=== PATIENT | male | born 1940 | race Caucasian/White ===

== ENCOUNTER 2016-10-01 08:44 | Emergency (ER) | payer MEDICARE ==
[2016-10-01] MEDS ORDERED: NS 0.9% 1000 ML* 1,000 ML IV ONE (09:35)
[2016-10-01] MEDS ORDERED: Meclizine TAB* 12.5 MG PO ONE (09:35)
[2016-10-01 09:53] LABS: Comments Flag Yes; Hematocrit 42 % (42-52); Hemoglobin 13.9 g/dl (14.0-18.0); Mean Corpuscular HGB Conc 33 g/dl (31-36); Mean Corpuscular Hemoglobin 30 pg (27-31); Mean Corpuscular Volume 89 fL (80-94); Mean Platelet Volume 11 um3 (7.4-10.4); Red Blood Count 4.69 10^6/ul (4.0-5.4); Red Cell Distribution Width 14 % (10.5-15); White Blood Count 7.2 10^3/ul (3.5-10.8)
[2016-10-01 09:54] LABS: Add Diff/Slide Review? Slide Review Added
--- NOTE | 2016-10-01 10:02 | RAD ---
INDICATION: Dizziness COMPARISON: August 29, 2012 TECHNIQUE: An AP portable view obtained at 0943 hours is submitted. FINDINGS: Bones/Soft Tissues: There are no acute bony findings. There is sternotomy Cardiomediastinal: The cardiomediastinal silhouette is normal. Lungs: There are no infiltrates. Pleura: There are no pleural effusions. Other: None IMPRESSION: NO ACTIVE DISEASE.
[2016-10-01 10:12] LABS: Troponin I 0.01 ng/mL (<0.04)
[2016-10-01 10:13] LABS: Calcium 9.5 mg/dL (8.6-10.3); EGFR African American 130.9 (>60); EGFR Non-African American 101.8 (>60); Globulin 2.9 g/dL (2-4); Magnesium 1.8 mg/dL (1.9-2.7); Potassium 3.8 mmol/L (3.5-5.0); Total Bilirubin 0.5 mg/dL (0.2-1.0); Total Protein 6.9 g/dL (6.4-8.9)
[2016-10-01 10:37] LABS: TSH (Thyroid Stimulating Horm) 3.51 mcIU/mL (0.34-5.60)
[2016-10-01] MEDS ORDERED: Magnesium Oxide TAB* 400 MG PO ONE (11:38)
[2016-10-01 12:20] VITALS: BP 154/93
--- NOTE | 2016-10-01 18:14 | ED ---
Estela Giang Rebecca, scribed for Noah Delarosa MD on 10/01/16 at 1005 . Complex/Multi-Sys Presentation - HPI Summary HPI Summary: Pt is a 75 y/o M BIBA who presents to ED with no present complaints. Reports that he "overdid it walking" this morning and that he presents to ED "because the ambulance took me." Reports that he felt mild chest pressure, fatigue and weakness in the bilateral LEs after walking this morning. Reports that he sat underneath a tree and rested which alleviated sx. Sx aggravated by nothing, alleviated by rest. Denies SOB, dizziness, COLLINS, N/V. Reports that all sx have resolved and that he has no present complaints. - History Of Current Complaint Chief Complaint: EDDizziness Time Seen by Provider: 10/01/16 09:35 Hx Obtained From: Patient Onset/Duration: Resolved Severity Currently: None Severity Initially: Mild Location: Pain At: - Chest Character: Pressure Aggravating Factor(s): Nothing Alleviating Factor(s): Rest Associated Signs And Symptoms: Positive: Weakness - Bilateral LE weakness - resolved, Chest Pain - pressure - resolved. Negative: Dizziness - Allergies/Home Medications Allergies/Adverse Reactions: Allergies Allergy/AdvReac Type Severity Reaction Status Date / Time Cyclobenzaprine Allergy Intermediate Hallucinati Verified 08/29/12 10:41 [From Flexeril] ons Metoprolol Allergy Unknown Unknown Verified 08/29/12 10:44 Reaction Details Ramipril Allergy Unknown Unknown Verified 08/29/12 10:41 Reaction Details PMH/Surg Hx/FS Hx/Imm Hx Cardiovascular History: Reports: Hx Coronary Artery Disease, Hx Hypercholesterolemia, Hx Hypertension Neurological History: Reports: Hx Transient Ischemic Attacks (TIA) - Surgical History Surgery Procedure, Year, and Place: CABG x4 Infectious Disease History: No Infectious Disease History: Denies: Traveled Outside the [place] in Last 30 Days - Family History Known Family History: Positive: Cardiac Disease - with [place] - Social History Alcohol Use: None Substance Use Type: Reports: None Smoking Status (MU): Former Smoker Review of Systems Positive: Fatigue - resolved Positive: Chest Pain - mild pressure - resolved Negative: Shortness Of Breath Negative: Vomiting, Nausea Neurological: Other - Denies dizziness Positive: Weakness - Bilateral LE weakness - resolved. Negative: Headache All Other Systems Reviewed And Are Negative: Yes Physical Exam - Summary Physical Exam Summary: VITAL SIGNS: Reviewed. GENERAL: ~Patient is a well-developed and nourished male who is lying comfortable in the stretcher. ~Patient is not in any acute respiratory distress. HEAD AND FACE: No signs of trauma. ~No ecchymosis, hematomas or skull depressions. No sinus tenderness. EYES: PERRLA, EOMI x 2, No injected conjunctiva, no nystagmus. EARS: Hearing grossly intact. Ear canals and tympanic membranes are within normal limits. MOUTH: Oropharynx within normal limits. NECK: Supple, trachea is midline, no adenopathy, no JVD, no carotid bruit, no c- spine tenderness, neck with full ROM. CHEST: Symmetric, no tenderness at palpation LUNGS: Clear to auscultation bilaterally. No wheezing or crackles. CVS: Regular rate and rhythm, S1 and S2 present, no murmurs or gallops appreciated. ABDOMEN: Soft, non-tender. No signs of distention. No rebound no guarding, and no masses palpated. Bowel sounds are normal. EXTREMITIES: FROM in all major joints, no edema, no cyanosis or clubbing. NEURO: Alert and oriented x 3. No acute neurological deficits. Speech is normal and follows commands. SKIN: Dry and warm Triage Information Reviewed: Yes Vital Signs On Initial Exam: Initial Vitals Temp Pulse Resp BP Pulse Ox 98.5 F 85 14 154/83 94 10/01/16 09:01 10/01/16 09:01 10/01/16 09:01 10/01/16 09:01 10/01/16 09:01 Vital Signs Reviewed: Yes - Renetta Coma Scale Coma Scale Total: 15 Diagnostics - Vital Signs Vital Signs Temp Pulse Resp BP Pulse Ox 10/01/16 09:09 98.5 F 85 14 154/83 94 10/01/16 09:01 98.5 F 85 14 154/83 94 - Laboratory Lab Results: Lab Results 10/01/16 10/01/16 10/01/16 Range/Units 09:40 09:40 09:40 WBC 7.2 (3.5-10.8) 10^3/ul RBC 4.69 (4.0-5.4) 10^6/ul Hgb 13.9 L (14.0-18.0) g/dl Hct 42 (42-52) % MCV 89 (80-94) fL MCH 30 (27-31) pg MCHC 33 (31-36) g/dl RDW 14 (10.5-15) % Plt Count 139 L (150-450) 10^3/ul MPV 11 H (7.4-10.4) um3 Neut % (Auto) 58.4 (38-83) % Lymph % (Auto) 29.4 (25-47) % [place] % (Auto) 8.4 (1-9) % Eos % (Auto) 3.0 (0-6) % Baso % (Auto) 0.8 (0-2) % Absolute Neuts (auto) 4.2 (1.5-7.7) 10^3/ul Absolute Lymphs (auto) 2.1 (1.0-4.8) 10^3/ul Absolute Monos (auto) 0.6 (0-0.8) 10^3/ul Absolute Eos (auto) 0.2 (0-0.6) 10^3/ul Absolute Basos (auto) 0.1 (0-0.2) 10^3/ul Absolute Nucleated RBC 0.01 10^3/ul Nucleated RBC % 0.1 Sodium 140 (133-145) mmol/L Potassium 3.8 (3.5-5.0) mmol/L Chloride 107 (101-111) mmol/L Carbon Dioxide 26 (22-32) mmol/L Anion Gap 7 (2-11) mmol/L BUN 15 (6-24) mg/dL Creatinine 0.75 (0.67-1.17) mg/dL Est GFR ( Amer) 130.9 (>60) Est GFR (Non-Af Amer) 101.8 (>60) BUN/Creatinine Ratio 20.0 (8-20) Glucose 242 H (70-100) mg/dL Lactic Acid 1.4 (0.5-2.0) mmol/L Calcium 9.5 (8.6-10.3) mg/dL Magnesium 1.8 L (1.9-2.7) mg/dL Total Bilirubin 0.50 (0.2-1.0) mg/dL AST 27 (13-39) U/L ALT 32 (7-52) U/L Alkaline Phosphatase 59 (34-104) U/L Troponin I 0.01 (<0.04) ng/mL Total Protein 6.9 (6.4-8.9) g/dL Albumin 4.0 (3.2-5.2) g/dL Globulin 2.9 (2-4) g/dL Albumin/Globulin Ratio 1.4 (1-3) TSH 3.51 (0.34-5.60) mcIU/mL Result Diagrams: 10/01/16 09:40 10/01/16 09:40 Lab Statement: Any lab studies that have been ordered have been reviewed, and results considered in the medical decision making process. - Radiology CXR Xray Interpretation: No Acute Changes - NO ACTIVE DISEASE Radiology Interpretation Completed By: Radiologist - EKG 0910 Cardiac Rate: NL - 86 bpm EKG Rhythm: Sinus Rhythm EKG Interpretation: No ST elevations, Q waves in 2, 3 and aVF Re-Evaluation - Re-Evaluation First Eval Re-Evaluation Time: 11:54 Change: Improved Comment: Discussed CXR, EKG and lab results with the pt. Complex Multi-Symp Course/Dx Assessment/Plan: Pt is a 75 y/o M BIBA who presents to ED with no present complaints. Reports that he "overdid it walking" this morning and that he presents to ED "because the ambulance took me." Reports that he felt mild chest pressure, fatigue and weakness in the bilateral LEs after walking this morning. Reports that he sat underneath a tree and rested which alleviated sx. Sx aggravated by nothing, alleviated by rest. Denies SOB, dizziness, COLLINS, N/V. Reports that all sx have resolved and that he has no present complaints. Blood work without any significant abnormality except glucose of 242 and magnesium of 1.8. He was given Antivert and Magnesium oxide PO and 1L fluids IV. CXR shows no acute pathology. In the ER course, the pt continues to be asymptotic and has no complaints. He reports that he just walked too long of a distance and he became tired. He does not have any COLLINS, any UE or LE weakness, CP, SOB. He has no abd pain or palpitations. Seeing as the pt is feeling much better after hydration he will be D/C to home follow up with PCP. He is A&Ox3 and hemodynamically stable. I discussed all the findings and test results with the patient. Patient was instructed to return to the emergency room immediately if any of the symptoms return or worsens. Patient understands and agrees. Plan of care was discussed with the patient and patient understands and agrees with the plan of care. All questions were answered at patient satisfaction. There were no further complaints or concerns. Patient is alert and oriented x 3. Patient vital signs are stable. Patient is to follow up with primary care physician in the next 2 to 3 days. Patient understands and agrees. - Diagnoses Differential Diagnoses/HQI/PQRI: Cardiac Ischemia, Urinary Tract Infection, Other - Weakness, heat stroke Provider Diagnoses: Weakness Discharge - Discharge Plan Condition: Stable Disposition: HOME Patient Education Materials: Weakness (ED) Referrals: Niall Rangel MD [Primary Care Provider] - 3 Days The documentation as recorded by the Estela carvajal Rebecca accurately reflects the service I personally performed and the decisions made by , Noah Delarosa MD.
== END 2016-10-01 12:20 | disposition home or self-care (01) ==
LOC: ED 08:44
DX: R53.1 Weakness (principal); R53.83 Other fatigue; R07.9 Chest pain, unspecified; Z87.891 Personal history of nicotine dependence
CPT/HCPCS: 36415; 71010; 80053; 83605; 83735; 84443; 84484; 85025; 93005; 99284; A9270-GY

== ENCOUNTER 2017-06-18 00:05 | Emergency (ER) | payer MEDICARE ==
[2017-06-18] MEDS ORDERED: NS 0.9% 1000 ML* 1,000 ML IV ONE (00:21)
[2017-06-18 01:18] LABS: ABS Basophils 0.1 10^3/ul (0-0.2); ABS Eosinophils 0.1 10^3/ul (0-0.6); ABS Lymphocytes 1.2 10^3/ul (1.0-4.8); ABS Monocytes 0.7 10^3/ul (0-0.8); ABS Neutrophils 7.5 10^3/ul (1.5-7.7); ABS Nucleated RBC 0 10^3/ul; Eosinophil % 0.8 % (0-6); Hematocrit 42 % (42-52); Hemoglobin 14.2 g/dl (14.0-18.0); Lymphocyte % 12.8 % (25-47); Mean Corpuscular HGB Conc 34 g/dl (31-36); Mean Corpuscular Hemoglobin 29 pg (27-31); Mean Corpuscular Volume 87 fL (80-94); Mean Platelet Volume 10.9 um3 (7.4-10.4); Nucleated Red Blood Cells % 0.1; Platelet Count 143 10^3/ul (150-450); Red Blood Count 4.84 10^6/ul (4.0-5.4); Red Cell Distribution Width 14 % (10.5-15); White Blood Count 9.6 10^3/ul (3.5-10.8)
[2017-06-18 01:30] LABS: EGFR Non-African American 90.3 (>60)
[2017-06-18 03:42] LABS: Urine Appearance Clear; Urine Blood Negative (Negative); Urine Color Yellow; Urine Ketones 1+ (Negative); Urine Protein Negative (Negative); Urine Specific Gravity 1.031 (1.010-1.030); Urine Urobilinogen Negative (Negative)
--- NOTE | 2017-06-18 04:40 | ED ---
Estela Giang Rebecca, scribed for Don Salgado MD on 06/18/17 at 0038 . Complex/Multi-Sys Presentation - HPI Summary HPI Summary: Pt is a 76 y/o M BIBA who presents to ED s/p fall. Pt reports he fell at home and was unable to get himself up, on the floor for about 4 hours. His was asleep and unable to help him up. Confirms he is not falling often and has not walked since the incident. Denies dizziness, lightheadedness, weakness, CP and knee pain. EMS report he is not compliant with medications and has an elevated BG (379 en route) was unable to stand up. Lives at home with his . - History Of Current Complaint Chief Complaint: EDGeneral Time Seen by Provider: 06/18/17 00:11 Hx Obtained From: Patient Onset/Duration: Resolved - 1 fall [employer]LOOR [employer] Severity Currently: None Location: Negative Aggravating Factor(s): Nothing Alleviating Factor(s): Nothing Associated Signs And Symptoms: Positive: Other - s/p fall. Negative: Dizziness , Weakness - Allergies/Home Medications Allergies/Adverse Reactions: Allergies Allergy/AdvReac Type Severity Reaction Status Date / Time cyclobenzaprine Allergy Hallucinati Verified 06/18/17 01:09 [From Flexeril] ons metoprolol Allergy Unknown Verified 06/18/17 01:09 Reaction Details ramipril Allergy Unknown Verified 06/18/17 01:10 Reaction Details PMH/Surg Hx/FS Hx/Imm Hx Cardiovascular History: Reports: Hx Coronary Artery Disease, Hx Hypercholesterolemia, Hx Hypertension Comment Only: Hx Pacemaker/ICD - IMPLANTED MONITOR Neurological History: Reports: Hx Transient Ischemic Attacks (TIA) - Surgical History Surgery Procedure, Year, and Place: CABG x4 Infectious Disease History: No Infectious Disease History: Denies: Traveled Outside the [place] in Last 30 Days - Family History Known Family History: Positive: Cardiac Disease - with [place] - Social History Alcohol Use: None Substance Use Type: Reports: None Smoking Status (MU): Former Smoker Review of Systems Positive: Other - S/p fall Negative: Chest Pain Positive: Other - NEGATIVE: Knee pain Neurological: Other - NEGATIVE: lightheadedness, dizziness Negative: Weakness All Other Systems Reviewed And Are Negative: Yes Physical Exam - Summary Physical Exam Summary: Appearance: Well appearing, no pain distress Skin: warm, dry, reflects adequate perfusion, sternotomy scar, no abrasions on knees Head/face: linear abrasion on the nose Eyes: EOMI, RUBI ENT: normal Neck: supple, non-tender Respiratory: CTA, breath sounds present Cardiovascular: RRR, pulses symmetrical Abdomen: non-tender, soft Bowel Sounds: present Musculoskeletal: normal, strength/ROM intact Neuro: normal, sensory motor intact, A&Ox3 Triage Information Reviewed: Yes Vital Signs On Initial Exam: Initial Vitals Temp Pulse Resp BP Pulse Ox 99.0 F 88 16 156/80 95 06/18/17 00:20 06/18/17 00:20 06/18/17 00:20 06/18/17 00:20 06/18/17 00:20 Vital Signs Reviewed: Yes Diagnostics - Vital Signs Vital Signs Temp Pulse Resp BP Pulse Ox 06/18/17 00:30 92 94 06/18/17 00:20 99.0 F 88 16 156/80 95 - Laboratory Lab Results: Lab Results 06/18/17 06/18/17 06/18/17 Range/Units 00:50 00:50 00:50 WBC 9.6 (3.5-10.8) 10^3/ul RBC 4.84 (4.0-5.4) 10^6/ul Hgb 14.2 (14.0-18.0) g/dl Hct 42 (42-52) % MCV 87 (80-94) fL MCH 29 (27-31) pg MCHC 34 (31-36) g/dl RDW 14 (10.5-15) % Plt Count 143 L (150-450) 10^3/ul MPV 10.9 H (7.4-10.4) um3 Neut % (Auto) 78.6 (38-83) % Lymph % (Auto) 12.8 L (25-47) % [place] % (Auto) 7.3 H (0-7) % Eos % (Auto) 0.8 (0-6) % Baso % (Auto) 0.5 (0-2) % Absolute Neuts (auto) 7.5 (1.5-7.7) 10^3/ul Absolute Lymphs (auto) 1.2 (1.0-4.8) 10^3/ul Absolute Monos (auto) 0.7 (0-0.8) 10^3/ul Absolute Eos (auto) 0.1 (0-0.6) 10^3/ul Absolute Basos (auto) 0.1 (0-0.2) 10^3/ul Absolute Nucleated RBC 0 10^3/ul Nucleated RBC % 0.1 Sodium 137 L (139-145) mmol/L Potassium 3.7 (3.5-5.0) mmol/L Chloride 103 (101-111) mmol/L Carbon Dioxide 25 (22-32) mmol/L Anion Gap 9 (2-11) mmol/L BUN 11 (6-24) mg/dL Creatinine 0.83 (0.67-1.17) mg/dL Est GFR ( Amer) 116.2 (>60) Est GFR (Non-Af Amer) 90.3 (>60) BUN/Creatinine Ratio 13.3 (8-20) Glucose 313 H (70-100) mg/dL Lactic Acid 1.5 (0.5-2.0) mmol/L Calcium 9.4 (8.6-10.3) mg/dL Total Bilirubin 0.80 (0.2-1.0) mg/dL AST 21 (13-39) U/L ALT 28 (7-52) U/L Alkaline Phosphatase 65 (34-104) U/L Total Creatine Kinase 142 (10-223) U/L Troponin I 0.00 (<0.04) ng/mL Total Protein 7.3 (6.4-8.9) g/dL Albumin 4.3 (3.2-5.2) g/dL Globulin 3.0 (2-4) g/dL Albumin/Globulin Ratio 1.4 (1-3) TSH 2.29 (0.34-5.60) mcIU/mL Urine Color Urine Appearance Urine pH (5-9) Ur Specific [place] (1.010-1.030) Urine Protein (Negative) Urine Ketones (Negative) Urine Blood (Negative) Urine Nitrate (Negative) Urine Bilirubin (Negative) Urine Urobilinogen (Negative) Ur Leukocyte Esterase (Negative) Urine Glucose (Negative) 06/18/17 Range/Units 03:20 WBC (3.5-10.8) 10^3/ul RBC (4.0-5.4) 10^6/ul Hgb (14.0-18.0) g/dl Hct (42-52) % MCV (80-94) fL MCH (27-31) pg MCHC (31-36) g/dl RDW (10.5-15) % Plt Count (150-450) 10^3/ul MPV (7.4-10.4) um3 Neut % (Auto) (38-83) % Lymph % (Auto) (25-47) % [place] % (Auto) (0-7) % Eos % (Auto) (0-6) % Baso % (Auto) (0-2) % Absolute Neuts (auto) (1.5-7.7) 10^3/ul Absolute Lymphs (auto) (1.0-4.8) 10^3/ul Absolute Monos (auto) (0-0.8) 10^3/ul Absolute Eos (auto) (0-0.6) 10^3/ul Absolute Basos (auto) (0-0.2) 10^3/ul Absolute Nucleated RBC 10^3/ul Nucleated RBC % Sodium (139-145) mmol/L Potassium (3.5-5.0) mmol/L Chloride (101-111) mmol/L Carbon Dioxide (22-32) mmol/L Anion Gap (2-11) mmol/L BUN (6-24) mg/dL Creatinine (0.67-1.17) mg/dL Est GFR ( Amer) (>60) Est GFR (Non-Af Amer) (>60) BUN/Creatinine Ratio (8-20) Glucose (70-100) mg/dL Lactic Acid (0.5-2.0) mmol/L Calcium (8.6-10.3) mg/dL Total Bilirubin (0.2-1.0) mg/dL AST (13-39) U/L ALT (7-52) U/L Alkaline Phosphatase (34-104) U/L Total Creatine Kinase (10-223) U/L Troponin I (<0.04) ng/mL Total Protein (6.4-8.9) g/dL Albumin (3.2-5.2) g/dL Globulin (2-4) g/dL Albumin/Globulin Ratio (1-3) TSH (0.34-5.60) mcIU/mL Urine Color Yellow Urine Appearance Clear Urine pH 5.0 (5-9) Ur Specific [place] 1.031 H (1.010-1.030) Urine Protein Negative (Negative) Urine Ketones 1+ A (Negative) Urine Blood Negative (Negative) Urine Nitrate Negative (Negative) Urine Bilirubin Negative (Negative) Urine Urobilinogen Negative (Negative) Ur Leukocyte Esterase Negative (Negative) Urine Glucose 3+(>=500 mg/dl) A (Negative) Result Diagrams: 06/18/17 00:50 06/18/17 00:50 Lab Statement: Any lab studies that have been ordered have been reviewed, and results considered in the medical decision making process. - Radiology CXR Radiology Interpretation Completed By: ED Physician - Prominent vasculature in the right base, more prominent than previous Knee XR Xray Interpretation: No Acute Changes - Mild degenerative change. Radiology Interpretation Completed By: ED Physician - EKG 0044 Cardiac Rate: NL - 86 bpm EKG Rhythm: Sinus Rhythm ST Segment: Normal EKG Interpretation: LAD, Q waves inferior Re-Evaluation - Re-Evaluation First Eval Re-Evaluation Time: 03:27 Change: Improved Complex Multi-Symp Course/Dx Course Of Treatment: pt had fall and was unable to get up. Chronically non- compliant with his diabetic regimen. Glu in urine etc and sugar in 300s. IV fluids here. Knee xray neg. JAMES wrapped. Up and walking. d/c with f/u PMD. - Diagnoses Differential Diagnoses/HQI/PQRI: Metabolic Abnormality, Urinary Tract Infection , Other - DKA/HHS Provider Diagnoses: Noncompliance with medication regimen, Contusion of right knee, Fall, Generalized weakness Discharge - Sign-Out/Discharge Documenting (check all that apply): Discharge/Admit/Transfer - Discharge - Discharge Plan Condition: Stable Disposition: HOME Patient Education Materials: Fall Prevention (ED) Referrals: Niall Rangel MD [Primary Care Provider] - Additional Instructions: Call today to see your doctor. Take all medications as prescribed. If you are not happy with your medications, talk to your doctor about other options. Return if worse, new symptoms or other concerns as discussed. - Billing Disposition and Condition Condition: STABLE Disposition: HOME The documentation as recorded by the Estela carvajal Rebecca accurately reflects the service I personally performed and the decisions made by , Don Salgado MD.
[2017-06-18 04:55] VITALS: BP 150/84
--- NOTE | 2017-06-18 08:05 | RAD ---
Indication: Generalized weakness. Diarrhea for months. Diabetic. Cardiac disease. 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 Negative for cardiomegaly. Unremarkable central pulmonary vasculature. Both diffuse mild prominence of the interstitial markings and patchy rarefaction of the mid to upper lung zone interstitial markings. No focal pulmonary lesion, compelling alveolar consolidation, pleural effusion, pneumothorax. IMPRESSION: 1. Stigmata of probable chronic obstructive pulmonary disease. No acute pulmonary process evident. 2. No compelling evidence for pulmonary edema.
--- NOTE | 2017-06-18 08:09 | RAD ---
HISTORY: Right knee pain COMPARISONS: None VIEWS: 2, Frontal and lateral views of the right knee FINDINGS: BONE DENSITY: Normal. BONES: There is no displaced fracture. JOINTS: There is mild tricompartmental osteoarthritis. There is no suprapatellar joint effusion or lipohemarthrosis. ALIGNMENT: There is no dislocation. SOFT TISSUES: There is peripheral arterial calcification. OTHER FINDINGS: None. IMPRESSION: 1. MILD OSTEOARTHRITIS. 2. PERIPHERAL ARTERIAL DISEASE. 3. NO ACUTE OSSEOUS INJURY. IF SYMPTOMS PERSIST, RECOMMEND REPEAT IMAGING.
== END 2017-06-18 05:20 | disposition home or self-care (01) ==
LOC: ED 00:05
DX: S80.01XA Contusion of right knee, initial encounter (principal); W19.XXXA Unspecified fall, initial encounter; Y92.9 Unspecified place or not applicable; R53.1 Weakness; Z91.81 History of falling; Z91.14 Patient's other noncompliance with medication regimen
CPT/HCPCS: 36415; 71045; 80053; 81003; 82550; 83605; 84443; 84484; 85025; 93005; 99284

== ENCOUNTER 2018-04-15 13:32 | Observation (INO) | payer MEDICARE ==
[2018-04-15] MEDS ORDERED: NS 0.9% 1000 ML** 1,000 ML IV ONE (14:05)
--- NOTE | 2018-04-15 14:09 | ED ---
HPI Diabetic - HPI Summary HPI Summary: Pt is a 77 y/o male who presents to the ED c/o high blood glucose. He was brought to his PCP out of concern from his daughter. Pts BG was around 300 and he has ketones in his urine. As per past medical records pts BG is usually around 300. As per daughter, pt seems dehydrated, confused, and off-balance. Yesterday he fell and was found naked and covered in feces. Daughter also states he is having difficulty walking on his own, and has both urinary and occasional bowel incontinence. Pt normally wears a Depends. He denies any CP or SOB. Pt is prescribed medications for his diagnoses, including Eloquis and Metformin, however he is not compliant. He currently lives alone since his recently and daughter feels he is not fit to live alone due to his poor memory of difficulty walking. PMHx AFib, DM, HLD, HTN, GERD. - History Of Current Complaint Chief Complaint: EDDiabeticProb Time Seen by Provider: 04/15/18 13:51 Hx Obtained From: Patient Onset/Duration: Gradual Onset, Still Present Timing: Constant Character: Confused Aggravating: Non-compliant Alleviating: Nothing Associated Signs & Symptoms: Negative Related History: DM II - Allergies/Home Medications Allergies/Adverse Reactions: Allergies Allergy/AdvReac Type Severity Reaction Status Date / Time cyclobenzaprine Allergy Hallucinati Verified 04/15/18 13:43 [From Flexeril] ons metoprolol Allergy Unknown Verified 04/15/18 13:43 Reaction Details ramipril Allergy Unknown Verified 04/15/18 13:43 Reaction Details Home Medications: Home Medications Apixaban* [Eliquis*] 5 mg PO BID 04/15/18 [History Confirmed 04/15/18] Diltiazem CD CAP* [Cardizem CD CAP*] 120 mg PO DAILY 04/15/18 [History Confirmed 04/15/18] Losartan TAB* [Cozaar TAB*] 50 mg PO DAILY 04/15/18 [History Confirmed 04/15/18] Pantoprazole TAB * [Protonix TAB*] 40 mg PO DAILY 04/15/18 [History Confirmed ] Rosuvastatin (NF) [Crestor] 40 mg PO DAILY 04/15/18 [History Confirmed 04/15/18] glipiZIDE TAB.XL* [Glucotrol XL*] 10 mg PO BID 04/15/18 [History Confirmed 04/15] metFORMIN* [Glucophage 1000 MG TAB *] 1,000 mg PO BID 04/15/18 [History Confirmed 04/15/18] PMH/Surg Hx/FS Hx/Imm Hx Endocrine/Hematology History: Reports: Hx Diabetes Cardiovascular History: Reports: Hx Atrial Fibrillation, Hx Coronary Artery Disease, Hx Hypercholesterolemia, Hx Hypertension Comment Only: Hx Pacemaker/ICD - IMPLANTED MONITOR GI History: Reports: Hx Gastroesophageal Reflux Disease Neurological History: Reports: Hx Transient Ischemic Attacks (TIA) - Surgical History Surgery Procedure, Year, and Place: CABG x4 Infectious Disease History: No Infectious Disease History: Denies: Traveled Outside the [place] in Last 30 Days - Family History Known Family History: Positive: Cardiac Disease - with MT - Social History Alcohol Use: None Hx Substance Use: No Substance Use Type: Reports: None Hx Tobacco Use: Yes Smoking Status (MU): Former Smoker Review of Systems Positive: Other - dehydrated Negative: Chest Pain Negative: Shortness Of Breath Positive: Other - bowel incontinence Positive: incontinence Neurological: Other - confusion, off-balance All Other Systems Reviewed And Are Negative: Yes Physical Exam - Summary Physical Exam Summary: Appearance: Well appearing, no pain distress Skin: warm, dry, reflects adequate perfusion Head/face: normal Eyes: EOMI, RUBI ENT: mucous membranes moist Neck: supple, non-tender Respiratory: CTA, breath sounds present Cardiovascular: RRR, pulses symmetrical Abdomen: non-tender, soft, incontinence of urine Bowel Sounds: present Musculoskeletal: normal, strength/ROM intact Neuro: sensory motor intact, alert and oriented to person and place, mild confusion, shuffling gait GCS: 14 Triage Information Reviewed: Yes Vital Signs On Initial Exam: Initial Vitals Temp Pulse Resp BP Pulse Ox 98.1 F 79 16 134/81 98 04/15/18 13:38 04/15/18 13:38 04/15/18 13:38 04/15/18 13:38 04/15/18 13:38 Vital Signs Reviewed: Yes Diagnostics - Vital Signs Vital Signs Temp Pulse Resp BP Pulse Ox 04/15/18 13:38 98.1 F 79 16 134/81 98 - Laboratory Result Diagrams: 04/15/18 14:12 04/15/18 14:12 Lab Statement: Any lab studies that have been ordered have been reviewed, and results considered in the medical decision making process. - CT Brain CT CT Interpretation Completed By: Radiologist Summary of CT Findings: No CT evidence for presence of an acute abnormality of the brain. 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 Mucosal thickening at the paranasal sinuses and potential fluid levels at the maxillary sinuses with incomplete inclusion of the maxillary sinuses in the [id number] limiting assessment. ED physician reviewed radiology report. - EKG 14:13 Cardiac Rate: NL - 74 bpm EKG Rhythm: Sinus Rhythm ST Segment: Normal Summary of EKG Findings: LAD, inferior Q waves Diabetic Course/Dx - Course Course Of Treatment: Nurse's notes reviewed. Patient with chronically uncontrolled hyperglycemia known to be poorly compliant with his medications due to dementia. Patient has recently lost his who is in charge of these things. Daughter is due to go back to [place] on leaving the patient by himself and unable to fully care from self. He is incontinent, a fall risk and unable to self administer medications. He has Meals on Wheels set up but that is the only social support existing so far. He does have a shuffling gait, mild hyperglycemia and is incontinent in the ER. He shows large ventricles on the CT scan which along with the dementia may be from a normal pressure hydrocephalus. He will be admitted for further evaluation and treatment. Social work has been involved in the case. They're concerned that he may not meet admission criteria however there is no other option for the family who would like him admitted. - Diagnoses Differential Dx: Other - Normal pressure hydrocephalus, UTI, DKA, hyperosmolar state Provider Diagnoses: Hyperglycemia due to type 2 diabetes mellitus, Ataxia, Acute sinusitis - Physician Notifications Discussed Care Of Patient With: Doug Lawson Time Discussed With Above Provider: 14:45 Instructed by Provider To: Admit As Inpatient Discharge - Sign-Out/Discharge Documenting (check all that apply): Patient Departure - Admit Patient Received Moderate/Deep Sedation with Procedure: No - Discharge Plan Condition: Fair Disposition: ADMITTED TO [facility] Referrals: Niall Rangel MD [Medical Doctor] - - Billing Disposition and Condition Condition: FAIR Disposition: Admitted to [facility] - Attestation Statements Document Initiated by Scribe: Yes Documenting Scribe: Emily Plata Provider For Whom Scribe is Documenting (Include Credential): Don Salgado MD Scribe Attestation: IEmily, scribed for Don Salgado MD on 04/15/18 at 1731. Scribe Documentation Reviewed: Yes Provider Attestation: The documentation as recorded by the scribeEmily accurately reflects the service I personally performed and the decisions made by me, Don Salgado MD Status of Scribe Document: Viewed
[2018-04-15 14:19] LABS: Hematocrit 42 % (42-52); Hemoglobin 14.4 g/dl (14.0-18.0); Mean Corpuscular HGB Conc 34 g/dl (31-36); Mean Corpuscular Hemoglobin 30 pg (27-31); Mean Corpuscular Volume 88 fL (80-94); Mean Platelet Volume 10.6 fL (7.4-10.4); Platelet Count 175 10^3/ul (150-450); Red Blood Count 4.79 10^6/ul (4.00-5.40); Red Cell Distribution Width 14 % (10.5-15); White Blood Count 7.1 10^3/ul (3.5-10.8)
[2018-04-15 14:41] LABS: Albumin 4.4 g/dL (3.2-5.2); Albumin/Globulin Ratio 1.4 (1-3); Calcium 9.5 mg/dL (8.6-10.3); EGFR African American 122.5 (>60); EGFR Non-African American 101.3 (>60); Globulin 3.1 g/dL (2-4); Potassium 3.9 mmol/L (3.5-5.0); Total Bilirubin 0.7 mg/dL (0.2-1.0); Total Protein 7.5 g/dL (6.4-8.9)
[2018-04-15 14:48] LABS: ABS Basophils 0.1 10^3/ul (0-0.2); ABS Eosinophils 0.2 10^3/ul (0-0.6); ABS Lymphocytes 2.1 10^3/ul (1.0-4.8); ABS Monocytes 0.7 10^3/ul (0-0.8); ABS Neutrophils 4.1 10^3/ul (1.5-7.7); ABS Nucleated RBC 0 10^3/ul; Eosinophil % 2.6 %; Lymphocyte % 29.7 %; Nucleated Red Blood Cells % 0.1
[2018-04-15] MEDS ORDERED: Amoxicillin/Clavulanate TAB* 875 MG PO ONE (15:12)
[2018-04-15 15:16] LABS: TSH (Thyroid Stimulating Horm) 2.68 mcIU/mL (0.34-5.60)
[2018-04-15] MEDS ORDERED: Acetaminophen TAB* 325 MG PO PRN (17:53)
[2018-04-15] MEDS ORDERED: Dextrose 50% Syringe 50 ML* 25 GM/50 ML SYRINGE IV PUSH PRN (17:53)
[2018-04-15] MEDS ORDERED: NS 0.9% 1000 ML** 1,000 ML IV SCH (18:15)
--- NOTE | 2018-04-15 20:51 | HP ---
ADMISSION HISTORY AND PHYSICAL: DATE OF ADMISSION: 04/15/18 PRIMARY CARE PROVIDER: Taina Hightower MD HEALTHCARE PROXY: Daughter. CODE STATUS: Full. SOURCE OF INFORMATION: History obtained from interview with the patient and his daughter, and review of past medical records. RELIABILITY: [id number]. CHIEF COMPLAINT: Inability to care for herself at home and hyperglycemia. HISTORY OF PRESENT ILLNESS: This is a 77-year-old man with a past medical history of dementia as well as type 2 diabetes, CAD, status post CABG in 2008, atrial fibrillation, whose recently 1 week prior while at [facility] His daughter has been visiting from [place] and been caring for him in the home. Today, they presented to Dr. Hightower's office for routine checkup or as blood sugar was found to be elevated. They were ketones in his urine for which he was directed to [facility] [place] further evaluation. In [facility], his presenting glucose was 275, hemoglobin A1c of 11.5, with normal vitals as described further below. However, as described below, no evidence of DKA or HHS. However, the daughter notes that she has been unable to care for the patient at home. He is frequently rationale, was previously combative with his , has been found outside prior to arrival, falls at home, has had incontinence, and also falls in his feces. He notes cough and denies urinary symptoms including urgency or frequency, although daughter notes that he urinates quite frequently. She notes that he ambulates with a shuffling gait contributing to his disequilibrium and falls. She notes that he forgets his medications frequently and does not take them. The patient's daughter is only here until for 2 more days and she is concerned with returning home with him in this state. She notes that his diagnosis of dementia was approximately 1 year prior and has been progressive since that time. She has not necessarily noticed any acute alteration of mental status today. PAST MEDICAL HISTORY: Type 2 diabetes, CAD, status post CABG in 2008, hyperlipidemia, hypertension, GERD, atrial fibrillation, on Eliquis, dementia, cataract removal bilaterally. MEDICATIONS: Home medications include: 1. Eliquis 5 mg twice daily. 2. Crestor 40 mg daily. 3. Pantoprazole 40 mg daily. 4. Metformin 1000 mg twice daily. 5. Losartan 50 mg daily. 6. Glipizide XL 10 mg twice daily. 7. Diltiazem CD 120 mg daily. ALLERGIES: To CYCLOBENZAPRINE, METOPROLOL, and RAMIPRIL. FAMILY HISTORY: CAD as well as colon and gallbladder cancer in his family. SOCIAL HISTORY: Quit tobacco in 1988. 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 REVIEW OF SYSTEMS: As per HPI, otherwise all other systems are negative. PHYSICAL EXAMINATION GENERAL: A 77-year-old man, sitting up in bed, interactive, jovial, in no apparent distress. VITAL SIGNS: In the emergency room, 136/70, heart rate 82, he is 95% on room air, T-max 98.1. HEENT: Oropharynx is clear. He has dry mucous membranes. Sclerae are anicteric. LUNGS: Clear to auscultation. HEART: He has regular rate and rhythm. ABDOMEN: Soft, nontender, nondistended. EXTREMITIES: Warm and well-perfused. He has trace to 1+ bilateral pitting edema. NEUROLOGIC: He is alert and oriented x2 to self and place, but not year. He is frequently disoriented, cannot forgot who last week. At times, calls his daughter or his sister his . He is combative with his daughter when relaying information about his health history, but not aggressive. 5/5 strength throughout. DIAGNOSTIC STUDIES/LAB DATA: Labs reviewed notable for presenting glucose 275 , hemoglobin A1c of 11.5, troponin I 0.00, TSH 7.6, hemoglobin 14.4, platelets 175. White blood cell count of 7.1. Urinalysis is pending. Data reviewed: Brain CT. No CT evidence for presence of acute abnormality. Old infarct of the left occipital lobe, involutional changes and stigmata of chronic small vessel ischemic changes. Mucosal thickening of the paranasal sinuses and potentially a fluid level at the maxillary sinus with incomplete occlusion of the maxillary sinuses. EKG, impression: Left axis, normal sinus rhythm, normal R wave progression, no ST or T wave changes. Qs and II, aVF, not new since 2007. ASSESSMENT AND PLAN: This is a 77-year-old man, recently lost his 1 week prior, who was his primary rug cleaning supervisor at home, now presenting with hyperglycemia from his primary care provider's office, found with inadequate social support at home upon his daughter's plan to departure on , 2 days from today. Inadequate social support, primary reason for hospitalization. He was seen in conjunction with our care managers and his daughter issued a preadmission denial of coverage. The patient primarily needs detention for long-term care at this period. It sounds that his dementia is worsening, frequently wanders, found outside, unable to toilet himself, inadequate ability to take his own medications hyperglycemia and uncontrolled diabetes. Multiple benefits from skilled long-term care. It is unclear whether he would accept this, his daughter believes he would not. I doubt he would have capacity to refuse placement at this time based on my interview with the patient. Hyperglycemia. No evidence of DKA or hyperosmolar crisis. Restart home glipizide as well as metformin. Holding on insulin sliding scale at this point. Check fingersticks to better titrate medications. Hypertension. Continue diltiazem. Atrial fibrillation. Continue Eliquis as well as diltiazem. If returns home, we would recommend discontinuing Eliquis in the setting of frequent falls. DVT prophylaxis, on Eliquis. [id number]/[facility] #: [id number] CHRISSY
[2018-04-15] MEDS ORDERED: Insulin LISPRO* 1 UNITS UNIT SUBCUT SCH (21:00)
[2018-04-15] MEDS: metFORMIN* 1,000 MG TAB PO SCH (21:10)
[2018-04-15] MEDS: Apixaban* 5 MG TAB PO SCH (21:10)
[2018-04-15] MEDS: glipiZIDE TAB.XL* 5 MG PO SCH (21:10)
[2018-04-15] MEDS: Docusate CAP* 100 MG PO SCH (21:11)
[2018-04-15] MEDS: Senna TAB PO SCH (21:11)
[2018-04-15] MEDS: Insulin LISPRO* 1 UNITS UNIT SUBCUT SCH (22:13)
[2018-04-16] MEDS: Senna TAB PO SCH ×2 (09:34→20:18)
[2018-04-16] MEDS: Losartan TAB* 25 MG PO SCH (09:34)
[2018-04-16] MEDS: Insulin LISPRO* 1 UNITS UNIT SUBCUT SCH ×4 (09:34→20:21)
[2018-04-16] MEDS: Apixaban* 5 MG TAB PO SCH ×2 (09:34→20:18)
[2018-04-16] MEDS: Pantoprazole TAB * 40 MG TAB PO SCH (09:34)
[2018-04-16] MEDS: Atorvastatin* 80 MG TAB PO SCH (09:34)
[2018-04-16] MEDS: Diltiazem CD CAP* 120 MG PO SCH (09:34)
[2018-04-16] MEDS: Docusate CAP* 100 MG PO SCH ×2 (09:34→20:18)
[2018-04-16] MEDS: metFORMIN* 1,000 MG TAB PO SCH ×2 (09:34→20:19)
[2018-04-16] MEDS: glipiZIDE TAB.XL* 5 MG PO SCH ×2 (09:34→20:18)
--- NOTE | 2018-04-16 14:49 | PN ---
Subjective Date of Service: 04/16/18 Interval History: Seen this AM No complaints Waiting for breakfast Objective Active Medications: Acetaminophen (Tylenol Tab*) 650 mg PO Q4H PRN PRN Reason: FEVER/PAIN Apixaban (Eliquis*) 5 mg PO BID [facility] Last Admin: 04/16/18 09:34 Dose: 5 mg Atorvastatin Calcium (Lipitor*) 80 mg PO DAILY [facility] Last Admin: 04/16/18 09:34 Dose: 80 mg Dextrose (D50w Syringe 50 Ml*) 12.5 gm IV PUSH .FOR FS < 60 - SS PRN PRN Reason: FS < 60 Diltiazem HCl (Cardizem Cd Cap*) 120 mg PO DAILY [facility] Last Admin: 04/16/18 09:34 Dose: 120 mg Docusate Sodium (Colace Cap*) 100 mg PO BID [facility] Last Admin: 04/16/18 09:34 Dose: 100 mg Glipizide (Glucotrol Xl*) 10 mg PO BID [facility] Last Admin: 04/16/18 09:34 Dose: 10 mg Insulin Human Lispro (Humalog*) 0 units SUBCUT ACHS [facility]; Protocol Last Admin: 04/16/18 12:31 Dose: 6 unit Losartan Potassium (Cozaar Tab*) 50 mg PO DAILY [facility] Last Admin: 04/16/18 09:34 Dose: 50 mg Metformin HCl (Glucophage*) 1,000 mg PO BID [facility] Last Admin: 04/16/18 09:34 Dose: 1,000 mg Pantoprazole Sodium (Protonix Tab*) 40 mg PO DAILY [facility] Last Admin: 04/16/18 09:34 Dose: 40 mg Senna (Senokot Tab*) 1 tab PO BID [facility] Last Admin: 04/16/18 09:34 Dose: 1 tab Vital Signs - 8 hr 04/16/18 04/16/18 04/16/18 08:00 08:12 14:05 Temperature 97.5 F 97.5 F Pulse Rate 73 85 Respiratory 16 16 20 Rate Blood Pressure 135/55 130/72 (mmHg) O2 Sat by Pulse 97 100 Oximetry Oxygen Devices in Use Now: None Appearance: NAD Eyes: No Scleral Icterus, PERRLA Ears/Nose/Mouth/Throat: NL Teeth, Lips, Gums, Clear Oropharnyx Neck: NL Appearance and Movements; NL JVP, Trachea Midline Respiratory: Symmetrical Chest Expansion and Respiratory Effort, Clear to Auscultation Cardiovascular: RRR, - - early 2/6 ROBSON Abdominal: NL Sounds; No Tenderness; No Distention, No Hepatosplenomegaly Lymphatic: No Cervical Adenopathy Extremities: No Edema Neurological: - - AOx2 but not to year Result Diagrams: 04/15/18 14:12 04/15/18 14:12 Assess/Plan/Problems-Billing Assessment: 77 yo M h/o dementia, DM2, CAD, afib, HTN presented [place] [facility] [place]cemia from PCP office admitted half-way after family felt home was unsafe and could not provide assistance - Patient Problems (1) Impaired home maintenance management Comment: secondary to dementia and recent loss of (last week) daughter reports pt has been found outside, has increasing falls and occasionally soils clothes Pt does not feel he is unsafe at home. He would be amenable to short term placement and/or increased assistance in the home. SW/Case management assisting I do not think pt will lack capacity to participate in placement discussion but a formal evaluation has not been completed (2) Atrial fibrillation Comment: Janak Andrews Can consider dc of celiajaymegiovanny if goes home without assistance (3) Diabetes Comment: Was non adherent to meds at home - he reproted that he stopped taking meds after his 's last week Restarted metformin and glipize ISS in patient. Adjust oral medications for optimal control (4) DVT prophylaxis Comment: janak (5) Dementia Current Visit: Yes Status: Acute Code(s): F03.90 - UNSPECIFIED DEMENTIA WITHOUT BEHAVIORAL DISTURBANCE SNOMED Code(s): 02573744
[2018-04-16 22:25] LABS: Urine Appearance Clear; Urine Bilirubin Negative (Negative); Urine Blood Negative (Negative); Urine Color Yellow; Urine Glucose Negative (Negative); Urine Ketones Negative (Negative); Urine Nitrite Negative (Negative); Urine Protein Negative (Negative); Urine Specific Gravity 1.009 (1.010-1.030); Urine Urobilinogen Negative (Negative)
[2018-04-17] MEDS: Insulin LISPRO* 1 UNITS UNIT SUBCUT SCH ×2 (08:20→12:51)
[2018-04-17] MEDS: Losartan TAB* 25 MG PO SCH (09:59)
[2018-04-17 10:00] VITALS: BP 138/83
[2018-04-17] MEDS: Apixaban* 5 MG TAB PO SCH (10:00)
[2018-04-17] MEDS: Atorvastatin* 80 MG TAB PO SCH (10:00)
[2018-04-17] MEDS: Senna TAB PO SCH (10:00)
[2018-04-17] MEDS: Docusate CAP* 100 MG PO SCH (10:00)
[2018-04-17] MEDS: glipiZIDE TAB.XL* 5 MG PO SCH (10:00)
[2018-04-17] MEDS: Pantoprazole TAB * 40 MG TAB PO SCH (10:00)
[2018-04-17] MEDS: metFORMIN* 1,000 MG TAB PO SCH (10:00)
[2018-04-17] MEDS: Diltiazem CD CAP* 120 MG PO SCH (10:01)
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
== END 2018-04-17 14:10 ==
LOC: ED 13:32 → MED 17:53
PROVIDERS: ADMIT Internal Medicine; ATTEND Internal Medicine
DX: F03.90 Unspecified dementia, unspecified severity, without behavioral disturbance, psychotic disturbance, mood disturbance, and anxiety (principal); E11.9 Type 2 diabetes mellitus without complications; E11.65 Type 2 diabetes mellitus with hyperglycemia; I25.10 Atherosclerotic heart disease of native coronary artery without angina pectoris; E78.5 Hyperlipidemia, unspecified; I10 Essential (primary) hypertension; I48.91 Unspecified atrial fibrillation; Z79.01 Long term (current) use of anticoagulants; Z95.5 Presence of coronary angioplasty implant and graft; Z87.891 Personal history of nicotine dependence
CPT/HCPCS: 36415; 70450; 80053; 81003; 83036; 84443; 84484; 85025; 93005; 96360; 96372; 99284; A9270-GY; G0378; G8978-GP-CJ; G8979-GP-CI; G8987-GO-CI; G8988-GO-CI; G8989-GO-CI; G8990-GO-CJ; G8991-GO-CJ; G8992-GO-CJ

== ENCOUNTER 2018-11-22 12:02 | Emergency (ER) | payer MEDICARE ==
--- OUTSIDE RECORDS SUMMARY | 2018-11-22 12:31 | XMS REPORT | Continuity of Care Document ---
:1940 External Reference #:[id number] Author Name Christiano Knight, OD Address [address] [place] [address] Care Team Providers Name Role Phone Taina Hightower M.D. Care Team Information Network Control Supervisor [phone] Problems Active Problems Provider Date Aortic valve disorder Onset: 07/27/2016 Arteriosclerosis of autologous vein coronary artery bypass Onset: 11/20/2012 graft Atrial fibrillation Onset: 06/01/2013 Atrial flutter Onset: 11/20/2012 Cardiac pacemaker in situ Onset: 11/20/2012 Chest pain Onset: 01/12/2013 Chronic ischemic heart disease Onset: 11/20/2012 Difficulty breathing Onset: 12/25/2013 Disturbance in sleep behavior Onset: 05/28/2014 Essential hypertension Onset: 11/20/2012 Gastroesophageal reflux disease Onset: 12/24/2017 Heart murmur Onset: 12/25/2013 History of closure of atrial septal defect using septal Onset: 05/27/2015 occluder device Mixed hyperlipidemia Onset: 11/20/2012 Morbid obesity Onset: 11/20/2012 Paroxysmal atrial fibrillation Onset: 07/27/2016 Peptic reflux disease Onset: 11/29/2015 Right bundle branch block Onset: 06/06/2018 Sinus node dysfunction Onset: 12/25/2013 Supraventricular premature beats Onset: 01/12/2013 Transient cerebral ischemia Onset: 11/20/2012 Type 2 diabetes mellitus Onset: 11/20/2012 Social History Type Date Description Comments Sex Unknown ETOH Use Never used alcohol Tobacco Use Start: Unknown End: Unknown Patient is a former smoker Smoking Status Reviewed: 10/14/18 Patient is a former smoker Allergies, Adverse Reactions, Alerts Active Allergies Reaction Severity Comments Date Cyclobenzaprine hallucinations 09/18/2018 Metoprolol diarrhea 09/18/2018 Ramipril cough 09/18/2018 Medications Active Medications SIG Qnty Indications Ordering Date Provider Glipizide ER 1 by mouth twice a 60tabs Katja Taina 06/17/2018 10mg day M.D. Tablets ER 24HR Metformin HCL take one tablet by 90tabs Katja 06/17/2018 1000mg mouth daily M.D. Tablets Eliquis 1 by mouth twice a 60tabs Kaitlyn Nance, 12/28/2016 5mg Tablets day (patient MD currently not taking) Crestor 1 by mouth every 90tabs E78.2 Kaitlyn Nance, 05/27/2015 40mg Tablets day in the morning Losartan Potassium 1 by mouth every 90tabs Kaitlyn Nance, 01/08/2014 50mg day MD Tablets Cardizem CD 1 cap by mouth 90caps Kaitlyn Nance, 08/08/2012 120mg Caps every day ER 24HR Pantoprazole Sodium 1 po qd 30tabs Unknown 40mg Tablets DR Young Description No Information Available Vital Signs Date Vital Result Comment 10/14/2018 2:35pm Intraocular Pressure Right Eye 15 mmHg Intraocular Pressure Left Eye 15 mmHg Results Description No Information Available Procedures Date Code Description Status 10/14/2018 57405 Oct Retina Completed 10/14/2018 74616 Eye Exam New Comprehensive Completed Medical Devices Description No Information Available Encounters Description No Information Available Assessments Date Code Description Provider 10/14/2018 Z96.1 Presence of intraocular lens Christiano Knight, OD 10/14/2018 H43.813 Vitreous degeneration, bilateral Christiano Knight, OD 10/14/2018 H35.371 Puckering of macula, right eye Christiano Knight, OD 10/14/2018 E11.9 Type 2 diabetes mellitus without complications Christiano Knight, OD Plan of Treatment No Information Available Functional Status Description No Information Available Mental Status Description No Information Available Referrals Description No Information Available
[2018-11-22 13:39] LABS: Hematocrit 45 % (42-52); Hemoglobin 15.3 g/dL (14.0-18.0); Mean Corpuscular HGB Conc 34 g/dL (31-36); Mean Corpuscular Hemoglobin 30 pg (27-31); Mean Corpuscular Volume 89 fL (80-94); Mean Platelet Volume 10.5 fL (7.4-10.4); Platelet Count 164 10^3/uL (150-450); Red Blood Count 5.04 10^6 /uL (4.18-5.48); Red Cell Distribution Width 14 % (10-15); White Blood Count 7.4 10^3/uL (3.5-10.8)
[2018-11-22 13:40] LABS: Urine Benzodiazepine Screen None Detected (None Detect); Urine Opiates Screen None Detected (None Detect)
[2018-11-22 13:43] LABS: Urine Appearance Clear; Urine Bilirubin Negative (Negative); Urine Blood Negative (Negative); Urine Color Yellow; Urine Glucose 3+(>=500 mg/dL) (Negative); Urine Ketones Negative (Negative); Urine Nitrite Negative (Negative); Urine Protein Negative (Negative); Urine Specific Gravity 1.015 (1.010-1.030); Urine Urobilinogen Negative (Negative)
--- NOTE | 2018-11-22 13:43 | ED ---
Dizziness - HPI Summary HPI Summary: 78 year old male with a history of dementia presents to [facility] with a chief complaint of falling. Per the patient, he was going to tack picker the mail when he felt light headed, dizzy, and fell. He is unsure if he had a syncopal episode. Patient is not able to provide a good history with regards to this episode, he is alert and disoriented, level 5 caveat. He is not in pain. Patient denies chest pain, shortness of breath, palpitations, COLLINS, visual changes, and syncope. He has PMHx of ND, but not of CVA. He has HTN and DM. FHx of cardiac disease. - History Of Current Complaint Chief Complaint: EDWeakness Stated Complaint: AMS/WEAKNESS PER EMS Time Seen by Provider: 11/22/18 12:27 Hx Obtained From: Patient - patient is alert but disoriented, minimal history obtained Hx From Patient Unobtainable Due To: Other - he is alert and disoriented, level 5 caveat Severity Initially: Mild Severity Currently: Mild Character: Lightheaded, Dizzy Associated Signs And Symptoms: Negative: Chest Pain, SOB, Palpitations, Visual Changes, Other: - syncope, COLLINS - Allergies/Home Medications Allergies/Adverse Reactions: Allergies Allergy/AdvReac Type Severity Reaction Status Date / Time cyclobenzaprine Allergy Hallucinati Verified 11/22/18 12:25 [From Flexeril] ons metoprolol Allergy Unknown Verified 11/22/18 12:25 Reaction Details ramipril Allergy Unknown Verified 11/22/18 12:25 Reaction Details PMH/Surg Hx/FS Hx/Imm Hx Endocrine/Hematology History: Reports: Hx Diabetes Cardiovascular History: Reports: Hx Atrial Fibrillation, Hx Coronary Artery Disease, Hx Hypercholesterolemia, Hx Hypertension Comment Only: Hx Pacemaker/ICD - IMPLANTED MONITOR GI History: Reports: Hx Gastroesophageal Reflux Disease Sensory History: Denies: Hx Contacts or Glasses, Hx Hearing Aid Opthamlomology History: Denies: Hx Contacts or Glasses Neurological History: Reports: Hx Dementia, Hx Transient Ischemic Attacks (TIA) - Surgical History Surgery Procedure, Year, and Place: CABG x4 Infectious Disease History: No Infectious Disease History: Denies: Traveled Outside the [place] in Last 30 Days - Family History Known Family History: Positive: Cardiac Disease - with ND - Social History Alcohol Use: None Hx Substance Use: No Substance Use Type: Reports: None Hx Tobacco Use: Yes Smoking Status (MU): Former Smoker Review of Systems - ROS Summary Review of Systems Summary: he is alert and disoriented, level 5 caveat Negative: Other - negative visual changes Negative: Palpitations, Chest Pain Negative: Shortness Of Breath Neurological: Other - dizziness, lightheadedness Negative: Headache, Syncope All Other Systems Reviewed And Are Negative: No - Comments Additional Review of Systems Comments: he is alert and disoriented, level 5 caveat Physical Exam - Summary Physical Exam Summary: VITAL SIGNS: Reviewed. GENERAL: Patient is a well-developed and nourished male who is lying comfortable in the stretcher. Patient is not in any acute respiratory distress. HEAD AND FACE: No signs of trauma. No ecchymosis, hematomas or skull depressions. No sinus tenderness. EYES: PERRLA, EOMI x 2, No injected conjunctiva, no nystagmus. EARS: Hearing grossly intact. Ear canals and tympanic membranes are within normal limits. MOUTH: Oropharynx within normal limits. NECK: Supple, trachea is midline, no adenopathy, no JVD, no carotid bruit, no c- spine tenderness, neck with full ROM. CHEST: Symmetric, no tenderness at palpation. LUNGS: Clear to auscultation bilaterally. No wheezing or crackles. CVS: Regular rate and rhythm, S1 and S2 present. 2/6 systolic ejection murmur. No gallops appreciated. ABDOMEN: Soft, non-tender. No signs of distention. No rebound, no guarding, and no masses palpated. Bowel sounds are normal. EXTREMITIES: FROM in all major joints, no edema, no cyanosis or clubbing. NEURO: Alert. Disoriented. Speech is normal and follows commands. SKIN: Dry and warm. Triage Information Reviewed: Yes Vital Signs On Initial Exam: Initial Vitals Temp Pulse Resp BP Pulse Ox 98.5 F 73 20 170/91 93 11/22/18 12:20 11/22/18 12:20 11/22/18 12:20 11/22/18 12:20 11/22/18 12:20 Vital Signs Reviewed: Yes Completion Of Physical Exam Limited Due To: Level 5 - Renetta Coma Scale Best Eye Response: 4 - Spontaneous Best Motor Response: 6 - Obeys Commands Best Verbal Response: 5 - Oriented Coma Scale Total: 15 Diagnostics - Vital Signs Vital Signs Temp Pulse Resp BP Pulse Ox 11/22/18 13:19 80 171/93 94 11/22/18 13:00 77 97 11/22/18 12:49 73 166/87 95 11/22/18 12:25 78 93 11/22/18 12:20 98.5 F 73 20 170/91 93 - Laboratory Lab Results: Lab Results 11/22/18 11/22/18 Range/Units 13:06 13:14 WBC 7.4 (3.5-10.8) 10^3/uL RBC 5.04 (4.18-5.48) 10^6 /uL Hgb 15.3 (14.0-18.0) g/dL Hct 45 (42-52) % MCV 89 (80-94) fL MCH 30 (27-31) pg MCHC 34 (31-36) g/dL RDW 14 (10-15) % Plt Count 164 (150-450) 10^3/uL MPV 10.5 H (7.4-10.4) fL Neut % (Auto) Pending Lymph % (Auto) Pending Benzie % (Auto) Pending Eos % (Auto) Pending Baso % (Auto) Pending Absolute Neuts (auto) Pending Absolute Lymphs (auto) Pending Absolute Monos (auto) Pending Absolute Eos (auto) Pending Absolute Basos (auto) Pending Absolute Nucleated RBC Pending Nucleated RBC % Pending Urine Opiates Screen None detected (None Detect) Ur Barbiturates Screen None detected (None Detect) Ur Phencyclidine Scrn None detected (None Detect) Ur Amphetamines Screen None detected (None Detect) U Benzodiazepines Scrn None detected (None Detect) Urine Cocaine Screen None detected (None Detect) U Cannabinoids Screen None detected (None Detect) Result Diagrams: 11/22/18 13:14 11/22/18 13:14 Lab Statement: Any lab studies that have been ordered have been reviewed, and results considered in the medical decision making process. - Radiology CXR Radiology Interpretation Completed By: Radiologist - IMPRESSION: CXR shows the following impressions: 1. CARDIOMEGALY. 2. LOW LUNG VOLUMES WITH BIBASILAR ATELECTASIS VERSUS CONSOLIDATION. An ED physician has reviewed this report. Summary of Radiographic Findings: CXR shows the following impressions: 1. CARDIOMEGALY. 2. LOW LUNG VOLUMES WITH BIBASILAR ATELECTASIS VERSUS CONSOLIDATION. An ED physician has reviewed this report. - CT CT Brain CT Interpretation Completed By: Radiologist Summary of CT Findings: CT Brain shows the following impressions: NO ACUTE INTRACRANIAL PATHOLOGY. DIFFUSE INVOLUTIONAL CHANGE WITH CHRONIC SMALL VESSEL ISCHEMIC CHANGES. An ED physician has reviewed this report. - EKG 1339 Cardiac Rate: NL - 79 bpm EKG Rhythm: Sinus Rhythm EKG Comparison: Other - New from 04/15/18 Summary of EKG Findings: EKG at 1339 shows sinus rhythm at 79 bpm. RBBB. New from 04/15/18. Re-Evaluation - Re-Evaluation Re-eval 1 Re-Evaluation Time: 16:02 Change: Improved Comment: Reassessed patient in 18. He was able to contact son and daughter who live in nearby. Per daughter, patient is at baseline, son and daughter will bring him home and take care of him. Dizzy Course/Dx - Course Assessment/Plan: This patient is a 78-year-old male who presents to the emergency room via ambulance after the patient was found on the ground outside his house by a passerby skidder driver. The patient reports that he was getting the mail and he fell. He doesnt know if he passed out or not. The patient lives alone. The patient is alert but not oriented. The patient was unable to give a good history. Blood work without any significant abnormality except for glucose of 238, magnesium 1.8. Urinalysis is negative for UTI, urine toxicology is negative. Head CT impression: No acute interconnected pathology. Diffuse involutional change with chronic small vessel ischemic changes. Chest x-ray impression: Cardiomegaly. Low lung volumes with bibasilar atelectasis versus consolidation. This patient continues to be confused, the patient has not been taking his medications for his chronic medical conditions, probably because he is confused. Since the patient lives alone, the patient is an unsafe discharge. I discussed my physical exam and findings with Dr. Salter from the hospital services course the patient for admission. Before admission: Dr. Salter and I discuss the findings with the patient's daughter and she requests for the patient to be discharged home and she will be taking care of the patient's needs. The patient was daughter will be taking the patient home. Patient continues to be hemodynamically stable. - Diagnoses Provider Diagnoses: Dementia, Fall - Provider Notifications Discussed Care Of Patient With: Jh Salter Time Discussed With Above Provider: 14:59 Instructed by Provider To: Other - Patient's case was discussed with Dr. Salter, Dr. Salter accepts for admission. 1625 -Dr. Salter reports that he contacted the patient's daughter and son, who state that they and the patient would prefer if the patient is discharged to home. Patient is at his baseline per daughter, patient is discharged to home. Discharge ED - Sign-Out/Discharge Documenting (check all that apply): Patient Departure - discharge Patient Received Moderate/Deep Sedation with Procedure: No - Discharge Plan Condition: Stable Disposition: HOME Patient Education Materials: Dementia (ED) Referrals: Taina Hightower MD [Primary Care Provider] - Additional Instructions: Follow up with your primary care provider in 2-3 days. Return to the Emergency Department if new or worsening symptoms present. - Billing Disposition and Condition Condition: STABLE Disposition: Home - Attestation Statements Document Initiated by Krystian: Yes Documenting Scribe: BARRY LOUIS Provider For Whom Krystian is Documenting (Include Credential): ESTELA MENDOZA MD Scribe Attestation: IBARRY, scribed for ESTELA MENDOZA MD on 11/24/18 at 1109. Scribe Documentation Reviewed: Yes Provider Attestation: The documentation as recorded by the BARRY carvajal accurately reflects the service I personally performed and the decisions made by me, ESTELA MENDOZA MD Status of Scribe Document: Viewed
[2018-11-22 13:49] LABS: INR 0.99 (0.82-1.09)
[2018-11-22 13:58] LABS: ALT 32 U/L (7-52); AST 25 U/L (13-39); Albumin 4.3 g/dL (3.2-5.2); Albumin/Globulin Ratio 1.6 (1-3); Alkaline Phosphatase 71 U/L (34-104); Anion Gap 7 mmol/L (2-11); BUN/Creatinine Ratio 18.2 (8-20); Blood Urea Nitrogen 14 mg/dL (6-24); CO2 Carbon Dioxide 25 mmol/L (22-32); Calcium 9.2 mg/dL (8.6-10.3); Chloride 106 mmol/L (101-111); Creatine Kinase 215 U/L (10-223); EGFR African American 118.5 (>60); Globulin 2.7 g/dL (2-4); Glucose 232 mg/dL (70-100); Magnesium 1.8 mg/dL (1.9-2.7); Potassium 3.7 mmol/L (3.5-5.0); Sodium 138 mmol/L (135-145)
[2018-11-22 14:11] LABS: Acetaminophen < 15 mcg/mL; Alcohol < 10 mg/dL (<10); Salicylate < 2.50 mg/dL (<30)
[2018-11-22 14:13] LABS: ABS Basophils 0.1 10^3/ul (0-0.2); ABS Eosinophils 0.2 10^3/ul (0-0.6); ABS Lymphocytes 1.8 10^3/ul (1.0-4.8); ABS Monocytes 0.5 10^3/ul (0-0.8); ABS Neutrophils 4.8 10^3/ul (1.5-7.7); Eosinophil % 2.1 %; Lymphocyte % 24.8 %; Nucleated Red Blood Cells % 0.1
[2018-11-22 14:26] LABS: TSH (Thyroid Stimulating Horm) 2.62 mcIU/mL (0.34-5.60)
[2018-11-22 17:33] LABS: C Reactive Protein 1.49 mg/L (<8.01)
[2018-11-22 17:39] VITALS: BP 147/94
--- NOTE | 2018-11-22 18:13 | CONS ---
CONSULTATION REPORT: DATE OF CONSULT: 11/22/18 CONSULTING PROVIDER: Jh Salter MD REFERRING PHYSICIAN: Noah Delarosa MD, Emergency Room. PRIMARY CARE PROVIDER: Taina Hightower MD CHIEF COMPLAINT: The patient was found down and oriented to only himself at time of ED evaluation REASON FOR CONSULT: There was concern about a safe discharge plan. HISTORY OF PRESENT ILLNESS: Maninder Lechuga is a 78-year-old male with past medical history of dementia; svx-hdxivgr-nlhcqejen diabetes mellitus type 2 ( uncontrolled); CAD, status post CABG in 2008; atrial fibrillation; hypertension ; recent medication noncompliance. He lives alone, but with some close supervision from his older brother, Tonio, who delivers him breakfast and lunch each day. He gets Meals on Wheels. His daughter, Loni, lives in [place], approximately 35-minute [address] from him. He, since the passing of his , Dayana, in March, who used to handle his medications, has been much more noncompliant with them. He sometimes wanders out of the house. Back in March, he was admitted for 2 days and eventually discharged to [facility] where he lasted 2 weeks but he hated it there and went back home. This morning of admission, he was getting his meal when he felt woozy/dizzy, and then says he fell down with no loss of consciousness. Per the EMS report, the patient was found in the street when he lowered himself to the ground. He was taken to [facility] Emergency Room for further evaluation and has had unremarkable workup other than uncontrolled blood sugars. He had a CT head which showed no acute process , but evidence of a chronic left parietooccipital infarction, and chest x-ray which was negative. Troponin was negative. Lab work unremarkable except blood glucose 232, magnesium 1.8. Urinalysis was negative except for 3+ glucose. He was afebrile, hypertensive to 170/93, and is satting well on room air. He was referred to hospitalist service for evaluation(for possibel admission) with the (incorrect) understanding that the only family around lived remotely (Aarti lived in [place]) and therefor there might not be a safe discharge plan from the ED. PAST MEDICAL HISTORY: Hypertension; clv-nettxcj-yknfyvupd diabetes mellitus; CVA; CAD, CABG in 2008; AFib, on Eliquis, although noncompliant; medication noncompliance; falls; he is status post permanent pacemaker. MEDICATIONS: He takes them intermittently and has not filled since May, though apparently attests that he does have them on his kitchen counter and sometimes take them. 1. Metformin 1000 mg p.o. b.i.d. 2. Glipizide 10 mg p.o. b.i.d. 3. Losartan 50 mg p.o. daily. 4. Diltiazem 120 mg p.o. daily. 5. Eliquis 5 mg p.o. b.i.d. ALLERGIES: RAMIPRIL, unknown; METOPROLOL, unknown; FLEXERIL, hallucinations. FAMILY HISTORY: Includes coronary artery disease, colon cancer, gallbladder cancer. SOCIAL HISTORY: The patient is a former smoker, quit in 1988. 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 Lives alone, but with close family support of his older brother who lives approximately one street away (bringing him meals twice a day) and daughter Loni lives 30 minutes away. Other daughter Marie is the healthcare proxy, Marie and is living in [place]. REVIEW OF SYSTEMS: negative except as per HPI. Denies chest pain, SOB, abdominal pain, fevers, chills. He has chronic gait instability. PHYSICAL EXAM: General Appearance: No acute distress, sitting in the hospital bed. Vital Signs: Temperature 98.5; pulse rate 70s to 80s; satting 94% to 97% on room air; blood pressure initially 170/91, currently 156/93. HEENT: Normocephalic, atraumatic. Pupils are equal, round, and reactive to light. Extraocular motions intact. No scleral icterus. Neck: Supple. Lungs: Clear to auscultation bilaterally with no wheezing, rales, or rhonchi. Cardiovascular : Regular rate and rhythm. No murmurs, rubs, or gallops. Abdomen: Soft, nontender, nondistended. No rebound. No guarding. No Ca's sign. Extremities: Warm and well perfused. No peripheral edema. Skin: No lesions. No rashes. Neuro: Cranial nerves II through XII are intact. Smzjfu-xd-mdya intact. Rapid alternating motions intact. Romberg is negative. He has a short unsteady gait that he attests is due to his chronic knee issues. DIAGNOSTIC STUDIES/LAB DATA: White count 7.4, hemoglobin 15.3, hematocrit 45, platelets 164. INR was 0.99. Sodium 139, potassium 3.7, chloride 106, carbon dioxide 25, BUN 14, creatinine 0.77, glucose 232, lactic acid is 1.3, magnesium 1.8. Total bili 1.0, AST 25, ALT 32, alk phos 71. Ammonia 47. CK 215, troponin 0.00. CRP pending. TSH 2.62. Chest x-ray showed cardiomegaly and low lung volumes with bibasilar atelectasis versus consolidation. CT brain showed no acute intracranial pathology. There was diffuse involutional change with chronic small vessel ischemic changes. There was note of a chronic left parietooccipital infarction. ASSESSMENT AND PLAN: Maninder Lechuga is a 78-year-old male with dementia, atrial fibrillation, hypertension, coronary artery disease, coronary artery bypass grafting, who felt dizzy and fell down, but denied loss of consciousness. His imaging has been unremarkable here, and notably, the patient states that he would refuse any rehabilitation stay given his past experience at [facility]. I do believe that he would benefit from physical therapy in the outpatient setting and likely would do much better in assisted living facility or dementia oriented detention facility and would recommend this. The daughter who is at bedside, Loni, says they are attempting to get him in an apartment closer to her and perhaps with a home health aide. The etiology of his fall includes broad differential, but no clear evidence on workup to date: cerebrovascular accident, heart attack, pulmonary embolism, and arrhythmia. He has no focal exam findings neurologically and does have a history of falls. He had remote diarrhea that he was evaluated by GI, Roselia Rashid, on 09/04/18 and that seems to have resolved likely after he has been more medication noncompliant with his metformin. He has a recent stress test on 08/12/18 which was low risk. EF was 60% to 70%. He had an echo on 06/20/18 with EF 55% to 60% and grade 1 diastolic dysfunction. He does have some mild aortic stenosis on that and he currently does deny any shortness of breath, fevers, chills, or other review of systems other than his chronic gait instability due to his knees. I would recommend evaluation with an MRI brain as an outpatient along with another echo. Importantly, though has been noncompliance with his medication noncompliance, he says he has been scared less from this event and ensures us he will be much more compliant going forward. I recommended that his brother and daughter, Loin, help set him up with medication box. I did attempt to call Social Work, although they were not available at this time of day, to see if a walker could be obtained for him. He states that actually he does not like using a walker as he feels more unsteady with it, but is interested in some sort of electronic scooter or other device potentially. Thank you for this interesting consult. Again, I do not think that inpatient admission is warranted at this time, as he has much more family support in the area then was known prior to consult request and would ultimately refuse placement at a detention facility. His family is attempting to get him in a safer living environment (given his dementia) in the coming weeks. [id number]/CPS #: [id number] CHRISSY
== END 2018-11-22 17:38 | disposition home or self-care (01) ==
LOC: ED 12:02
DX: F03.90 Unspecified dementia, unspecified severity, without behavioral disturbance, psychotic disturbance, mood disturbance, and anxiety (principal); Z91.81 History of falling; Z87.891 Personal history of nicotine dependence; E11.9 Type 2 diabetes mellitus without complications; Z79.899 Other long term (current) drug therapy; I25.10 Atherosclerotic heart disease of native coronary artery without angina pectoris; I10 Essential (primary) hypertension; E78.00 Pure hypercholesterolemia, unspecified; K21.9 Gastro-esophageal reflux disease without esophagitis; Z79.01 Long term (current) use of anticoagulants
CPT/HCPCS: 36415; 70450; 71045; 80053; 80307; 80320; 80329; 81003; 82140; 82550; 83036; 83605; 83735; 84443; 84484; 85025; 85610; 86140; 87040; 93005; 99283; G0480

== ENCOUNTER 2018-11-25 14:24 | Emergency (ER) | payer MEDICARE ==
[2018-11-25 14:55] LABS: Hematocrit 43 % (42-52); Hemoglobin 14.6 g/dL (14.0-18.0); Mean Corpuscular HGB Conc 34 g/dL (31-36); Mean Corpuscular Hemoglobin 30 pg (27-31); Mean Corpuscular Volume 89 fL (80-94); Mean Platelet Volume 10.8 fL (7.4-10.4); Platelet Count 167 10^3/uL (150-450); Red Blood Count 4.82 10^6 /uL (4.18-5.48); Red Cell Distribution Width 14 % (10-15); White Blood Count 7.4 10^3/uL (3.5-10.8)
[2018-11-25 15:02] LABS: INR 1.06 (0.82-1.09)
[2018-11-25 15:17] LABS: Troponin I 0.01 ng/mL (<0.04)
[2018-11-25 15:24] LABS: ABS Basophils 0.1 10^3/ul (0-0.2); ABS Eosinophils 0.1 10^3/ul (0-0.6); ABS Lymphocytes 1.3 10^3/ul (1.0-4.8); ABS Monocytes 0.8 10^3/ul (0-0.8); Eosinophil % 1.5 %; Lymphocyte % 18.1 %; Nucleated Red Blood Cells % 0.1
[2018-11-25 15:48] LABS: BUN/Creatinine Ratio 14.6 (8-20); EGFR Non-African American 82.9 (>60); Potassium 3.7 mmol/L (3.5-5.0)
[2018-11-25 15:49] LABS: Albumin 4.1 g/dL (3.2-5.2); Albumin/Globulin Ratio 1.5 (1-3); Calcium 9.3 mg/dL (8.6-10.3); EGFR African American 100.3 (>60); Globulin 2.8 g/dL (2-4); Total Bilirubin 0.7 mg/dL (0.2-1.0); Total Protein 6.9 g/dL (6.4-8.9)
[2018-11-25] MEDS: Iodixanol* (CONTRAST) 320 MG/ML 100 ML SDV IV ONE (19:56)
--- NOTE | 2018-11-25 20:13 | ED ---
HPI Chest Pain - HPI Summary HPI Summary: Patient complains of left rib pain radiating to left arm status post unwitnessed fall yesterday. Patient lives alone. Family states patient has had increased confusion today. Patient is on Eliquis. Patient denies any pain , injury or symptoms at time of history of present illness. Patient has history of dementia, DM, A. fib. - History of Current Complaint Chief Complaint: EDChestPainROMI Time Seen by Provider: 11/25/18 16:43 Hx Obtained From: Patient Onset/Duration: Started Hours Ago Timing: Lasting Hours Initial Severity: Severe Current Severity: None Pain Intensity: 10 Pain Scale Used: 0-10 Numeric Chest Pain Location: Left Anterior Chest Pain Radiates To:: Arm Character: Dull/Aching Aggravating Factor(s): Nothing Alleviating Factor(s): Nothing Associated Signs and Symptoms: Positive: Chest Pain - Additional Pertinent History Primary Care Physician: CISCO - Allergy/Home Medications Allergies/Adverse Reactions: Allergies Allergy/AdvReac Type Severity Reaction Status Date / Time cyclobenzaprine Allergy Hallucinati Verified 11/25/18 15:53 [From Flexeril] ons metoprolol Allergy Unknown Verified 11/25/18 15:53 Reaction Details ramipril Allergy Unknown Verified 11/25/18 15:53 Reaction Details PMH/Surg Hx/FS Hx/Imm Hx Endocrine/Hematology History: Reports: Hx Diabetes Cardiovascular History: Reports: Hx Atrial Fibrillation, Hx Coronary Artery Disease, Hx Hypercholesterolemia, Hx Hypertension Comment Only: Hx Pacemaker/ICD - IMPLANTED MONITOR GI History: Reports: Hx Gastroesophageal Reflux Disease History: Denies: Hx Dialysis Sensory History: Denies: Hx Contacts or Glasses, Hx Hearing Aid Opthamlomology History: Denies: Hx Contacts or Glasses EENT History: Denies: Hx Deafness Neurological History: Reports: Hx Dementia, Hx Transient Ischemic Attacks (TIA) - Surgical History Surgery Procedure, Year, and Place: CABG x4 Infectious Disease History: No Infectious Disease History: Denies: Traveled Outside the [place] in Last 30 Days - Family History Known Family History: Positive: Cardiac Disease - with [place] - Social History Alcohol Use: None Hx Substance Use: No Substance Use Type: Reports: None Hx Tobacco Use: Yes Smoking Status (MU): Former Smoker Review of Systems Constitutional: Negative Eyes: Negative ENT: Negative Positive: Chest Pain Respiratory: Negative Gastrointestinal: Negative Genitourinary: Negative Musculoskeletal: Negative Skin: Negative Neurological: Negative Psychological: Normal All Other Systems Reviewed And Are Negative: Yes Physical Exam - Summary Physical Exam Summary: Neuro exam normal. No evidence of trauma noted to face, mouth, head. Full range of motion of neck and jaw. No pain with palpation of chest, abdomen, neck , back. Patient moving all 4 extremities freely without any indication of pain. Patient asking when he can go home, possibility of masking symptoms. Patient was apparently tender to palpation on left side chest when examined by nurse. No ecchymosis, erythema, deformity, swelling noted to left side chest or abdomen. Triage Information Reviewed: Yes Vital Signs On Initial Exam: Initial Vitals Temp Pulse Resp BP Pulse Ox 97.8 F 95 20 170/83 96 11/25/18 14:35 11/25/18 14:35 11/25/18 14:35 11/25/18 14:35 11/25/18 14:35 Vital Signs Reviewed: Yes Appearance: Positive: Well-Appearing Skin: Positive: Warm Head/Face: Positive: Normal Head/Face Inspection Eyes: Positive: Normal ENT: Positive: Normal ENT inspection Dental: Negative: Dental Fracture @, Bleeding Neck: Positive: Supple Respiratory/Lung Sounds: Positive: Clear to Auscultation Cardiovascular: Positive: Normal Abdomen Description: Positive: Nontender Musculoskeletal: Positive: Normal Neurological: Positive: Normal Psychiatric: Positive: Normal AVPU Assessment: Alert - [place] Coma Scale Best Eye Response: 4 - Spontaneous Best Motor Response: 6 - Obeys Commands Best Verbal Response: 5 - Oriented Coma Scale Total: 15 Procedures - Sedation Patient Received Moderate/Deep Sedation with Procedure: No Diagnostics - Vital Signs Vital Signs Temp Pulse Resp BP Pulse Ox 11/25/18 14:35 97.8 F 95 20 170/83 96 - Laboratory Lab Results: Lab Results 11/25/18 11/25/18 11/25/18 Range/Units 14:46 14:46 14:46 WBC 7.4 (3.5-10.8) 10^3/uL RBC 4.82 (4.18-5.48) 10^6 /uL Hgb 14.6 (14.0-18.0) g/dL Hct 43 (42-52) % MCV 89 (80-94) fL MCH 30 (27-31) pg MCHC 34 (31-36) g/dL RDW 14 (10-15) % Plt Count 167 (150-450) 10^3/uL MPV 10.8 H (7.4-10.4) fL Neut % (Auto) 68.2 % Lymph % (Auto) 18.1 % [place] % (Auto) 11.2 % Eos % (Auto) 1.5 % Baso % (Auto) 1.0 % Absolute Neuts (auto) 5.0 (1.5-7.7) 10^3/ul Absolute Lymphs (auto) 1.3 (1.0-4.8) 10^3/ul Absolute Monos (auto) 0.8 (0-0.8) 10^3/ul Absolute Eos (auto) 0.1 (0-0.6) 10^3/ul Absolute Basos (auto) 0.1 (0-0.2) 10^3/ul Absolute Nucleated RBC 0.0 10^3/ul Nucleated RBC % 0.1 INR (Anticoag Therapy) 1.06 (0.82-1.09) Sodium 137 (135-145) mmol/L Potassium 3.7 (3.5-5.0) mmol/L Chloride 104 (101-111) mmol/L Carbon Dioxide 24 (22-32) mmol/L Anion Gap 9 (2-11) mmol/L BUN 13 (6-24) mg/dL Creatinine 0.89 (0.67-1.17) mg/dL Est GFR ( Amer) 100.3 (>60) Est GFR (Non-Af Amer) 82.9 (>60) BUN/Creatinine Ratio 14.6 (8-20) Glucose 329 H (70-100) mg/dL Calcium 9.3 (8.6-10.3) mg/dL Total Bilirubin 0.70 (0.2-1.0) mg/dL AST 21 (13-39) U/L ALT 26 (7-52) U/L Alkaline Phosphatase 69 (34-104) U/L Total Creatine Kinase (10-223) U/L Troponin I 0.01 (<0.04) ng/mL B-Natriuretic Peptide (<=100) pg/mL Total Protein 6.9 (6.4-8.9) g/dL Albumin 4.1 (3.2-5.2) g/dL Globulin 2.8 (2-4) g/dL Albumin/Globulin Ratio 1.5 (1-3) 11/25/18 11/25/18 Range/Units 14:46 17:48 WBC (3.5-10.8) 10^3/uL RBC (4.18-5.48) 10^6 /uL Hgb (14.0-18.0) g/dL Hct (42-52) % MCV (80-94) fL MCH (27-31) pg MCHC (31-36) g/dL RDW (10-15) % Plt Count (150-450) 10^3/uL MPV (7.4-10.4) fL Neut % (Auto) % Lymph % (Auto) % [place] % (Auto) % Eos % (Auto) % Baso % (Auto) % Absolute Neuts (auto) (1.5-7.7) 10^3/ul Absolute Lymphs (auto) (1.0-4.8) 10^3/ul Absolute Monos (auto) (0-0.8) 10^3/ul Absolute Eos (auto) (0-0.6) 10^3/ul Absolute Basos (auto) (0-0.2) 10^3/ul Absolute Nucleated RBC 10^3/ul Nucleated RBC % INR (Anticoag Therapy) (0.82-1.09) Sodium (135-145) mmol/L Potassium (3.5-5.0) mmol/L Chloride (101-111) mmol/L Carbon Dioxide (22-32) mmol/L Anion Gap (2-11) mmol/L BUN (6-24) mg/dL Creatinine (0.67-1.17) mg/dL Est GFR ( Amer) (>60) Est GFR (Non-Af Amer) (>60) BUN/Creatinine Ratio (8-20) Glucose (70-100) mg/dL Calcium (8.6-10.3) mg/dL Total Bilirubin (0.2-1.0) mg/dL AST (13-39) U/L ALT (7-52) U/L Alkaline Phosphatase (34-104) U/L Total Creatine Kinase 86 (10-223) U/L Troponin I 0.00 (<0.04) ng/mL B-Natriuretic Peptide 52 (<=100) pg/mL Total Protein (6.4-8.9) g/dL Albumin (3.2-5.2) g/dL Globulin (2-4) g/dL Albumin/Globulin Ratio (1-3) Result Diagrams: 11/25/18 14:46 11/25/18 14:46 Lab Statement: Any lab studies that have been ordered have been reviewed, and results considered in the medical decision making process. Chest Pain Course/Dx - Course Course Of Treatment: Patient complains of left rib pain radiating to left arm status post unwitnessed fall yesterday. Patient lives alone. Family states patient has had increased confusion today. Patient is on Eliquis. Patient denies any pain, injury or symptoms at time of history of present illness. Patient has history of dementia, DM, A. fib. Patient has history of dementia and also appears eager to leave the ED. Patient appears to be unreliable historian, as he does not remember details of the fall. Family states patient has had increased confusion today. Family did not speak to patient or see him yesterday, unaware of how he fell, how long he was down. Patient lives alone. Family states they're trying to get home health nurse to help patient manage. Patient has history of falls. Patient is on Eliquis. Vital signs within normal limits. CT brain ordered due to family's observation the patient has increased confusion, patient's lack of details of fall, and anticoagulation status. CT brain negative. X-ray of ribs and chest showed abnormality on left side belongs, concern for pulmonary contusion. CT chest was ordered which was negative. EKG sinus rhythm, RBB, same as prior on 07/22. HCO3 29, O evidence of DKA. Patient has history of noncompliance with medication. Labs otherwise unremarkable. - Diagnoses Provider Diagnoses: Fall, Chest wall pain Discharge ED - Sign-Out/Discharge Documenting (check all that apply): Patient Departure - Discharge Plan Condition: Stable Disposition: HOME Patient Education Materials: Chest Wall Pain (ED) Referrals: Taina Hightower MD [Primary Care Provider] - Additional Instructions: Take Tylenol for chest wall pain. Return to the ED for any new or worsening symptoms. - Billing Disposition and Condition Condition: STABLE Disposition: Home - Attestation Statements Provider Attestation: pt seen by midlevel provider independently, based on their assessment, it was not necessary to present the case to me but I was available for consultation. I did not form a physician-patient relationship with the patient. The chart however, has been reviewed. am signing this note strictly in an administrative capacity.
[2018-11-25 21:24] VITALS: BP 150/78
== END 2018-11-25 21:10 | disposition home or self-care (01) ==
LOC: ED 14:24
DX: R07.89 Other chest pain (principal); W19.XXXA Unspecified fall, initial encounter; Y92.9 Unspecified place or not applicable; Z95.1 Presence of aortocoronary bypass graft; K76.0 Fatty (change of) liver, not elsewhere classified; E11.9 Type 2 diabetes mellitus without complications; I48.91 Unspecified atrial fibrillation; I25.10 Atherosclerotic heart disease of native coronary artery without angina pectoris; E78.00 Pure hypercholesterolemia, unspecified; I10 Essential (primary) hypertension; K21.9 Gastro-esophageal reflux disease without esophagitis; F03.90 Unspecified dementia, unspecified severity, without behavioral disturbance, psychotic disturbance, mood disturbance, and anxiety; Z95.810 Presence of automatic (implantable) cardiac defibrillator; Z86.73 Personal history of transient ischemic attack (TIA), and cerebral infarction without residual deficits; Z87.891 Personal history of nicotine dependence; Z88.8 Allergy status to other drugs, medicaments and biological substances; Z79.01 Long term (current) use of anticoagulants; Z79.84 Long term (current) use of oral hypoglycemic drugs; Z79.899 Other long term (current) drug therapy
CPT/HCPCS: 36415; 70450; 71046; 71260; 80053; 82550; 83880; 84484; 85025; 85610; 93005; 99283; Q9967

== ENCOUNTER 2018-12-16 02:24 | Observation (INO) | payer MEDICARE ==
[2018-12-16] MEDS ORDERED: NS 0.9% 1000 ML** 1,000 ML IV ONE (02:47)
--- OUTSIDE RECORDS SUMMARY | 2018-12-16 02:47 | XMS REPORT | Continuity of Care Document ---
:1940 External Reference #:[id number] Author Name Nurse Visit A (transmitted by agent of provider Beata Milligan) Address 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 Onset: 11/20/2012 Cardiac pacemaker in situ Kaitlyn Nance M.D. Onset: 11/20/2012 Essential hypertension Kaitlyn Nance M.D. Onset: 11/20/2012 Arteriosclerosis of autologous vein coronary Kaitlyn Nance M.D. Onset: 2012 artery bypass graft Type 2 diabetes mellitus Kaitlyn Nance M.D. Onset: 11/20/2012 Chronic ischemic heart disease Kaitlyn Nance M.D. Onset: 11/20/2012 Mixed hyperlipidemia Kaitlyn Nance M.D. Onset: 11/20/2012 Morbid obesity Kaitlyn Nance M.D. Onset: 11/20/2012 Thoracic Aortic Ectasia Kaitlyn Nance M.D. Onset: 11/20/2012 Transient cerebral ischemia Kaitlyn Nance M.D. Onset: 11/20/2012 Chest pain Kaitlyn Nance M.D. Onset: 01/12/2013 Supraventricular premature beats Kaitlyn Nance M.D. Onset: 01/12/2013 Atrial fibrillation Kaitlyn Nance M.D. Onset: 06/01/2013 Sinus node dysfunction Kaitlyn Nance M.D. Onset: 12/25/2013 Difficulty breathing Kaitlyn Nance M.D. Onset: 12/25/2013 Heart murmur Kaitlyn Nance M.D. Onset: 12/25/2013 Disturbance in sleep behavior Kaitlyn Nance M.D. Onset: 05/28/2014 History of closure of atrial septal defect Kaitlyn Nance M.D. Onset: 2015 using septal occluder device Atherosclerotic heart disease of [place] Kaitlyn Nance M.D. Onset: 05/27/2015 coronary artery without angina pectoris Peptic reflux disease Kaitlyn Nance M.D. Onset: 11/29/2015 Atherosclerotic heart disease of [place] Kaitlyn Nance M.D. Onset: 11/29/2015 coronary artery with unspecified angina pectoris Aortic valve disorder Kaitlyn Nance M.D. Onset: 07/27/2016 Paroxysmal atrial fibrillation Kaitlyn Nance M.D. Onset: 07/27/2016 Type 2 diabetes mellitus with diabetic Bryn Rodriguez M.D. Onset: 2017 neuropathy, unspecified Gastroesophageal reflux disease Bryn Rodriguez M.D. Onset: 12/24/2017 Right bundle branch block Kaitlyn Nance M.D. Onset: 06/06/2018 Social History Type Date Description Comments Sex Unknown ETOH Use Denies alcohol use Tobacco Use Start: Unknown End: Patient is a former Quit in late Unknown smoker Recreational Drug Use Denies Drug Use Smoking Status Reviewed: 12/02/18 Patient is a former Quit in late smoker Exercise Type/Frequency Exercises sporadically walking Allergies, Adverse Reactions, Alerts Active Allergies Reaction Severity Comments Date Muscle Relaxers hallucinations 12/25/2011 Flexeril hallucinations 01/08/2013 Ramipril cough 01/08/2013 Lopressor diarrhea 01/08/2013 Medications Active Medications SIG Qnty Indications Ordering Date Provider Glipizide ER 1 by mouth twice 60tabs Taina Hightower MD 06/17/2018 10mg a day Tablets ER 24HR Metformin HCL take one tablet 90tabs Taina Hightower MD 06/17/2018 1000mg by mouth daily Tablets Onetouch Verio use as directed 1units E11.40 Byrn 12/24/2017 Marcela Rodriguez w/Device Kit Onetouch Verio test twice daily 100units E11.40 [place] 12/24/2017 and as needed Marcela Rodriguez Strips Onetouch Ultrasoft test blood 2 100units E11.40 [place] 12/24/2017 Lancets times a day or as Marcela Rodriguez [facility] needed Eliquis 1 by mouth twice 60tabs Kaitlyn Nance, 12/28/2016 5mg Tablets a day (patient M.D. currently not taking) Crestor 1 by mouth every 90tabs E78.2 Kaitlyn Nance, 05/27/2015 40mg Tablets day in the M.D. morning Losartan Potassium 1 by mouth every 90tabs Kaitlyn Nance, 01/08/2014 day M.D. 50mg Tablets Cardizem CD 1 cap by mouth 90caps Kaitlyn Nance, 08/08/2012 120mg every day M.D. Caps ER 24HR Pantoprazole Sodium 1 po qd 30tabs Unknown 40mg Tablets DR Medications Administered in Office Medication SIG Qnty Indications Ordering Provider Date PPD Nurse Visit A 12/15/2018 Injection Inj, Regadenoson, 0.1 MG Hunter Shin, DO [facility] 08/12/2018 Injection Technetium TC 99M Hunter Shin, DO [facility] 08/12/2018 Tetrofosmin, Per Unit Dose Up To 40 Millicuries Injection Technetium TC 99M Hunter Shin, DO [facility] 08/12/2018 Tetrofosmin, Per Unit Dose Up To 40 Millicuries Injection Inj, Regadenoson, 0.1 MG Hunter Shin, DO [facility] 12/07/2015 Injection Technetium TC 99M Hunter Shin, DO [facility] 12/07/2015 Tetrofosmin, Per Unit Dose Up To 40 Millicuries Injection Technetium TC 99M Ry Brown M.D. 12/08/2013 Tetrofosmin, Per Unit Dose Up To 40 Millicuries Injection Technetium TC 99M Kaitlyn Nance M.D. 12/08/2013 Tetrofosmin, Per Unit Dose Up To 40 Millicuries Injection Inj, Regadenoson, 0.1 MG Kaitlyn Nance M.D. 10/20/2012 Injection Technetium TC 99M Kaitlyn Nance M.D. 10/20/2012 Tetrofosmin, Per Unit Dose Up To 40 Millicuries Injection Inj, Regadenoson, 0.1 MG Kaitlyn Nance M.D. 12/04/2011 Injection Technetium TC 99M Kaitlyn Nance M.D. 12/04/2011 Tetrofosmin, Per Unit Dose Up To 40 Millicuries Injection Immunizations CPT Code Status Date Vaccine Lot # [id number] Given 08/27/2018 Pneumonia Vaccine [id number] Given 12/24/2017 Influenza Virus Vaccine, Quadrivalent, Split, [id number] Preservative Free Vital Signs Date Vital Result Comment 12/02/2018 4:45pm Height 67 inches 5'7" Weight 223.00 lb Heart Rate 83 /min BP Systolic 148 mmHg BP Diastolic 82 mmHg O2 % BldC Oximetry 94 % BMI (Body Mass Index) 34.9 kg/m2 12/02/2018 4:27pm Height 67 inches 5'7" Results Test Date Facility Test Result H/L Range Note Laboratory test 11/25/2018 [facility] Troponin-I 0.00 ng/mL < 0.[address] (TnI) [place] [address] [phone] Laboratory test 11/25/2018 [facility] Creatine 86 U/L Normal 10-[address] Kinase(CK) [place] [address] [phone] Troponin-I (TnI) 0.00 ng/mL <0.04 2 Inr/Protime 11/25/2018 [facility] Inr 1.06 Normal 0.82-1.[address] [place] [address] [phone] CBC Auto Diff 11/25/2018 [facility] White Blood 7.4 Normal 3.5 -10.[address] Count 10^3/[place] [address] [phone] Red Blood Count 4.82 10^6/uL Normal 4.18-5.48 Hemoglobin 14.6 g/dL Normal 14.0-18.0 Hematocrit 43 % Normal 42-52 Mean Corpuscular Volume 89 fL Normal 80-94 Mean Corpuscular Hemoglobin 30 pg Normal 27-31 Mean Corpuscular HGB Conc 34 g/dL Normal 31-36 Red Cell Distribution Width 14 % Normal 10-15 Platelet Count 167 10^3/uL Normal 150-450 Mean Platelet Volume 10.8 fL High 7.4-10.4 Abs Neutrophils 5.0 10^3/uL Normal 1.5-7.7 Abs Lymphocytes 1.3 10^3/uL Normal 1.0-4.8 Abs Monocytes 0.8 10^3/uL Normal 0-0.8 Abs Eosinophils 0.1 10^3/uL Normal 0-0.6 Abs Basophils 0.1 10^3/uL Normal 0-0.2 Abs Nucleated RBC 0.0 10^3/uL Granulocyte % 68.2 % Lymphocyte % 18.1 % Monocyte % 11.2 % Eosinophil % 1.5 % Basophil % 1.0 % Nucleated Red Blood Cells % 0.1 Laboratory test 11/25/2018 [facility] Troponin-I 0.01 <0.[address] (TnI) ng/[place] [address] [phone] Comp Metabolic 11/25/2018 [facility] Sodium 137 Normal 135- [address] mmol/[place] [address] [phone] Potassium 3.7 mmol/L Normal 3.5-5.0 Chloride 104 mmol/L Normal 101-111 Co2 Carbon Dioxide 24 mmol/L Normal 22-32 Anion Gap 9 mmol/L Normal 2-11 Glucose 329 mg/dL High 70-100 Blood Urea Nitrogen 13 mg/dL Normal 6-24 Creatinine 0.89 mg/dL Normal 0.67-1.17 BUN/Creatinine Ratio 14.6 Normal 8-20 Calcium 9.3 mg/dL Normal 8.6-10.3 Total Protein 6.9 g/dL Normal 6.4-8.9 Albumin 4.1 g/dL Normal 3.2-5.2 Globulin 2.8 g/dL Normal 2-4 Albumin/Globulin Ratio 1.5 Normal 1-3 Total Bilirubin 0.70 mg/dL Normal 0.2-1.0 Alkaline Phosphatase 69 U/L Normal 34-104 Alt 26 U/L Normal 7-52 Ast 21 U/L Normal 13-39 Egfr Non- 82.9 >60 Egfr 100.3 >60 5 Laboratory test 11/25/2018 [facility] B-Type 52 pg/mL <=[address] [place] [address] Peptide BNP [phone] Laboratory test 11/22/2018 [facility] Magnesium 1.8 mg/dL Low 1.9-2.7 [address] [place] [address] [phone] Creatine Kinase(CK) 215 U/L Normal 10-223 Troponin-I (TnI) 0.00 ng/mL <0.04 6 Acetaminophen < 15 g/mL 7 Alcohol < 10 mg/dL Normal <10 Salicylate < 2.50 mg/dL <30 TSH (Thyroid Stim Horm) 2.62 mcIU/mL Normal 0.34-5.60 C Reactive Protein 1.49 mg/L Normal <8.01 Hemoglobin A1c (Glyco HGB) 10.1 % High 4.0-5.6 8 Blood Culture SEE RESULT BELOW 9 Comp Metabolic 11/22/2018 [facility] Sodium 138 mmol/L Normal 135-145 Panel [address] [place] [address] [phone] Potassium 3.7 mmol/L Normal 3.5-5.0 Chloride 106 mmol/L Normal 101-111 Co2 Carbon Dioxide 25 mmol/L Normal 22-32 Anion Gap 7 mmol/L Normal 2-11 Glucose 232 mg/dL High 70-100 Blood Urea Nitrogen 14 mg/dL Normal 6-24 Creatinine 0.77 mg/dL Normal 0.67-1.17 BUN/Creatinine Ratio 18.2 Normal 8-20 Calcium 9.2 mg/dL Normal 8.6-10.3 Total Protein 7.0 g/dL Normal 6.4-8.9 Albumin 4.3 g/dL Normal 3.2-5.2 Globulin 2.7 g/dL Normal 2-4 Albumin/Globulin Ratio 1.6 Normal 1-3 Total Bilirubin 1.00 mg/dL Normal 0.2-1.0 Alkaline Phosphatase 71 U/L Normal 34-104 Alt 32 U/L Normal 7-52 Ast 25 U/L Normal 13-39 Egfr Non- 98.0 >60 Egfr 118.5 >60 10 CBC Auto 11/22/2018 [facility] White Blood 7.4 10^3/uL Normal 3.5-10.[address] [place] [address] [phone] Red Blood Count 5.04 10^6/uL Normal 4.18-5.48 Hemoglobin 15.3 g/dL Normal 14.0-18.0 Hematocrit 45 % Normal 42-52 Mean Corpuscular Volume 89 fL Normal 80-94 Mean Corpuscular Hemoglobin 30 pg Normal 27-31 Mean Corpuscular HGB Conc 34 g/dL Normal 31-36 Red Cell Distribution Width 14 % Normal 10-15 Platelet Count 164 10^3/uL Normal 150-450 Mean Platelet Volume 10.5 fL High 7.4-10.4 Abs Neutrophils 4.8 10^3/uL Normal 1.5-7.7 Abs Lymphocytes 1.8 10^3/uL Normal 1.0-4.8 Abs Monocytes 0.5 10^3/uL Normal 0-0.8 Abs Eosinophils 0.2 10^3/uL Normal 0-0.6 Abs Basophils 0.1 10^3/uL Normal 0-0.2 Abs Nucleated RBC 0.0 10^3/uL Granulocyte % 65.0 % Lymphocyte % 24.8 % Monocyte % 7.3 % Eosinophil % 2.1 % Basophil % 0.8 % Nucleated Red Blood Cells % 0.1 Laboratory 11/22/2018 [facility] Lactic Acid 1.3 mmol/L Normal 0.5-2.0 11 test [address] [place] [address] [phone] Inr/Protime 11/22/2018 [facility] Inr 0.99 Normal 0.82-1.[address] [place], [place] [id number] [phone] Laboratory 11/22/2018 [facility] Ammonia 47 mcmol/L Normal 16- 53 test [address] [place] [address] [phone] Urine Drug 11/22/2018 [facility] Urine None None [facility] [address] Amphetamine [place] [address] Screen [phone] Urine Barbiturates Screen None Detected None Detect Urine Benzodiazepine Screen None Detected None Detect Urine Cannabinoids Screen None Detected None Detect Urine Cocaine Screen None Detected None Detect Urine Opiates Screen None Detected None Detect Urine Phencyclidine Screen None Detected None Detect 13 Urinalysis Profile 11/22/2018 [facility] Urine Color Yellow [address] [place] [address] [phone] Urine Appearance Clear Urine Specific [place] 1.015 Normal 1.010-1.030 Urine pH 5.0 Normal 5-9 Urine Urobilinogen Negative Negative Urine Ketones Negative Negative Urine Protein Negative Negative Urine Leukocytes Negative Negative Urine Blood Negative Negative Urine Nitrite Negative Negative Urine Bilirubin Negative Negative Urine Glucose 3+(>=500 mg/dL) Abnormal Negative Laboratory test finding 08/27/2018 [facility] In House Hemoglobin A1c 11.0 High 5-7 1 Troponin-I testing on Plasma Separator Tubes (PST) has a known false positive rate of 0.20-0.40%. All positive troponins reflex immediately to secondary confirmatory testing. Using the [employer] DxI 800 Access Immunoassay systems, the 99th percentile upper reference limit was demonstrated to be < 0.03 ng/mL. 2 Troponin-I testing on Plasma Separator Tubes (PST) has a known false positive rate of 0.20-0.40%. All positive troponins reflex immediately to secondary confirmatory testing. Using the [employer] DxI 800 Access Immunoassay systems, the 99th percentile upper reference limit was demonstrated to be < 0.03 ng/mL. 3 Standard intensity warfarin therapeutic range: 2.0-3.0 High intensity warfarin therapeutic range: 2.5-3.5 4 Troponin-I testing on Plasma Separator Tubes (PST) has a known false positive rate of 0.20-0.40%. All positive troponins reflex immediately to secondary confirmatory testing. Using the [employer] DxI 800 Access Immunoassay systems, the 99th percentile upper reference limit was demonstrated to be < 0.03 ng/mL. 5 Because ethnic data is not always readily available, this report includes an eGFR for both -Americans and non- Americans. The National Kidney Disease Education Program (NKDEP) does not endorse the use of the MDRD equation for patients that are not between the ages of 18 and 70, are , have extremes of body size, muscle mass, or nutritional status, or are non- or non-. According to the National Kidney Foundation, irrespective of diagnosis, the stage of the disease is based on the level of kidney function: Stage Description GFR(mL/min/1.73 m(2)) 1 Kidney damage with normal or decreased GFR 90 2 Kidney damage with mild decrease in GFR 60-89 3 Moderate decrease in GFR 30-59 4 Severe decrease in GFR 15-29 5 Kidney failure <15 (or dialysis) 6 Troponin-I testing on Plasma Separator Tubes (PST) has a known false positive rate of 0.20-0.40%. All positive troponins reflex immediately to secondary confirmatory testing. Using the [employer] DxI 800 Access Immunoassay systems, the 99th percentile upper reference limit was demonstrated to be < 0.03 ng/mL. 7 Therapeutic concentration: <50 ug/mL Toxic concentration: >120 ug/mL 8 Therapeutic target for the treatment of diabetes mellitus patients is <7% HBA1C, and in selective patients <6.0%. Please refer to [place] Diabetes Association diabetic care guidelines for further information. 9 SEE RESULT BELOW Name: OANH LECHUGA : [address]: Noah Delarosa MD Acct: [id number] Unit: [id number] AGE: 78 Location: ED Re11/22/18 SEX: M Status: DEP ER SPEC: [id number] AMINAH: 11/22/18-[address] [facility] [address]: Noah Delarosa MD REQ: [id number] RECD: 11/22/18 STATUS: ROSANNA QUIROZ DR: Taina Hightower MD _ SOURCE: BLOOD,VENO SPDESC: ORDERED: Blood Cult Procedure Result Reported Site Aerobic Culture Bottle Final 11/27/18- 1333 ML No Growth Day 5 Anaerobic Culture Bottle Final 11/27/18- 1333 ML No Growth Day 5 * ML - Main Lab . END OF REPORT DEPARTMENT OF PATHOLOGY, [address] [place] [address] Kb Solorzano M.D. Director [facility] # [id number] 10 Because ethnic data is not always readily available, this report includes an eGFR for both -Americans and non- Americans. The National Kidney Disease Education Program (NKDEP) does not endorse the use of the MDRD equation for patients that are not between the ages of 18 and 70, are , have extremes of body size, muscle mass, or nutritional status, or are non- or non-. According to the National Kidney Foundation, irrespective of diagnosis, the stage of the disease is based on the level of kidney function: Stage Description GFR(mL/min/1.73 m(2)) 1 Kidney damage with normal or decreased GFR 90 2 Kidney damage with mild decrease in GFR 60-89 3 Moderate decrease in GFR 30-59 4 Severe decrease in GFR 15-29 5 Kidney failure <15 (or dialysis) 11 [facility] Severe Sepsis and Septic Shock Management Bundle Measure requires all lactic acids initially measuring >2.0 mmol/L be repeated. 12 Standard intensity warfarin therapeutic range: 2.0-3.0 High intensity warfarin therapeutic range: 2.5-3.5 13 The urine specimen was tested at the listed cutoffs: Drug class test level (ng/mL) Amphetamines 500 Barbiturates 200 Benzodiazepine metabolites 200 Cocaine metabolites 150 Cannabinoids 50 Opiates 300 Pcp 25 Specimen was received without chain of custody. Results should be used for medical purposes only. Procedures Date Code Description Status 10/14/2018 376433224 Diabetic Retinal Eye Exam Completed 08/12/2018 61827 Stress Test Completed 08/12/2018 34890 Myocardial Perfusion Imaging Tomographic (Spect) Completed Multiple Studies 06/20/2018 60953 ECHO Transthoracic, Real-Time 2D With Doppler And Completed Color Flow 06/20/2018 24008 ECHO Transthoracic, Real-Time 2D With Doppler And Completed Color Flow Medical Devices Description No Information Available Encounters Description No Information Available Assessments Date Code Description Provider 12/02/2018 F03.90 Unspecified dementia without behavioral Noah Huff M.D. disturbance 12/02/2018 E11.8 Type 2 diabetes mellitus with unspecified Noah Huff M.D. complications 12/02/2018 I10 Essential (primary) hypertension Noah Huff M.D. 12/02/2018 I25.810 Atherosclerosis of coronary artery bypass Noah Huff M.D. graft(s) without a 08/27/2018 Z00.01 Encounter for general adult medical Taina Hightower MD examination with abnorma 08/27/2018 F03.90 Unspecified dementia without behavioral Taina Hightower MD disturbance 08/27/2018 E11.8 Type 2 diabetes mellitus with unspecified Taina Hightower MD complications 08/27/2018 I10 Essential (primary) hypertension Taina Hightower MD 08/27/2018 Z23 Encounter for immunization Taina Hightower MD 08/27/2018 R19.7 Diarrhea, unspecified Taina Hightower MD 08/12/2018 I25.810 Atherosclerosis of coronary artery bypass Hunter Shin DO [facility] graft(s) without a 06/20/2018 I35.0 Nonrheumatic aortic (valve) stenosis Kaitlyn Nance M.D. 06/20/2018 I35.0 Nonrheumatic aortic (valve) stenosis I[facility] ECHO Schedule 06/20/2018 I25.810 Atherosclerosis of coronary artery bypass Kaitlyn Nance M.D. graft(s) without angina pectoris 06/20/2018 I25.810 Atherosclerosis of CABG w/o angina [facility] ECHO Schedule pectoris 06/20/2018 I48.0 Paroxysmal atrial fibrillation Kaitlyn Nance M.D. 06/20/2018 I48.0 Paroxysmal atrial fibrillation Ica ECHO Schedule Plan of Treatment Future Appointment(s):12/17/2018 10:30 am - Nurse Visit A at [facility] Internal Medicine - Ccmob02/16/2019 2:00 pm - Tomás Rios M.D. at [facility]12/02/2018 - Noah Huff M.D.F03.90 Unspecified dementia without behavioral disturbanceReferral:No Doctor LwcfiiscF75.8 Type 2 diabetes mellitus with unspecified [id number] Essential (primary) mjpkuhkmmjdxO49.810 Atherosclerosis of coronary artery bypass graft(s) without a Functional Status Description No Information Available Mental Status Description No Information Available Referrals Refer to Dr Reason for Referral Status Appt Date (+) dementia; lives alone. Family looking into [facility] assisted living placement. Eval for home assistive devices/services dementia with ?unsafe home environment; eval for assistive [facility] devices/services. (+) DM, HTN, heart dz; medication management/supervision and glucose testing needed faxed referral to [facility] per Velma, need to fax note when closed. 12/03/18 S5 Kym Reyes MD please evaluate if this pt with dementia and [facility] 2018 several comorbidities is a candidate for medication [address] [place] [address] [place] [address] [phone] Sebastian Prince M.D. pt with chronic diarrhea, no weight loss. Scheduled 12/2018 poor historian due to dementia [address] [place] [address] [phone] Corby Flores MD pt with uncontrolled DM, needs retinopathy Closed screening [address] [facility] [address] [place] [address] [phone]
[2018-12-16 03:51] LABS: ABS Basophils 0.1 10^3/ul (0-0.2); ABS Eosinophils 0.1 10^3/ul (0-0.6); ABS Lymphocytes 1.5 10^3/ul (1.0-4.8); ABS Neutrophils 8.8 10^3/ul (1.5-7.7); Hematocrit 43 % (42-52); Hemoglobin 14.5 g/dL (14.0-18.0); Lymphocyte % 12.7 %; Mean Corpuscular HGB Conc 34 g/dL (31-36); Mean Corpuscular Hemoglobin 30 pg (27-31); Mean Corpuscular Volume 89 fL (80-94); Mean Platelet Volume 10.2 fL (7.4-10.4); Platelet Count 202 10^3/uL (150-450); Red Cell Distribution Width 13 % (10-15); White Blood Count 11.4 10^3/uL (3.5-10.8)
--- NOTE | 2018-12-16 04:04 | ED ---
Altered Mental Status - HPI Summary HPI Summary: Patient is a 78 y/o M presenting to [facility] via EMS with complaints of AMS. Patient is a level 5 caveat as a result of AMS. Daughter provides history. She states that she had moved in with the patient two weeks ago as he had been having frequent falls and urinating, defecating in inappropriate places. She states that while she was living with him, she noted that the patient was unable to understand simple commands, was disoriented, and had difficulty ambulating. Tonight, the patient is reported to have had significantly worse AMS. Patient believes that his daughter is his . Daughter states that the patient had no complaints of CP, SOB, COLLINS, fever, N/V/D. She notes that the patient has been eating and drinking. Home medications and allergies are reviewed. - History Of Current Complaint Chief Complaint: EDAltMentalStatus Stated Complaint: AMS PER EMS Time Seen by Provider: 12/16/18 02:47 Hx Obtained From: Family/Lens Cleaner - daughter Hx From Patient Unobtainable Due To: Altered Mental Status Onset/Duration: Still Present Timing: Constant, Lasting Hours - worse AMS tonight Severity Initially: Moderate Severity Currently: Severe Character: Confusion Aggravating Factor(s): Unknown Alleviating Factor(s): Unknown - Allergies/Home Medications Allergies/Adverse Reactions: Allergies Allergy/AdvReac Type Severity Reaction Status Date / Time cyclobenzaprine Allergy Hallucinati Verified 11/25/18 15:53 [From Flexeril] ons metoprolol Allergy Unknown Verified 11/25/18 15:53 Reaction Details ramipril Allergy Unknown Verified 11/25/18 15:53 Reaction Details PMH/Surg Hx/FS Hx/Imm Hx Endocrine/Hematology History: Reports: Hx Diabetes Cardiovascular History: Reports: Hx Atrial Fibrillation, Hx Coronary Artery Disease, Hx Hypercholesterolemia, Hx Hypertension Comment Only: Hx Pacemaker/ICD - IMPLANTED MONITOR GI History: Reports: Hx Gastroesophageal Reflux Disease History: Denies: Hx Dialysis Sensory History: Denies: Hx Contacts or Glasses, Hx Deafness, Hx Hearing Aid Opthamlomology History: Denies: Hx Contacts or Glasses Neurological History: Reports: Hx Dementia, Hx Transient Ischemic Attacks (TIA) - Surgical History Surgery Procedure, Year, and Place: CABG x4 Infectious Disease History: Unable to Obtain/Confirm Infectious Disease History: Denies: Traveled Outside the [place] in Last 30 Days - Family History Known Family History: Positive: Cardiac Disease - with [place] - Social History Alcohol Use: None Hx Substance Use: No Substance Use Type: Reports: None Hx Tobacco Use: Yes Smoking Status (MU): Former Smoker Review of Systems - ROS Summary Review of Systems Summary: Patient is a level 5 caveat as a result of AMS. Negative: Fever Negative: Chest Pain Negative: Shortness Of Breath Negative: Vomiting, Diarrhea, Nausea Neurological: Other - positive - AMS Negative: Headache All Other Systems Reviewed And Are Negative: No - Comments Additional Review of Systems Comments: Patient is a level 5 caveat as a result of AMS. Physical Exam - Summary Physical Exam Summary: General: Well-developed, Well-nourished, Unkempt Male. No acute distress. HEENT: Normocephalic, Atraumatic. Eyes: Conjuctiva normal, PERRL. Ears: TMs within normal limits. Nares: (-) discharge, (-) erythema. Oropharynx: Clear, mucous membranes moist, (-) exudates. Neck: Soft, FROM, (-) lymphadenopathy, (-) thyromegaly, (-) JVD. Cardiovascular: Normal sinus rhythm, (-) murmur. Lungs: Clear to auscultation bilaterally (-) wheezes, (-) rales, (-) rhonchi. Abdomen: Soft, non-tender, non-distended, (-) organomegaly, normal bowel sounds. Back: (-) CVA tenderness Extremities: No edema. Skin: Warm, dry, (-) rash. Neuro: Alert and oriented x1; unable to assess further due to AMS Psychiatric: unable to assess further due to AMS Triage Information Reviewed: Yes Vital Signs On Initial Exam: Initial Vitals Temp Pulse Resp BP Pulse Ox 99.8 F 94 16 170/82 93 12/16/18 02:33 12/16/18 02:33 12/16/18 02:33 12/16/18 02:33 12/16/18 02:33 Vital Signs Reviewed: Yes Completion Of Physical Exam Limited Due To: Altered Mental Status, Level 5 - Wagoner Coma Scale Best Eye Response: 4 - Spontaneous Best Motor Response: 6 - Obeys Commands Best Verbal Response: 4 - Confused Coma Scale Total: 14 Procedures - Sedation Patient Received Moderate/Deep Sedation with Procedure: No Diagnostics - Vital Signs Vital Signs Temp Pulse Resp BP Pulse Ox 12/16/18 03:00 95 26 94 12/16/18 02:41 96 14 154/87 93 12/16/18 02:39 94 17 92 12/16/18 02:33 99.8 F 94 16 170/82 93 - Laboratory Lab Results: Lab Results 12/16/18 12/16/18 12/16/18 Range/Units 02:46 03:20 03:45 WBC 11.4 H (3.5-10.8) 10^3/uL RBC 4.80 (4.18-5.48) 10^6 /uL Hgb 14.5 (14.0-18.0) g/dL Hct 43 (42-52) % MCV 89 (80-94) fL MCH 30 (27-31) pg MCHC 34 (31-36) g/dL RDW 13 (10-15) % Plt Count 202 (150-450) 10^3/uL MPV 10.2 (7.4-10.4) fL Neut % (Auto) 77.2 % Lymph % (Auto) 12.7 % [place] % (Auto) 8.6 % Eos % (Auto) 1.0 % Baso % (Auto) 0.5 % Absolute Neuts (auto) 8.8 H (1.5-7.7) 10^3/ul Absolute Lymphs (auto) 1.5 (1.0-4.8) 10^3/ul Absolute Monos (auto) 1.0 H (0-0.8) 10^3/ul Absolute Eos (auto) 0.1 (0-0.6) 10^3/ul Absolute Basos (auto) 0.1 (0-0.2) 10^3/ul Absolute Nucleated RBC 0.0 10^3/ul Nucleated RBC % 0.0 ABG pH 7.45 (7.35-7.45) ABG pCO2 36 (35-45) mmHg ABG pO2 67 L (80-100) mmHg ABG HCO3 25.8 (19-31) mmol/L ABG O2 Saturation 95.6 (94.0-98.0) % ABG Base Excess 1.3 (-2.0-2.0) mmol/L POC Glucose (mg/dL) 183 H (70-100) mg/dL Result Diagrams: 12/16/18 03:45 12/16/18 03:45 Lab Statement: Any lab studies that have been ordered have been reviewed, and results considered in the medical decision making process. - CT BRAIN CT CT Interpretation Completed By: Radiologist Summary of CT Findings: IMPRESSION: No acute intracranial hemorrhage or significant mass effect. Stable. chronic changes as described above. THIS REPORT WAS REVIEWED BY DR. SCHNEIDER. - EKG 0335 Cardiac Rate: NL - rate of 90 BPM EKG Rhythm: Sinus Rhythm Summary of EKG Findings: EKG showed NSR with rate of 90 BPM, no STEMI. This EKG was reviewed and interpreted by Dr. Schneider. Altered Mental Statu Course/Dx - Course Course Of Treatment: 78-year-old male with change in mental status. Weakness. essentially negative. Patient referred to hospitalist for admission. - Diagnoses Provider Diagnoses: Confusion, Weakness - Provider Notifications Discussed Care Of Patient With: Doug Lawson Time Discussed With Above Provider: 06:06 Instructed by Provider To: Other - Patient's case was discussed with Dr. Lawson , Dr. Lawson accepts for admission. Discharge ED - Sign-Out/Discharge Documenting (check all that apply): Patient Departure - admit - Discharge Plan Condition: Stable Disposition: ADMITTED TO [facility] - Billing Disposition and Condition Condition: STABLE Disposition: Admitted to [facility] - Attestation Statements Document Initiated by Krystian: Yes Documenting Scribe: BARRY LOUIS Provider For Whom Krystian is Documenting (Include Credential): SAVANNA SCHNEIDER MD Scribe Attestation: BARRY Giang, scribed for SAVANNA SCHNEIDER MD on 12/17/18 at 0051. Scribe Documentation Reviewed: Yes Provider Attestation: The documentation as recorded by the juan [email or web address] chi accurately reflects the service I personally performed and the decisions made by me, SAVANNA SCHNEIDER MD Status of Scribe Document: Viewed
[2018-12-16 04:09] LABS: ALT 47 U/L (7-52); AST 24 U/L (13-39); Albumin 4.1 g/dL (3.2-5.2); Albumin/Globulin Ratio 1.3 (1-3); Alkaline Phosphatase 105 U/L (34-104); Anion Gap 8 mmol/L (2-11); BUN/Creatinine Ratio 16.9 (8-20); Blood Urea Nitrogen 14 mg/dL (6-24); CO2 Carbon Dioxide 24 mmol/L (22-32); Calcium 9.6 mg/dL (8.6-10.3); Chloride 105 mmol/L (101-111); EGFR African American 108.7 (>60); EGFR Non-African American 89.8 (>60); Globulin 3.1 g/dL (2-4); Glucose 168 mg/dL (70-100); Magnesium 1.8 mg/dL (1.9-2.7); Potassium 3.8 mmol/L (3.5-5.0); Sodium 137 mmol/L (135-145); Total Protein 7.2 g/dL (6.4-8.9)
[2018-12-16 04:12] LABS: INR 1.13 (0.82-1.09)
[2018-12-16 04:23] LABS: Acetaminophen < 15 mcg/mL; Alcohol < 10 mg/dL (<10); Salicylate < 2.50 mg/dL (<30)
[2018-12-16 04:37] LABS: TSH (Thyroid Stimulating Horm) 2.68 mcIU/mL (0.34-5.60)
[2018-12-16 05:35] LABS: Urine Appearance Clear; Urine Bilirubin Negative (Negative); Urine Blood Negative (Negative); Urine Color Yellow; Urine Glucose 1+(50 mg/dL) (Negative); Urine Ketones Negative (Negative); Urine Nitrite Negative (Negative); Urine Protein Negative (Negative); Urine Specific Gravity 1.018 (1.010-1.030); Urine Urobilinogen Negative (Negative)
[2018-12-16 05:52] LABS: Urine Benzodiazepine Screen None Detected (None Detect); Urine Opiates Screen None Detected (None Detect)
[2018-12-16] MEDS ORDERED: Ondansetron INJ* 2 MG/ML VIAL IV PRN (06:55)
[2018-12-16] MEDS ORDERED: Acetaminophen TAB* 325 MG PO PRN (06:55)
--- NOTE | 2018-12-16 08:07 | HP ---
ADMISSION HISTORY AND PHYSICAL: DATE OF ADMISSION: 12/16/18 PRIMARY CARE PROVIDER: Dr. Taina Hightower. SOURCE OF INFORMATION: History obtained from interview with his daughter, review of past medical records. RELIABILITY: Fair to poor. CHIEF COMPLAINT: Disorientation and weakness. HISTORY OF PRESENT ILLNESS: This is a 78-year-old man with a past medical history of dementia, recent hospital stay this year in March after presenting with inability to care for himself. Was admitted to fpc status at that time. Transitioned to Rehab at [facility], where he stayed for approximately 2 weeks, but hated it and returned home. He came back to the emergency room in October with similar complaints, inability to care for himself; however, at that time it was identified that he had more resources at home including family as well as Meals on Wheels and was discharged home from the emergency room. He is now returning to the emergency room with his daughter , who notes that he has continued to be disoriented, pees on the floor, has episodes of fecal incontinence. He usually can follow simple commands such as sit on the rocking chair, but has not been doing so for the last several days and not adhering to walking with walker. She notes that he is worse. He is more difficult behaviorally at night and that his decline has been worse over the last year. She notes that she cannot continue to care for him, believes he is increasingly weaker and falling more frequently, and is seeking assistance with his further care. PAST MEDICAL HISTORY: Includes hypertension, [id number] diabetes mellitus, history of CVA, CAD, CABG in 2008, AFib; on Eliquis, history of falls , and he has a permanent pacemaker. MEDICATIONS: From previous hospital stay, unconfirmed at this time, include: 1. Eliquis 5 mg twice daily. 2. Crestor 40 mg daily. 3. Protonix 40 mg daily. 4. Metformin 1000 mg twice daily. 5. Losartan 50 mg daily. 6. Glipizide XL 10 mg twice daily. 7. Diltiazem 120 mg daily. ALLERGIES: RAMIPRIL, METOPROLOL, and FLEXERIL. FAMILY HISTORY: Includes CAD. SOCIAL HISTORY: Lives at home alone. Has a daughter who lives locally who has been coming in and living with him for the last several days. He has Meals on Wheels. He is a nonsmoker. Marie is his healthcare proxy and lives in [place]. Marie is not the daughter present in the emergency room today. REVIEW OF SYSTEMS: Negative for cough, shortness of breath, nausea, vomiting, lightheadedness, fevers, chills, night sweats, and changes in his appetite. Significant for all those mentioned in the history of present illness. Otherwise, all others are negative. PHYSICAL EXAMINATION GENERAL: Lying flat in bed, interactive, in no apparent distress. VITAL SIGNS: In the emergency room include 124/72, heart rate is 91, respiratory rate is 18, he is 95% on room air, and his T-max is 99.8. HEENT: Oropharynx is clear. He has moist mucous membranes. LUNGS: Clear to auscultation. HEART: He has regular rate and rhythm. ABDOMEN: Soft, nontender, and nondistended. EXTREMITIES: Warm and well perfused. He has minimal bilateral lower extremity edema. NEUROLOGIC: He is alert and oriented x1 to himself. He cannot name that he is in the hospital even if given a choice of 3 options. He can follow simple commands like open his mouth and sit up. He moves all extremities. His cranial nerves are intact. DIAGNOSTIC STUDIES/LAB DATA: Labs reviewed. White blood cell count is 11.4, platelets 202, hemoglobin 14.5, BUN 14, creatinine 0.83, glucose 168, lactic acid is 1.1. Troponin I is 0.00. TSH is 2.68. His urine is bland, except for 1+ protein. Toxicology negative for all substances tested. Data reviewed. Brain CT: No hemorrhage, mass, or infarct. ASSESSMENT AND PLAN: This is a 78-year-old man with a past medical history of dementia who has had episodes of incontinence previously and falls and difficulty caring for himself; however, he has had increasing weakness and worsening behavior at home, now presenting with his daughter for assistance for further care. 1. Weakness. Unclear how much weaker this patient is versus how much more difficult he has been to control at home. There is no indication he has had increasing fall frequency, but is urinating more frequently around the house. He is still ambulating without a walker, although it is not apparently safe for him. I will note that he has leukocytosis and potentially does have an underlying urinary tract infection. He has had a minimal cough at home. I have ordered a chest x-ray to evaluate for any underlying early pneumonia. We have not chosen to treat with any antibiotics. I think this patient largely needs assistance with long-term care management, which the daughter is in agreement with. Of note, he went to [facility] previously and left after 2 weeks. We discussed at length that this hospital stay would largely be to assess for other etiology of weakness, including underlying infection, and to assist in placement for long-term care. The patient's daughter is in agreement. 2. Diabetes. Continue home medications. 3. Atrial fibrillation. Continue Eliquis. 4. History of dementia. Monitor. 5. DVT prophylaxis. Eliquis. [id number]/[facility] #: [id number] CHRISSY
[2018-12-16] MEDS: Diltiazem CD CAP* 120 MG PO SCH (08:45)
[2018-12-16] MEDS: Losartan TAB* 25 MG PO SCH (08:46)
[2018-12-16] MEDS: metFORMIN* 1,000 MG TAB PO SCH ×2 (08:46→17:58)
[2018-12-16] MEDS: Apixaban* 5 MG TAB PO SCH ×2 (08:46→21:11)
[2018-12-16] MEDS: glipiZIDE TAB.XL* 5 MG PO SCH ×2 (08:46→17:58)
--- NOTE | 2018-12-16 17:26 | PN ---
Subjective Date of Service: 12/16/18 Interval History: patient seen today, confused, disoriented. no distress. tolerating po. WBC on admission 11 but negative CXR and US Objective Active Medications: Acetaminophen (Tylenol Tab*) 650 mg PO Q4H PRN PRN Reason: PAIN - MILD Apixaban (Eliquis*) 5 mg PO BID [facility] Last Admin: 12/16/18 08:46 Dose: 5 mg Diltiazem HCl (Cardizem Cd Cap*) 120 mg PO DAILY [facility] Last Admin: 12/16/18 08:45 Dose: 120 mg Glipizide (Glucotrol Xl*) 10 mg PO BID WITH MEALS [facility] Last Admin: 12/16/18 08:46 Dose: 10 mg Losartan Potassium (Cozaar Tab*) 50 mg PO DAILY [facility] Last Admin: 12/16/18 08:46 Dose: 50 mg Metformin HCl (Glucophage*) 1,000 mg PO BID WITH MEALS [facility] Last Admin: 12/16/18 08:46 Dose: 1,000 mg Ondansetron HCl (Zofran Inj*) 4 mg IV Q4H PRN PRN Reason: NAUSEA/VOMITING Vital Signs - 8 hr 12/16/18 11:32 Temperature 97.8 F Pulse Rate 89 Respiratory 20 Rate Blood Pressure 134/51 (mmHg) O2 Sat by Pulse 93 Oximetry Oxygen Devices in Use Now: None Appearance: awake, alert but disoriented and no distress. Eyes: No Scleral Icterus Ears/Nose/Mouth/Throat: NL Teeth, Lips, Gums, Mucous Membranes Moist Neck: NL Appearance and Movements; NL JVP, Trachea Midline Respiratory: Symmetrical Chest Expansion and Respiratory Effort, Clear to Auscultation Cardiovascular: NL Sounds; No Murmurs; No JVD Abdominal: NL Sounds; No Tenderness; No Distention Neurological: Alert and Oriented x 3 Result Diagrams: 12/16/18 03:45 12/16/18 03:45 Additional Lab and Data: Lab Results 12/16/18 12/16/18 12/16/18 Range/Units 02:46 03:20 03:45 WBC 11.4 H (3.5-10.8) 10^3/uL RBC 4.80 (4.18-5.48) 10^6 /uL Hgb 14.5 (14.0-18.0) g/dL Hct 43 (42-52) % MCV 89 (80-94) fL MCH 30 (27-31) pg MCHC 34 (31-36) g/dL RDW 13 (10-15) % Plt Count 202 (150-450) 10^3/uL MPV 10.2 (7.4-10.4) fL Neut % (Auto) 77.2 % Lymph % (Auto) 12.7 % [place] % (Auto) 8.6 % Eos % (Auto) 1.0 % Baso % (Auto) 0.5 % Absolute Neuts (auto) 8.8 H (1.5-7.7) 10^3/ul Absolute Lymphs (auto) 1.5 (1.0-4.8) 10^3/ul Absolute Monos (auto) 1.0 H (0-0.8) 10^3/ul Absolute Eos (auto) 0.1 (0-0.6) 10^3/ul Absolute Basos (auto) 0.1 (0-0.2) 10^3/ul Absolute Nucleated RBC 0.0 10^3/ul Nucleated RBC % 0.0 ABG pH 7.45 (7.35-7.45) ABG pCO2 36 (35-45) mmHg ABG pO2 67 L (80-100) mmHg ABG HCO3 25.8 (19-31) mmol/L ABG O2 Saturation 95.6 (94.0-98.0) % ABG Base Excess 1.3 (-2.0-2.0) mmol/L POC Glucose (mg/dL) 183 H (70-100) mg/dL Assess/Plan/Problems-Billing Assessment: 78 y/o male admitted for irrational behavior and urinating on self. family unable to attend to his needs. Nothing acute medically will most likely will require placement - Patient Problems (1) Atrial fibrillation Current Visit: No Status: Acute Code(s): I48.91 - UNSPECIFIED ATRIAL FIBRILLATION SNOMED Code(s): 04248838 Comment: Eliquis 5 mg bid Cardizem CD 120 mg daily Can consider dc of eliquis if goes home without assistance (2) Dementia Current Visit: No Status: Acute Code(s): F03.90 - UNSPECIFIED DEMENTIA WITHOUT BEHAVIORAL DISTURBANCE SNOMED Code(s): 41465494 Comment: - Will require SNF. - No aggressive behavior (3) Diabetes Current Visit: No Status: Acute Code(s): E11.9 - TYPE 2 DIABETES MELLITUS WITHOUT COMPLICATIONS SNOMED Code(s): 45281411 Comment: Restarted metformin 1000 mg bid and glipize 10 mg bid ISS in patient. (4) Impaired home maintenance management Current Visit: No Status: Acute Code(s): Z59.8 - OTHER PROBLEMS RELATED TO HOUSING AND ECONOMIC CIRCUMSTANCES SNOMED Code(s): 42476838 Comment: secondary to dementia and recent loss of (last week) He would be amenable for jail placement I do not think pt has capacity to participate in placement discussion (5) DVT prophylaxis Current Visit: No Status: Acute Code(s): MKK0629 - SNOMED Code(s): 445139183 Comment: janak
[2018-12-17] MEDS ORDERED: Ondansetron ODT TAB* 4 MG SL PRN (05:54)
[2018-12-17] MEDS ORDERED: Haloperidol INJ IV/IM* 5 MG/ML AMP IM PRN (05:54)
[2018-12-17 06:47] LABS: ABS Basophils 0.1 10^3/ul (0-0.2); ABS Eosinophils 0.1 10^3/ul (0-0.6); ABS Lymphocytes 1.7 10^3/ul (1.0-4.8); Hematocrit 45 % (42-52); Hemoglobin 15.3 g/dL (14.0-18.0); Lymphocyte % 13.9 %; Mean Corpuscular HGB Conc 34 g/dL (31-36); Mean Corpuscular Hemoglobin 30 pg (27-31); Mean Corpuscular Volume 89 fL (80-94); Mean Platelet Volume 10.3 fL (7.4-10.4); Nucleated Red Blood Cells % 0.1; Platelet Count 198 10^3/uL (150-450); Red Blood Count 5.08 10^6 /uL (4.18-5.48); Red Cell Distribution Width 13 % (10-15); White Blood Count 11.8 10^3/uL (3.5-10.8)
[2018-12-17 06:58] LABS: BUN/Creatinine Ratio 14.3 (8-20); Calcium 9.6 mg/dL (8.6-10.3); EGFR African American 118.5 (>60); Potassium 3.6 mmol/L (3.5-5.0)
[2018-12-17] MEDS: Losartan TAB* 25 MG PO SCH (09:36)
[2018-12-17] MEDS: metFORMIN* 1,000 MG TAB PO SCH ×2 (09:36→16:30)
[2018-12-17] MEDS: Apixaban* 5 MG TAB PO SCH ×2 (09:37→22:32)
[2018-12-17] MEDS: Diltiazem CD CAP* 120 MG PO SCH (09:37)
[2018-12-17] MEDS: glipiZIDE TAB.XL* 5 MG PO SCH ×2 (09:37→16:30)
[2018-12-17] MEDS ORDERED: Diltiazem TAB* 60 MG PO ONE (12:35)
--- NOTE | 2018-12-17 12:42 | PN ---
Subjective Date of Service: 12/17/18 Interval History: Patient seems to be more confused today when compared to yesterday. His BP elevated at 172/76. no fever but he has slight increase in WBC 11,000. UA again reviewed from admission negative. CT brain from admission negative. Will treat BP by adding Cardizem 60 mg once to his 120 mg CD and increase his dose to 180 mg in am, and will send for repeat CT brain. Past Medical History: Unchanged from Admission Objective Active Medications: Acetaminophen (Tylenol Tab*) 650 mg PO Q4H PRN PRN Reason: PAIN - MILD Last Admin: 12/16/18 21:10 Dose: 650 mg Apixaban (Eliquis*) 5 mg PO BID [facility] Last Admin: 12/17/18 09:37 Dose: 5 mg Diltiazem HCl (Cardizem Tab*) 60 mg PO ONCE ONE Stop: 12/17/18 12:36 Glipizide (Glucotrol Xl*) 10 mg PO BID WITH MEALS [facility] Last Admin: 12/17/18 09:37 Dose: 10 mg Haloperidol Lactate (Haldol Inj Iv/Im*) 5 mg IM Q6H PRN PRN Reason: AGITATION Losartan Potassium (Cozaar Tab*) 50 mg PO DAILY [facility] Last Admin: 12/17/18 09:36 Dose: 50 mg Metformin HCl (Glucophage*) 1,000 mg PO BID WITH MEALS [facility] Last Admin: 12/17/18 09:36 Dose: 1,000 mg Ondansetron HCl (Zofran Odt Tab*) 4 mg SL Q6H PRN PRN Reason: NAUSEA/VOMITING Vital Signs - 8 hr 12/17/18 12/17/18 12/17/18 08:00 08:28 12:27 Temperature 99.2 F 98.7 F Pulse Rate 92 115 Respiratory 20 20 18 Rate Blood Pressure 162/75 172/76 (mmHg) O2 Sat by Pulse 92 Oximetry Oxygen Devices in Use Now: None Appearance: Awake, alert. no distress, confused stuterring speech. moving all extremeties Eyes: No Scleral Icterus, - - EOMI Ears/Nose/Mouth/Throat: NL Teeth, Lips, Gums, Mucous Membranes Moist Neck: NL Appearance and Movements; NL JVP, Trachea Midline Respiratory: Symmetrical Chest Expansion and Respiratory Effort, Clear to Auscultation Cardiovascular: NL Sounds; No Murmurs; No JVD, No Edema Abdominal: NL Sounds; No Tenderness; No Distention Extremities: No Edema, - - moving all 4 extremties Neurological: - - confused, disoriented. stuttering and mumbled speech Result Diagrams: 12/17/18 06:20 12/17/18 06:20 Additional Lab and Data: Lab Results 12/16/18 12/16/18 12/16/18 Range/Units 02:46 03:20 03:45 WBC 11.4 H (3.5-10.8) 10^3/uL RBC 4.80 (4.18-5.48) 10^6 /uL Hgb 14.5 (14.0-18.0) g/dL Hct 43 (42-52) % MCV 89 (80-94) fL MCH 30 (27-31) pg MCHC 34 (31-36) g/dL RDW 13 (10-15) % Plt Count 202 (150-450) 10^3/uL MPV 10.2 (7.4-10.4) fL Neut % (Auto) 77.2 % Lymph % (Auto) 12.7 % [place] % (Auto) 8.6 % Eos % (Auto) 1.0 % Baso % (Auto) 0.5 % Absolute Neuts (auto) 8.8 H (1.5-7.7) 10^3/ul Absolute Lymphs (auto) 1.5 (1.0-4.8) 10^3/ul Absolute Monos (auto) 1.0 H (0-0.8) 10^3/ul Absolute Eos (auto) 0.1 (0-0.6) 10^3/ul Absolute Basos (auto) 0.1 (0-0.2) 10^3/ul Absolute Nucleated RBC 0.0 10^3/ul Nucleated RBC % 0.0 ABG pH 7.45 (7.35-7.45) ABG pCO2 36 (35-45) mmHg ABG pO2 67 L (80-100) mmHg ABG HCO3 25.8 (19-31) mmol/L ABG O2 Saturation 95.6 (94.0-98.0) % ABG Base Excess 1.3 (-2.0-2.0) mmol/L POC Glucose (mg/dL) 183 H (70-100) mg/dL Assess/Plan/Problems-Billing Assessment: 78 y/o male admitted for irrational behavior and urinating on self. family unable to attend to his needs. Nothing acute medically will most likely will require placement - Patient Problems (1) Jumbled speech Current Visit: Yes Status: Acute Code(s): R47.1 - DYSARTHRIA AND ANARTHRIA SNOMED Code(s): 48658709 Comment: - new finding for me during my bed side round - Staff report he's been like that all day but more lethargic - Reviewed his UA and CT form admission both negative. This could be due to hypertensive encephalopaty versus sbacute infarct - will send for CT stat and increased cardizem to 180 mg. (2) Atrial fibrillation Current Visit: No Status: Acute Code(s): I48.91 - UNSPECIFIED ATRIAL FIBRILLATION SNOMED Code(s): 14910210 Comment: - Eliquis 5 mg bid - Will increase Cardizem CD 180 mg daily - Can consider dc of eliquis if goes home without assistance (3) Dementia Current Visit: No Status: Acute Code(s): F03.90 - UNSPECIFIED DEMENTIA WITHOUT BEHAVIORAL DISTURBANCE SNOMED Code(s): 61678666 Comment: - Will require SNF. - No aggressive behavior (4) Diabetes Current Visit: No Status: Acute Code(s): E11.9 - TYPE 2 DIABETES MELLITUS WITHOUT COMPLICATIONS SNOMED Code(s): 78958271 Comment: Restarted metformin 1000 mg bid and glipize 10 mg bid ISS in patient. 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
[2018-12-18] MEDS: metFORMIN* 1,000 MG TAB PO SCH (08:46)
[2018-12-18] MEDS: Losartan TAB* 25 MG PO SCH (08:48)
[2018-12-18] MEDS: Apixaban* 5 MG TAB PO SCH (08:48)
[2018-12-18] MEDS: glipiZIDE TAB.XL* 5 MG PO SCH (08:48)
[2018-12-18] MEDS ORDERED: Diltiazem CD CAP* 180 MG PO SCH (09:00)
[2018-12-18 11:51] VITALS: BP 131/55
--- NOTE | 2018-12-18 12:44 | DS ---
CC: Dr. Taina Hightower DATE OF ADMISSION: 12/16/2018. DATE OF DISCHARGE: 12/18/2018. FINAL DISCHARGE DIAGNOSES: 1. Atrial fibrillation, chronic, on chronic anticoagulation. 2. Dementia. 3. 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 4. Diabetes mellitus. HOSPITAL COURSE: The patient was admitted to [facility] on 2018 for one of his many admissions for poor care, unable to care for self at home, and inability for 24 hour care per family. He was brought in to the emergency room due to persistent disorientation, urinary incontinence, peeing on the floor, and episode of fecal incontinence. During the admission, as documented by his history and physical by the admitting hospitalist, there was no significant evidence of any neurological deficit, although he was quite disoriented and he was only oriented to one, just himself. He was unable to give any other proper answers to the questions provided in the assessment in the ER. He was brought in to Medicine service under observation and routine basic blood work was obtained that included CBC. It was only significant for a white count of 11,000 with a normal differential. Blood gas was unremarkable and chemistry was fairly benign with normal lactic acid and renal function, as well as electrolyte. Thyroid panel was normal at 2.68 and his toxicology was negative. The patient was maintained on the medical floor awaiting social consulting case managing and discharge planning. He was noted to have quite elevated blood pressure and that coincides with transient altered mentation as well. A repeat CT was done on December 17 due to slight lethargy and confusion and it was again negative without any evidence of acute infarct. Therefore, the patient was maintained in his current status at the hospital awaiting placement. I adjusted his blood pressure medication, specifically his Diltiazem to further titrate his rate as he occasionally goes up into 115. I increased his Diltiazem to 180 and this morning his pulse was 106, pressure 150/ 90. I am going to discharge him on Diltiazem 240. Otherwise, the hospital stay was uneventful. He was very pleasant and cooperative. He does not have any aggressive behavior. DISCHARGE MEDICATIONS: 1. Continue Tylenol 650 mg q.4 prn. 2. Continue Eliquis 5 mg b.i.d. 3. Continue Glipizide 10 mg p.o. b.i.d. 4. Continue Losartan 50 mg daily. 5. Continue Metformin 1,000 mg b.i.d. 6. I increased the Diltiazem to 240 mg daily. INPATIENT DIAGNOSTIC STUDY: CBC was pertinent for white count 11,000 and a normal differential with neutrophil of 75 percent. Urinalysis was negative for leuk esterase, clear, yellow. Chemistry was significant for sodium 137, potassium 3.8, calcium 9.6. His mag was slightly low at 1.8 which was supplemented. LFT and TSH are unremarkable. Drug screen was unremarkable. Toxicology was negative. IMAGING STUDIES: 1. He had a CT of the brain times two, December 16 as well as December 17. Neither of them revealed any acute infarct or hemorrhage, stable chronic changes , and diffuse cerebral atrophy. 2. Chest x-ray: Obstructive lung disease. 3. An EKG revealed sinus rhythm, [place] 193, rate is 90, QRS 147, QTC 487, right bundle branch block. PHYSICAL EXAMINATION: General: He is elderly, alert, disoriented to place and time, oriented to himself. Follows simple commands. Pleasant, cooperative. Vital Signs: Temperature 98.8, pulse 106, respiratory 20, blood pressure 150/ 90. Lungs: Good air flow. No crackles or rhonchi. Cardiovascular: S1, S2 tachycardic, but regular and no murmur. Abdomen: Positive bowel sounds, soft, nontender, nondistended. Extremities: No pitting edema. Genitalia: Exam deferred. Rectal: Exam deferred. 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 Speech today is appropriate, intact, moving all extremities times four. He is hard of hearing. He does require several cues and repeated questions in order to get a response from him. DISCHARGE INSTRUCTIONS: Fall precaution. Take all medications as prescribed. DISPOSITION: To [facility]. CONDITION ON DISCHARGE: Stable. [id number]/[facility] #: [id number] CHRISSY
[2018-12-19] MEDS ORDERED: Diltiazem CD CAP* 240 MG PO SCH (09:00)
== END 2018-12-18 14:35 ==
LOC: ED 02:24 → MEDTELE 06:55
PROVIDERS: ADMIT Internal Medicine; ATTEND Internal Medicine
DX: I48.20 Chronic atrial fibrillation, unspecified (principal); Z79.01 Long term (current) use of anticoagulants; F03.90 Unspecified dementia, unspecified severity, without behavioral disturbance, psychotic disturbance, mood disturbance, and anxiety; I67.4 Hypertensive encephalopathy; R47.81 Slurred speech; E11.9 Type 2 diabetes mellitus without complications; Z79.899 Other long term (current) drug therapy; Z59.8 Other problems related to housing and economic circumstances; R94.31 Abnormal electrocardiogram [ECG] [EKG]
CPT/HCPCS: 36415; 70450; 71046; 80048; 80053; 80307; 80320; 80329; 81003; 82140; 82803; 83605; 83735; 84443; 84484; 85025; 85610; 93005; 99284; A9270-GY; G0378; G0480; G8978-GP-CM; G8979-GP-CK

== ENCOUNTER 2018-12-25 10:55 | Emergency (ER) | payer MEDICARE ==
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
[2018-12-25] MEDS ORDERED: Tetan/Diph/Pertus SYR(Tdap)* 0.5 ML SYR(BOOSTRIX) use SYR contains LATEX IM ONE (11:46)
[2018-12-25 13:05] VITALS: BP 117/89
== END 2018-12-25 12:53 | disposition home or self-care (01) ==
LOC: ED 10:55
DX: S01.112A Laceration without foreign body of left eyelid and periocular area, initial encounter (principal); Z23 Encounter for immunization; W05.0XXA Fall from non-moving wheelchair, initial encounter; Y92.129 Unspecified place in nursing home as the place of occurrence of the external cause; E11.9 Type 2 diabetes mellitus without complications; I48.91 Unspecified atrial fibrillation; I25.10 Atherosclerotic heart disease of native coronary artery without angina pectoris; E78.00 Pure hypercholesterolemia, unspecified; I10 Essential (primary) hypertension; K21.9 Gastro-esophageal reflux disease without esophagitis; F03.90 Unspecified dementia, unspecified severity, without behavioral disturbance, psychotic disturbance, mood disturbance, and anxiety; Z86.73 Personal history of transient ischemic attack (TIA), and cerebral infarction without residual deficits; Z95.1 Presence of aortocoronary bypass graft; Z87.891 Personal history of nicotine dependence; Z95.810 Presence of automatic (implantable) cardiac defibrillator; Z79.01 Long term (current) use of anticoagulants; Z79.899 Other long term (current) drug therapy; Z88.8 Allergy status to other drugs, medicaments and biological substances
CPT/HCPCS: 12011; 70450; 72125; 90471; 90715; 99283

== ENCOUNTER 2018-12-26 20:14 | Emergency (ER) | payer MEDICARE ==
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
[2018-12-26 20:46] LABS: ABS Basophils 0.1 10^3/ul (0-0.2); ABS Eosinophils 0.3 10^3/ul (0-0.6); ABS Lymphocytes 2.1 10^3/ul (1.0-4.8); ABS Monocytes 0.8 10^3/ul (0-0.8); Eosinophil % 2.4 %; Hematocrit 40 % (42-52); Hemoglobin 13.2 g/dL (14.0-18.0); Lymphocyte % 18.4 %; Mean Corpuscular HGB Conc 33 g/dL (31-36); Mean Corpuscular Hemoglobin 29 pg (27-31); Mean Corpuscular Volume 88 fL (80-94); Mean Platelet Volume 9.3 fL (7.4-10.4); Nucleated Red Blood Cells % 0.1; Platelet Count 337 10^3/uL (150-450); Red Blood Count 4.51 10^6 /uL (4.18-5.48); Red Cell Distribution Width 13 % (10-15); White Blood Count 11.3 10^3/uL (3.5-10.8)
[2018-12-26 21:03] LABS: Albumin 3.5 g/dL (3.2-5.2); BUN/Creatinine Ratio 10.6 (8-20); Calcium 9.2 mg/dL (8.6-10.3); EGFR African American 105.8 (>60); EGFR Non-African American 87.4 (>60); Globulin 3.5 g/dL (2-4); Potassium 3.7 mmol/L (3.5-5.0); Total Bilirubin 0.5 mg/dL (0.2-1.0)
[2018-12-26 22:02] LABS: Urine Appearance Clear; Urine Bilirubin Negative (Negative); Urine Blood Negative (Negative); Urine Color Yellow; Urine Glucose Negative (Negative); Urine Ketones Negative (Negative); Urine Nitrite Negative (Negative); Urine Protein Negative (Negative); Urine Urobilinogen Negative (Negative)
[2018-12-26 22:54] VITALS: BP 141/96
== END 2018-12-26 22:42 ==
LOC: ED 20:14
DX: F03.91 Unspecified dementia, unspecified severity, with behavioral disturbance (principal); E11.9 Type 2 diabetes mellitus without complications; I48.91 Unspecified atrial fibrillation; I25.10 Atherosclerotic heart disease of native coronary artery without angina pectoris; E78.00 Pure hypercholesterolemia, unspecified; I10 Essential (primary) hypertension; K21.9 Gastro-esophageal reflux disease without esophagitis; Z86.73 Personal history of transient ischemic attack (TIA), and cerebral infarction without residual deficits; Z87.891 Personal history of nicotine dependence; Z88.8 Allergy status to other drugs, medicaments and biological substances
CPT/HCPCS: 36415; 70450; 80053; 81003; 83605; 85025; 99283

== ENCOUNTER 2018-12-28 22:06 | Emergency (ER) | payer MEDICARE ==
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
[2018-12-28 23:21] VITALS: BP 129/81
== END 2018-12-28 23:19 | disposition home or self-care (01) ==
LOC: ED 22:06
DX: R45.4 Irritability and anger (principal); F03.90 Unspecified dementia, unspecified severity, without behavioral disturbance, psychotic disturbance, mood disturbance, and anxiety; I10 Essential (primary) hypertension; E11.9 Type 2 diabetes mellitus without complications; I48.91 Unspecified atrial fibrillation; I25.10 Atherosclerotic heart disease of native coronary artery without angina pectoris; E78.00 Pure hypercholesterolemia, unspecified; K21.9 Gastro-esophageal reflux disease without esophagitis; Z87.891 Personal history of nicotine dependence; Z88.8 Allergy status to other drugs, medicaments and biological substances
CPT/HCPCS: 99282

== ENCOUNTER 2018-12-30 23:28 | Emergency (ER) | payer MEDICARE ==
--- NOTE | 2018-12-31 00:06 | ED ---
Altered Mental Status - HPI Summary HPI Summary: The patient is a 78 y/o M arriving by ambulance to [facility] from [facility] with a chief complaint of AMS tonight. He reports that staff at the [facility] were criticizing his orthodox, and he got angry. He then proceeded to attempt to urinate on the staff as he as became aggressive and lost it. He denies any pain or SOB now. He is feeling less agitated in the ED. He notes he ate dinner tonight. PMHx: DM, afib, CAD, HLD, HTN, dementia, TIA. Former smoker , no EtOH, no substance use. Medications reviewed. Allergies noted. 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 [place] Onset/Duration: Resolved Severity Currently: None Character: Agitation Aggravating Factor(s): Other - staff laughing at hime Alleviating Factor(s): Nothing Related History: Similar Episode/Diagnosed As: - Alzheimer's with behavioral disturbance - Allergies/Home Medications Allergies/Adverse Reactions: Allergies Allergy/AdvReac Type Severity Reaction Status Date / Time cyclobenzaprine Allergy Hallucinati Verified 11/25/18 15:53 [From Flexeril] ons metoprolol Allergy Unknown Verified 11/25/18 15:53 Reaction Details ramipril Allergy Unknown Verified 11/25/18 15:53 Reaction Details PMH/Surg Hx/FS Hx/Imm Hx Endocrine/Hematology History: Reports: Hx Diabetes Cardiovascular History: Reports: Hx Atrial Fibrillation, Hx Coronary Artery Disease, Hx Hypercholesterolemia, Hx Hypertension Comment Only: Hx Pacemaker/ICD - IMPLANTED MONITOR GI History: Reports: Hx Gastroesophageal Reflux Disease History: Denies: Hx Dialysis Sensory History: Denies: Hx Contacts or Glasses, Hx Deafness, Hx Hearing Aid Opthamlomology History: Denies: Hx Contacts or Glasses Neurological History: Reports: Hx Dementia, Hx Transient Ischemic Attacks (TIA) - Surgical History Surgical History: Yes Surgery Procedure, Year, and Place: CABG x4 Infectious Disease History: No Infectious Disease History: Denies: Traveled Outside the [place] in Last 30 Days - Family History Known Family History: Positive: Cardiac Disease - with [place] - Social History Alcohol Use: None Hx Substance Use: No Substance Use Type: Reports: None Hx Tobacco Use: Yes Smoking Status (MU): Former Smoker Review of Systems - ROS Summary Review of Systems Summary: Home Medications Medication Instructions Recorded Confirmed Type Apixaban* [Eliquis*] 5 mg PO BID 04/15/18 12/30/18 History Losartan TAB* [Cozaar TAB*] 50 mg PO DAILY 04/15/18 12/30/18 History glipiZIDE TAB.XL* [Glucotrol Xl*] 10 mg PO BID 04/15/18 12/30/18 History metFORMIN* [Glucophage 1000 MG TAB 1,000 mg PO BID 04/15/18 12/30/18 History *] Diltiazem CD CAP* [Cardizem CD 240 mg PO DAILY 30 Days #30 cap.cd 12/18/1812/30 Rx CAP*] Acetaminophen TAB* [Tylenol TAB*] 650 mg PO Q4H PRN 12/25/18 12/30/18 History Glycerin ADULT SUPP* 1 supp RI Q72HR PRN 12/25/18 12/30/18 History Magnesium Hydroxide LIQ* [Milk of 30 ml PO Q72HR PRN 12/25/18 12/30/18 History Magnesia LIQ*] PPD (Tuberculin) [facility] 0.1 ml INTRADERM ONCE 12/25/18 12/30/18 History [Tubersol] QUEtiapine TAB* [Seroquel 25 MG 12.5 mg PO BID 12/25/18 12/30/18 History TAB*] Sodium Phosphate,[place]-Dibasic 133 ml RI Q72HR PRN 12/25/18 12/30/18 History [Enema Ready To Use] Zinc Oxide 40% (TOPICAL)* 1 applic TOPICAL TID 12/25/18 12/30/18 History Negative: Shortness Of Breath Positive: Other - AMS, angry All Other Systems Reviewed And Are Negative: No - Comments Additional Review of Systems Comments: Level 5 Caveat secondary to AMS and dx of Alzheimer's with behavioral disturbance Physical Exam - Summary Physical Exam Summary: General: Well-developed, Well-nourished male. No acute distress. HEENT: Normocephalic, Atraumatic. Eyes: Conjuctiva normal, PERRL. Ears: TMs within normal limits. Nares: (-) discharge, (-) erythema. Oropharynx: Clear, mucous membranes moist, (-) exudates. Neck: Soft, FROM, (-) lymphadenopathy, (-) thyromegaly, (-) JVD. Cardiovascular: Normal sinus rhythm, (-) murmur. Lungs: Clear to auscultation bilaterally (-) wheezes, (-) rales, (-) rhonchi. Abdomen: Soft, non-tender, non-distended, (-) organomegaly, normal bowel sounds. Back: (-) CVA tenderness Extremities: No edema. Skin: Warm, dry, (-) rash. Neuro: Alert and oriented x1, no focal deficits. Psychiatric: Mood normal, affect normal. Triage Information Reviewed: Yes Vital Signs On Initial Exam: Initial Vitals Temp Pulse Resp BP Pulse Ox 98.1 F 79 18 129/71 93 12/30/18 23:30 12/30/18 23:30 12/30/18 23:30 12/30/18 23:30 12/30/18 23:30 Vital Signs Reviewed: Yes Completion Of Physical Exam Limited Due To: Dementia, Altered Mental Status, Level 5 Procedures - Sedation Patient Received Moderate/Deep Sedation with Procedure: No Diagnostics - Vital Signs Vital Signs Temp Pulse Resp BP Pulse Ox 12/30/18 23:33 87 93 12/30/18 23:31 78 129/71 94 12/30/18 23:30 98.1 F 79 18 129/71 93 - Laboratory Result Diagrams: 12/31/18 00:15 12/31/18 00:15 Lab Statement: Any lab studies that have been ordered have been reviewed, and results considered in the medical decision making process. - Radiology CXR Radiology Interpretation Completed By: ED Physician Summary of Radiographic Findings: No significant changes or acute processes. ED physician has reviewed and interpreted this report. Pending official read. - EKG 0009 Cardiac Rate: NL - 76 BPM EKG Rhythm: Sinus Rhythm Summary of EKG Findings: [place] at 0009 reveals normal sinus rhythm with rate of 76 BPM, RBBB, no acute changes. This EKG was reviewed and interpreted by Dr. Schneider. Re-Evaluation - Re-Evaluation First Eval Re-Evaluation Time: 01:50 Change: Unchanged Comment: I have discussed results with the patient. Discussed symptoms that warrant immediate return to ED. Altered Mental Statu Course/Dx - Course Course Of Treatment: 78-year-old [facility] from local [facility] with complaints of behavioral disturbance. jail staff reported the patient was trying to urinate in inappropriate places tonight. Also seemed to be more agitated than usual. Patient has known dementia. Has had behavioral disturbances in the past. PCP was apparently not contacted. No when necessary medications were given. Patient is alert 1 upon arrival. Cooperative. Calm. Physical and workup essentially negative although nondiagnostic. [facility] to [facility]. No signs or symptoms of mental health issues. Patient with dementia, behavioral disturbance. Advise follow-up with PCP for when necessary medication orders as needed. - Diagnoses Provider Diagnoses: Dementia with behavioral disturbance Discharge ED - Sign-Out/Discharge Documenting (check all that apply): Patient Departure - Patient will be discharged home. - Discharge Plan Condition: Stable Disposition: HOME Patient Education Materials: Alzheimer Disease (DC), Dementia (ED) Referrals: Merrill Adams MD [Primary Care Provider] - 3 Days Additional Instructions: Please follow up with your primary care physician within three days. Please return to ED for any new or worsening symptoms. - Billing Disposition and Condition Condition: STABLE Disposition: Home - Attestation Statements Document Initiated by Krystian: Yes Documenting Scribe: Althea Baker Provider For Whom Krystian is Documenting (Include Credential): Dr. Brynn Schneider MD Scribe Attestation: Althea Giang scribed for Dr. Brynn Schneider MD on 12/31/18 at 0232. Scribe Documentation Reviewed: Yes Provider Attestation: The documentation as recorded by the Althea carvajal accurately reflects the service I personally performed and the decisions made by me, Dr. Brynn Schneider MD Status of Scribe Document: Viewed
[2018-12-31 00:26] LABS: ABS Basophils 0.2 10^3/ul (0-0.2); ABS Eosinophils 0.2 10^3/ul (0-0.6); ABS Lymphocytes 1.4 10^3/ul (1.0-4.8); ABS Monocytes 0.7 10^3/ul (0-0.8); ABS Neutrophils 8.9 10^3/ul (1.5-7.7); Eosinophil % 1.7 %; Hematocrit 39 % (42-52); Hemoglobin 12.8 g/dL (14.0-18.0); Lymphocyte % 12.6 %; Mean Corpuscular HGB Conc 33 g/dL (31-36); Mean Corpuscular Hemoglobin 29 pg (27-31); Mean Corpuscular Volume 88 fL (80-94); Mean Platelet Volume 9.3 fL (7.4-10.4); Nucleated Red Blood Cells % 0.1; Platelet Count 300 10^3/uL (150-450); Red Blood Count 4.37 10^6 /uL (4.18-5.48); Red Cell Distribution Width 13 % (10-15); White Blood Count 11.4 10^3/uL (3.5-10.8)
[2018-12-31 00:36] LABS: INR 1.21 (0.82-1.09)
[2018-12-31 00:47] LABS: ALT 54 U/L (7-52); AST 30 U/L (13-39); Acetaminophen < 15 mcg/mL; Albumin 3.6 g/dL (3.2-5.2); Albumin/Globulin Ratio 1.2 (1-3); Alkaline Phosphatase 119 U/L (34-104); Anion Gap 8 mmol/L (2-11); BUN/Creatinine Ratio 14.9 (8-20); Blood Urea Nitrogen 13 mg/dL (6-24); CO2 Carbon Dioxide 25 mmol/L (22-32); Calcium 9.4 mg/dL (8.6-10.3); Chloride 105 mmol/L (101-111); EGFR Non-African American 85.1 (>60); Glucose 217 mg/dL (70-100); Potassium 4.1 mmol/L (3.5-5.0); Sodium 138 mmol/L (135-145); Total Protein 6.6 g/dL (6.4-8.9)
[2018-12-31 00:48] LABS: Troponin I 0.01 ng/mL (<0.04)
[2018-12-31 01:01] LABS: TSH (Thyroid Stimulating Horm) 4.42 mcIU/mL (0.34-5.60)
[2018-12-31 01:19] LABS: Urine Appearance Clear; Urine Bilirubin Negative (Negative); Urine Blood Negative (Negative); Urine Color Yellow; Urine Glucose 1+(50 mg/dL) (Negative); Urine Ketones Negative (Negative); Urine Nitrite Negative (Negative); Urine Protein Negative (Negative); Urine Specific Gravity 1.012 (1.010-1.030); Urine Urobilinogen Negative (Negative)
[2018-12-31] MEDS ORDERED: Sodium Phosphate ADULT ENEMA* 118 ml bottle PR PRN (01:48)
[2018-12-31] MEDS ORDERED: Magnesium Hydroxide LIQ* 30 ML UDC PO PRN (01:48)
[2018-12-31] MEDS ORDERED: Glycerin ADULT SUPP PR PRN (01:48)
[2018-12-31] MEDS ORDERED: Acetaminophen TAB* 325 MG PO PRN (01:48)
[2018-12-31] MEDS ORDERED: [UNRECOGNIZED DRUG - OTHER] INTRADERM SCH (02:00)
[2018-12-31 02:05] VITALS: BP 110/60
[2018-12-31] MEDS ORDERED: LORazepam TAB(*) 1 MG PO ONE (02:44)
[2018-12-31] MEDS ORDERED: glipiZIDE TAB.XL* 5 MG PO SCH (09:00)
[2018-12-31] MEDS ORDERED: metFORMIN* 1,000 MG TAB PO SCH (09:00)
[2018-12-31] MEDS ORDERED: QUEtiapine TAB* 25 MG PO SCH (09:00)
[2018-12-31] MEDS ORDERED: Losartan TAB* 25 MG PO SCH (09:00)
[2018-12-31] MEDS ORDERED: Zinc Oxide 40% (TOPICAL)* TUBE TOPICAL SCH (09:00)
[2018-12-31] MEDS ORDERED: Apixaban* 5 MG TAB PO SCH (09:00)
[2018-12-31] MEDS ORDERED: Diltiazem CD CAP* 240 MG PO SCH (09:00)
== END 2018-12-31 02:02 | disposition home or self-care (01) ==
LOC: ED 23:28
DX: F03.91 Unspecified dementia, unspecified severity, with behavioral disturbance (principal); I48.91 Unspecified atrial fibrillation; I25.10 Atherosclerotic heart disease of native coronary artery without angina pectoris; E78.00 Pure hypercholesterolemia, unspecified; I10 Essential (primary) hypertension; K21.9 Gastro-esophageal reflux disease without esophagitis; Z87.891 Personal history of nicotine dependence; Z79.899 Other long term (current) drug therapy
CPT/HCPCS: 36415; 71045; 80053; 80329; 81003; 82140; 83605; 84443; 84484; 85025; 85610; 93005; 99282; G0480

== ENCOUNTER 2019-01-13 23:52 | Observation (INO) | payer MEDICARE ==
--- NOTE | 2019-01-14 00:07 | ED ---
HPI Chest Pain - HPI Summary HPI Summary: Per EMS, patient from [facility] with history of dementia complains of chest pain starting at some point today. Graded pain at 8/10. EMS gave 324 of aspirin, nitroglycerin sublingual 2 which brought chest pain down to 1/10. Patient describes pain as substernal, constant, discomfort. No active chest pain at this time. EMS states pt O2 sats dropped to 90% while en route, patient was put on 2 L of oxygen. Patient states he did have some shortness of breath on the way here, but has no shortness of breath on 2 L. Patient denies any other symptoms including headache, fever, cough, sore throat, and/V/D , abdominal pain, change in urine, change in BM. Medical history is A. fib, CABG 2008, DM, HTN, A. fib., CVA. Patient on Eliquis. - History of Current Complaint Hx Obtained From: Patient Onset/Duration: Resolved Timing: Constant Current Severity: None Pain Intensity: 0 Pain Scale Used: 0-10 Numeric Chest Pain Location: Mid Sternal Chest Pain Radiates: No Aggravating Factor(s): Nothing Alleviating Factor(s): Nothing Associated Signs and Symptoms: Positive: Chest Pain, Shortness of Breath - Additional Pertinent History Primary Care Physician: [facility]ISCO - Allergy/Home Medications Allergies/Adverse Reactions: Allergies Allergy/AdvReac Type Severity Reaction Status Date / Time cyclobenzaprine Allergy Hallucinati Verified 11/25/18 15:53 [From Flexeril] ons metoprolol Allergy Unknown Verified 11/25/18 15:53 Reaction Details ramipril Allergy Unknown Verified 11/25/18 15:53 Reaction Details PMH/Surg Hx/FS Hx/Imm Hx Endocrine/Hematology History: Reports: Hx Diabetes Cardiovascular History: Reports: Hx Atrial Fibrillation, Hx Coronary Artery Disease, Hx Hypercholesterolemia, Hx Hypertension Comment Only: Hx Pacemaker/ICD - IMPLANTED MONITOR GI History: Reports: Hx Gastroesophageal Reflux Disease History: Denies: Hx Dialysis Sensory History: Denies: Hx Contacts or Glasses, Hx Deafness, Hx Hearing Aid Opthamlomology History: Denies: Hx Contacts or Glasses Neurological History: Reports: Hx Dementia, Hx Transient Ischemic Attacks (TIA) - Surgical History Surgery Procedure, Year, and Place: CABG x4 Infectious Disease History: No Infectious Disease History: Denies: Traveled Outside the US in Last 30 Days - Family History Known Family History: Positive: Cardiac Disease - with [place] - Social History Alcohol Use: None Hx Substance Use: No Substance Use Type: Reports: None Hx Tobacco Use: Yes Smoking Status (MU): Former Smoker Review of Systems Constitutional: Negative Eyes: Negative ENT: Negative Positive: Chest Pain Positive: Shortness Of Breath Gastrointestinal: Negative Genitourinary: Negative Musculoskeletal: Negative Skin: Negative Neurological: Negative Psychological: Normal All Other Systems Reviewed And Are Negative: Yes Physical Exam Triage Information Reviewed: Yes Vital Signs On Initial Exam: Initial Vitals Temp Pulse Resp BP Pulse Ox 98.0 F 102 16 127/70 93 01/13/19 23:53 01/13/19 23:53 01/13/19 23:53 01/13/19 23:53 01/13/19 23:53 Vital Signs Reviewed: Yes Appearance: Positive: Well-Appearing Skin: Positive: Warm Head/Face: Positive: Normal Head/Face Inspection Eyes: Positive: Normal Neck: Positive: Supple Respiratory/Lung Sounds: Positive: Clear to Auscultation Cardiovascular: Positive: IRR Abdomen Description: Positive: Nontender Musculoskeletal: Positive: Normal Neurological: Positive: Normal Psychiatric: Positive: Normal AVPU Assessment: Alert - Renetta Coma Scale Best Eye Response: 4 - Spontaneous Best Motor Response: 6 - Obeys Commands Best Verbal Response: 5 - Oriented Coma Scale Total: 15 Procedures - Sedation Patient Received Moderate/Deep Sedation with Procedure: No Diagnostics - Vital Signs Vital Signs Temp Pulse Resp BP Pulse Ox 01/13/19 23:53 98.0 F 102 16 127/70 93 - Laboratory Result Diagrams: 01/14/19 00:23 01/14/19 00:23 Lab Statement: Any lab studies that have been ordered have been reviewed, and results considered in the medical decision making process. Chest Pain Course/Dx - Course Course Of Treatment: Per EMS, patient from [facility] with history of dementia complains of chest pain starting at some point today. Graded pain at 8 /10. EMS gave 324 of aspirin, nitroglycerin sublingual 2 which brought chest pain down to 1/10. Patient describes pain as substernal, constant, discomfort. No active chest pain at this time. EMS states pt O2 sats dropped to 90% while en route, patient was put on 2 L of oxygen. Patient states he did have some shortness of breath on the way here, but has no shortness of breath on 2 L. Patient denies any other symptoms including headache, fever, cough, sore throat, and/V/D, abdominal pain, change in urine, change in BM. Medical history is A. fib, CABG, DM, HTN, A. fib. Patient on Eliquis. EKG states acute [place]. Reviewed by myself and attending Dr. Salinas with conclusion that there is no STEMI. EKG sinus tachycardia with rate of 101 and right bundle branch block. Current EKG has changes from 12/31 in leads II (more prominent T waves), III (more prominent T waves), V2 (inverted T waves). Current EKG Lead II, III and V3 similar to EKG from 12/16. Heart score 6. No recent cardiac workup noted in patient history. - Diagnoses Provider Diagnoses: Chest pain Discharge ED - Sign-Out/Discharge Documenting (check all that apply): Sign-Out Patient Signing out patient TO: Ruben Billy - Discharge Plan Condition: Stable Disposition: ADMITTED TO [facility] Referrals: Merrill Admas MD [Primary Care Provider] - - Billing Disposition and Condition Condition: STABLE Disposition: Admitted to [facility]
[2019-01-14 00:31] LABS: ABS Basophils 0.1 10^3/ul (0-0.2); ABS Eosinophils 0.3 10^3/ul (0-0.6); ABS Lymphocytes 1.9 10^3/ul (1.0-4.8); ABS Monocytes 0.6 10^3/ul (0-0.8); ABS Neutrophils 4.1 10^3/ul (1.5-7.7); Eosinophil % 4.9 %; Hematocrit 35 % (42-52); Hemoglobin 11.7 g/dL (14.0-18.0); Lymphocyte % 26.8 %; Mean Corpuscular HGB Conc 33 g/dL (31-36); Mean Corpuscular Hemoglobin 30 pg (27-31); Mean Corpuscular Volume 89 fL (80-94); Mean Platelet Volume 9.7 fL (7.4-10.4); Nucleated Red Blood Cells % 0.1; Platelet Count 235 10^3/uL (150-450); Red Blood Count 3.98 10^6 /uL (4.18-5.48); Red Cell Distribution Width 14 % (10-15)
[2019-01-14 01:05] LABS: Albumin 3.4 g/dL (3.2-5.2); Albumin/Globulin Ratio 1.2 (1-3); BUN/Creatinine Ratio 16.1 (8-20); C Reactive Protein 2.77 mg/L (<8.01); Calcium 8.8 mg/dL (8.6-10.3); EGFR African American 95.3 (>60); EGFR Non-African American 78.8 (>60); Globulin 2.8 g/dL (2-4); Magnesium 1.6 mg/dL (1.9-2.7); Potassium 3.5 mmol/L (3.5-5.0); Total Bilirubin 0.3 mg/dL (0.2-1.0); Total Protein 6.2 g/dL (6.4-8.9)
[2019-01-14 01:07] LABS: Troponin I 0.01 ng/mL (<0.03)
[2019-01-14 01:32] LABS: TSH (Thyroid Stimulating Horm) 8.72 mcIU/mL (0.34-5.60)
[2019-01-14] MEDS ORDERED: Insulin REGULAR(*) 1 UNITS UNIT SUBCUT ONE (01:58)
[2019-01-14 02:01] LABS: Urine Appearance Clear; Urine Bilirubin Negative (Negative); Urine Blood Negative (Negative); Urine Color Yellow; Urine Glucose 3+(>=500 mg/dL) (Negative); Urine Ketones Negative (Negative); Urine Nitrite Negative (Negative); Urine Protein Negative (Negative); Urine Specific Gravity 1.016 (1.010-1.030); Urine Urobilinogen Negative (Negative)
[2019-01-14] MEDS ORDERED: Acetaminophen TAB* 325 MG PO PRN (03:08)
[2019-01-14] MEDS ORDERED: QUEtiapine TAB* 25 MG PO SCH (04:00)
--- NOTE | 2019-01-14 04:11 | HP ---
History of Present Illness - History of Present Illness Reason for Visit: chest pain History of Present Illness: 78 year old male with history of dementia and CAD was brought in by ambulance from [facility] for chest pain. Because of his dementia, history difficult to obtain, he did tell EMT his pain was substernal. He was given 324 mg of aspirin with nitro X 2. Chest pain subsided. EKG was nonspecific. Vitals are stable. Initial trops negative. 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 [employer]: Dementia Review of Systems - Measurements Intake and Output: Intake and Output Last 24 Hours 01/11/19 01/12/19 01/13/19 01/14/19 06:59 06:59 06:59 06:59 Weight 207 lb - Review of Systems General Comments: ROS difficult to obtain Objective Active Medications: Acetaminophen (Tylenol Tab*) 650 mg PO Q4H PRN PRN Reason: PAIN - MODERATE Apixaban (Eliquis*) 5 mg PO BID [facility] Diltiazem HCl (Cardizem Cd Cap*) 240 mg PO DAILY [facility] Losartan Potassium (Cozaar Tab*) 50 mg PO DAILY [facility] Vital Signs - 8 hr 01/13/19 01/13/19 01/14/19 23:53 23:55 00:12 Temperature 98.0 F Pulse Rate 102 105 103 Respiratory 16 18 15 Rate Blood Pressure 127/70 127/70 (mmHg) O2 Sat by Pulse 93 93 94 Oximetry 01/14/19 01/14/19 01/14/19 00:25 00:55 01:00 Temperature Pulse Rate 102 97 94 Respiratory 21 21 18 Rate Blood Pressure 137/77 128/52 (mmHg) O2 Sat by Pulse 92 93 93 Oximetry 01/14/19 01/14/19 01/14/19 01:25 01:37 01:55 Temperature Pulse Rate 91 93 92 Respiratory 20 19 24 Rate Blood Pressure 106/60 106/60 128/67 (mmHg) O2 Sat by Pulse 93 94 94 Oximetry 01/14/19 01/14/19 01/14/19 02:00 02:25 02:55 Temperature Pulse Rate 95 95 95 Respiratory 17 15 16 Rate Blood Pressure 119/70 138/74 (mmHg) O2 Sat by Pulse 93 92 90 Oximetry 01/14/19 01/14/19 01/14/19 03:00 03:25 03:55 Temperature Pulse Rate 96 97 93 Respiratory 19 21 19 Rate Blood Pressure 131/72 120/62 (mmHg) O2 Sat by Pulse 93 92 94 Oximetry 01/14/19 04:00 Temperature Pulse Rate 94 Respiratory 22 Rate Blood Pressure (mmHg) O2 Sat by Pulse 93 Oximetry Oxygen Devices in Use Now: Nasal Cannula Appearance: Wide awake, sundowning in the ER. Eyes: No Scleral Icterus, PERRLA Neck: NL Appearance and Movements; NL JVP Respiratory: Symmetrical Chest Expansion and Respiratory Effort, Clear to Auscultation Cardiovascular: NL Sounds; No Murmurs; No JVD, No Edema Abdominal: NL Sounds; No Tenderness; No Distention Lymphatic: No Cervical Adenopathy Extremities: No Edema Skin: No Rash or Ulcers - Alert and oriented to self Result Diagrams: 01/14/19 00:23 01/14/19 00:23 Assess/Plan/Problems-Billing Assessment: - Patient Problems (1) Chest pain Current Visit: Yes Status: Acute Code(s): R07.9 - CHEST PAIN, UNSPECIFIED SNOMED Code(s): 86153077 Comment: substernal chest pain. received aspirin and nitro en route. EKG non specific. trend troponins, echo (2) Atrial fibrillation Current Visit: No Status: Acute Code(s): I48.91 - UNSPECIFIED ATRIAL FIBRILLATION SNOMED Code(s): 96887869 Comment: - Eliquis 5 mg bid -cont cardizem (3) DVT prophylaxis Current Visit: No Status: Acute Code(s): VEV0080 - SNOMED Code(s): 902466722 Comment: eliquis (4) Dementia Current Visit: No Status: Acute Code(s): F03.90 - UNSPECIFIED DEMENTIA WITHOUT BEHAVIORAL DISTURBANCE SNOMED Code(s): 08637787 Comment: sundowning in the ER redirecting Qtc >500, will be judicious with anti-psychotic medications (5) Diabetes Current Visit: No Status: Acute Code(s): E11.9 - TYPE 2 DIABETES MELLITUS WITHOUT COMPLICATIONS SNOMED Code(s): 88321721 Comment: Uncontrolled. Holding home medications. lantus 20 nightly with correction scale
[2019-01-14] MEDS ORDERED: Insulin GLARGINE(*) 1 UNITS UNIT SUBCUT SCH (05:00)
[2019-01-14 06:19] LABS: Hematocrit 34 % (42-52); Hemoglobin 11.4 g/dL (14.0-18.0); Mean Corpuscular HGB Conc 34 g/dL (31-36); Mean Corpuscular Hemoglobin 30 pg (27-31); Mean Corpuscular Volume 89 fL (80-94); Mean Platelet Volume 9.7 fL (7.4-10.4); Platelet Count 205 10^3/uL (150-450); Red Blood Count 3.81 10^6 /uL (4.18-5.48); Red Cell Distribution Width 13 % (10-15)
[2019-01-14 06:40] LABS: Troponin I 0.01 ng/mL (<0.03)
[2019-01-14 06:50] LABS: BUN/Creatinine Ratio 16.1 (8-20); Calcium 8.4 mg/dL (8.6-10.3); EGFR Non-African American 85.1 (>60); Potassium 3.3 mmol/L (3.5-5.0)
[2019-01-14] MEDS ORDERED: Apixaban* 5 MG TAB PO SCH (09:00)
[2019-01-14] MEDS ORDERED: Diltiazem CD CAP* 240 MG PO SCH (09:00)
[2019-01-14] MEDS ORDERED: Losartan TAB* 25 MG PO SCH (09:00)
[2019-01-14 09:34] VITALS: BP 117/63
[2019-01-14] MEDS ORDERED: Potassium Chloride* LIQUID 20 MEQ/15 ML UDC PO ONE (10:44)
--- NOTE | 2019-01-14 10:51 | PN ---
Subjective Date of Service: 01/14/19 Interval History: Patient seen, very agitated, not cooperative during interview. He was arguing with daughter at bedside and staff, but finally we were able to redirect him and calmed him down. He claims he took the bus to [place], and does not want to be here. He denies any symptoms at this time. no chest pain and no shortness of breath, although he is demented and his history is unreliable. His trop negative x3, and BG down to 201. Bicarb is 26 normal. Potassium 3.3 given 40 meq po. EKG reveals RBBB, old Q in inferior lead present on 12/31/2018. Past Medical History: Unchanged from Admission Objective Active Medications: Acetaminophen (Tylenol Tab*) 650 mg PO Q4H PRN PRN Reason: PAIN - MODERATE Apixaban (Eliquis*) 5 mg PO BID [facility] Last Admin: 01/14/19 09:45 Dose: 5 mg Diltiazem HCl (Cardizem Cd Cap*) 240 mg PO DAILY [facility] Last Admin: 01/14/19 09:45 Dose: 240 mg Insulin Glargine (Lantus(*)) 20 units SUBCUT Q24H [facility] Last Admin: 01/14/19 05:04 Dose: 20 units Insulin Human Lispro (Humalog*) 0 units SUBCUT ACHS [facility]; Protocol Losartan Potassium (Cozaar Tab*) 50 mg PO DAILY [facility] Last Admin: 01/14/19 09:45 Dose: 50 mg Vital Signs - 8 hr 01/14/19 01/14/19 01/14/19 02:55 03:00 03:25 Temperature Pulse Rate 95 96 97 Respiratory 16 19 21 Rate Blood Pressure 138/74 131/72 (mmHg) O2 Sat by Pulse 90 93 92 Oximetry 01/14/19 01/14/19 01/14/19 03:55 04:00 04:25 Temperature Pulse Rate 93 94 94 Respiratory 19 22 22 Rate Blood Pressure 120/62 112/54 (mmHg) O2 Sat by Pulse 94 93 93 Oximetry 01/14/19 01/14/19 01/14/19 04:55 05:00 05:25 Temperature Pulse Rate 93 90 89 Respiratory 20 21 21 Rate Blood Pressure 125/68 102/53 (mmHg) O2 Sat by Pulse 92 91 98 Oximetry 01/14/19 01/14/19 01/14/19 05:55 06:00 06:25 Temperature Pulse Rate 89 89 88 Respiratory 16 17 19 Rate Blood Pressure 123/67 128/73 (mmHg) O2 Sat by Pulse 92 92 92 Oximetry 01/14/19 01/14/19 01/14/19 06:55 07:00 07:25 Temperature Pulse Rate 81 84 83 Respiratory 17 17 19 Rate Blood Pressure 125/71 111/52 (mmHg) O2 Sat by Pulse 92 93 93 Oximetry 01/14/19 01/14/19 01/14/19 07:55 08:00 08:50 Temperature 98.0 F 97.7 F Pulse Rate 82 81 84 Respiratory 16 18 18 Rate Blood Pressure 110/52 110/52 117/63 (mmHg) O2 Sat by Pulse 93 93 100 Oximetry Oxygen Devices in Use Now: None Appearance: resting, easily agitated! minimally cooperating during exam Eyes: No Scleral Icterus, - - EOMI Ears/Nose/Mouth/Throat: NL Teeth, Lips, Gums Neck: NL Appearance and Movements; NL JVP, Trachea Midline Respiratory: Symmetrical Chest Expansion and Respiratory Effort, Clear to Auscultation Cardiovascular: NL Sounds; No Murmurs; No JVD, RRR, No Edema Abdominal: NL Sounds; No Tenderness; No Distention Skin: No Rash or Ulcers Neurological: - - disoriented he thinks he is in [place], confused does not want to answer dates, times. agitated and attempted to hit provider Result Diagrams: 01/14/19 06:09 01/14/19 06:09 Microbiology and Other Data: Microbiology 01/14/19 01:45 Nasal Screen MRSA (PCR) - Final Nasal Mrsa Not Detected Assess/Plan/Problems-Billing Assessment: 78 y/o male admitted for reported of chest pain, with known history of Dementia , hx of afib currently in NS[facility]. - Patient Problems (1) Chest pain Current Visit: Yes Status: Acute Code(s): R07.9 - CHEST PAIN, UNSPECIFIED SNOMED Code(s): 51281513 Comment: - Reported history of substernal chest pain. Unfortunately the patient is agitated and demented. poor compliance with medical advice and treatment. - However, his trop negative x 3, EKG reveals no changes when compared to his and his 12/16/18 - s/p aspirin and nitro en route. For now, I see no further indication for inpatient treatment. He is medically stable for discharge for outpatient follow up with pcp and cardiology as outpatient. If we were to Keep him as inpatient it is going to further exacerbate his dementia and we will not be able to pursue any inpatient diagnostic testing. It is more ideal to have his work up done as outpatient and in a familiar environment especially since his trop and eKG are unremarkable. - will try to obtain his echo if he agrees and if he cooporate (2) Atrial fibrillation Current Visit: No Status: Acute Code(s): I48.91 - UNSPECIFIED ATRIAL FIBRILLATION SNOMED Code(s): 61707581 Comment: - Eliquis 5 mg bid - Continue cardizem Cd 240 mg daily (3) Dementia Current Visit: No Status: Acute Code(s): F03.90 - UNSPECIFIED DEMENTIA WITHOUT BEHAVIORAL DISTURBANCE SNOMED Code(s): 73565249 Comment: - documented he was sundowning in the ER - Attempting redirecting patient multiple times. - Will avoid with anti-psychotic medications. will resume his home dose of zyprexa. (4) Diabetes Current Visit: No Status: Acute Code(s): E11.9 - TYPE 2 DIABETES MELLITUS WITHOUT COMPLICATIONS SNOMED Code(s): 89305045 Comment: - Uncontrolled. - metformin was held on admission. Holding home medications. lantus 20 nightly with correction scale (5) DVT prophylaxis Current Visit: No Status: Acute Code(s): FOV8750 - SNOMED Code(s): 576599093 Comment: janak
[2019-01-14] MEDS ORDERED: traZODone TAB* 50 MG TAB PO PRN (11:17)
[2019-01-14] MEDS ORDERED: OLANzapine TAB* 5 MG PO SCH (11:30)
[2019-01-14] MEDS ORDERED: Levothyroxine TAB* 25 MCG TAB PO ONE (11:30)
[2019-01-14] MEDS: Insulin LISPRO* 1 UNITS UNIT SUBCUT SCH ×3 (11:41→12:41)
--- NOTE | 2019-01-14 12:27 | DS ---
CC: Dr. Merrill Adams DISCHARGE SUMMARY: DATE OF ADMISSION: 01/14/19 DATE OF DISCHARGE: 01/14/19 FINAL DISCHARGE DIAGNOSES: 1. Chest pain. Acute coronary syndrome ruled out. 2. Dementia severe with agitation. 3. Hypothyroidism, newly diagnosed. 4. History of chronic atrial fibrillation. 5. Diabetes mellitus. 6. History of hypertension. 7. History of coronary artery disease, CABG in 2008. HOSPITAL COURSE: The patient presented to the emergency room around midnight on 01/14/19 from [facility] with a reported history of chest pain somehow from the patient who is demented, agitate d, refusing to answer answers, thinks he is in [place], yet they did score a chest pain 8/10 and wit h some substernal, even described as constant. When he came to the emergency room, apparently he had no active chest pain. He did receive aspirin and nitro en route and his saturation was 90% requirin g 2 L of nasal cannula. No further history was obtained or could be obtained on presentation. The sharon valerio was admitted to the medicine service. He underwent serial cardiac enzymes, which included a t roponin and he had 1 on admission around midnight, then 3 o'clock in the morning, 6 o'clock in the mo rning and 10:30 this morning, all were negative in the matter of 10 hours. His EKG which was done re vealed normal sinus rhythm with left bundle branch block. He had a Q wave in the inferior lead, whic h is present when comparing to 12/16/18 and then 01/03/19. He had a CBC which was unremarkable, slig htly anemic with hematocrit of 34 and chemistry was fairly unremarkable with exception of low magnesi um of 1.6 and elevated TSH of 8.72, and blood sugar of 400. He was admitted. He was placed on slidi ng scale with Lantus. His metformin was held and his blood sugars improved and is down to 201. His potassium was 3.3, was supplemented. Troponins were negative as mentioned. The patient was quite ag itated, refusing blood work, had to be redirected multiple times to be receptive for the blood work. Echocardiogram, unfortunately when he came in, they attempted to do it at bedside, which the patient declined. He initially was resisting my examination and evaluation this morning, but he finally agr eed after his daughter at bedside helped to cope him with my role. Therefore, at this time with a ne gative troponin and negative EKG, I deemed the patient is medically for discharge and further workup can be done on outpatient elective basis. Regarding his hypothyroidism, I am going to start him on l evothyroxine 25 mcg and I will defer to his retirement for further testing and followup for titrati on. For his hyperglycemia, we will resume back his sliding scale and metformin. For his chest pain, he can follow up with the PCP and further testing can be done as an outpatient such as nuclear test if deemed feasible and he is more likely to be more compliant in a familiar setting than in the acute inpatient setting given his dementia. Therefore, with the above assessment on my exam today, I deem ed him stable for discharge back to [facility] in stable condition. DISCHARGE MEDICATIONS: Resume his meds as per his home: 1. Tylenol p.r.n. 2. Eliquis 5 b.i.d. 3. Glycerin suppository. 4. Insulin sliding scale. 5. Losartan 50 daily. 6. Milk of mag p.r.n. 7. Metformin 1000 b.i.d. 8. Zyprexa 7.5 daily. 9. Enema p.r.n. 10. Trazodone 25 at bedtime. 11. Diltiazem 240 daily. New prescription: Levothyroxine 25 mcg daily. DISCHARGE RECOMMENDATIONS: 1. Follow up with primary care in 1 to 2 weeks. 2. 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 DISCHARGE DISPOSITION: [facility]. DISCHARGE CONDITION: Stable. [id number]/[facility] #: [id number]
== END 2019-01-14 16:56 ==
LOC: ED 23:52 → MEDTELE 01-14 03:06
PROVIDERS: ADMIT Student in an Organized Health Care Education/Training Program; ATTEND Internal Medicine
DX: R07.9 Chest pain, unspecified (principal); R06.02 Shortness of breath; E11.9 Type 2 diabetes mellitus without complications; I48.91 Unspecified atrial fibrillation; I25.10 Atherosclerotic heart disease of native coronary artery without angina pectoris; E78.00 Pure hypercholesterolemia, unspecified; I10 Essential (primary) hypertension; K21.9 Gastro-esophageal reflux disease without esophagitis; Z87.891 Personal history of nicotine dependence; Z79.01 Long term (current) use of anticoagulants; Z79.899 Other long term (current) drug therapy; I45.10 Unspecified right bundle-branch block; Z95.5 Presence of coronary angioplasty implant and graft; F03.90 Unspecified dementia, unspecified severity, without behavioral disturbance, psychotic disturbance, mood disturbance, and anxiety
CPT/HCPCS: 36415; 80048; 80053; 81003; 82947; 83690; 83735; 83880; 84443; 84484; 85025; 85027; 86140; 87641; 99284; A9270-GY; G0378

== ENCOUNTER 2019-01-22 04:14 | Emergency (ER) | payer MEDICARE ==
--- NOTE | 2019-01-22 04:19 | ED ---
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 He denies headache. has known dementia, poor historian. no vomiting since fall. no obvious signs of trauma. Patient takes blood thinners. PMHx of DM, CAD, AFib, and HTN. Patient formerly smoked tobacco. He does not drink or do recreational drugs. patient is a level 5 caveat - History of Current Complaint Stated Complaint: FALL PER EMS Hx Obtained From: Patient Onset/Duration Of Injury/Symptoms: Minutes Mechanism Of Injury: Blunt Trauma - Fall from bed Timing: Lasting Seconds Onset/Duration: Sudden Onset Location: Diffuse Associated Signs & Symptoms: Negative: Headache - Allergies/Home Medications Allergies/Adverse Reactions: Allergies Allergy/AdvReac Type Severity Reaction Status Date / Time chocolate flavor Allergy Unknown Verified 01/22/19 04:19 Reaction Details cyclobenzaprine Allergy Hallucinati Verified 01/22/19 04:19 [From Flexeril] ons metoprolol Allergy Unknown Verified 01/22/19 04:19 Reaction Details ramipril Allergy Unknown Verified 01/22/19 04:19 Reaction Details PMH/Surg Hx/FS Hx/Imm Hx Endocrine/Hematology History: Reports: Hx Diabetes Cardiovascular History: Reports: Hx Atrial Fibrillation, Hx Coronary Artery Disease, Hx Hypercholesterolemia, Hx Hypertension Comment Only: Hx Pacemaker/ICD - IMPLANTED MONITOR GI History: Reports: Hx Gastroesophageal Reflux Disease History: Denies: Hx Dialysis Sensory History: Denies: Hx Contacts or Glasses, Hx Deafness, Hx Hearing Aid Opthamlomology History: Denies: Hx Contacts or Glasses Neurological History: Reports: Hx Dementia, Hx Transient Ischemic Attacks (TIA) - Surgical History Surgery Procedure, Year, and Place: CABG x4 - Family History Known Family History: Positive: Cardiac Disease - with [place] - Social History Alcohol Use: None Hx Substance Use: No Substance Use Type: Reports: None Hx Tobacco Use: Yes Smoking Status (MU): Former Smoker Review of Systems - ROS Summary Review of Systems Summary: Home Medications Medication Instructions Recorded Confirmed Type Apixaban* [Eliquis*] 5 mg PO BID 04/15/18 01/14/19 History Losartan TAB* [Cozaar TAB*] 50 mg PO DAILY 04/15/18 01/14/19 History metFORMIN* [Glucophage 1000 MG TAB 1,000 mg PO BID 04/15/18 01/14/19 History *] Diltiazem CD CAP* [Cardizem CD 240 mg PO DAILY 30 Days #30 cap.cd 12/18/1801/14 Rx CAP*] Acetaminophen TAB* [Tylenol TAB*] 650 mg PO Q4H PRN 12/25/18 01/14/19 History Glycerin ADULT SUPP* 1 supp MN Q72HR PRN 12/25/18 01/14/19 History Magnesium Hydroxide LIQ* [Milk of 30 ml PO Q72HR PRN 12/25/18 01/14/19 History Magnesia LIQ*] Sodium Phosphate,Trinity-Dibasic 133 ml MN Q72HR PRN 12/25/18 01/14/19 History [Enema Ready To Use] Zinc Oxide 40% (TOPICAL)* 1 applic TOPICAL TID 12/25/18 01/14/19 History Insulin Aspart [Novolog] 0 - 12 units SUBCUT SEE 01/14/19 01/14/19 History INSTRUCTIONS Levothyroxine TAB* [Synthroid 25 25 mcg PO 0800 30 Days #30 tab 01/14/19 Rx MCG TAB*] OLANzapine TAB* [Zyprexa 5 MG TAB*] 7.5 mg PO DAILY 01/14/19 01/14/19 History traZODone TAB* [Desyrel TAB*] 25 mg PO BEDTIME PRN 01/14/19 01/14/19 History Negative: Fever Positive: Myalgia - Neck pain Negative: Headache All Other Systems Reviewed And Are Negative: No Physical Exam - Summary Physical Exam Summary: General: Well-developed, Well-nourished, Elderly male. No acute distress. Somewhat confused. C-collar in place. HEENT: Normocephalic, Atraumatic. Eyes: Conjuctiva normal, PERRL. Ears: TMs within normal limits. Nares: (-) discharge, (-) erythema. Oropharynx: Clear, mucous membranes moist, (-) exudates. Neck: Soft, FROM, (-) lymphadenopathy, (-) thyromegaly, (-) JVD. Cardiovascular: Normal sinus rhythm, (-) murmur. Lungs: Clear to auscultation bilaterally (-) wheezes, (-) rales, (-) rhonchi. Abdomen: Soft, non-tender, non-distended, (-) organomegaly, normal bowel sounds. Back: (-) CVA tenderness Extremities: No edema. Skin: Warm, dry, (-) rash. Neuro: Alert and oriented x3, no focal deficits. Psychiatric: Mood normal, affect normal. Triage Information Reviewed: Yes Vital Signs Reviewed: Yes Procedures - Sedation Patient Received Moderate/Deep Sedation with Procedure: No Diagnostics - Laboratory Result Diagrams: 01/22/19 04:43 01/22/19 04:43 Lab Statement: Any lab studies that have been ordered have been reviewed, and results considered in the medical decision making process. - CT Cervical Spine CT CT Interpretation Completed By: Radiologist Summary of CT Findings: Impressions: Vertebral body heights are maintained. Spinal alignment is maintained. No evidence of acute cervical spine fracture or dislocation. An ED physician has reviewed this report. Neck Course/Dx - Course Course Of Treatment: 78 year old male sent from longterm from fall from bed. Pt complained of neck pain. C-collar placed. Patient is on eloquis. Known dementia. Workup essentially negative. C-collar removed. During the ED course the patient was given Ativan. Pt discharged back to longterm. - Diagnoses Provider Diagnoses: Neck pain, Fall Discharge ED - Sign-Out/Discharge Documenting (check all that apply): Patient Departure - discharge - Discharge Plan Condition: Stable Disposition: HOME Patient Education Materials: Neck Pain (ED) Referrals: Merrill Adams MD [Primary Care Provider] - Additional Instructions: Follow up with your primary care provider within 3 days. Return to the Emergency Department for new or worsened symptoms. - Billing Disposition and Condition Condition: STABLE Disposition: Home - Attestation Statements Document Initiated by Scribe: Yes Documenting Scribe: Wesley Madera Provider For Whom Krystian is Documenting (Include Credential): Brynn Schneider MD Scribe Attestation: Wesley Giang, scribed for Brynn Schneider MD on 01/22/19 at 1956. Scribe Documentation Reviewed: Yes Provider Attestation: The documentation as recorded by the Wesley carvajal accurately reflects the service I personally performed and the decisions made by me, Brynn Schneider MD Status of Scribe Document: Viewed
[2019-01-22 04:48] LABS: Urine Appearance Clear; Urine Bilirubin Negative (Negative); Urine Blood Negative (Negative); Urine Color Yellow; Urine Glucose 2+(150 mg/dL) (Negative); Urine Ketones Negative (Negative); Urine Nitrite Negative (Negative); Urine Protein Negative (Negative); Urine Specific Gravity 1.008 (1.010-1.030); Urine Urobilinogen Negative (Negative)
[2019-01-22 04:50] LABS: ABS Basophils 0.1 10^3/ul (0-0.2); ABS Eosinophils 0.4 10^3/ul (0-0.6); ABS Lymphocytes 2.5 10^3/ul (1.0-4.8); ABS Monocytes 0.7 10^3/ul (0-0.8); ABS Neutrophils 4.2 10^3/ul (1.5-7.7); Eosinophil % 5.6 %; Hematocrit 38 % (42-52); Hemoglobin 12.8 g/dL (14.0-18.0); Lymphocyte % 31.1 %; Mean Corpuscular HGB Conc 34 g/dL (31-36); Mean Corpuscular Hemoglobin 30 pg (27-31); Mean Corpuscular Volume 88 fL (80-94); Mean Platelet Volume 9.7 fL (7.4-10.4); Nucleated Red Blood Cells % 0.1; Platelet Count 190 10^3/uL (150-450); Red Blood Count 4.33 10^6 /uL (4.18-5.48); Red Cell Distribution Width 14 % (10-15); White Blood Count 7.9 10^3/uL (3.5-10.8)
[2019-01-22 04:54] LABS: INR 1.05 (0.82-1.09)
[2019-01-22 05:13] LABS: Albumin 3.7 g/dL (3.2-5.2); Albumin/Globulin Ratio 1.3 (1-3); BUN/Creatinine Ratio 12.8 (8-20); Calcium 9.1 mg/dL (8.6-10.3); EGFR African American 94.2 (>60); EGFR Non-African American 77.8 (>60); Globulin 2.8 g/dL (2-4); Potassium 3.6 mmol/L (3.5-5.0); Total Bilirubin 0.4 mg/dL (0.2-1.0); Total Protein 6.5 g/dL (6.4-8.9)
[2019-01-22 05:52] VITALS: BP 137/66
[2019-01-22] MEDS ORDERED: LORazepam TAB(*) 1 MG PO ONE (06:44)
[2019-01-22] MEDS ORDERED: Lorazepam PYXIS KEY PRN (06:52)
[2019-01-22] MEDS ORDERED: LORazepam INJ* 2 MG/ML 1 ML VIAL IM ONE (06:52)
[2019-01-22] MEDS ORDERED: Lorazepam PYXIS KEY ONE (06:55)
--- OUTSIDE RECORDS SUMMARY | 2019-01-27 14:21 | XMS REPORT ---
:1940 Author Organization [facility] Care Team Providers Name Role Phone KAILA JUARES Unavailable Unavailable Allergies and Adverse Reactions Allergen Qualifier Severity Reaction(s) Comments Chocolate Cyclobenzaprine Metoprolol Ramipril Problems Problem Onset Date Resolved Date Status Comments Atrial Fibrillation Active Dementia Active Diabetes Mellitus Active DVT - Deep Venous Thrombosis Active Hypertension Active Pulmonary Embolism Active Hospital Admission Diagnosis Admission Diagnosis Onset Date Resolved Date Status Comments Adjustment Disorder Active Medications Home Medications Details DilTIAZem HCl ER Oral Capsule Extended Release 24 Hour 240 mg, 1 capsule daily Eliquis Oral Tablet 5 mg, 1 tablet 2x a day Glipizide Oral Tablet 10 mg, 1 tablet 2x a day Losartan Potassium Oral Tablet 50 mg, 1 tablet daily MetFORMIN HCl Oral Tablet 1000 mg, 1 tablet 2x a day SEROquel Oral Tablet 25 mg, 1 tablet 3x a day Medications Administered Medication Orders Details Geodon Intramuscular 10 mg (NOW x1) Midazolam HCl Injection (NOW x1) Administered Route Dose Bolus/Duration Rate/Duration Additive/Diluents/ Constituents Location Comments Date/Time Medications Geodon IM 10 mg Given: Intramuscular 01/02/2019 17:20 Midazolam HCl IM 3 mg Given: Injection 01/02/2019 20:05 Hospital Discharge Medications Hospital Discharge Prescribed Medication None Procedures Procedure Date Performed Comments Injection Geodon [IM] Jan 02, 2019 Injection Midazolam [IM] Jan 02, 2019 Functional Status Functional and Cognitive Assessment Documentation Date Condition Status Requires assistance with the activities of daily 01/02/2019 Active living Immunizations Medication Dose/Units Lot# Exp. Date Collections Professional Name Given No information available Results URINALYSIS (W/C+S IF INDICATED)(AMINAH: 01/02/2019 15:03) (MsgRcvd 01/02/2019 15: 30)Final Results Test Result Flag Reference Range URINE COLOR YELLOW YELLOW URINE APPEARANCE CLEAR CLEAR URINE SPECIFIC GRAVITY 1.010 1.003-1.035 URINE LEUKOCYTES NEGATIVE NEGATIVE URINE NITRITE NEGATIVE NEGATIVE URINE PH 7.0 5.0-8.0 URINE PROTEIN NEGATIVE NEGATIVE mg/dl URINE GLUCOSE NEGATIVE NEGATIVE mg/dl URINE KETONES NEGATIVE NEGATIVE mg/dl URINE UROBILINOGEN 1.0 NORMAL OR <1 mg/dl URINE BILIRUBIN NEGATIVE NEGATIVE URINE OCCULT BLOOD NEGATIVE NEGATIVE WBC 0-1 0-5 hpf EPITHELIAL CELLS 0-1 0-5 hpf URINE C+S IF INDICATED PERFORMED NOT INDICATED CHEST 1 VIEW PORTABLE (MsgRcvd 01/02/2019 15:48)Final Results Test Result Flag Reference Range CHEST PORTABLE VIEW Clinical History: Acute symptoms. Confusion. Angry outbursts. [facility] evaluation. Initial encounter. Technique: AP portable view of the chest was obtained. Comparison: None.. FINDINGS: Patient status post sternotomy. Cardiac monitoring device projects over the left cardiac shadow. Epicardial pacer leads are also noted. Tortuous aorta with aortic arch calcifications. Slight rotation to the left. Heart and Mediastinum: The heart and mediastinal contours are within normal limits.. Lungs and Pleura: The lungs are hyperinflated but clear. The costophrenic angles are sharp without pleural effusion. Upper Abdomen: The visualized bowel gas pattern is unremarkable. Bones: No gross osseous pathology. IMPRESSION : No acute cardiopulmonary disease. Chronic findings as above. Followup PA and lateral radiograph of the chest when possible is recommended. Electronically Signed By: ALEXEY PICKERING MD Date: 01/02/2019 15:47 ELECTROCARDIOGRAM-EMERGENCY DEPT (MsgRcvd 01/02/2019 20:11)Final Results Test Result Flag Reference Range Vent Rate: 96 bpm RR Interval: 625 msec AK Interval: 208 msec QRS Duration: 112 msec QT Interval: 402 msec QTC Interval: 508 msec P-R-T [facility]: 19 - -73 - 71 degrees Sinus rhythm...normal P axis, V-rate 50- 99 Borderline prolonged AK interval...AK >207, V-rate 91-120 Incomplete RBBB and LAFB...axis(240,-40), S>R II III aVF Abnormal R-wave progression, late transition...QRS area<0 in V5/V6 ST elevation, consider inferior injury...ST >0.08mV, II III aVF Prolonged QT interval...QTc >500mS Electronically Signed By: KAILA JUARES MD Date: 01/02/2019 20:11 COMPREHENSIVE W/RATIOS(AMINAH: 01/02/2019 15:25) (MsgRcvd 01/02/2019 15:42)Final Results Test Result Flag Reference Range GLUCOSE 124 H 70-100 mg/dl BUN 15 5-32 mg/dl CREATININE, SERUM 0.83 0.60-1.30 mg/dl SODIUM 143 136-146 mmol/l POTASSIUM 3.5 3.5-5.3 mmol/l CHLORIDE 101 96-109 mmol/l CARBON DIOXIDE 26 20-32 mmol/l ALBUMIN 3.8 3.5-5.0 g/dl PROTEIN, TOTAL 7.4 6.4-8.2 g/dl CALCIUM 9.6 8.4-10.4 mg/dl ALKALINE PHOSPHATASE 126 H 10-118 U/l SGOT (AST) 29 3-40 U/l SGPT (ALT) 53 H 7-50 U/l BILIRUBIN, TOTAL 0.29 L 0.30-1.20 mg/dl BUN/CREATININE RATIO 18.1 6.0-20.0 GLOBULIN 3.6 H 2.3-3.5 g/dl ANION GAP 16.0 7.0-16.0 mmol/l OSMOLALITY (CALCULATED) 287 280-300 mos/kg A/G RATIO 1.1 1.0-2.0 EGFR (CALCULATED)(AMINAH: 01/02/2019 15:25) (MsgRcvd 01/02/2019 15:42)Final Results Test Result Flag Reference Range EGFR 85 >59 mL/min/1.73m2 EGFR, -HUNGARIAN 98 >59 mL/min/1.73m2 Note: Persistent reduction for 3 months or more in an eGFR <60 mL/min/1.73m2 defines CKD. Patients with eGFR values >=60 mL/min/1.73m2 may also have CKD if evidence of persistent proteinuria is present. Additional information may be found at [email or web address]. TSH(AMINAH: 01/02/2019 15:25) (MsgRcvd 01/02/2019 15:51)Final Results Test Result Flag Reference Range TSH (THYROTROPIN) 5.420 H 0.490-4.670 uIU/ml DIFFERENTIAL SCAN(AMINAH: 01/02/2019 15:25) (MsgRcvd 01/02/2019 16:28)Final Results Test Result Flag Reference Range DIFFERENTIAL SCAN PERFORMED CBC(AMINAH: 01/02/2019 15:25) (MsgRcvd 01/02/2019 16:39)Final Results Test Result Flag Reference Range WBC 9.9 4.3-10.9 x10E3/uL RBC 4.40 L 4.70-6.20 x10E6/uL HEMOGLOBIN 12.7 L 13.0-17.0 g/dl HEMATOCRIT 39.8 39.0-50.0 % MCV 90.5 82.0-98.0 fl MCH 28.9 27.5-33.5 pg MCHC 31.9 L 32.0-36.0 g/dl RDW 13.0 11.5-14.5 % PLATELET COUNT 340 130-400 x10E3/uL (Slide estimate appears adequate) MPV 11.8 8.6-12.6 fl SEGMENTED NEUTROPHILS 66.0 44.0-74.0 % BAND 0.0 0.0-4.0 % LYMPHOCYTES 22.0 15.0-45.0 % MONOCYTES 8.0 2.0-13.0 % EOSINOPHILS 3.0 0.0-6.0 % BASOPHILS 1.0 0.0-2.0 % NEUTROPHIL ABSOLUTE 6.5 1.4-7.0 x10E3/uL LYMPHOCYTES ABSOLUTE 2.2 1.0-3.4 x10E3/uL MONOCYTE ABSOLUTE 0.8 0.2-1.0 x10E3/uL EOSINOPHIL ABSOLUTE 0.3 0.0-0.5 x10E3/uL BASOPHIL ABSOLUTE 0.1 0.0-0.2 x10E3/uL VITAMIN B-12(AMINAH: 01/02/2019 21:19) (MsgRcvd 01/02/2019 22:04)Final Results Test Result Flag Reference Range VITAMIN B-12 644 pg/ml Greater than or equal to 211 is normal. . FOLIC ACID(FOLATE)SERUM(AMINAH: 01/02/2019 21:19) (MsgRcvd 01/02/2019 22:05)Final Results Test Result Flag Reference Range FOLIC ACID(FOLATE)SERUM 7.9 ng/ml Greater than or equal to 5.4 is normal. . RPR(AMINAH: 01/02/2019 21:19) (MsgRcvd 01/02/2019 22:59)Final Results Test Result Flag Reference Range RPR NON-REACTIVE NON-REACTIVE Social History Social History Element Description Effective Dates Sex Male 1940 Smoking never smoker Unknown Vital Signs Weight: 99.7 kg (220 lb) stated at 01/02/2019 2:39:00 PMHeight: 170.1 cm (67 inches) Per Patient at 01/02/2019 2:39:00 PMBMI (Body Mass Index): 34.5 kg/m2 at 01/02/2019 2:39:00 PM Date/Time Blood Pressure Heart Rate Respiratory Rate Temperature O2 Saturation 01/02/2019 167/72 mmHg 93 /minute 18 /minute 37.06 C 93% 2:39:25 PM Hospital Discharge Instructions Instruction Thank you for visiting the [facility]Emergency Department. You have been evaluated today by KAILA JUARES MD for the following condition(s): Adjustment disorder with disturbance of conduct. The following test(s) and/or procedure(s) were performed during your visit today. Laboratory Tests CBC w DiffTSHComprehensive PanelUrinalysis, Culture if indicatedFolateVitamin B12RPR Diagnostic Studies Chest 1 View PortableEKG Hospital Discharge Diagnoses Diagnosis Onset Date Resolved Date Status Comments Adjustment Disorder Active Reason For Visit SB EVAL. Reason For Referral None Health Concerns Section Concern Status No information available Medical Equipments Implanted Device Manufacturing Date Expiration Date No information available Assessments Assessment You have been evaluated by KAILA JUARES MD for the following conditions: Adjustment disorder with disturbance of conduct. The following test(s) and/or procedure(s) were performed during your visit today. Laboratory Tests: CBC w Diff, Comprehensive Panel, Folate, RPR, TSH, Urinalysis, Culture if indicated, and Vitamin B12 Diagnostic Studies: Chest 1 View Portable and EKG Goals Observation Goal Status No information available Treatment Plan Planned Care Start Date No information available Encounters Encounter Diagnosis Location Date Adjustment Disorder [facility] 01/02/2019
== END 2019-01-22 07:04 | disposition home or self-care (01) ==
LOC: ED 04:14
DX: M54.2 Cervicalgia (principal); W06.XXXA Fall from bed, initial encounter; Y92.003 Bedroom of unspecified non-institutional (private) residence as the place of occurrence of the external cause; E11.9 Type 2 diabetes mellitus without complications; E03.9 Hypothyroidism, unspecified; E78.00 Pure hypercholesterolemia, unspecified; I25.10 Atherosclerotic heart disease of native coronary artery without angina pectoris; I48.91 Unspecified atrial fibrillation; I10 Essential (primary) hypertension; K21.9 Gastro-esophageal reflux disease without esophagitis; F03.90 Unspecified dementia, unspecified severity, without behavioral disturbance, psychotic disturbance, mood disturbance, and anxiety; Z86.73 Personal history of transient ischemic attack (TIA), and cerebral infarction without residual deficits; Z87.891 Personal history of nicotine dependence; Z79.01 Long term (current) use of anticoagulants; Z79.4 Long term (current) use of insulin; Z79.890 Hormone replacement therapy; Z79.899 Other long term (current) drug therapy; Z88.8 Allergy status to other drugs, medicaments and biological substances
CPT/HCPCS: 36415; 72125; 80053; 81003; 83605; 85025; 85610; 96372; 99284; A9270-GY; J2060

== ENCOUNTER 2019-01-23 01:39 | Emergency (ER) | payer MEDICARE ==
[2019-01-23] MEDS ORDERED: Lorazepam PYXIS KEY PRN (01:43)
[2019-01-23] MEDS ORDERED: LORazepam INJ* 2 MG/ML 1 ML VIAL IM ONE (01:43)
[2019-01-23] MEDS ORDERED: Lorazepam PYXIS KEY ONE (01:45)
[2019-01-23] MEDS ORDERED: LORazepam INJ* 2 MG/ML 1 ML VIAL ONE (01:46)
--- NOTE | 2019-01-23 01:53 | ED ---
Complex/Multi-Sys Presentation - HPI Summary HPI Summary: Patient is a 78 y/o M presenting to [facility] via EMS from [facility] with complaints of seven falls on 01/22/19. Patient had been evaluated at [facility] administrative judge of 01/22/19 for neck pain secondary to falling out of bed. Workup done was negative, patient was discharged back to halfway. Seven falls occurred after having been discharged from ED. Patient had complaints of left elbow pain. Staff had contacted on-call medical provider, patient was sent to ED for workup. Patient is on blood thinners. Home medications and allergies are reviewed. Patient is a level 5 caveat secondary to dementia. - History Of Current Complaint Time Seen by Provider: 01/23/19 01:43 Hx Obtained From: EMS Hx From Patient Unobtainable Due To: Dementia - Patient is a level 5 caveat secondary to dementia. Onset/Duration: Still Present Timing: Constant Location: Pain At: - left elbow Associated Signs And Symptoms: Positive: Other - positive - multiple falls, left elbow pain - Allergies/Home Medications Allergies/Adverse Reactions: Allergies Allergy/AdvReac Type Severity Reaction Status Date / Time chocolate flavor Allergy Unknown Verified 01/22/19 04:19 Reaction Details cyclobenzaprine Allergy Hallucinati Verified 01/22/19 04:19 [From Flexeril] ons metoprolol Allergy Unknown Verified 01/22/19 04:19 Reaction Details ramipril Allergy Unknown Verified 01/22/19 04:19 Reaction Details PMH/Surg Hx/FS Hx/Imm Hx Endocrine/Hematology History: Reports: Hx Diabetes Cardiovascular History: Reports: Hx Atrial Fibrillation, Hx Coronary Artery Disease, Hx Hypercholesterolemia, Hx Hypertension Comment Only: Hx Pacemaker/ICD - IMPLANTED MONITOR GI History: Reports: Hx Gastroesophageal Reflux Disease History: Denies: Hx Dialysis Sensory History: Denies: Hx Contacts or Glasses, Hx Deafness, Hx Hearing Aid Opthamlomology History: Denies: Hx Contacts or Glasses Neurological History: Reports: Hx Dementia, Hx Transient Ischemic Attacks (TIA) - Surgical History Surgery Procedure, Year, and Place: CABG x4 - Family History Known Family History: Positive: Cardiac Disease - with [place] - Social History Alcohol Use: None Hx Substance Use: No Substance Use Type: Reports: None Hx Tobacco Use: Yes Smoking Status (MU): Former Smoker Review of Systems - ROS Summary Review of Systems Summary: Home Medications Medication Instructions Recorded Confirmed Type Apixaban* [Eliquis*] 5 mg PO BID 04/15/18 01/23/19 History Losartan TAB* [Cozaar TAB*] 50 mg PO DAILY 04/15/18 01/23/19 History metFORMIN* [Glucophage 1000 MG TAB 1,000 mg PO BID 04/15/18 01/23/19 History *] Diltiazem CD CAP* [Cardizem CD 240 mg PO DAILY 30 Days #30 cap.cd 12/18/1801/23 Rx CAP*] Acetaminophen TAB* [Tylenol TAB*] 650 mg PO Q4H PRN 12/25/18 01/23/19 History Insulin Aspart [Novolog] 0 - 12 units SUBCUT SEE 01/14/19 01/23/19 History INSTRUCTIONS Levothyroxine TAB* [Synthroid 25 25 mcg PO 0800 30 Days #30 tab 01/14/19 Rx MCG TAB*] OLANzapine TAB* [Zyprexa 5 MG TAB*] 7.5 mg PO DAILY 01/14/19 01/23/19 History traZODone TAB* [Desyrel TAB*] 25 mg PO BEDTIME PRN 01/14/19 01/23/19 History Musculoskeletal: Other - positive - multiple falls, left elbow pain All Other Systems Reviewed And Are Negative: No - Comments Additional Review of Systems Comments: Patient is a level 5 caveat secondary to dementia. Physical Exam - Summary Physical Exam Summary: General: Elderly, Well-developed, Well-nourished male. No acute distress. HEENT: Normocephalic, Atraumatic. Eyes: Conjuctiva normal, PERRL. Ears: TMs within normal limits. Nares: (-) discharge, (-) erythema. Oropharynx: Clear, mucous membranes moist, (-) exudates. Neck: Soft, FROM, (-) lymphadenopathy, (-) thyromegaly, (-) JVD. Cardiovascular: Normal sinus rhythm, (-) murmur. Lungs: Clear to auscultation bilaterally (-) wheezes, (-) rales, (-) rhonchi. Abdomen: Soft, non-tender, non-distended, (-) organomegaly, normal bowel sounds. Back: (-) CVA tenderness Extremities: No obvious injury. No edema. Skin: Warm, dry, (-) rash. Neuro: GCS 14, patient is a level 5 caveat secondary to dementia. Psychiatric: He is moderately agitated upon arrival. Uncooperative, aggressive, and swinging at staff. Triage Information Reviewed: Yes Vital Signs On Initial Exam: Initial Vitals Resp 18 01/23/19 01:47 Vital Signs Reviewed: Yes Completion Of Physical Exam Limited Due To: Dementia, Level 5 - Renetta Coma Scale Best Eye Response: 4 - Spontaneous Best Motor Response: 6 - Obeys Commands Best Verbal Response: 4 - Confused Coma Scale Total: 14 Procedures - Sedation Patient Received Moderate/Deep Sedation with Procedure: No Diagnostics - Vital Signs Vital Signs Resp 01/23/19 01:47 18 - Laboratory Lab Statement: Any lab studies that have been ordered have been reviewed, and results considered in the medical decision making process. - Radiology LEFT ELBOW X-RAY Radiology Interpretation Completed By: ED Physician Summary of Radiographic Findings: No fracture, no dislocation, pending official report. - CT BRAIN CT CT Interpretation Completed By: Radiologist Summary of CT Findings: IMPRESSION: 1. No acute intracranial hemorrhage. No intracranial mass. 2. 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 THIS REPORT WAS REVIEWED BY DR. MCMAHON. Complex Multi-Symp Course/Dx Course Of Treatment: 78 y/o M presents to [facility] for evaluation of multiple falls and left elbow pain. Patient is aggressive and uncooperative. 2 mg ativan given. X-ray and Head CT showed no acute changes. Patient was discharged back to halfway. - Diagnoses Provider Diagnoses: Fall, Left elbow pain - Physician Notifications Discussed Care Of Patient With: Gilberto Kaur Time Discussed With Above Provider: 04:24 Instructed by Provider To: Other - Dr. Kaur communicated results of Brain CT. Discharge ED - Sign-Out/Discharge Documenting (check all that apply): Patient Departure - discharge - Discharge Plan Condition: Stable Disposition: HOME Patient Education Materials: Fall Prevention for Older Adults (ED), Elbow Sprain (ED) Referrals: Merrill Adams MD [Primary Care Provider] - 3 Days Additional Instructions: PLEASE RETURN TO ED FOR ANY NEW OR WORSENING SYMPTOMS. PLEASE FOLLOW UP WITH YOUR PRIMARY CARE PHYSICIAN WITHIN THREE DAYS. - Billing Disposition and Condition Condition: STABLE Disposition: Home - Attestation Statements Document Initiated by Scribe: Yes Documenting Scribe: BARRY LOUIS Provider For Whom Scribe is Documenting (Include Credential): SAVANNA MCMAHON MD Scribe Attestation: I, BARRY LOUIS, scribed for SAVANNA MCMAHON MD on 01/23/19 at 0537. Scribe Documentation Reviewed: Yes Provider Attestation: The documentation as recorded by the scribe, BARRY LOUIS accurately reflects the service I personally performed and the decisions made by me, SAVANNA MCMAHON MD Status of Scribe Document: Viewed
[2019-01-23 04:46] VITALS: BP 0/0
== END 2019-01-23 04:30 | disposition home or self-care (01) ==
LOC: ED 01:39
DX: M25.522 Pain in left elbow (principal); W19.XXXA Unspecified fall, initial encounter; Y92.129 Unspecified place in nursing home as the place of occurrence of the external cause; E11.9 Type 2 diabetes mellitus without complications; E03.9 Hypothyroidism, unspecified; I48.91 Unspecified atrial fibrillation; I25.10 Atherosclerotic heart disease of native coronary artery without angina pectoris; E78.00 Pure hypercholesterolemia, unspecified; I10 Essential (primary) hypertension; K21.9 Gastro-esophageal reflux disease without esophagitis; F03.90 Unspecified dementia, unspecified severity, without behavioral disturbance, psychotic disturbance, mood disturbance, and anxiety; Z86.73 Personal history of transient ischemic attack (TIA), and cerebral infarction without residual deficits; Z95.1 Presence of aortocoronary bypass graft; Z95.810 Presence of automatic (implantable) cardiac defibrillator; Z87.891 Personal history of nicotine dependence; Z79.01 Long term (current) use of anticoagulants; Z79.4 Long term (current) use of insulin; Z79.890 Hormone replacement therapy; Z79.899 Other long term (current) drug therapy; Z88.8 Allergy status to other drugs, medicaments and biological substances
CPT/HCPCS: 70450; 96372; 99282; J2060

== ENCOUNTER 2019-01-28 07:09 | Inpatient (IN) | payer MEDICARE ==
[2019-01-28] MEDS ORDERED: fentaNYL* 50 MCG/ML 2 ML VIAL (100 MCG VIAL) IV SLOW PU ONE (07:20)
[2019-01-28 07:58] LABS: ABS Basophils 0.1 10^3/ul (0-0.2); ABS Eosinophils 0.3 10^3/ul (0-0.6); ABS Lymphocytes 1.6 10^3/ul (1.0-4.8); ABS Monocytes 0.6 10^3/ul (0-0.8); ABS Neutrophils 5.7 10^3/ul (1.5-7.7); Eosinophil % 3.5 %; Hematocrit 37 % (42-52); Hemoglobin 12.7 g/dL (14.0-18.0); Lymphocyte % 19.1 %; Mean Corpuscular HGB Conc 35 g/dL (31-36); Mean Corpuscular Hemoglobin 30 pg (27-31); Mean Corpuscular Volume 88 fL (80-94); Mean Platelet Volume 10.1 fL (7.4-10.4); Platelet Count 207 10^3/uL (150-450); Red Blood Count 4.22 10^6 /uL (4.18-5.48); Red Cell Distribution Width 14 % (10-15); White Blood Count 8.3 10^3/uL (3.5-10.8)
[2019-01-28 08:14] LABS: Albumin 4.1 g/dL (3.2-5.2); Calcium 9.2 mg/dL (8.6-10.3); Potassium 3.7 mmol/L (3.5-5.0); Total Bilirubin 0.6 mg/dL (0.2-1.0)
--- NOTE | 2019-01-28 08:14 | ED ---
Lower Extremity - HPI Summary HPI Summary: This patient is a 78-year-old male with a recent history of multiple falls coming from [facility] after a witnessed fall this morning and now c/ oL hip pain. Deformity noted. C/o pain only with movement. Hx of dementia. States ate large breakfast this morning. Unknown medication hx per patient. According to medical records, patient has a history of type 2 diabetes, A. fib, CABG 2008, hypertension, CVA. Recent history of multiple falls. Fall today was witnessed and with no head injury. - History of Current Complaint Chief Complaint: EDHipPelvisInjury Stated Complaint: POSS LEG FRACTURE PER EMS Time Seen by Provider: 01/28/19 07:12 Hx Obtained From: Patient Mechanism Of Injury: Blunt Trauma Onset of Pain: Immediate Onset/Duration: Minutes Severity Initially: Moderate Severity Currently: Moderate Pain Intensity: 8 Pain Scale Used: 0-10 Numeric Timing: Constant Location: Is Discrete @ - left hip and femur Character Of Pain: Aching Aggravating Factor(s): Movement Alleviating Factor(s): Rest Able to Bear Weight: No - Allergies/Home Medications Allergies/Adverse Reactions: Allergies Allergy/AdvReac Type Severity Reaction Status Date / Time chocolate flavor Allergy Unknown Verified 01/22/19 04:19 Reaction Details cyclobenzaprine Allergy Hallucinati Verified 01/22/19 04:19 [From Flexeril] ons metoprolol Allergy Unknown Verified 01/22/19 04:19 Reaction Details ramipril Allergy Unknown Verified 01/22/19 04:19 Reaction Details Home Medications: Home Medications Cephalexin CAP* [Keflex CAP*] 500 mg PO BID 01/28/19 [History Confirmed 01/28/19 ] Glycerin ADULT SUPP* 1 supp IA Q72HR PRN 01/28/19 [History Confirmed 01/28/19] Levothyroxine TAB* [Synthroid 25 MCG TAB*] 25 mcg PO DAILY 01/28/19 [History Confirmed 01/28/19] Magnesium Hydroxide LIQ* [Milk of Magnesia LIQ*] 30 ml PO Q72HR PRN 01/28/19 [ History Confirmed 01/28/19] Sodium Phosphate ADULT ENEMA* [Fleet Enema*] 1 enema IA Q72HR PRN 01/28/19 [ History Confirmed 01/28/19] PMH/Surg Hx/FS Hx/Imm Hx Previously Healthy: Yes Endocrine/Hematology History: Reports: Hx Diabetes Cardiovascular History: Reports: Hx Atrial Fibrillation, Hx Coronary Artery Disease, Hx Hypercholesterolemia, Hx Hypertension Comment Only: Hx Pacemaker/ICD - IMPLANTED MONITOR GI History: Reports: Hx Gastroesophageal Reflux Disease History: Denies: Hx Dialysis Sensory History: Denies: Hx Contacts or Glasses, Hx Deafness, Hx Hearing Aid Opthamlomology History: Denies: Hx Contacts or Glasses Neurological History: Reports: Hx Dementia, Hx Transient Ischemic Attacks (TIA) - Surgical History Surgery Procedure, Year, and Place: CABG x4 - Immunization History Hx Pertussis Vaccination: No Immunizations Up to Date: Yes Infectious Disease History: No Infectious Disease History: Denies: Traveled Outside the [place] in Last 30 Days - Family History Known Family History: Positive: Cardiac Disease - with NC - Social History Occupation: Unemployed Lives: [facility] [place] Alcohol Use: None Hx Substance Use: No Substance Use Type: Reports: None Hx Tobacco Use: Yes Smoking Status (MU): Former Smoker Review of Systems Negative: Fever, Chills, Fatigue, Skin Diaphoresis Negative: Palpitations, Chest Pain Negative: Shortness Of Breath, Cough Genitourinary: Negative Positive: no symptoms reported, see HPI Positive: Arthralgia - left hip Negative: Rash, Bruising Neurological: Negative All Other Systems Reviewed And Are Negative: Yes Physical Exam Triage Information Reviewed: Yes Vital Signs On Initial Exam: Initial Vitals Temp Pulse Resp BP Pulse Ox 98.0 F 113 22 141/79 94 01/28/19 07:10 01/28/19 07:10 01/28/19 07:10 01/28/19 07:10 01/28/19 07:10 Vital Signs Reviewed: Yes Appearance: Positive: Well-Appearing, Well-Nourished Skin: Positive: Warm, Skin Color Reflects Adequate Perfusion Head/Face: Positive: Normal Head/Face Inspection Eyes: Positive: EOMI, Conjunctiva Clear Neck: Positive: Supple Respiratory/Lung Sounds: Positive: Clear to Auscultation Cardiovascular: Positive: Pulses are Symmetrical in both Upper and Lower Extremities Musculoskeletal: Positive: Pain @ - left hip pain Neurological: Positive: Speech Normal Psychiatric: Positive: Affect/Mood Appropriate Procedures - Sedation Patient Received Moderate/Deep Sedation with Procedure: No Diagnostics - Vital Signs Vital Signs Temp Pulse Resp BP Pulse Ox 01/28/19 07:44 22 01/28/19 07:23 111 28 141/79 94 01/28/19 07:22 111 94 01/28/19 07:10 98.0 F 113 22 141/79 94 - Laboratory Lab Results: Lab Results 01/28/19 01/28/19 Range/Units 07:35 07:35 WBC 8.3 (3.5-10.8) 10^3/uL RBC 4.22 (4.18-5.48) 10^6 /uL Hgb 12.7 L (14.0-18.0) g/dL Hct 37 L (42-52) % MCV 88 (80-94) fL MCH 30 (27-31) pg MCHC 35 (31-36) g/dL RDW 14 (10-15) % Plt Count 207 (150-450) 10^3/uL MPV 10.1 (7.4-10.4) fL Neut % (Auto) 68.7 % Lymph % (Auto) 19.1 % [place] % (Auto) 7.6 % Eos % (Auto) 3.5 % Baso % (Auto) 1.1 % Absolute Neuts (auto) 5.7 (1.5-7.7) 10^3/ul Absolute Lymphs (auto) 1.6 (1.0-4.8) 10^3/ul Absolute Monos (auto) 0.6 (0-0.8) 10^3/ul Absolute Eos (auto) 0.3 (0-0.6) 10^3/ul Absolute Basos (auto) 0.1 (0-0.2) 10^3/ul Absolute Nucleated RBC 0.0 10^3/ul Nucleated RBC % 0.0 INR (Anticoag Therapy) 1.00 (0.82-1.09) Result Diagrams: 01/28/19 07:35 01/28/19 07:35 Lab Statement: Any lab studies that have been ordered have been reviewed, and results considered in the medical decision making process. Lower Extremity Course/Dx - Course Course Of Treatment: On arrival to the ED, the patient is noted to have a deformity to the left hip with an external rotation and shortening of the left lower extremity. Pain with palpation of the left femur and left hip. Unable to logroll due to pain. Patient is given 50 g fentanyl IV. Labs are obtained. Chest x-ray:IMPRESSION: 1. UNCHANGED CARDIOMEGALY STATUS POST CABG. CARDIAC MONITORING DEVICE IS IN PLACE. 2. INTERSTITIAL PULMONARY EDEMA. 3. SMALL BILATERAL PLEURAL EFFUSIONS ARE SUSPECTED. Hip and pelvis xray: IMPRESSION: MULTIPLY COMMINUTED FRACTURE OF THE PROXIMAL LEFT FEMUR. Discussed with Dr. Guillen and Dr. Lawson. Will be admitted to hospitalist service with ortho consult. - Diagnoses Differential Diagnosis/HQI/PQRI: Positive: Contusion, Fracture (Closed) Provider Diagnoses: Femur fracture, left - Physician Notifications Discussed Care Of Patient With: Doug Guillen Instructed by Provider To: Admit As Inpatient Discharge ED - Sign-Out/Discharge Documenting (check all that apply): Patient Departure - Discharge Plan Condition: Fair Disposition: ADMITTED TO [facility] Referrals: Merrill Adams MD [Primary Care Provider] - - Billing Disposition and Condition Condition: FAIR Disposition: Admitted to [facility]
[2019-01-28 08:19] LABS: Albumin/Globulin Ratio 1.4 (1-3); BUN/Creatinine Ratio 11.5 (8-20); EGFR Non-African American 85.1 (>60); Total Protein 7.1 g/dL (6.4-8.9)
--- NOTE | 2019-01-28 09:40 | PN ---
Progress Note - Progress Note Date of Service: 01/28/19 Note: See dictation for full detail Pt seen in the emergency room today. He has a left hip fracture to be further characterized on CT scan, suspect he will require a gamma nail. Will plan for OR tomorrow with Dr Guillen pending medical optimization.
[2019-01-28] MEDS ORDERED: Diltiazem CD CAP* 240 MG PO ONE (10:33)
[2019-01-28] MEDS ORDERED: Senna TAB 8.6 mg* TAB PO PRN (10:34)
[2019-01-28] MEDS ORDERED: Ondansetron INJ* 2 MG/ML VIAL IV PRN (10:34)
[2019-01-28] MEDS ORDERED: Acetaminophen TAB* 325 MG PO PRN (10:34)
[2019-01-28] MEDS ORDERED: Al Hydrox/Mg Hydrox/Simet LIQ* 30 ML UDC PO PRN (10:34)
[2019-01-28] MEDS ORDERED: oxyCODONE/Acetamin 5/325 MG* TAB PO PRN (12:18)
[2019-01-28] MEDS ORDERED: Sodium Phosphate ADULT ENEMA* 118 ml bottle PR PRN (12:21)
[2019-01-28] MEDS ORDERED: Losartan TAB* 25 MG PO ONE (12:23)
[2019-01-28] MEDS ORDERED: Dextrose 50% VIAL 50 ml IV PUSH PRN (12:24)
[2019-01-28] MEDS: oxyCODONE/Acetamin 5/325 MG* TAB PO PRN ×2 (13:04→20:48)
[2019-01-28] MEDS: Insulin LISPRO* 1 UNITS UNIT SUBCUT SCH ×2 (13:08→17:24)
[2019-01-28] MEDS ORDERED: Insulin LISPRO* 1 UNITS UNIT SUBCUT ONE (13:08)
--- NOTE | 2019-01-28 13:54 | HP ---
HISTORY AND PHYSICAL: ADDENDUM: Regarding his questionable EKG changes, his troponin is negative and the patient is asymptomatic. I have very low suspicion for ACS. Again, Dr. Nance has reviewed the EKG and I appreciate her consultation. TRAVIS CASTLE [id number]/[facility] #: [id number] CHRISSY
--- NOTE | 2019-01-28 14:03 | HP ---
ADDENDUM INCLUDED ON THIS REPORT CC: Dr. Adams * HISTORY AND PHYSICAL: DATE OF ADMISSION: 01/28/19 PRIMARY CARE PROVIDER: Dr. Adams. ATTENDING PHYSICIAN WHILE IN THE HOSPITAL: Dr. Doug Lawson * (dictated by TRAVIS Weber). CHIEF COMPLAINT: Left hip pain. HISTORY OF PRESENT ILLNESS: Maninder Lechuga is a 78-year-old white male with past medical history significant for coronary artery disease, status post CABG; atrial fibrillation, on Eliquis; frequent falls; diabetes mellitus type 2; and dementia, who presents to the emergency department via [facility] where he is a long -term resident due to left hip pain after a fall. The patient reportedly had a witnessed fall from [facility] nursing staff. The patient fell from standing. He did not have any head trauma per nursing staff. The patient immediately started complaining of left hip pain and he was sent to the emergency department. In the emergency department, he was found to have left hip fracture and he has been seen by the orthopedic surgery team, who has ordered a CT of the pelvis as well. The patient is a poor historian due to his dementia; however, he does still report left hip pain. He is unable to provide much further history and frequently asked if he can pay the bill and asked me to talk to his , who is not present and is really . I did discuss this with his healthcare proxy, his daughter, Aarti, who is agreeable to surgery. The patient had an EKG while he was in the emergency department, which did show some small changes in the anterior leads, which prompted Cardiology consult as well. The patient denies abdominal pain, chest pain, difficulty breathing and is unable to appropriately answer other questions. The patient was started on Keflex on 01/22/19 due to possible UTI. PAST MEDICAL HISTORY: 1. Frequent falls. 2. Atrial fibrillation, on anticoagulation. 3. Coronary artery disease, status post CABG. 4. Hypertension. 5. Diabetes mellitus type 2. 6. Previous history of CVA. 7. Hypothyroidism. 8. Dementia with behavioral disturbance. 9. GERD. 10. Right bundle branch block. PAST SURGICAL HISTORY: 1. ASD closure. 2. CABG in 2008. 3. Implanted loop recorder. HOME MEDICATIONS: 1. Magnesium hydroxide liquid 30 mL p.o. q.72 hours p.r.n. constipation. 2. Glycerin suppository 1 suppository per rectum q.72 hours p.r.n. constipation. 3. Fleet Enema per rectum q.72 hours p.r.n. constipation. 4. Tylenol 650 p.o. q.4 hours p.r.n. pain. 5. Insulin aspart 0 to 12 units per sliding scale a.c. and h.s. 6. Metformin 1000 mg p.o. b.i.d. 7. Keflex 500 mg p.o. b.i.d. 8. Olanzapine 15 mg p.o. at bedtime. 9. Eliquis 5 mg p.o. b.i.d. 10. Losartan 50 mg p.o. daily. 11. Synthroid 75 mcg p.o. daily. 12. Diltiazem 240 mg p.o. daily. ALLERGIES: Unknown reaction to CHOCOLATE FLAVOR, hallucinations to FLEXERIL, unknown reaction to METOPROLOL, unknown reaction to RAMIPRIL. FAMILY HISTORY: Unable to collect due to the patient's mental status. SOCIAL HISTORY: The patient is a long-term resident at [facility]. He is a former smoker, quit in the . He is a and he has 2 daughters. Both of his daughters are able to make decisions for him. His daughter, Loni Chopra , is local and is one of his healthcare proxies. Her phone number is [phone]. His other daughter, Aarti Saldivar, is also healthcare proxy. Her phone number is [phone]; however, she lives in [place]. Unable to collect further social history at this time. REVIEW OF SYSTEMS: An 11-point review of systems was attempted; however, due to the patient being a poor historian, it was not completed. All pertinent positives and negatives are above in the HPI. PHYSICAL EXAMINATION GENERAL: An obese, elderly white male, lying in hospital bed, appearing comfortable overall and in minimal distress, though is agitated at times. HEENT: Eyes: PERRL. Sclerae anicteric. ENT: Mucous membranes moist. NECK: Supple without JVD. LUNGS: Clear to auscultation. CARDIO: Irregularly irregular rhythm, tachycardic to approximately 120 beats per minute. No appreciable murmurs, rubs, or gallops. ABDOMEN: Soft, nontender, nondistended. EXTREMITIES: No clubbing, cyanosis, or edema. Left lower extremity is externally rotated at rest. NEURO: The patient is alert only to self. He is not oriented to location, situation, or time. He does not answer questions appropriately at times. He is able to move all extremities and his sensation to light touch is grossly intact and equal in bilateral lower extremities. SKIN: Skin is warm, dry, and intact. DIAGNOSTIC STUDIES/LAB DATA: Left femur x-ray, impression: Impacted intertrochanteric fracture with avulsion of lesser trochanter. Moderate left hip posterior arthropathy. Vascular calcifications. Hip/pelvis x-ray: Multiply comminuted fracture of the proximal left femur. Chest x-ray: Unchanged cardiomegaly, status post CABG. Cardiac monitoring device is in place. Interstitial pulmonary edema. Small bilateral pleural effusions are suspected. Pelvis CT: Complex intertrochanteric fracture of the left hip with 1.5 cm distraction of the lesser trochanter. An obliquely oriented fracture plane extends to the proximal left femoral shaft. The anterolateral muscles of the left thigh are edematous. Trace intramuscular hematoma surrounding the fracture plane is suspected. Vascular calcifications. Osteopenia. EK beats per minute, right bundle branch block consistent with previous, minimal ST segment changes in V1; however, appears overall consistent from previous EKG. Troponin is 0.01. White blood cell count 8.3, hemoglobin 12.7, hematocrit 37, platelet count 207. Sodium 138, potassium 3.7, chloride 103, carbon dioxide 26, anion gap 9, BUN 10, creatinine 0.87, glucose 350, calcium 9.2. LFTs unremarkable. ASSESSMENT AND PLAN: Maninder Lechuga is a 78-year-old white male with past medical history significant for dementia; diabetes mellitus type 2; history of stroke; hypertension; coronary artery disease; atrial fibrillation, on anticoagulation; frequent falls, who presents to the emergency department with left hip pain after a fall. The patient will be admitted inpatient for: 1. Left hip fracture. The patient's healthcare proxy is aware and is agreeable to fracture repair for this patient. Orthopedists are recommending surgery after medical optimization. Cardiology has been involved for medical optimization as well. I will continue morphine and oxycodone for pain control and he will be on bedrest. I am holding his Eliquis and his last dose of Eliquis was at 9 a.m. on 01/27/19. Pending further input from orthopedic team to determine the time of operation. 2. History of atrial fibrillation. The patient is minimally tachycardic at this time; however, he did miss his diltiazem dose this morning and I will give that. Cardiology has been involved and pending if they have any further input. However, this may likely further improve with pain control. Given his very frequent falls, it would likely be of benefit to no longer be on Eliquis; however, this should be further discussed with his healthcare proxy. I will order telemetry. 3. Hypertension. The patient is minimally hypertensive, though again assuming this likely be related to pain and missing his morning medications. I will be sure to give him a dose of losartan now and we will continue to monitor this. 4. Diabetes. Hemoglobin A1c in October was 10.1. He is not well controlled. He was previously on glipizide, but it was recently discontinued for unclear reasons and it does not appear he is on any long-acting insulin. It would likely be of benefit for him to be on long-acting insulin; however, he may be n.p.o. tomorrow for surgery and I will not start at this time for that reason, but I will continue lispro sliding scale while he is in the hospital. I am holding his home metformin. I will be repeating an A1c. 5. Hypothyroidism. Continue the patient's home Synthroid. 6. Dementia. Supportive care and I will continue his home olanzapine. He was previously on Seroquel and if he is having significant agitation, it may be of benefit to order p.r.n. Seroquel for him, though this will be determined later. 7. Possible recent urinary tract infection. I will continue the patient's Keflex 500 mg b.i.d. and I will repeat the urinalysis. 8. FEN: The patient will have a heart-healthy diet. 9. Code status: The patient is DNR/DNI and his MOLST has been updated. 10. DVT prophylaxis: The patient will be on subcu heparin and we will discuss further with orthopedic team based on when this needs to be held for surgery. TIME SPENT: Approximately 50 minutes was spent on this admission, approximately half this time was spent at bedside. This case has been reviewed with my attending, Dr. Doug Lawson, and he agrees with this plan of care. ADDENDUM: Regarding his questionable EKG changes, his troponin is negative and the patient is asymptomatic. I have very low suspicion for ACS. Again, Dr. Nance has reviewed the EKG and I appreciate her consultation. TRAVIS WEBER [id number]/CPS #: [id number]/CPS #: [id number] CHRISSY
--- NOTE | 2019-01-28 14:29 | CONS ---
CONSULTATION REPORT: DATE OF CONSULT: 01/28/19 ATTENDING PHYSICIAN: Dr. Kaitlyn Nance, cardiology.* (DICTATED BY JOHN RICKETTS NP) PRIMARY PIECER UP: Dr. Kaitlyn Nance. REASON FOR CONSULT: Abnormal EKG status post left hip fracture. HISTORY OF PRESENT ILLNESS: This is a 78-year-old male patient who follows with Dr. Kaitlyn Nance of our practice due to a notable history of paroxysmal AFib/flutter with prior CVA, diabetes, coronary artery disease, hypertension, and hyperlipidemia who presented to [facility] this morning status post fall that resulted in left hip fracture. We were asked to see the patient in consultation due to an abnormal ECG in preparation for surgical risk stratification. The patient is demented and not able to assist in history of present illness; however, I did speak to his daughter, Aarti, who apparently is his healthcare proxy and power of attorney general. She states that the patient has had 10 falls in the past month and a half and has been more confused than usual. Apparently, the patient has not been adequately anticoagulated due to refusal of taking medications. He denies chest pain, dizziness, or palpitations , but again he is demented and not oriented to place or time. Last echocardiogram was in May 2018. At that time, LVEF was 55% to 60% with mild left ventricular hypertrophy, mild aortic insufficiency, mild aortic stenosis, 4 cm transthoracic aneurysm. Last ischemic evaluation on 07/29/18. Per report, at that time, there was a small fixed mild-intensity inferolateral infarct, no ischemia, TID 1.13. PAST MEDICAL HISTORY: 1. Coronary artery disease. 2. Hypertension. 3. Hyperlipidemia. 4. Prior CVA. 5. Dementia. 6. Diabetes. 7. AFib/flutter. 8. Inferior wall [place]. 9. CABG in 2008. PAST SURGICAL HISTORY: 1. CABG in 2008. Unfortunately, I do not have a surgical report in regards to graft information. 2. Implantable loop recorder in 2012. HOME MEDICATIONS: Per admission med rec. ALLERGIES: Listed include CHOCOLATE, METOPROLOL, RAMIPRIL, and CYCLOBENZAPRINE. FAMILY HISTORY: Unable to obtain due to the patient's current mental state. SOCIAL HISTORY: Unable to obtain at this time. I do know that the patient is a DNR according to the patient's daughter, Aarti, and he is residing at [facility]. REVIEW OF SYSTEMS: At this time, I am unable to obtain accurate review of systems due to the patient's current mental status. PHYSICAL EXAM: Temperature is 98.2, pulse 131, respirations 20, oxygenation 95 % on room air, blood pressure is 179/102. General: The patient is alert to self, not to place or time. He is following commands. He appears in no apparent distress. HEENT: Head is atraumatic, normocephalic. Oral mucosa is moist. Tongue is midline. Neck: Supple. Trachea midline. No JVD. No carotid bruits. Cardiac: Tachycardic. S1, S2. Regular rate and rhythm. No murmur, gallop, or rub noted. Lungs: Auscultated anteriorly. No evidence of adventitious breath sounds. Respirations are nonlabored. /GI: Abdomen is soft, nontender. Normoactive bowel sounds x4. Extremities: Left lower extremity is rotated externally, 3+ bilateral dorsalis pedis pulses palpated bilaterally and symmetrically. Skin: Intact. DIAGNOSTIC STUDIES/LAB DATA: Blood work obtained on 01/28/19: White count 8.3 , hemoglobin 12.7, hematocrit 37, platelets 207. INR is 1. Sodium 138, potassium 3.7, chloride 103, carbon dioxide 26, creatinine 0.87. Troponin negative x1. ECG from 01/28/19 reviewed; the patient appears to be in underlying AFib/ Aflutter with known right bundle-branch block. There is nonspecific T-wave depression in the anterior leads, likely bundle-branch related. No ST-segment elevation appreciated. The patient has a known right bundle-branch block. ASSESSMENT AND PLAN: 1. Status post fall resulting in left hip fracture. Ortho following. 2. Preoperative risk stratification. The patient may proceed with left hip fracture surgical intervention. He recently had a low-risk Lexiscan nuclear stress test on 07/29/18. Per report, there was a fixed mild inferolateral defect, no reversible ischemia. His last echocardiogram was in May 2018, EF 55% to 60% with mild aortic stenosis. Of note, he has a known history of sick sinus syndrome. On his prior implantable loop recorder, he had an episode of asystole for 5 seconds. He does not have a permanent pacemaker in place; thus, I would be cautious with AV ho agents. At this current time, he has relative tachycardia likely due to above #1. We would recommend resuming Cardizem 240 mg a day and we would be cautious with administration of AV ho agents. I am told that the patient is on Eliquis due to history of atrial fibrillation; however, he is not adequately anticoagulated due to inconsistency of taking medication due to refusal. I do not have the [facility] medication MAR to review; however, once able to anticoagulate after surgery, we would recommend jail this should really be re- addressed given reported history of 10 falls in the past month and a half. 3. History of atrial fibrillation. The patient is currently in atrial fibrillation/flutter with rapid ventricular rate response, heart rate ranging from 100 to 118. We would recommend resuming calcium channel edvin. We would caution against administering additional AV ho agents given history of 5-second episode of asystole with a component of sick sinus syndrome. Continue telemetry monitoring. 4. History of advanced dementia. Per the patient's daughter, Aarti, the patient is a DNR. She is his healthcare proxy and power of attorney general. Defer to primary team. 5. Disposition: Pending course. Dr. Kaitlyn Nance has personally seen and examined the patient and agrees with the above assessment and plan. Thank you for this kind consultation. Any future questions or concerns, please do not hesitate to contact our service. JOHN RICKETTS NP [id number]/CPS #: [id number] CHRISSY
[2019-01-28] MEDS: Heparin VIAL(*) 5000 UNITS/ML VIAL (FIVE THOUSAND) SUBCUT SCH ×2 (14:38→22:09)
--- NOTE | 2019-01-28 20:33 | PN ---
Cardiology Progress Note Date of Service: 01/28/19 - CC: fracture I personally saw and examinined the patient in the ED today. Confused. No evidence of chest pain, trouble breathing. ECG: sinus tachycardia with RBBB (pt missed a diltiazem dose). Full consultation dictated by Rachel Child NP. I agree with the recommendations in the dictated H+P. I feel the patient can proceed with orthopedic surgery in AM without additional cardiac testing.
--- NOTE | 2019-01-28 20:43 | CONS ---
CONSULTATION REPORT: DATE OF CONSULT: 01/28/19 PRIMARY CARE PROVIDER: Dr. Adams. ATTENDING ORTHOPEDIC PROVIDER: Dr. Doug Guillen. CHIEF COMPLAINT: Left hip fracture. HISTORY OF PRESENT ILLNESS: The patient is a 78-year-old male with advanced dementia. Past medical history includes atrial fibrillation, on Eliquis with frequent falls, roughly 10 in the past month; diabetes type 2; coronary artery disease, status post CABG. He was brought to the emergency room at [facility] today after falling at [facility] where he resides with subsequent inability to bear weight on the left hip. He has severe pain in the left hip with no complaints of pain elsewhere. Fall was witnessed; it was from standing height. No report of head trauma per nursing staff. The patient is able to have some meaningful conversation, but gives a very poor and inconsistent history due to dementia. This is baseline per his daughter who I spoke with today. Pain is aggravated by any movement and is relieved with rest. Last dose of eliquis was 0900 01/27/19. PAST MEDICAL HISTORY: Significant for frequent falls, 10 in the past month; atrial fibrillation, on Eliquis, last dose at 9 a.m. on 01/27/19; hypertension; type 2 diabetes; previous CVA; hypothyroidism; dementia with behavioral disturbance; GERD; right bundle-branch block. PAST SURGICAL HISTORY: ASD closure; CABG in 2008, implanted loop recorder; no history of adverse effects from anesthesia. HOME MEDICATIONS: Significant for: 1. Magnesium hydroxide liquid 30 mL p.o. q.72 hours p.r.n. constipation. 2. Glycerin suppository 1 suppository per rectum q.72 hours for constipation. 3. Fleet Enema per rectum q.72 hours p.r.n. constipation. 4. Tylenol 650 p.o. q.4 hours p.r.n. pain. 5. Insulin aspart 0 to 12 units per sliding scale a.c. and h.s. 6. Metformin 1000 mg p.o. b.i.d. 7. Keflex 500 mg p.o. b.i.d. 8. Olanzapine 15 mg p.o. at bedtime. 9. Eliquis 5 mg p.o. b.i.d. 10. Losartan 50 mg p.o. daily. 11. Synthroid 75 mcg p.o. daily. 12. Diltiazem 240 mg p.o. daily. ALLERGIES: CHOCOLATE FLAVOR, FLEXERIL, METOPROLOL, RAMIPRIL. FAMILY HISTORY: Unable to collect from the patient. His is and 2 daughters are alive, 1 living in [place], 1 living in [place]. SOCIAL HISTORY: The patient is a long-term resident at [facility] since November 2018. Previous to this, he lived at home with his daughter Loni, but due to advanced dementia was placed in long-term care at [facility]. He is a former smoker, quit in the . His as of this year. He has 2 daughters, both of whom are healthcare proxies. His daughter Loni Chopra lives locally, her phone number is [phone], she will be here to consent for surgery tomorrow. I spoke with his daughter Aarti, phone number [phone] abner who agrees to ORIF of the left hip fracture tomorrow. She lives in [place]. REVIEW OF SYSTEMS: A 14-point review of systems attempted. The patient was a poor historian, unable to answer questions, though denies pain anywhere aside from the left hip. PHYSICAL EXAM: Vital Signs: Temperature 97.9, heart rate 106, respiratory rate 18, oxygen saturation 94%, blood pressure 151/76. General: The patient is lying comfortably in bed, in no acute distress. HEENT: Normocephalic, atraumatic. Extraocular movements are intact. Lungs: Clear to auscultation bilaterally. Cardiac: S1, S2. Irregular. Abdomen: Nondistended, soft, nontender. No guarding. No rigidity. Extremities: Bilateral upper extremities with skin envelope intact. Nontender to palpation. Able to flex and extend the digits, wrists, elbows, and shoulders. Lower extremities: The right lower extremity skin envelope is intact. Nontender to palpation. Able to flex and extend digits, ankle, knee, and hip. Left lower extremity skin envelope is intact. Tender to palpation over the hip. Guarding the hip with both hands, not allowing me to palpate the area. He is nontender to palpation of the distal femur, knee, lower leg, ankle, or digits. Able to flex and extend the digits and ankle. Does not move knee or hip due to pain. The leg is rotated and shortened. Neuro: Alert to self, not alert to place or time. Answers some questions appropriately, though not always accurately. DIAGNOSTIC STUDIES/LAB DATA: Pelvis CT demonstrates complex intertrochanteric fracture of the left hip with 1.5 cm distraction of the lesser trochanter in obliquely oriented fracture plane, extends to the left proximal femoral shaft. Laboratory studies: White blood cell count 8.3, hemoglobin 12.7, hematocrit 37 , platelet count 207. INR 1.0. Sodium 138, potassium 3.7. Troponin 0.01. ASSESSMENT: Left hip fracture with extension into the femoral shaft PLAN: The patient will be on bedrest. He will be nonweightbearing. Hold his Eliquis. He can receive heparin up until midnight before surgery. He should be n.p.o. at midnight as well. Preop labs on day of surgery at 0600 should include CBC, BMP, INR, type and screen. Surgery is tentatively scheduled for tomorrow pending medical optimization. He will have an ORIF left hip/femur. I spoke with his daughter Aarti who will ensure that a family member is here by late afternoon for consent. If a family member is not available in person, please see social history for contact information for daughters both of whom are healthcare proxies. TARVIS VIRK [id number]/[facility] #: [id number] MTDD
[2019-01-28] MEDS: OLANzapine TAB* 5 MG PO SCH (20:48)
[2019-01-28] MEDS: Cephalexin CAP* 500 MG PO SCH (20:48)
[2019-01-28 21:42] LABS: Urine Appearance Clear; Urine Bilirubin Negative (Negative); Urine Blood Negative (Negative); Urine Color Yellow; Urine Glucose 3+(>=500 mg/dL) (Negative); Urine Ketones Negative (Negative); Urine Nitrite Negative (Negative); Urine Protein Negative (Negative); Urine Specific Gravity 1.017 (1.010-1.030); Urine Urobilinogen Negative (Negative)
--- NOTE | 2019-01-28 21:49 | PN ---
Hospitalist Progress Note Date of Service: 01/28/19 CAT call- patient was placed on the monitor on SSU thought to be in v-tach when placed on the monitor. Patient was evaluated at the bedside, paitent is alert, conversing. No complaints. skin is warm and dry, radial pulse is palpable, noted to have tachycardia - EKG obtained and compared to previous EKG. NO changes - noted to be in Afib with wide complex. Admitting provider was updated and will resume care.
[2019-01-29] MEDS: Levothyroxine TAB* 25 MCG TAB PO SCH ×2 (04:59→08:02)
[2019-01-29] MEDS: Heparin VIAL(*) 5000 UNITS/ML VIAL (FIVE THOUSAND) SUBCUT SCH ×3 (05:43→22:29)
[2019-01-29 06:43] LABS: ABS Basophils 0.1 10^3/ul (0-0.2); ABS Eosinophils 0.2 10^3/ul (0-0.6); ABS Lymphocytes 2.3 10^3/ul (1.0-4.8); ABS Neutrophils 7.5 10^3/ul (1.5-7.7); Eosinophil % 1.9 %; Hematocrit 33 % (42-52); Hemoglobin 11.3 g/dL (14.0-18.0); Lymphocyte % 20.6 %; Mean Corpuscular HGB Conc 34 g/dL (31-36); Mean Corpuscular Hemoglobin 30 pg (27-31); Mean Corpuscular Volume 87 fL (80-94); Mean Platelet Volume 10.3 fL (7.4-10.4); Platelet Count 214 10^3/uL (150-450); Red Blood Count 3.79 10^6 /uL (4.18-5.48); Red Cell Distribution Width 14 % (10-15); White Blood Count 11.1 10^3/uL (3.5-10.8)
[2019-01-29 06:46] LABS: INR 1.09 (0.82-1.09)
[2019-01-29 06:49] LABS: BUN/Creatinine Ratio 14.9 (8-20); Calcium 8.9 mg/dL (8.6-10.3); EGFR African American 124.1 (>60); EGFR Non-African American 102.6 (>60); Potassium 3.5 mmol/L (3.5-5.0)
[2019-01-29] MEDS: Morphine INJ* 2 MG/ML 1 ML SYRINGE (TWO MG - NEW SYRINGE VERSION) IV PRN ×2 (06:57→14:15)
[2019-01-29] MEDS ORDERED: Famotidine IV* 10 MG/ML 2 ML (20 mg) IV ONE (08:00)
[2019-01-29] MEDS: Diltiazem CD CAP* 240 MG PO SCH (08:02)
[2019-01-29] MEDS: Cephalexin CAP* 500 MG PO SCH ×3 (08:02→22:35)
[2019-01-29] MEDS: Losartan TAB* 25 MG PO SCH (08:02)
[2019-01-29] MEDS: Insulin LISPRO* 1 UNITS UNIT SUBCUT SCH ×3 (08:20→17:05)
[2019-01-29] MEDS: Lactated Ringers 1000 ML Bag* 1,000 ML IV SCH ×2 (08:46→23:16)
--- NOTE | 2019-01-29 17:41 | PN ---
Subjective Date of Service: 01/29/19 Interval History: Pt admits to being in pain but then does not answer any of my other questions. He has not gone to the OR yet. He is to go soon. Objective Active Medications: Acetaminophen (Tylenol Tab*) 650 mg PO Q4H PRN PRN Reason: MILD PAIN or TEMP > 100.4 Al Hydrox/Mg Hydrox/Simethicone (Maalox Plus*) 30 ml PO Q6H PRN PRN Reason: INDIGESTION Cephalexin HCl (Keflex Cap*) 500 mg PO BID [facility] Last Admin: 01/29/19 08:02 Dose: 500 mg Dextrose (Dextrose 50% Vial 50 Ml*) 25 ml IV PUSH .FOR FS < 60 - SS PRN PRN Reason: FS < 60 Diltiazem HCl (Cardizem Cd Cap*) 240 mg PO DAILY [facility] Last Admin: 01/29/19 08:02 Dose: 240 mg Heparin Sodium (Porcine) (Heparin Vial(*)) 5,000 units SUBCUT Q8HR [facility] Last Admin: 01/29/19 13:00 Dose: Not Given Lactated Ringer's (Lactated Ringers 1000 Ml Bag*) 1,000 mls @ 75 mls/hr IV PER RATE [facility] Last Admin: 01/29/19 08:46 Dose: 75 mls/hr Insulin Human Lispro (Humalog*) 0 units SUBCUT [facility]; Protocol Last Admin: 01/29/19 17:05 Dose: 4 unit Levothyroxine Sodium (Synthroid Tab*) 25 mcg PO 0600 [facility] Last Admin: 01/29/19 08:02 Dose: 25 mcg Losartan Potassium (Cozaar Tab*) 50 mg PO DAILY [facility] Last Admin: 01/29/19 08:02 Dose: 50 mg Morphine Sulfate (Morphine Inj (Syringe))*) 2 mg IV Q4H PRN PRN Reason: Pain - breakthrough Last Admin: 01/29/19 14:15 Dose: 2 mg Olanzapine (Zyprexa Tab*) 15 mg PO BEDTIME [facility] Last Admin: 01/28/19 20:48 Dose: 15 mg Ondansetron HCl (Zofran Inj*) 4 mg IV Q4H PRN PRN Reason: NAUSEA/VOMITING Oxycodone/Acetaminophen (Percocet 5/325 Tab*) 1 tab PO Q4H PRN PRN Reason: PAIN - MODERATE Last Admin: 01/28/19 20:48 Dose: 1 tab Oxycodone/Acetaminophen (Percocet 5/325 Tab*) 2 tab PO Q4H PRN PRN Reason: PAIN - SEVERE Senna (Senokot 8.6 Mg Tab*) 1 tab PO BID PRN PRN Reason: CONSTIPATION Sodium Biphosphate/Sodium Phosphate (Fleet Enema*) 1 bottle DC Q72HR PRN PRN Reason: CONSTIPATION Vital Signs - 8 hr 01/29/19 01/29/19 01/29/19 09:37 11:10 14:15 Temperature 99.7 F Pulse Rate 97 105 Respiratory 20 18 Rate Blood Pressure 149/76 (mmHg) O2 Sat by Pulse 97 Oximetry 01/29/19 01/29/19 01/29/19 15:00 15:47 15:48 Temperature 99.5 F Pulse Rate 96 Respiratory 20 20 Rate Blood Pressure 200/70 158/60 (mmHg) O2 Sat by Pulse 93 Oximetry Oxygen Devices in Use Now: None Appearance: Elderly male lying in bed eyes closed, NAD Eyes: No Scleral Icterus Ears/Nose/Mouth/Throat: Mucous Membranes Moist Respiratory: Symmetrical Chest Expansion and Respiratory Effort, Clear to Auscultation Cardiovascular: NL Sounds; No Murmurs; No JVD, RRR, No Edema Abdominal: NL Sounds; No Tenderness; No Distention Extremities: No Clubbing, Cyanosis Skin: No Nodules or Sclerosis Neurological: - - lethargic and doesnt open eyes but answers yes to being in pain then does not elaborate Result Diagrams: 01/29/19 06:02 01/29/19 06:02 Additional Lab and Data: Lab Results 01/28/19 01/28/19 Range/Units 07:35 07:35 WBC 8.3 (3.5-10.8) 10^3/uL RBC 4.22 (4.18-5.48) 10^6 /uL Hgb 12.7 L (14.0-18.0) g/dL Hct 37 L (42-52) % MCV 88 (80-94) fL MCH 30 (27-31) pg MCHC 35 (31-36) g/dL RDW 14 (10-15) % Plt Count 207 (150-450) 10^3/uL MPV 10.1 (7.4-10.4) fL Neut % (Auto) 68.7 % Lymph % (Auto) 19.1 % [place] % (Auto) 7.6 % Eos % (Auto) 3.5 % Baso % (Auto) 1.1 % Absolute Neuts (auto) 5.7 (1.5-7.7) 10^3/ul Absolute Lymphs (auto) 1.6 (1.0-4.8) 10^3/ul Absolute Monos (auto) 0.6 (0-0.8) 10^3/ul Absolute Eos (auto) 0.3 (0-0.6) 10^3/ul Absolute Basos (auto) 0.1 (0-0.2) 10^3/ul Absolute Nucleated RBC 0.0 10^3/ul Nucleated RBC % 0.0 INR (Anticoag Therapy) 1.00 (0.82-1.09) Assess/Plan/Problems-Billing Mr Lechuga is a 78 yo M who has a h/o dementia, afib, CAD, frequent falls, HTN , Type II DM and hypothyroidism who presented to the ER from [facility] with c/o L hip pain after a fall and was found to have a L hip fracture. - Patient Problems (1) Closed left hip fracture Current Visit: Yes Status: Acute Code(s): S72.002A - FRACTURE OF UNSP PART OF NECK OF LEFT FEMUR, INIT SNOMED Code(s): 365869975 Comment: Pt to go to the OR tonight. Await any further recommendations from orthopedics. (2) Atrial fibrillation Current Visit: Yes Status: Acute Code(s): I48.91 - UNSPECIFIED ATRIAL FIBRILLATION SNOMED Code(s): 43135585 Comment: HR controlled. Continue cardizem CD (3) Dementia Current Visit: Yes Status: Acute Code(s): F03.90 - UNSPECIFIED DEMENTIA WITHOUT BEHAVIORAL DISTURBANCE SNOMED Code(s): 24117128 Comment: Pt with behavioral disturbances. Continue olanzapine at bedtime. (4) Diabetes Current Visit: Yes Status: Acute Code(s): E11.9 - TYPE 2 DIABETES MELLITUS WITHOUT COMPLICATIONS SNOMED Code(s): 96832678 Comment: HbA1c is elevated at 9.4%. This is improved from October. Will hold metformin and start low dose lantus in addition to lispro sliding scale. (5) Hypothyroid Current Visit: Yes Status: Acute Code(s): E03.9 - HYPOTHYROIDISM, UNSPECIFIED SNOMED Code(s): 17933726 Comment: Continue home dose of levothyroxine. (6) DVT prophylaxis Current Visit: Yes Status: Acute Code(s): ICN9677 - SNOMED Code(s): 218880342 Comment: SQ heparin (7) DNR (do not resuscitate) Current Visit: Yes Status: Acute
[2019-01-29] MEDS ORDERED: Insulin GLARGINE(*) 1 UNITS UNIT SUBCUT SCH (22:00)
[2019-01-29] MEDS: OLANzapine TAB* 5 MG PO SCH ×2 (22:29→22:38)
[2019-01-30] MEDS: Levothyroxine TAB* 25 MCG TAB PO SCH (05:30)
[2019-01-30] MEDS: Heparin VIAL(*) 5000 UNITS/ML VIAL (FIVE THOUSAND) SUBCUT SCH ×2 (05:30→12:40)
[2019-01-30] MEDS ORDERED: Famotidine IV* 10 MG/ML 2 ML (20 mg) IV ONE (08:00)
[2019-01-30] MEDS: Insulin LISPRO* 1 UNITS UNIT SUBCUT SCH ×3 (08:04→16:13)
[2019-01-30] MEDS: Diltiazem CD CAP* 240 MG PO SCH (08:04)
[2019-01-30] MEDS: Cephalexin CAP* 500 MG PO SCH (08:05)
[2019-01-30] MEDS: Losartan TAB* 25 MG PO SCH (08:05)
--- NOTE | 2019-01-30 08:37 | PN ---
Subjective Date of Service: 01/30/19 Interval History: Pt is sitting up in bed naked, seeming drowsy. He does not answer any of my questions. Objective Active Medications: Acetaminophen (Tylenol Tab*) 650 mg PO Q4H PRN PRN Reason: MILD PAIN or TEMP > 100.4 Al Hydrox/Mg Hydrox/Simethicone (Maalox Plus*) 30 ml PO Q6H PRN PRN Reason: INDIGESTION Cephalexin HCl (Keflex Cap*) 500 mg PO BID [facility] Last Admin: 01/30/19 08:05 Dose: 500 mg Dextrose (Dextrose 50% Vial 50 Ml*) 25 ml IV PUSH .FOR FS < 60 - SS PRN PRN Reason: FS < 60 Diltiazem HCl (Cardizem Cd Cap*) 240 mg PO DAILY [facility] Last Admin: 01/30/19 08:04 Dose: 240 mg Heparin Sodium (Porcine) (Heparin Vial(*)) 5,000 units SUBCUT Q8HR [facility] Last Admin: 01/30/19 05:30 Dose: Not Given Lactated Ringer's (Lactated Ringers 1000 Ml Bag*) 1,000 mls @ 75 mls/hr IV PER RATE [facility] Last Admin: 01/29/19 23:16 Dose: 75 mls/hr Insulin Glargine (Lantus(*)) 10 units SUBCUT Q24H [facility] Insulin Human Lispro (Humalog*) 0 units SUBCUT AC [facility]; Protocol Last Admin: 01/30/19 08:04 Dose: Not Given Levothyroxine Sodium (Synthroid Tab*) 25 mcg PO 0600 [facility] Last Admin: 01/30/19 05:30 Dose: Not Given Losartan Potassium (Cozaar Tab*) 50 mg PO DAILY [facility] Last Admin: 01/30/19 08:05 Dose: 50 mg Morphine Sulfate (Morphine Inj (Syringe))*) 2 mg IV Q4H PRN PRN Reason: Pain - breakthrough Last Admin: 01/29/19 14:15 Dose: 2 mg Olanzapine (Zyprexa Tab*) 15 mg PO BEDTIME [facility] Last Admin: 01/29/19 22:38 Dose: Not Given Ondansetron HCl (Zofran Inj*) 4 mg IV Q4H PRN PRN Reason: NAUSEA/VOMITING Oxycodone/Acetaminophen (Percocet 5/325 Tab*) 1 tab PO Q4H PRN PRN Reason: PAIN - MODERATE Last Admin: 01/28/19 20:48 Dose: 1 tab Oxycodone/Acetaminophen (Percocet 5/325 Tab*) 2 tab PO Q4H PRN PRN Reason: PAIN - SEVERE Senna (Senokot 8.6 Mg Tab*) 1 tab PO BID PRN PRN Reason: CONSTIPATION Sodium Biphosphate/Sodium Phosphate (Fleet Enema*) 1 bottle [place] Q72HR PRN PRN Reason: CONSTIPATION Vital Signs - 8 hr 01/30/19 01/30/19 04:00 07:42 Temperature 98.2 F 96.5 F Pulse Rate 100 122 Respiratory 18 20 Rate Blood Pressure 139/92 154/76 (mmHg) O2 Sat by Pulse 97 Oximetry Oxygen Devices in Use Now: None Appearance: Elderly male sitting up in bed, drowsy but opens eyes to my calling his name, NAD Eyes: No Scleral Icterus Ears/Nose/Mouth/Throat: - - oral mucosa dry Respiratory: Symmetrical Chest Expansion and Respiratory Effort, Clear to Auscultation - anteriorly Cardiovascular: NL Sounds; No Murmurs; No JVD, - - regular but tachycardic, difficult heart sounds to hear, 1 L LE edema Abdominal: NL Sounds; No Tenderness; No Distention Extremities: No Clubbing, Cyanosis Skin: No Nodules or Sclerosis Neurological: - - drowsy Result Diagrams: 01/29/19 06:02 01/29/19 06:02 Additional Lab and Data: Lab Results 01/28/19 01/28/19 Range/Units 07:35 07:35 WBC 8.3 (3.5-10.8) 10^3/uL RBC 4.22 (4.18-5.48) 10^6 /uL Hgb 12.7 L (14.0-18.0) g/dL Hct 37 L (42-52) % MCV 88 (80-94) fL MCH 30 (27-31) pg MCHC 35 (31-36) g/dL RDW 14 (10-15) % Plt Count 207 (150-450) 10^3/uL MPV 10.1 (7.4-10.4) fL Neut % (Auto) 68.7 % Lymph % (Auto) 19.1 % [place] % (Auto) 7.6 % Eos % (Auto) 3.5 % Baso % (Auto) 1.1 % Absolute Neuts (auto) 5.7 (1.5-7.7) 10^3/ul Absolute Lymphs (auto) 1.6 (1.0-4.8) 10^3/ul Absolute Monos (auto) 0.6 (0-0.8) 10^3/ul Absolute Eos (auto) 0.3 (0-0.6) 10^3/ul Absolute Basos (auto) 0.1 (0-0.2) 10^3/ul Absolute Nucleated RBC 0.0 10^3/ul Nucleated RBC % 0.0 INR (Anticoag Therapy) 1.00 (0.82-1.09) Assess/Plan/Problems-Billing Mr Lechuga is a 78 yo M who has a h/o dementia, afib, CAD, frequent falls, HTN , Type II DM and hypothyroidism who presented to the ER from [facility] with c/o L hip pain after a fall and was found to have a L hip fracture. - Patient Problems (1) Closed left hip fracture Current Visit: Yes Status: Acute Code(s): S72.002A - FRACTURE OF UNSP PART OF NECK OF LEFT FEMUR, INIT SNOMED Code(s): 547879874 Comment: OR was cancelled for yesterday. New plan is for the patient to go to the OR this afternoon. Continue pain control as needed- pt has not had any pain meds since yesterday. (2) Atrial fibrillation Current Visit: Yes Status: Acute Code(s): I48.91 - UNSPECIFIED ATRIAL FIBRILLATION SNOMED Code(s): 93134728 Comment: HR is uncontrolled today. Will recheck in about 1 hr (just had diltiazem CD) and also increase IVF rate as his urine looks dark and his mouth is dry so perhaps volume depletion is leading to increased HR. (3) Diabetes Current Visit: Yes Status: Acute Code(s): E11.9 - TYPE 2 DIABETES MELLITUS WITHOUT COMPLICATIONS SNOMED Code(s): 04698525 Comment: Sugars are still elevated despite starting lantus 8 units last night. Increase lantus to 10 units at bedtime starting tonight. Continue lispro sliding scale. (4) Dementia Current Visit: Yes Status: Acute Code(s): F03.90 - UNSPECIFIED DEMENTIA WITHOUT BEHAVIORAL DISTURBANCE SNOMED Code(s): 39128212 Comment: Pt with behavioral disturbances. Continue olanzapine at bedtime. (5) Hypothyroid Current Visit: Yes Status: Acute Code(s): E03.9 - HYPOTHYROIDISM, UNSPECIFIED SNOMED Code(s): 91434270 Comment: Continue home dose of levothyroxine. (6) DVT prophylaxis Current Visit: Yes Status: Acute Code(s): UEE5628 - SNOMED Code(s): 830730341 Comment: SQ heparin (7) DNR (do not resuscitate) Current Visit: Yes Status: Acute
[2019-01-30] MEDS ORDERED: Naloxone* 0.4 MG/ML 1 ML VIAL IV PRN ×2 (09:56→17:46)
[2019-01-30] MEDS ORDERED: HYDROmorphone INJ1* 1 MG/ML SYRINGE IV PRN ×2 (09:56→17:46)
[2019-01-30] MEDS ORDERED: fentaNYL* 50 MCG/ML 2 ML VIAL (100 MCG VIAL) IV PRN ×2 (09:56→17:46)
--- NOTE | 2019-01-30 10:28 | PN ---
Progress Note - Progress Note Date of Service: 01/30/19 Note: H and P update Pt seen and examined. Not communicating. Opens eyes. Lying in bed with left hip externally rotated. Temp Pulse Resp BP Pulse Ox 96.5 F 122 20 154/76 97 01/30/19 07:42 01/30/19 07:42 01/30/19 08:00 01/30/19 07:42 01/30/19 07:42 NAD. Alert, not oriented. Left hip: Skin intact, able to flex/ext toes spontaneously. responds to touch. calf is soft. warm and well perfused foot Xrays reviewed and demonstrate a communited intertroch/subtroch extension fracture. 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 hold eliquis until post op
[2019-01-30] MEDS ORDERED: fentaNYL* 50 MCG/ML 2 ML VIAL (100 MCG VIAL) ONE (17:38)
[2019-01-30] MEDS ORDERED: Midazolam* 1 MG/ML 5 ML VIAL (5 MG) ONE (17:38)
[2019-01-30] MEDS ORDERED: KETAMINE HCL* 50 MG/ML 10 ML VIAL ONE (17:38)
[2019-01-30] MEDS ORDERED: Buffered Lidocaine 1% SYRIN* 1 ML/SYRINGE INTRADERM ONE (17:43)
[2019-01-30] MEDS ORDERED: Lactated Ringers 1000 ML Bag* 1,000 ML IV SCH (18:00)
[2019-01-30] MEDS ORDERED: ceFAZolin 2 GM PREMIX in ORs 2 GM/50 ML BAG ONE (18:12)
--- NOTE | 2019-01-30 18:36 | CONSULT ---
Consult Consult: [place] of patient today. 78 yo old man with dementia at [facility] for 1 month or so. Falling episodes x ~ 10 per daughter. Fell 2 days ago. Unclear circumstances. At since 01/28. Eliquis stopped. Discussed with patient's daughter injury, planned procedure, risks and potential complications, medical and surgical. To the OR for a ORIF with a long nail and cerclage cables left proximal femur and intertrochanteric/subtrochanteric hip.
[2019-01-30] MEDS ORDERED: Phenylephrine 10 MG/ML VIAL* 1 ML VIAL ONE (23:05)
[2019-01-30] MEDS ORDERED: Diltiazem IV push/loading dose 5 MG/ML 5 ML vial (25 mg) ONE (23:06)
[2019-01-30] MEDS ORDERED: Propofol* 10 MG/ML 20 ML BTL ONE (23:06)
[2019-01-31 00:15] LABS: Hematocrit 25 % (42-52); Hemoglobin 8.4 g/dL (14.0-18.0)
[2019-01-31] MEDS: Insulin GLARGINE(*) 1 UNITS UNIT SUBCUT SCH ×2 (02:07→03:02)
[2019-01-31] MEDS: OLANzapine TAB* 5 MG PO SCH (02:08)
[2019-01-31] MEDS: Cephalexin CAP* 500 MG PO SCH (02:08)
[2019-01-31] MEDS: Heparin VIAL(*) 5000 UNITS/ML VIAL (FIVE THOUSAND) SUBCUT SCH (02:56)
[2019-01-31] MEDS ORDERED: Insulin GLARGINE(*) 1 UNITS UNIT SUBCUT ONE ×2 (03:00→10:45)
[2019-01-31] MEDS: Insulin LISPRO* 1 UNITS UNIT SUBCUT SCH ×5 (03:02→17:09)
[2019-01-31] MEDS: ceFAZolin 1 GM ADVAN(*) 1 GM in NS 0.9% 50 ML* 50 ML IVPB SCH ×3 (03:21→19:13)
[2019-01-31] MEDS: Levothyroxine TAB* 25 MCG TAB PO SCH (05:06)
[2019-01-31] MEDS: oxyCODONE/Acetamin 5/325 MG* TAB PO PRN (05:06)
[2019-01-31 07:12] LABS: Hematocrit 24 % (42-52); Hemoglobin 8.1 g/dL (14.0-18.0); Mean Corpuscular HGB Conc 33 g/dL (31-36); Mean Corpuscular Hemoglobin 30 pg (27-31); Mean Corpuscular Volume 89 fL (80-94); Mean Platelet Volume 10.2 fL (7.4-10.4); Platelet Count 237 10^3/uL (150-450); Red Blood Count 2.73 10^6 /uL (4.18-5.48); Red Cell Distribution Width 14 % (10-15); White Blood Count 19.5 10^3/uL (3.5-10.8)
[2019-01-31 07:28] LABS: BUN/Creatinine Ratio 16.9 (8-20); Calcium 8.3 mg/dL (8.6-10.3); EGFR African American 61.5 (>60); EGFR Non-African American 50.8 (>60); Potassium 4.3 mmol/L (3.5-5.0)
[2019-01-31 08:30] LABS: ABS Basophils 0.1 10^3/ul (0-0.2); ABS Lymphocytes 1.6 10^3/ul (1.0-4.8); ABS Monocytes 1.7 10^3/ul (0-0.8); ABS Neutrophils 16.1 10^3/ul (1.5-7.7)
[2019-01-31] MEDS: Lactated Ringers 1000 ML Bag* 1,000 ML IV SCH ×2 (08:52→22:38)
[2019-01-31] MEDS ORDERED: Apixaban* 2.5 MG TAB PO SCH (09:00)
[2019-01-31] MEDS ORDERED: traMADol TAB* 50 MG PO PRN (09:58)
--- NOTE | 2019-01-31 10:34 | PN ---
Progress Note - Progress Note Date of Service: 01/31/19 SOAP: Subjective: Patient sleeping in bed. Objective: Patient appears comfortable while sleeping. LLE: - Dressing c/d/i - Extremity warm Selected Entries 01/31/19 09:23 Temperature 98.6 F Pulse Rate 108 Respiratory 22 Rate Blood Pressure 108/67 (mmHg) O2 Sat by Pulse 93 Oximetry Laboratory Tests 01/28/19 01/29/19 01/30/19 07:35 06:02 07:36 WBC 8.3 11.1 H Hct 37 L 33 L POC Glucose (mg/dL) 238 H 01/30/19 01/30/19 01/31/19 11:44 23:40 06:53 WBC 19.5 H Hct 25 L 24 L POC Glucose (mg/dL) 259 H Xrays in PACU show good reduction and hardware placement Assessment: POD 1 L hip and proximal femur fracture Plan: - Resume preop anticoagulation with Eliquis - Toe touch weight bearing left lower extremity, physical therapy - Ancef x 48 hours postop - Pain control - Follow H/H, transfuse with PRBC as needed if meets criteria. Pt on Hospitalist service. - Complex case, large incision, oozing of blood throughout, patient on Eliquis. I expect transfusions will be required postop.
--- NOTE | 2019-01-31 10:43 | PN ---
Subjective Date of Service: 01/31/19 Interval History: Patient unresponsive to voice or light touch. Objective Active Medications: Acetaminophen (Tylenol Tab*) 650 mg PO Q4H PRN PRN Reason: MILD PAIN or TEMP > 100.4 Al Hydrox/Mg Hydrox/Simethicone (Maalox Plus*) 30 ml PO Q6H PRN PRN Reason: INDIGESTION Apixaban (Eliquis*) 2.5 mg PO BID [facility] Dextrose (Dextrose 50% Vial 50 Ml*) 25 ml IV PUSH .FOR FS < 60 - SS PRN PRN Reason: FS < 60 Diltiazem HCl (Cardizem Cd Cap*) 240 mg PO DAILY [facility] Last Admin: 01/30/19 08:04 Dose: 240 mg Lactated Ringer's (Lactated Ringers 1000 Ml Bag*) 1,000 mls @ 75 mls/hr IV PER RATE [facility] Cefazolin Sodium 1 gm/ Sodium (Chloride) 50 mls @ 200 mls/hr IVPB Q8H [facility] Stop: 02/01/19 19:44 Last Admin: 01/31/19 03:21 Dose: 200 mls/hr Insulin Glargine (Lantus(*)) 10 units SUBCUT Q24H [facility] Last Admin: 01/31/19 02:07 Dose: Not Given Insulin Human Lispro (Humalog*) 0 units SUBCUT [facility]; Protocol Last Admin: 01/31/19 07:53 Dose: Not Given Levothyroxine Sodium (Synthroid Tab*) 25 mcg PO 0600 [facility] Last Admin: 01/31/19 05:06 Dose: 25 mcg Losartan Potassium (Cozaar Tab*) 50 mg PO DAILY [facility] Last Admin: 01/30/19 08:05 Dose: 50 mg Ondansetron HCl (Zofran Inj*) 4 mg IV Q4H PRN PRN Reason: NAUSEA/VOMITING Senna (Senokot 8.6 Mg Tab*) 1 tab PO BID PRN PRN Reason: CONSTIPATION Sodium Biphosphate/Sodium Phosphate (Fleet Enema*) 1 bottle [place] Q72HR PRN PRN Reason: CONSTIPATION Tramadol HCl (Ultram*) 50 mg PO Q8H PRN PRN Reason: PAIN - MODERATE Vital Signs - 8 hr 01/31/19 01/31/19 01/31/19 04:10 05:06 06:25 Temperature 97.9 F 98.7 F Pulse Rate 105 104 Respiratory 24 24 24 Rate Blood Pressure 124/60 104/61 (mmHg) O2 Sat by Pulse 95 96 Oximetry 01/31/19 01/31/19 09:06 09:23 Temperature 98.6 F Pulse Rate 108 Respiratory 24 22 Rate Blood Pressure 108/67 (mmHg) O2 Sat by Pulse 93 Oximetry Oxygen Devices in Use Now: Nasal Cannula Neck: NL Appearance and Movements; NL JVP, No Thyroid Enlargement, Masses Respiratory: Symmetrical Chest Expansion and Respiratory Effort, Clear to Auscultation, Clear to Percussion Cardiovascular: NL Sounds; No Murmurs; No JVD, RRR, No Edema, - Extremities: No Edema, No Clubbing, Cyanosis, - Skin: No Rash or Ulcers, No Nodules or Sclerosis, - Neurological: - - Pt unresponsive to voice or light touch. Increased tone neck , 3 extremeities. Resists opening his eyes. Result Diagrams: 02/03/19 04:13 02/03/19 05:05 Additional Lab and Data: Lab Results 01/28/19 01/28/19 Range/Units 07:35 07:35 WBC 8.3 (3.5-10.8) 10^3/uL RBC 4.22 (4.18-5.48) 10^6 /uL Hgb 12.7 L (14.0-18.0) g/dL Hct 37 L (42-52) % MCV 88 (80-94) fL MCH 30 (27-31) pg MCHC 35 (31-36) g/dL RDW 14 (10-15) % Plt Count 207 (150-450) 10^3/uL MPV 10.1 (7.4-10.4) fL Neut % (Auto) 68.7 % Lymph % (Auto) 19.1 % [place] % (Auto) 7.6 % Eos % (Auto) 3.5 % Baso % (Auto) 1.1 % Absolute Neuts (auto) 5.7 (1.5-7.7) 10^3/ul Absolute Lymphs (auto) 1.6 (1.0-4.8) 10^3/ul Absolute Monos (auto) 0.6 (0-0.8) 10^3/ul Absolute Eos (auto) 0.3 (0-0.6) 10^3/ul Absolute Basos (auto) 0.1 (0-0.2) 10^3/ul Absolute Nucleated RBC 0.0 10^3/ul Nucleated RBC % 0.0 INR (Anticoag Therapy) 1.00 (0.82-1.09) Assess/Plan/Problems-Billing Mr Lechuga is a 78 yo M who has a h/o dementia, afib, CAD, frequent falls, HTN , Type II DM and hypothyroidism who presented to the ER from [facility] with c/o L hip pain after a fall and was found to have a L hip fracture. - Patient Problems (1) Atrial fibrillation Current Visit: Yes Status: Acute Code(s): I48.91 - UNSPECIFIED ATRIAL FIBRILLATION SNOMED Code(s): 56179087 Comment: - Hx of afib in the past on eliquis and had RVR requiring cardizem IV push on 01/31, rate now well controlled, but unclear if patient will be able to take PO meds (2) Diabetes Current Visit: Yes Status: Acute Code(s): E11.9 - TYPE 2 DIABETES MELLITUS WITHOUT COMPLICATIONS SNOMED Code(s): 67658679 Comment: - Lantus to 16 U bid, continue Lispro SS - Continue to hold metformin, may need to stop long-acting if patient unable to eat/swallow (3) Closed left hip fracture Current Visit: Yes Status: Acute Code(s): S72.002A - FRACTURE OF UNSP PART OF NECK OF LEFT FEMUR, INIT SNOMED Code(s): 882606636 Comment: - 2/2 Mechanical fall - s/p L hip pinning 01/30 - Post-op drop in H&H, will transfuse 1 unit PRBCs today with goal H&H >8/28 (4) Hypothyroid Current Visit: Yes Status: Acute Code(s): E03.9 - HYPOTHYROIDISM, UNSPECIFIED SNOMED Code(s): 63828428 Comment: - TSH above nl, increase levothyroxine to 50 mcg daily (5) Obtundation Current Visit: Yes Status: Acute Code(s): R40.1 - STUPOR SNOMED Code(s): 41933540 Comment: Now 32 hrs since oxycodone dose. ABG's show mild resp alkalosis, adequate O2. 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 Repeat CT 02/01 ordered, ammonia level. Dr. Armando to consult.
[2019-01-31] MEDS: Diltiazem CD CAP* 240 MG PO SCH (11:22)
[2019-01-31 11:23] LABS: Hematocrit 24 % (42-52); Mean Corpuscular HGB Conc 33 g/dL (31-36); Mean Corpuscular Hemoglobin 30 pg (27-31); Mean Corpuscular Volume 89 fL (80-94); Mean Platelet Volume 9.9 fL (7.4-10.4); Platelet Count 250 10^3/uL (150-450); Red Cell Distribution Width 14 % (10-15); White Blood Count 16.9 10^3/uL (3.5-10.8)
[2019-01-31] MEDS: Losartan TAB* 25 MG PO SCH (11:23)
[2019-01-31 11:27] LABS: ABS Basophils 0.1 10^3/ul (0-0.2); ABS Lymphocytes 2.1 10^3/ul (1.0-4.8); ABS Monocytes 1.8 10^3/ul (0-0.8); Lymphocyte % 12.3 %; Nucleated Red Blood Cells % 0.1
[2019-01-31 16:13] LABS: Urine Appearance Clear; Urine Bilirubin Negative (Negative); Urine Blood 1+ (Negative); Urine Color Amber; Urine Glucose 2+(150 mg/dL) (Negative); Urine Ketones Negative (Negative); Urine Nitrite Negative (Negative); Urine Protein 1+(30 mg/dL) (Negative); Urine Urobilinogen Negative (Negative)
[2019-01-31 16:24] LABS: Urine Bacteria Absent (Absent); Urine Red Blood Cell Trace(0-2/hpf) (Absent); Urine White Blood Cell Trace(0-5/hpf) (Absent)
--- NOTE | 2019-02-01 02:19 | OP ---
OPERATIVE REPORT: DATE OF OPERATION: 01/30/19 DATE OF : 42 SURGEON: Roberto Mays MD CHANNEL MANAGER: TRAVIS Rangel A physician medical assistant per diem was required for the length of the procedure for assistance with patient positioning, retraction, enclosure. ANESTHESIOLOGIST: Dr. Luis Pavon. ANESTHESIA: Spinal anesthesia, general sedation. PRE-OP DIAGNOSES: 1. Left hip fracture, intertrochanteric, subtrochanteric. 2. Left femoral shaft fracture, comminuted, segmental, displaced. POST-OP DIAGNOSES: 1. Left hip fracture, intertrochanteric, subtrochanteric. 2. Left femoral shaft fracture, comminuted, segmental, displaced. OPERATIVE PROCEDURE: 1. Open reduction internal fixation left hip fracture, intertrochanteric, subtrochanteric, with intramedullary nail. 2. Open reduction internal fixation, left femoral shaft fracture with intramedullary nail and cerclage cables. 3. Modifier 22 given the complex and unusual nature of this patient's injury and required surgery, which led to the surgery taking considerable amount longer than standard left complex femoral shaft or hip fracture. This was because of the amount of fracture lines, segmental, the amount of displacement, requiring a large dissection, and actually opening up the bone to facilitate wire passage. INDICATIONS: The patient is a 78-year-old man, with dementia, who has been at the [facility] only 1 month. According to his family, he has had nothing like 10 episodes of falls just in the last month. He arrived at [facility] on 01/28/19. His baseline Eliquis was discontinued or held. I obtained informed consent preoperatively from the patient's daughter. I discussed risks and potential complications of procedure both surgical risks, medical perioperative risks, including a whole range of a gambit of seriousness including . The patient was initially consulted on by a colleague of [facility] and several other orthopedic surgeons saw the patient, but I was willing to do this patient's case. X- rays and CT scan appeared to show a left femur fracture with fracture lines in the intertrochanteric region, subtrochanteric region, and along a good deal of the proximal femoral shaft. There appeared to be multiple segmental fracture fragments. ANTIBIOTICS: Ancef 2 g IV. IV FLUIDS: See Anesthesia note. FSTR-UH-AMLT TIME: 175 minutes. RADIATION EXPOSURE: C-arm. 143 seconds for an exposure of 0.26668. SPECIMEN: None. IMPLANT: A Synthes long intramedullary nail, left, TFN, 125 degrees, 12 mm in width, 350 mm in length. One lag screw was placed proximally into the femoral head and neck through the nail. Two locking screws were placed distally through the nail. Two cerclage cables were placed about the femoral shaft, each 1.75 mm with crimp. ESTIMATED BLOOD LOSS: Hard to know exact amount. We predicted 300 cc, but it certainly might have been more than this. There was a steady ooze through a long procedure. COMPLICATIONS: None. DESCRIPTION OF PROCEDURE: The patient's daughter signed a written consent preoperatively. Operative extremity was marked in preoperative holding. The patient was taken back to the operating room. He was sat up by Anesthesia and a spinal block was placed. The patient was then arranged on the fracture table and appropriate fracture table setup was performed. C-arm was brought in and I confirmed that I could get good AP and lateral images of the hip area as well as the femoral shaft. I performed a mini time-out and attempted some closed reduction. Using internal and external rotation along with abduction and adduction traction, I attempted to improve the fracture reduction at multiple different fracture lines. I have to say that there did not appear to be any appreciable improvement especially of the gapping between the more anterior and more posterior fragments of the proximal femur. The left hip was prepped and draped. Surgical time-out was performed. My first thought in this patient, given his age, general health, and dementia, was that less fixation would be better than more fixation and a smaller incision would be better. Therefore, I considered at first simply placing a long intramedullary nail without any other fixation like cerclage wires and without a large open incision. I made a stab hole in the skin 8 cm proximal to the greater trochanter in line with the femoral shaft. I placed a pin into the greater trochanter. I advanced that pin distally. It was difficult getting a good angle parallel with the shaft of the femur for several of the reasons. One was the girth of the patient's abdomen, another was the abduction deformity at one of the fracture line sites. We tried to make entry more easy with increased adduction of the hip. I buried the pin into the intertrochanteric area through the greater trochanter. I next dissected down along that pin through the subcutaneous tissue and the hip abductor fascia. At this point, I could palpate nicely the greater trochanter. I tried several additional passes with the pins. Ultimately, I decided to use the awl to obtain a better angle into the proximal femur. I placed the awl and utilized that to pass the pin. This gave the pin a better angle and enabled it to pass by multiple of the more proximal fracture lines. However, more distally in the proximal shaft of the femur, the pin continued to exit through a fracture line and to go outside of the bone. I placed a curve in the tip of the pin and tried pushing it in every direction and this still was not feasible. At this point, I realized that I would have to open and expose the proximal femur. I extended my incision laterally along the proximal thigh. At first, I made a generous exposure, which was needed to visualize some of the more proximal femur and subtrochanteric region. I later realized that a more aggressive incision was required such that the incision reached at least the midpoint of the thigh from proximal to distal. I incised through the skin and subcutaneous tissue. I split the iliotibial band and then the vastus lateralis fascia. I came down to bone. The patient was notable for having many bleeding vessels in the subcutaneous tissue. These required much use of Bovie electrocautery. Interestingly, the patient did not have as much bleeding about the vastus lateralis muscle. There were several bleeders, but the subcutaneous bleeders seemed to be more substantial. I debrided some of the fracture sites with multiple sponges, periosteal elevator. I visually inspected directly after palpating many of the different fracture lines. There was no clear keying in of multiple fractures especially a coronal plane fracture more distally that appeared to split the femur into anterior and posterior halves. No amount of indirect manipulation of the leg nor any manipulation by me with a variety of bone clamps could anatomically reduce this bone, interestingly. I suspected that given a large variety of fracture line perhaps the patient in his demented state continuing to weight-bear, he just displaced these fracture fragments much more significantly than had been appreciated on preoperative x-rays and CT imaging. I was able to improve the reduction somewhat, although not get it anatomic with 3 separate bone clamps. This enabled me to successfully pass the pin from the intertrochanteric region down beyond the subtrochanteric region, but it was still coming out through a fracture line in the femoral shaft. At this point, I tried turning or pushing the pin in every direction, but it would still come out. Therefore, I opened up the bone at the level of the femoral shaft. I visualized the pin, grabbed it with a Brittney, and directed it into a more anterior distal fracture fragment. This enabled me to pass the flexible guidewire down to the distal end of the femur. I measured the length of the flexible pin placed in bone. I used the entry reamer to ream the greater trochanter. I then reamed up to a size 14 mm using a set of flexible reamers. I picked the nail size and I placed my nail, 12 mm x 360 mm. I applied the appropriate guide jig. I placed my lag screw into the femoral head and neck using standard technique. I used a set screw to lock that lag screw in place. Given the significant comminution, many fracture lines, I kept this screw static and did not dynamize it. I wanted to try to improve the reduction about the femoral shaft prior to placing my distal screws. At this point, I again palpated and visualized bone at the subtrochanteric region and along the femoral shaft. I had Synthes cables available to me. I placed 2 cerclage cables around the proximal femoral shaft. The passers were only available certain sizes and I was unable to get a good K-wire safely around the sub- trochanteric region, but figured that this was not required. I should note that the patient surprisingly had excellent purchase of that lag screw into the femoral head. Despite drilling, beforehand that screw had really incredible purchase and resistance in bone. Despite the cerclage cables being placed, those splits in the femoral shaft, in the coronal plane remained, although x-rays showed very good reduction generally speaking. I next moved to the distal femur. Synthes does not have a guide and so I used the perfect telida technique to place locking screws lateral to medial through the nail. Final x-rays were obtained. Irrigation of all wounds. Closure of the vastus lateralis and then the iliotibial band was performed with running stitches using Ethibond 1 suture. Closure of the subcutaneous tissues of every skin incision performed with buried simple stitches using Vicryl 2-0 suture. Closure of the skin with pj. Xeroform, 4x4's, ABDs, foam tape. The patient was lightened of sedation and transferred to the stretcher. The patient was readmitted to the hospitalist service postoperatively. DISPOSITION: The patient was readmitted to the hospitalist service postoperatively. He was to receive Ancef x48 hours postoperatively for infection prophylaxis. He was to be toe-touch weightbearing left lower extremity and to do physical therapy. He was to have pain control with appropriate oral and IV narcotics. I initially wrote for the patient's Eliquis , preoperative dose, to be started on postoperative day #1 in the morning. However, I then discussed with the hospitalist attending, stopping this Eliquis for at least a day or 2 to minimize postoperative transfusion requirement and hospitalist service was okay with this. We will obtain daily electrolytes and a CBC. Given the amount of blood loss intraoperatively as well as the high energy nature of this proximal femur fracture, I suspect that the patient will require multiple units of blood postoperatively, but it is difficult to know for sure. The patient's dressing will be changed on postoperative day 3. He will follow up with me in the office in approximately 2 weeks postoperative. [id number]/[facility] #: [id number] CHRISSY
[2019-02-01] MEDS: ceFAZolin 1 GM ADVAN(*) 1 GM in NS 0.9% 50 ML* 50 ML IVPB SCH ×3 (03:22→21:58)
[2019-02-01 05:26] LABS: Hematocrit 23 % (42-52); Hemoglobin 7.6 g/dL (14.0-18.0); Mean Corpuscular HGB Conc 33 g/dL (31-36); Mean Corpuscular Hemoglobin 30 pg (27-31); Mean Corpuscular Volume 89 fL (80-94); Mean Platelet Volume 9.9 fL (7.4-10.4); Platelet Count 282 10^3/uL (150-450); Red Blood Count 2.55 10^6 /uL (4.18-5.48); Red Cell Distribution Width 14 % (10-15); White Blood Count 18.2 10^3/uL (3.5-10.8)
[2019-02-01 05:45] LABS: BUN/Creatinine Ratio 25.7 (8-20); EGFR African American 54.1 (>60); EGFR Non-African American 44.7 (>60); Potassium 3.7 mmol/L (3.5-5.0)
[2019-02-01] MEDS ORDERED: ZOSYN 3.375 GM x ONE DOSE over 30 miuntes IVPB ×2 (05:45)
[2019-02-01] MEDS ORDERED: Levothyroxine TAB* 50 MCG TAB PO SCH (06:00)
[2019-02-01] MEDS ORDERED: Zosyn per Pharmacy* NOTE FOLLOW UP SCH (06:00)
[2019-02-01 06:21] LABS: ABS Basophils 0.1 10^3/ul (0-0.2); ABS Lymphocytes 1.8 10^3/ul (1.0-4.8); ABS Neutrophils 14.2 10^3/ul (1.5-7.7); Eosinophil % 0.1 %; Lymphocyte % 9.9 %; Nucleated Red Blood Cells % 0.1
[2019-02-01] MEDS ORDERED: Diltiazem IV push/loading dose 5 MG/ML 5 ML vial (25 mg) IV SLOW PU ONE ×3 (06:40→06:52)
[2019-02-01] MEDS ORDERED: Diltiazem IV push/loading dose 5 MG/ML 5 ML vial (25 mg) ONE (06:52)
[2019-02-01] MEDS: Losartan TAB* 25 MG PO SCH (08:54)
[2019-02-01] MEDS: Diltiazem CD CAP* 240 MG PO SCH (08:54)
[2019-02-01] MEDS: Insulin LISPRO* 1 UNITS UNIT SUBCUT SCH ×4 (10:01→18:09)
[2019-02-01] MEDS ORDERED: Insulin GLARGINE(*) 1 UNITS UNIT SUBCUT SCH (10:30)
--- NOTE | 2019-02-01 11:13 | PN ---
Progress Note - Progress Note Date of Service: 02/01/19 Note: POD 2 s/p Left hip fracture with femoral nail- patient asleep when I arrive and minimally aroused to verbal stimuli. Dressing C/D/I on left hip. Left foot warm with minimal edema with 2+ DP pulse. Dressing change POD 3 and Eliquis held as per Dr. Mays. Will continue to follow.
[2019-02-01] MEDS: ZOSYN 3.375 GM Q8H per EXTENDED INFUSION IVPB SCH ×4 (11:38→22:48)
--- NOTE | 2019-02-01 14:28 | PN ---
Subjective Date of Service: 02/01/19 Interval History: Unresponsive to voice or light touch. Objective Active Medications: Acetaminophen (Tylenol Tab*) 650 mg PO Q4H PRN PRN Reason: MILD PAIN or TEMP > 100.4 Al Hydrox/Mg Hydrox/Simethicone (Maalox Plus*) 30 ml PO Q6H PRN PRN Reason: INDIGESTION Dextrose (Dextrose 50% Vial 50 Ml*) 25 ml IV PUSH .FOR FS < 60 - SS PRN PRN Reason: FS < 60 Diltiazem HCl (Cardizem Cd Cap*) 240 mg PO DAILY [facility] Last Admin: 02/01/19 08:54 Dose: Not Given Lactated Ringer's (Lactated Ringers 1000 Ml Bag*) 1,000 mls @ 75 mls/hr IV PER RATE [facility] Last Admin: 01/31/19 22:38 Dose: 75 mls/hr Cefazolin Sodium 1 gm/ Sodium (Chloride) 50 mls @ 200 mls/hr IVPB Q8H [facility] Stop: 02/01/19 19:44 Last Admin: 02/01/19 11:37 Dose: 200 mls/hr Piperacillin Sod/Tazobactam (Sod 3.375 gm/ Sodium Chloride) 100 mls @ 25 mls/ hr IVPB Q8H [facility] Last Admin: 02/01/19 11:38 Dose: 25 mls/hr Insulin Glargine (Lantus(*)) 16 units SUBCUT Q24H [facility] Last Admin: 02/01/19 10:02 Dose: 16 unit Insulin Human Lispro (Humalog*) 0 units SUBCUT AC [facility]; Protocol Last Admin: 02/01/19 13:06 Dose: 9 unit Levothyroxine Sodium (Synthroid Tab*) 50 mcg PO 0600 [facility] Last Admin: 02/01/19 08:53 Dose: Not Given Losartan Potassium (Cozaar Tab*) 50 mg PO DAILY [facility] Last Admin: 02/01/19 08:54 Dose: Not Given Ondansetron HCl (Zofran Inj*) 4 mg IV Q4H PRN PRN Reason: NAUSEA/VOMITING Pharmacy Consult (Zosyn Per Pharmacy*) 1 note FOLLOW UP .ZOSYN PER PHARMACY [facility] Senna (Senokot 8.6 Mg Tab*) 1 tab PO BID PRN PRN Reason: CONSTIPATION Sodium Biphosphate/Sodium Phosphate (Fleet Enema*) 1 bottle NV Q72HR PRN PRN Reason: CONSTIPATION Tramadol HCl (Ultram*) 50 mg PO Q8H PRN PRN Reason: PAIN - MODERATE Vital Signs - 8 hr 02/01/19 02/01/19 02/01/19 06:44 07:10 07:28 Temperature Pulse Rate 122 117 Respiratory Rate Blood Pressure 107/62 112/57 118/59 (mmHg) O2 Sat by Pulse 100 100 Oximetry 02/01/19 02/01/19 08:00 08:59 Temperature 97.8 F Pulse Rate Respiratory 30 Rate Blood Pressure (mmHg) O2 Sat by Pulse 95 Oximetry Oxygen Devices in Use Now: Nasal Cannula Appearance: Supine in bed. Eyes closed, unresponsive. Looks comfortable. Eyes: No Scleral Icterus Respiratory: Symmetrical Chest Expansion and Respiratory Effort, Clear to Auscultation, Clear to Percussion Cardiovascular: NL Sounds; No Murmurs; No JVD, RRR, No Edema, - Extremities: No Edema, No Clubbing, Cyanosis, - Skin: No Rash or Ulcers, No Nodules or Sclerosis, - Neurological: - - unresponsive to voice or light touch Result Diagrams: 02/01/19 05:14 02/01/19 05:14 Additional Lab and Data: Lab Results 01/28/19 01/28/19 Range/Units 07:35 07:35 WBC 8.3 (3.5-10.8) 10^3/uL RBC 4.22 (4.18-5.48) 10^6 /uL Hgb 12.7 L (14.0-18.0) g/dL Hct 37 L (42-52) % MCV 88 (80-94) fL MCH 30 (27-31) pg MCHC 35 (31-36) g/dL RDW 14 (10-15) % Plt Count 207 (150-450) 10^3/uL MPV 10.1 (7.4-10.4) fL Neut % (Auto) 68.7 % Lymph % (Auto) 19.1 % [place] % (Auto) 7.6 % Eos % (Auto) 3.5 % Baso % (Auto) 1.1 % Absolute Neuts (auto) 5.7 (1.5-7.7) 10^3/ul Absolute Lymphs (auto) 1.6 (1.0-4.8) 10^3/ul Absolute Monos (auto) 0.6 (0-0.8) 10^3/ul Absolute Eos (auto) 0.3 (0-0.6) 10^3/ul Absolute Basos (auto) 0.1 (0-0.2) 10^3/ul Absolute Nucleated RBC 0.0 10^3/ul Nucleated RBC % 0.0 INR (Anticoag Therapy) 1.00 (0.82-1.09) Assess/Plan/Problems-Billing Mr Lechuga is a 78 yo M who has a h/o dementia, afib, CAD, frequent falls, HTN , Type II DM and hypothyroidism who presented to the ER from [facility] with c/o L hip pain after a fall and was found to have a L hip fracture. - Patient Problems (1) Atrial fibrillation Current Visit: Yes Status: Acute Code(s): I48.91 - UNSPECIFIED ATRIAL FIBRILLATION SNOMED Code(s): 57265524 Comment: Sinus tachy 12/7 AM, less than 12 hrs post-op. Hold apixab an due to bleeding at fracture site, did get dose 01/31, skip at least doses 12/7 PM through 02/02 or more. CBC 02/03. (2) Diabetes Current Visit: Yes Status: Acute Code(s): E11.9 - TYPE 2 DIABETES MELLITUS WITHOUT COMPLICATIONS SNOMED Code(s): 78848698 Comment: All FS over 200, increase Lantus to 16 U bid, continue Lispro by SS. Continue to hold metformin. (3) Closed left hip fracture Current Visit: Yes Status: Acute Code(s): S72.002A - FRACTURE OF UNSP PART OF NECK OF LEFT FEMUR, INIT SNOMED Code(s): 928715277 Comment: L hip pinning and circlage very late 01/30. Repeat CBC noon 01/31, again 02/01. (4) Hypothyroid Current Visit: Yes Status: Acute Code(s): E03.9 - HYPOTHYROIDISM, UNSPECIFIED SNOMED Code(s): 71983334 Comment: TSH above nl, increase levothyroxine to 50 mcg daily. (5) Obtundation Current Visit: Yes Status: Acute Code(s): R40.1 - STUPOR SNOMED Code(s): 55102377 Comment: Now 32 hrs since oxycodone dose. ABG's show mild resp alkalosis, adequate O2. 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 Repeat CT 02/01 ordered, ammonia level. Dr. Armando to consult.
[2019-02-01] MEDS ORDERED: D5W 1/2 NS KCl 20 Meq 1000 ML* 1,000 ML IV SCH (15:00)
[2019-02-01] MEDS: Morphine INJ* 4 MG/ML 1 ML SYRINGE (NEW SYRINGE VERSION) IV PRN (16:03)
[2019-02-01] MEDS ORDERED: Iodixanol* (CONTRAST) 320 MG/ML 100 ML SDV IV ONE (16:33)
[2019-02-01] MEDS ORDERED: NS 0.9% 500 ML* 500 ML IV ONE (17:07)
[2019-02-01] MEDS: D5W 1/2 NS KCl 20 Meq 1000 ML* 1,000 ML IV SCH (17:49)
[2019-02-01] MEDS: Levothyroxine INJ* 100 MCG/5 ML VIAL IV SCH (17:52)
[2019-02-01] MEDS: Aspirin SUPP* 300 MG PR SCH (17:58)
[2019-02-01] MEDS ORDERED: Acetaminophen SUPP* 650 MG SUPP PR PRN (18:18)
--- NOTE | 2019-02-01 19:35 | CONS ---
CONSULTATION REPORT: DATE OF CONSULT: 02/01/19 PATIENT OF: Dr. Mays, Dr. Fernandes, and Dr. Adams. HISTORY OF PRESENT ILLNESS: This is a 78-year-old man who I am asked to evaluate for change in mental status. He has a chronic history of dementia according to his daughter, but is able to speak and talk and he was that way yesterday. Yesterday, he fell and was found to have a left hip fracture and was taken to surgery. Of note, he has atrial fibrillation and was on Eliquis 5 mg twice a day and this was stopped at the time prior to his surgery. He was apparently, when he woke up Saturday morning, at his baseline, was given codeine and then he was either sedated or obtunded throughout all yesterday and today. 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 He has moderate chronic vascular ischemic disease. This afternoon, Dr. Fernandes called me because of his persistence of symptoms and I recommended that he have a repeat CT scan to see if there was evolution to his acute stroke that the first CT scan may have missed. This was read showing a subacute new infarct in the left CREDENTIALING MANAGER distribution near an old stroke. He has remained comatose. PAST MEDICAL HISTORY: He has past history of frequent falls. He has atrial fibrillation, on anticoagulation; coronary artery disease, status post a CABG; hypertension; diabetes mellitus type 2; previous history of stroke; hypothyroidism; dementia with behavioral disturbances; GERD; right bundle- branch block. PAST SURGICAL HISTORY: He is status post ASD closure, a CABG in 2008, and he has an implanted loop recorder. MEDICATIONS AT HOME: Include: 1. Magnesium oxide 30 mL q.72 hours p.r.n. constipation. 2. Glycerin suppository q.72 hours p.r.n. constipation. 3. Fleet Enema q.72 hours p.r.n. constipation. 4. Insulin 0 to 12 per sliding scale. 5. Metformin 1000 mg b.i.d. 6. Keflex 500 b.i.d. 7. Olanzapine 15 mg at bedtime. 8. Eliquis 5 mg b.i.d. 9. Losartan 50 mg daily. 10. Synthroid 75 mcg daily. 11. Diltiazem 240 mg daily. ALLERGIES: He has hallucinations to FLEXERIL, unknown reaction to METOPROLOL, unknown reaction to RAMIPRIL, and unknown reaction to CHOCOLATE FLAVOR. FAMILY HISTORY: Unable to be obtained due to his mental status. SOCIAL HISTORY: He is a long-term resident at [place]. He is a former smoker, quit in the 1970s. He is a and has 2 daughters. REVIEW OF SYSTEMS: Unable to be obtained at this point. PHYSICAL EXAM: Temperature 98.5, pulse 114, respirations 25, blood pressure 107 /56. He does not have eye opening to noxious stim. He is not moving his extremities at all. Both toes are upgoing. Reflexes are 1. Pupils small and sluggish to light. He was breathing spontaneously, but his breathing was somewhat labored. Facies showed no clear asymmetry, but it was hard to assess since he did not follow commands. Chest: Clear: Cardiovascular: Irregular rate and rhythm. Abdomen was soft. He is status post surgery on his left leg. DIAGNOSTIC STUDIES/LAB DATA: I reviewed his CT scan from yesterday and today and it does show an evolution to hypodensity in his left CREDENTIALING MANAGER distribution. He has other areas showing diffuse atrophy and hypodensities consistent with white matter disease. When I arrived shortly after 4 o'clock, I was concerned about the possibility of brainstem stroke and I called Dr. Cruz as the CTA was being done and he read it as well as Dr. Carcamo. There was no clear occlusive disease, but Dr. Cruz thought there was subocclusive lesion in the area of the basilar artery at the pontine level that could have been a recanalized area where he could have had an occlusion earlier. There was diffuse atherosclerotic disease noted by both Dr. Carcamo and Dr. Cruz, but no areas that would be amenable to clot retrieval. Labs have included white count of 18.2, hematocrit of 23. Normal INR and PTT. Blood gas yesterday, pO2 of 72. Chemistries today with a BUN of 39, creatinine of 1.52. Normal liver function tests on 01/28/19. IMPRESSION AND PLAN: I discussed with Loni in detail that Maninder had a stroke in his left occipital area that most likely occurred within the past day or so. This would typically cause a field cut, but he also has more global changes and it is possible that this represents and most acutely the largest concern would be that this would be basilar artery ischemia or brainstem stroke. His CTA does not show any lesions where it would be amenable to clot retrieval at this point and that there is flow through that area, so he is not a candidate for clot retrieval. He likewise is not a candidate for tPA since he just had his hip fracture. I discussed that if we are able to get an MRI scan, we would be getting an MRI scan. Dr. Fernandes is checking to see whether he would able get an MRI scan given the loop recorder. I discussed with the family that if possible to get we would try to get it tonight so that we could have conformation of the degree of his underlying ischemia, but it would be unlikely to change his care at this point. Also, Dr. Cruz, after I discussed the pros and cons of transferring him to [place], did not think it was clearly neurologically necessary and that we would be able to take care of him here, but given the potential severity of his probable stroke, if the family wanted a transfer to a neuro ICU, we would be willing to accept. I discussed this with the daughter in detail who discussed with her sibling and I discussed that the care would be similar at both places and a neuro ICU do nothing but take care of neurological cases and so there is a realistic chance that the outcome from his probable stroke may be severe and could even include passing away. I would give them the option of transferring to a level of neuro intensive care unit. Because the family would not be able to be with him up at [place], they are electing to stay here. Dr. Li will be taking over his neurological care in the morning. In addition, I have asked Dr. Fernandes to give aspirin and address hemodynamic factors to maintain blood pressure so that he is not hydrated or hypovolemic in any way to maintain perfusion to potentially underperfused areas of the brain. I have also spoken to Dr. Shin prior to the CTA discussing my concerns about brainstem stroke. I do not think that this is medication related. He was like this before the morphine was given and he is not going to get further morphine at this point unless there is a change in his clinical status. Thank you for sharing his case. [id number]/[facility] #: [id number] [facility]ALKurt
[2019-02-01] MEDS ORDERED: levETIRAcetam 1000MG IVPREMIX* 1,000 MG/100 ML BAG IVPB ONE (22:30)
--- NOTE | 2019-02-01 23:47 | PN ---
Progress Note - Progress Note Date of Service: 02/01/19 SOAP: I was notified by this afternoon/evening by Dr. Culp, who is treasury consultant for orthopaedics, that there was a concern in this patient regarding a CVA. Patient is now POD 2 from ORIF L hip and femur fractures by me. I then called the patient's daughter and spoke briefly with her and made myself available by cell phone to answer any questions or address any issues although I deferred to the neurology and Hospitalist teams on management. The patient's daughter was at the hospital in the presence of Dr. Armando of neurology. I later called Dr. Armando and discussed the patient's clinical course and the workup of a possible stroke/CVA in the occipital lobe and/or brainstem with advanced imaging to include CT, CTA, and possibly an MRI. Dr. Armando is in excellent control of the work-up and discussed thoroughly with the patient's family the limited range of treatment options, at [facility] and in [place], and possible prognoses. I was appreciative of Dr. Armando's excellent work-up and patient care. I have a clinic starting at 7am tomorrow morning, but I will round on the patient tomorrow evening and I am available by cell phone to discuss the patient 's clinical course with the patient's family or any other care providers. An orthopedic surgery PA will see the patient earlier in the day tomorrow. Although, of course, I defer to neurology and Hospitalist on treatment of the CVA.
[2019-02-02] MEDS: Insulin LISPRO* 1 UNITS UNIT SUBCUT SCH ×7 (00:16→22:46)
[2019-02-02] MEDS: D5W 1/2 NS KCl 20 Meq 1000 ML* 1,000 ML IV SCH ×3 (03:21→20:00)
[2019-02-02 05:20] LABS: ABS Basophils 0.1 10^3/ul (0-0.2); ABS Eosinophils 0.1 10^3/ul (0-0.6); ABS Lymphocytes 1.3 10^3/ul (1.0-4.8); ABS Monocytes 1.5 10^3/ul (0-0.8); ABS Neutrophils 12.1 10^3/ul (1.5-7.7); Eosinophil % 0.6 %; Hematocrit 18 % (42-52); Hemoglobin 5.8 g/dL (14.0-18.0); Lymphocyte % 8.4 %; Mean Corpuscular HGB Conc 33 g/dL (31-36); Mean Corpuscular Hemoglobin 30 pg (27-31); Mean Corpuscular Volume 90 fL (80-94); Mean Platelet Volume 9.4 fL (7.4-10.4); Nucleated Red Blood Cells % 0.1; Platelet Count 221 10^3/uL (150-450); Red Blood Count 1.96 10^6 /uL (4.18-5.48); Red Cell Distribution Width 14 % (10-15); White Blood Count 15.1 10^3/uL (3.5-10.8)
[2019-02-02 05:24] LABS: BUN/Creatinine Ratio 33.6 (8-20); Calcium 7.4 mg/dL (8.6-10.3); EGFR African American 73.9 (>60); EGFR Non-African American 61.1 (>60); Potassium 3.5 mmol/L (3.5-5.0)
[2019-02-02] MEDS: Levothyroxine INJ* 100 MCG/5 ML VIAL IV SCH (05:58)
[2019-02-02 06:09] LABS: Hematocrit 20 % (42-52); Hemoglobin 6.6 g/dL (14.0-18.0); Mean Corpuscular HGB Conc 33 g/dL (31-36); Mean Corpuscular Hemoglobin 30 pg (27-31); Mean Corpuscular Volume 90 fL (80-94); Mean Platelet Volume 9.5 fL (7.4-10.4); Platelet Count 247 10^3/uL (150-450); Red Blood Count 2.24 10^6 /uL (4.18-5.48); Red Cell Distribution Width 15 % (10-15); White Blood Count 16.7 10^3/uL (3.5-10.8)
[2019-02-02 06:15] LABS: ABS Basophils 0.1 10^3/ul (0-0.2); ABS Eosinophils 0.1 10^3/ul (0-0.6); ABS Lymphocytes 1.4 10^3/ul (1.0-4.8); ABS Monocytes 1.8 10^3/ul (0-0.8); ABS Neutrophils 13.2 10^3/ul (1.5-7.7); Eosinophil % 0.8 %; Lymphocyte % 8.7 %; Nucleated Red Blood Cells % 0.1
[2019-02-02] MEDS: ZOSYN 3.375 GM Q8H per EXTENDED INFUSION IVPB SCH ×8 (06:54→22:38)
[2019-02-02] MEDS ORDERED: levETIRAcetam 1000MG IVPREMIX* 1,000 MG/100 ML BAG IV ONE (09:00)
[2019-02-02] MEDS: Aspirin SUPP* 300 MG PR SCH (09:08)
[2019-02-02] MEDS: Insulin GLARGINE(*) 1 UNITS UNIT SUBCUT SCH (09:12)
--- NOTE | 2019-02-02 09:50 | PN ---
Progress Note - Progress Note Date of Service: 02/02/19 SOAP: I examined the patient independent of Dr. Armando's examination. We signed out at bedside this morning. In summary, The patient is a 78-year-old man who resides in the longterm because of moderate-advanced dementia, wheelchair bound, has had 10 falls over the past two months (as per his daughter Loni), history of remote left [employer]LECTIONS SUPERVISOR stroke with no reported deficits, atrial fibrillation on Eliquis, who presented to [facility] on 01/28/[facility] for a fall. Subsequent he had a left hip fracture. He was reporting hip pain on 01/29/2019. He was appropriately provided with pain medications. He went to the OR and is s/p ORIF on 2018 to the left proximal femur and intertrochanteric/subtrochanteric hip. Patient was sleeping after the surgery. The patient was hard to arouse. A CT head was obtained on 01/31 but then again on 02/01. There was a new finding on the 02/01 study that showed a new area of stroke in the left parieto-occipital junction. An EEG was obtained last night and showed a non-convulsive status epilepticus pattern with stimulus-induced rhythmic, periodic, ictal discharges. He was evaluated by Dr. Armando and was loaded with levetiracetam. The patient is no longer having any subclinical seizures. He never had any generalized tonic clonic seizures. Subjective: He does not respond to command. No clinical seizures seen. He closes his eyes tightly. He is not in any apparent distress. Objective: NIHSS: 35 General: ill appearing elderly man who appears older than stated age. He is pale. HEENT: normocephalic, without obvious abnormality. Conjunctivae/corneas clear. Lungs: tachyapnea. No rales or rhonchi. CV: holosystolic murmur Psych: n/a Neurological examination: Mental status: sleeping. Eyes closed. Does not wake to verbal or noxious command. Cranial nerves: Pinpoint pupils that are sluggishly reactive. No facial asymmetry. Gag intact. Motor (R/L): Grimaced to noxious stimuli. He did not withdraw. Reflexes: trace throughout Sensation: n/a Coordination: n/a Gait & Station: n/a Labs, imaging and other diagnostic testing: - Hemoglobin: 6.6, ammonia: 60 - CT Head without contrast 01/31: no acute intracranial process. Old left occipital lobe infarct. - CT head without contrast 02/01: new area of hypodensity in the left parieto- occipital junction. - CTA head/neck: No acute occlusive disease or severe stenosis. Multilevel spondylosis in at least moderate spinal canal stenosis, throughout most of the cervical spine. No acute occlusive disease or severe stenosis in the extracranial vasculature. - MRI brain without contrast 02/01/2019 - Remote infarct in the left [employer] LO[employer] COLLECTIONS SUPERVISOR distribution and acute-subacute left parieto-occipital junction. Assessment: 1. 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 Not currently having clinical seizures. The EEG (LIVE recording from 09:40 a.m.) show no evidence of ongoing electrographic seizures. 2. Stimulus-induced rhythmic, periodic, or ictal discharges (SIRPID). This is commonly elicited by stimulation in critically ill, encephalopathic patients. Majority of these patients have associated clinical and nonclinical status epilepticus. 3. Acute left [employer] LOAN COLLECTIONS SUPERVISOR-MCA vascular territory watershed infarction due to hypotension and now severe anemia. 4. Left hip fracture s/p pinning. 5. Hyperammonemia and hyperglycemia. Both can be contributing to the patient's encephalopathy. 6. History of advanced dementia, wheelchair bound, fell over 10 times within two months. He was in the longterm the past two months. Plan: - Increased levetiracetam to 1,000 mg IV every 8 hours - Obtain a levetiracetam level today (ordered). Level should be above 30. - Continue cEEG video monitoring for the next 6-8 hours - Spot routine EEG tomorrow morning - Transfuse at least 1 unit of PRBCs to keep the hemoglobin above 7 in the setting of an acute stroke - Keep SBP above 120 mmHg - Restart anti-thrombotic therapy once the hemoglobin stabilizes. No need for statin therapy given the patient's overall condition and prognosis. - I discussed the plan of care with Dr. Martha Marcelino, and Dr. Armando. - Dr. Armando and I discussed the case with the patient's daughter, Loni, on the telephone today. We have shared our concerns regarding the patient's guarded condition and prognosis. In order to treat the patient's respiratory insufficiency and to adequately treat the non-convulsive status epilepticus, he would need to be intubated. Loni shared with us that her father's wishes are not to be intubated or have aggressive resuscitation if his heart would stop. He is DNR/DNI and she would like to respect her father's wishes. Given his new stroke and history of dementia, we agreed and support the patient's wishes. Since he is not having convulsive seizures, we will treat him with anti -seizure medications and minimize any benzodiazepine therapy that may further suppress his respiratory function. ADDENDUM 02/02/2019 at 10:03: I met with Loni at bedside. Confirmed DNR/DNI status. Answered all her questions to the best of my ability. Critical care time: I spent an additional 30 minutes of critical care time and greater than 50% of that was spent directly reviewing the medical chart, obtaining history, examining the patient, and discussing the guarded prognosis with Loni at bedside.
--- NOTE | 2019-02-02 11:54 | PN ---
CRITICAL CARE NOTE: DATE OF VISIT: 02/02/19 HISTORY OF PRESENT ILLNESS: Ms. Lechuga is a 78-year-old man in coma. Last evening, we obtained an MRI scan after I spoke to the radiologist in the ICU. I reviewed it and then reviewed it with Dr. Munoz. It showed, in addition to his chronic findings, a subacute left occipital stroke. There was no clear brainstem stroke. After that came back, I ordered Keppra 1000 mg for the possibility that seizures were complicating the situation and I obtained an EEG this morning. I spoke to the nurse after the MRI scan came back and she said he was moving a little bit more at that time; however, overnight, he has not changed his function. EEG today showed bursts of epileptiform discharges primarily generalized, recurrent throughout the tracing, but they were brief for several seconds. Sometimes, discharge becomes somewhat more frequent and the overall impression is that he was having frequent seizures and that he was in subclinical status. PHYSICAL EXAMINATION: His exam remains essentially unchanged from prior temperature of 99.6, pulse 104, respirations 23, blood pressure 112/55. He is comatose. Cranial nerves were significant today this morning at 07:38 for a left esotropia, otherwise cranial nerves were unchanged. He had at times unlabored breathing. He had bilateral upgoing toes and he had been more withdrawal to noxious stim bilaterally. Chest: Clear. Cardiovascular: Irregular rate and rhythm. Abdomen was soft. DIAGNOSTIC STUDIES: So, his MRI scan and EEG were as above. IMPRESSION AND PLAN: This morning, I spoke first to his 2 daughters shortly after 7:30 and discussed in detail my continued concerns. I spoke to them by phone first Aarti and then Loni. What I discussed was that in addition to his left occipital stroke, he was having frequent seizures that would be difficult to control and his seizures may be related to cerebral ischemia, but it is unclear at this point. In any event, the seizures themselves were a sign of severe brain injury and his overall picture was concerning that even though it was unclear for sure how things were going to settle, his prognosis is very concerning and likely grave that he may not survive even with maximum medical treatment, and if he survived, he was likely to be significantly worse than his underlying prior dementia. The 2 daughters are going to call me back after they discuss among themselves, but if they wanted maximum medical treatment, which would include treating with benzodiazepines and other meds that to be safe, would warrant intubation prior to treating with these agents. I discussed that we did not always need to intubate prior to treating with benzodiazepines, but given his overall breathing and the severity of his EEG, it is most likely that this would need to be a precaution it would be safest if we did this. They were not sure, and before proceeding to intubation, they wanted to talk among themselves. I loaded him with further Keppra beginning that at 8:15, Dr. Li came and I discussed the case in detail with him, reviewed the EEG with him and then I called Loni back, re-discussed things with Dr. Li on speakerphone with me. He was in agreement with the plan and the daughter said that she has spoken to the sister that the father would not want to be intubated in this situation and that we should do what we could to treat the seizures at this point short of intubation. The daughter was going to come in in the near future and meet with Dr. Li for further discussion and everybody was in agreement with this game plan. Dr. Li discussed possibly adding fosphenytoin as the next step. Thank you for sharing his case. I have a call into Dr. Mays, who I spoke to last night, to inform him of these further decisions. More than an hour of critical care time was spent on this case this morning. [id number]/[facility] #: [id number] [facility]
--- NOTE | 2019-02-02 12:25 | PN ---
Progress Note - Progress Note Date of Service: 02/02/19 SOAP: Subjective: []Pt seen at bedside. He is breathing spontaneously on 2L but not responsive. His daughter is at the bedside. He has had a stroke, management by our ICU and neurology team. Objective: []Gen: Laying in bed in no obvious distress, oxymask O2 breathing spontaneously , does not respond LLE: Dressing CDI without surrounding erythema, extremity is warm, thigh is soft , 2+ DP pulse. Calves supple without erythema or palpable cords Assessment: [] POD 3 sp ORIF L hip and femur fractures Acute left FILM COMPOSER-MCA vascular territory watershed infarction Plan: []TTWB LLE Will have 1 unit pRBC per l[employer] blasting team with goal of hgb >7 Palliative care consult in place Will change dressing later today, supplies not readily available in the ICU at the time of my visit Vital Signs Temp 98.7 F 02/02/19 12:00 Pulse 97 02/02/19 12:00 Resp 19 02/02/19 12:00 BP 101/46 02/02/19 12:00 Pulse Ox 96 02/02/19 12:00 Intake & Output 02/01/19 02/02/19 02/02/19 18:59 06:59 18:59 Intake Total 913 1675 0 Output Total 500 825 Balance 413 850 0 Weight 230 lb 231 lb 14.177 oz Intake: IV Fluids 804 1675 ABX - CEFAZOLIN 50 D5W 1/2 NS 20 meq KCL 1625 LR 804 IVPB 109 Zosyn 109 Oral 0 0 0 Output: Urine 25 Calero 500 800 Laboratory Last Values WBC 16.7 10^3/uL (3.5-10.8) H 02/02/19 05:39 RBC 2.24 10^6 /uL (4.18-5.48) L 02/02/19 05:39 Hgb 6.6 g/dL (14.0-18.0) L 02/02/19 05:39 Hct 20 % (42-52) L 02/02/19 05:39 MCV 90 fL (80-94) 02/02/19 05:39 MCH 30 pg (27-31) 02/02/19 05:39 MCHC 33 g/dL (31-36) 02/02/19 05:39 RDW 15 % (10-15) 02/02/19 05:39 Plt Count 247 10^3/uL (150-450) 02/02/19 05:39 MPV 9.5 fL (7.4-10.4) 02/02/19 05:39 Neut % (Auto) 79.3 % 02/02/19 05:39 Lymph % (Auto) 8.7 % 02/02/19 05:39 [place] % (Auto) 10.9 % 02/02/19 05:39 Eos % (Auto) 0.8 % 02/02/19 05:39 Baso % (Auto) 0.3 % 02/02/19 05:39 Absolute Neuts (auto) 13.2 10^3/ul (1.5-7.7) H 02/02/19 05:39 Absolute Lymphs (auto) 1.4 10^3/ul (1.0-4.8) 02/02/19 05:39 Absolute Monos (auto) 1.8 10^3/ul (0-0.8) H 02/02/19 05:39 Absolute Eos (auto) 0.1 10^3/ul (0-0.6) 02/02/19 05:39 Absolute Basos (auto) 0.1 10^3/ul (0-0.2) 02/02/19 05:39 Absolute Nucleated RBC 0.0 10^3/ul 02/02/19 05:39 Nucleated RBC % 0.1 02/02/19 05:39 INR (Anticoag Therapy) 1.09 (0.82-1.09) 01/29/19 06:02 APTT 31.1 seconds (26.0-38.0) 01/29/19 12:26 ABG pH 7.49 (7.35-7.45) H 01/31/19 10:15 ABG pCO2 26 mmHg (35-45) L 01/31/19 10:15 ABG pO2 72 mmHg (80-100) L 01/31/19 10:15 ABG HCO3 23.2 mmol/L (19-31) 01/31/19 10:15 ABG O2 Saturation 97.6 % (94.0-98.0) 01/31/19 10:15 ABG Base Excess -2.1 mmol/L (-2.0-2.0) L 01/31/19 10:15 Sodium 140 mmol/L (135-145) 02/02/19 05:00 Potassium 3.5 mmol/L (3.5-5.0) 02/02/19 05:00 Chloride 112 mmol/L (101-111) H 02/02/19 05:00 Carbon Dioxide 22 mmol/L (22-32) 02/02/19 05:00 Anion Gap 6 mmol/L (2-11) 02/02/19 05:00 BUN 39 mg/dL (6-24) H 02/02/19 05:00 Creatinine 1.16 mg/dL (0.67-1.17) 02/02/19 05:00 Est GFR ( Amer) 73.9 (>60) 02/02/19 05:00 Est GFR (Non-Af Amer) 61.1 (>60) 02/02/19 05:00 BUN/Creatinine Ratio 33.6 (8-20) H 02/02/19 05:00 Glucose 199 mg/dL (70-100) H 02/02/19 05:00 POC Glucose (mg/dL) 233 mg/dL (70-100) H 02/02/19 08:52 Hemoglobin A1c 9.4 % (4.0-5.6) H 01/29/19 06:02 Lactic Acid 1.6 mmol/L (0.5-2.0) 02/01/19 05:14 Calcium 7.4 mg/dL (8.6-10.3) L 02/02/19 05:00 Total Bilirubin 0.60 mg/dL (0.2-1.0) 01/28/19 07:35 AST 15 U/L (13-39) 01/28/19 07:35 ALT 21 U/L (7-52) 01/28/19 07:35 Alkaline Phosphatase 89 U/L (34-104) 01/28/19 07:35 Ammonia 60 mcmol/L (16-53) H 02/01/19 14:46 Troponin I 0.01 ng/mL (<0.03) 01/28/19 11:37 Total Protein 7.1 g/dL (6.4-8.9) 01/28/19 07:35 Albumin 4.1 g/dL (3.2-5.2) 01/28/19 07:35 Globulin 3.0 g/dL (2-4) 01/28/19 07:35 Albumin/Globulin Ratio 1.4 (1-3) 01/28/19 07:35 Urine Color Pam 01/31/19 13:40 Urine Appearance Clear 01/31/19 13:40 Urine pH 6.0 (5-9) 01/31/19 13:40 Ur Specific [place] 1.020 (1.010-1.030) 01/31/19 13:40 Urine Protein 1+(30 mg/dl) (Negative) A 01/31/19 13:40 Urine Ketones Negative (Negative) 01/31/19 13:40 Urine Blood 1+ (Negative) A 01/31/19 13:40 Urine Nitrate Negative (Negative) 01/31/19 13:40 Urine Bilirubin Negative (Negative) 01/31/19 13:40 Urine Urobilinogen Negative (Negative) 01/31/19 13:40 Ur Leukocyte Esterase Negative (Negative) 01/31/19 13:40 Urine WBC (Auto) Trace(0-5/hpf) (Absent) 01/31/19 13:40 Urine RBC (Auto) Trace(0-2/hpf) (Absent) 01/31/19 13:40 Urine Bacteria Absent (Absent) 01/31/19 13:40 Hyaline Casts Present (Absent) A 01/31/19 13:40 Urine Glucose 2+(150 mg/dl) (Negative) A 01/31/19 13:40 Blood Type A Positive 01/29/19 06:02 Antibody Screen Negative 01/29/19 06:02
--- NOTE | 2019-02-02 15:37 | PN ---
Subjective Date of Service: 02/02/19 Interval History: Patient seen. Unable to obtain ROS, level 5 caveat; patient non-responsive to stimuli. Daughter at bedside and states he lifted one arm earlier but no appreciable movement since. Objective Active Medications: Acetaminophen (Tylenol Tab*) 650 mg PO Q4H PRN PRN Reason: MILD PAIN or TEMP > 100.4 Acetaminophen (Tylenol Supp*) 650 mg MA Q4H PRN PRN Reason: TEMPERATURE > 100.4 Al Hydrox/Mg Hydrox/Simethicone (Maalox Plus*) 30 ml PO Q6H PRN PRN Reason: INDIGESTION Aspirin (Asa Supp*) 300 mg MA DAILY [facility] Last Admin: 02/02/19 09:08 Dose: 300 mg Dextrose (Dextrose 50% Vial 50 Ml*) 25 ml IV PUSH .FOR FS < 60 - SS PRN PRN Reason: FS < 60 Potassium Chloride/Dextrose (D5w 1/2 Ns Kcl 20 Meq 1000 Ml*) 1,000 mls @ 125 mls/hr IV PER RATE [facility] Last Admin: 02/02/19 12:31 Dose: 125 mls/hr Piperacillin Sod/Tazobactam (Sod 3.375 gm/ Sodium Chloride) 100 mls @ 25 mls/ hr IVPB Q8HR [facility] Last Admin: 02/02/19 14:28 Dose: 25 mls/hr Levetiracetam (Keppra Iv Premix*) 1,000 mg in 100 mls @ 200 mls/hr IVPB Q8H [facility] Insulin Glargine (Lantus(*)) 20 units SUBCUT Q24H [facility] Last Admin: 02/02/19 09:12 Dose: 20 units Insulin Human Lispro (Humalog*) 0 units SUBCUT Q4HR [facility]; Protocol Last Admin: 02/02/19 13:18 Dose: 6 units Levothyroxine Sodium (Synthroid Inj*) 25 mcg IV 0600 [facility] Last Admin: 02/02/19 05:58 Dose: 25 mcg Morphine Sulfate (Morphine Inj (Syringe)*) 1 mg IV Q2H PRN PRN Reason: PAIN - SEVERE Last Admin: 02/01/19 16:03 Dose: 1 mg Ondansetron HCl (Zofran Inj*) 4 mg IV Q4H PRN PRN Reason: NAUSEA/VOMITING Pharmacy Consult (Zosyn Per Pharmacy*) 1 note FOLLOW UP .ZOSYN PER PHARMACY [facility] Vital Signs - 8 hr 02/02/19 02/02/19 02/02/19 06:45 06:49 07:00 Temperature Pulse Rate 106 105 Respiratory 25 24 26 Rate Blood Pressure 114/60 129/68 (mmHg) O2 Sat by Pulse 96 96 Oximetry 02/02/19 02/02/19 02/02/19 07:15 07:20 07:30 Temperature Pulse Rate 104 104 Respiratory 22 20 22 Rate Blood Pressure 119/66 105/61 (mmHg) O2 Sat by Pulse 96 96 Oximetry 02/02/19 02/02/19 02/02/19 07:45 08:00 08:09 Temperature 99.6 F Pulse Rate 105 102 Respiratory 24 23 Rate Blood Pressure 121/60 131/64 (mmHg) O2 Sat by Pulse 96 96 Oximetry 02/02/19 02/02/19 02/02/19 08:15 08:30 08:45 Temperature Pulse Rate 106 104 108 Respiratory 25 23 27 Rate Blood Pressure 119/64 120/62 127/67 (mmHg) O2 Sat by Pulse 96 96 96 Oximetry 02/02/19 02/02/19 02/02/19 08:47 09:00 09:15 Temperature Pulse Rate 107 105 Respiratory 22 24 23 Rate Blood Pressure 125/63 112/55 (mmHg) O2 Sat by Pulse 97 96 Oximetry 02/02/19 02/02/19 02/02/19 09:30 09:39 09:45 Temperature Pulse Rate 103 103 Respiratory 22 21 22 Rate Blood Pressure 111/51 107/60 (mmHg) O2 Sat by Pulse 100 95 Oximetry 02/02/19 02/02/19 02/02/19 10:00 10:15 10:30 Temperature Pulse Rate 103 102 105 Respiratory 20 20 19 Rate Blood Pressure 108/58 123/62 124/61 (mmHg) O2 Sat by Pulse 95 95 95 Oximetry 02/02/19 02/02/19 02/02/19 10:45 10:55 11:00 Temperature Pulse Rate 104 99 Respiratory 20 24 20 Rate Blood Pressure 110/54 100/63 (mmHg) O2 Sat by Pulse 94 95 Oximetry 02/02/19 02/02/19 02/02/19 11:15 11:29 11:30 Temperature Pulse Rate 100 99 Respiratory 19 22 19 Rate Blood Pressure 105/52 95/54 (mmHg) O2 Sat by Pulse 96 96 Oximetry 02/02/19 02/02/19 02/02/19 11:45 12:00 12:16 Temperature 98.7 F Pulse Rate 96 97 97 Respiratory 17 19 17 Rate Blood Pressure 111/52 101/46 107/53 (mmHg) O2 Sat by Pulse 95 96 96 Oximetry 02/02/19 02/02/19 02/02/19 12:30 12:42 12:44 Temperature Pulse Rate 97 96 Respiratory 20 19 22 Rate Blood Pressure 96/53 98/53 (mmHg) O2 Sat by Pulse 95 95 Oximetry 02/02/19 02/02/19 02/02/19 12:45 13:00 13:40 Temperature Pulse Rate 95 94 Respiratory 18 18 22 Rate Blood Pressure 112/50 100/52 (mmHg) O2 Sat by Pulse 96 96 Oximetry Oxygen Devices in Use Now: Simple Face Mask Appearance: pale, ill-appearing Eyes: - - restricted pupils, does not track Ears/Nose/Mouth/Throat: - - dry oral mucosa Neck: NL Appearance and Movements; NL JVP Respiratory: Symmetrical Chest Expansion and Respiratory Effort, Clear to Auscultation Cardiovascular: NL Sounds; No Murmurs; No JVD, RRR Abdominal: NL Sounds; No Tenderness; No Distention Skin: No Nodules or Sclerosis Neurological: - - obtunded Result Diagrams: 02/02/19 05:39 02/02/19 05:00 Additional Lab and Data: Lab Results 01/28/19 01/28/19 Range/Units 07:35 07:35 WBC 8.3 (3.5-10.8) 10^3/uL RBC 4.22 (4.18-5.48) 10^6 /uL Hgb 12.7 L (14.0-18.0) g/dL Hct 37 L (42-52) % MCV 88 (80-94) fL MCH 30 (27-31) pg MCHC 35 (31-36) g/dL RDW 14 (10-15) % Plt Count 207 (150-450) 10^3/uL MPV 10.1 (7.4-10.4) fL Neut % (Auto) 68.7 % Lymph % (Auto) 19.1 % [place] % (Auto) 7.6 % Eos % (Auto) 3.5 % Baso % (Auto) 1.1 % Absolute Neuts (auto) 5.7 (1.5-7.7) 10^3/ul Absolute Lymphs (auto) 1.6 (1.0-4.8) 10^3/ul Absolute Monos (auto) 0.6 (0-0.8) 10^3/ul Absolute Eos (auto) 0.3 (0-0.6) 10^3/ul Absolute Basos (auto) 0.1 (0-0.2) 10^3/ul Absolute Nucleated RBC 0.0 10^3/ul Nucleated RBC % 0.0 INR (Anticoag Therapy) 1.00 (0.82-1.09) Microbiology and Other Data: Microbiology 01/31/19 13:40 Urine Culture - Final Urine Enterobacter Cloacae 02/01/19 06:20 Aerobic Blood Culture - Preliminary Blood Venous No Growth Day 1 Anaerobic Blood Culture - Preliminary No Growth Day 1 02/01/19 05:14 Aerobic Blood Culture - Preliminary Blood Venous No Growth Day 1 Anaerobic Blood Culture - Preliminary No Growth Day 1 Assess/Plan/Problems-Billing Mr Lechuga is a 78 yo M who has a h/o dementia, afib, CAD, frequent falls, HTN , Type II DM and hypothyroidism who presented to the ER from [facility] with c/o L hip pain after a fall and was found to have a L hip fracture. - Patient Problems (1) Acute left ALUMINUM SIDING APPLICATOR stroke Code(s): I63.532 - CEREB INFRC D/T UNSP OCCLS OR STENOS OF LEFT POST CEREB ART SNOMED Code(s): 803484512 Comment: - Post op course complicated by acute/subacute ALUMINUM SIDING APPLICATOR infarct and status seizures - Not a candidate for TPA, Telestroke did not recommend transfer and intervention - Continue keppra loading per neuro recommendations - Continue neuro checks, poorly responsive at this time - Will order swallow eval and palliative consult - Prognosis likely poor given comorbid conditions (2) Closed left hip fracture Code(s): S72.002A - FRACTURE OF UNSP PART OF NECK OF LEFT FEMUR, INIT SNOMED Code(s): 636478090 Comment: - 2/2 Mechanical fall - s/p L hip pinning 01/30 - Post-op drop in H&H, will transfuse 1 unit PRBCs today with goal H&H >10/22 (3) Atrial fibrillation Code(s): I48.91 - UNSPECIFIED ATRIAL FIBRILLATION SNOMED Code(s): 33650490 Comment: - Hx of afib in the past on eliquis and had RVR requiring cardizem IV push on 01/31, rate now well controlled, but unclear if patient will be able to take PO meds (4) Dementia Code(s): F03.90 - UNSPECIFIED DEMENTIA WITHOUT BEHAVIORAL DISTURBANCE SNOMED Code(s): 06096901 Comment: - Pt with behavioral disturbances prior to stroke - Continue olanzapine at bedtime if needed, however patient is currently not responding (5) Diabetes Code(s): E11.9 - TYPE 2 DIABETES MELLITUS WITHOUT COMPLICATIONS SNOMED Code(s) : 92598817 Comment: - Lantus to 16 U bid, continue Lispro SS - Continue to hold metformin, may need to stop long-acting if patient unable to eat/swallow (6) Hypothyroid Code(s): E03.9 - HYPOTHYROIDISM, UNSPECIFIED SNOMED Code(s): 85470478 Comment: - TSH above nl, increase levothyroxine to 50 mcg daily (7) DVT prophylaxis Code(s): NLB5285 - SNOMED Code(s): 575579473 Comment: - SQ heparin (8) DNR (do not resuscitate) Status and Disposition: Inpatient, prognosis: poor/guarded. Critical Care Time: 60 minutes.
--- NOTE | 2019-02-02 16:25 | CONSULT ---
Palliative / Hospice Consult Ordering Provider: Luis Thomas - PCP-Bryan Referal Reason: Goals of care/no bowel meds/MS prn - Subjective Code Status: DNR Advance Directives Location: In Chart MOLST Part A Completed: Yes - on chart MOLST Part E Completed:: Yes - partially completed on chart - History or Present Illness History or Present Illness: 78yo male resident of [facility] presents to ER with L hip pain s/p fall. PMH is significant for dementia, CAD s/p CABG, afib on eliquis, DM type 2 , HTN, h/o CVA, hypothyroid and GERD. 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 brain MRI-recent/subacute infarct more superiorly L occipital lobe at L parietal occipital junction, EKG-sinus tach vs rapid atrial flutter, CXR-cardiomegaly unchanged, s/p CABG, small bilateral effusion and interstitial pulmonary edema, H/H 6.6/20, BUN/Cr 39/1.16, egfr 61.1 , lactic acid 7.4, alb 4.1, INR 1 and [facility] [place]. Pt admitted for L hip fx underwent repair 01/30, pt had altered mental status and subsequent brain CTs showed acute stroke and 02/02 developed seizures now unresponsive. In past year pt has been in ER 8x and has had [facility] admissions and one admission for chest pain. Al history is from family and medical records. Lab Values: Abnormal Lab Results 02/01/19 02/01/19 02/01/19 04:51 16:39 18:04 WBC RBC Hgb Hct MCV MCH MCHC RDW Plt Count MPV Neut % (Auto) Lymph % (Auto) [place] % (Auto) Eos % (Auto) Baso % (Auto) Absolute Neuts (auto) Absolute Lymphs (auto) Absolute Monos (auto) Absolute Eos (auto) Absolute Basos (auto) Absolute Nucleated RBC Nucleated RBC % Sodium Potassium Chloride Carbon Dioxide Anion Gap BUN Creatinine Est GFR ( Amer) Est GFR (Non-Af Amer) BUN/Creatinine Ratio Glucose POC Glucose (mg/dL) 232 H 232 H 231 H Calcium Blood Type Antibody Screen Crossmatch 02/02/19 02/02/19 02/02/19 00:13 03:14 05:00 WBC 15.1 H RBC 1.96 L Hgb 5.8 L* Hct 18 L MCV 90 MCH 30 MCHC 33 RDW 14 Plt Count 221 MPV 9.4 Neut % (Auto) 80.4 Lymph % (Auto) 8.4 [place] % (Auto) 10.2 Eos % (Auto) 0.6 Baso % (Auto) 0.4 Absolute Neuts (auto) 12.1 H Absolute Lymphs (auto) 1.3 Absolute Monos (auto) 1.5 H Absolute Eos (auto) 0.1 Absolute Basos (auto) 0.1 Absolute Nucleated RBC 0.0 Nucleated RBC % 0.1 Sodium Potassium Chloride Carbon Dioxide Anion Gap BUN Creatinine Est GFR ( Amer) Est GFR (Non-Af Amer) BUN/Creatinine Ratio Glucose POC Glucose (mg/dL) 275 H 248 H Calcium Blood Type Antibody Screen Crossmatch 02/02/19 02/02/19 02/02/19 05:00 05:39 08:52 WBC 16.7 H RBC 2.24 L Hgb 6.6 L Hct 20 L MCV 90 MCH 30 MCHC 33 RDW 15 Plt Count 247 MPV 9.5 Neut % (Auto) 79.3 Lymph % (Auto) 8.7 [place] % (Auto) 10.9 Eos % (Auto) 0.8 Baso % (Auto) 0.3 Absolute Neuts (auto) 13.2 H Absolute Lymphs (auto) 1.4 Absolute Monos (auto) 1.8 H Absolute Eos (auto) 0.1 Absolute Basos (auto) 0.1 Absolute Nucleated RBC 0.0 Nucleated RBC % 0.1 Sodium 140 Potassium 3.5 Chloride 112 H Carbon Dioxide 22 Anion Gap 6 BUN 39 H Creatinine 1.16 Est GFR ( Amer) 73.9 Est GFR (Non-Af Amer) 61.1 BUN/Creatinine Ratio 33.6 H Glucose 199 H POC Glucose (mg/dL) 233 H Calcium 7.4 L Blood Type Antibody Screen Crossmatch 02/02/19 02/02/19 12:42 13:35 WBC RBC Hgb Hct MCV MCH MCHC RDW Plt Count MPV Neut % (Auto) Lymph % (Auto) [place] % (Auto) Eos % (Auto) Baso % (Auto) Absolute Neuts (auto) Absolute Lymphs (auto) Absolute Monos (auto) Absolute Eos (auto) Absolute Basos (auto) Absolute Nucleated RBC Nucleated RBC % Sodium Potassium Chloride Carbon Dioxide Anion Gap BUN Creatinine Est GFR ( Amer) Est GFR (Non-Af Amer) BUN/Creatinine Ratio Glucose POC Glucose (mg/dL) 233 H Calcium Blood Type A Positive Antibody Screen Negative Crossmatch See Detail Laboratory Last Values WBC 16.7 10^3/uL (3.5-10.8) H 02/02/19 05:39 RBC 2.24 10^6 /uL (4.18-5.48) L 02/02/19 05:39 Hgb 6.6 g/dL (14.0-18.0) L 02/02/19 05:39 Hct 20 % (42-52) L 02/02/19 05:39 MCV 90 fL (80-94) 02/02/19 05:39 MCH 30 pg (27-31) 02/02/19 05:39 MCHC 33 g/dL (31-36) 02/02/19 05:39 RDW 15 % (10-15) 02/02/19 05:39 Plt Count 247 10^3/uL (150-450) 02/02/19 05:39 MPV 9.5 fL (7.4-10.4) 02/02/19 05:39 Neut % (Auto) 79.3 % 02/02/19 05:39 Lymph % (Auto) 8.7 % 02/02/19 05:39 [place] % (Auto) 10.9 % 02/02/19 05:39 Eos % (Auto) 0.8 % 02/02/19 05:39 Baso % (Auto) 0.3 % 02/02/19 05:39 Absolute Neuts (auto) 13.2 10^3/ul (1.5-7.7) H 02/02/19 05:39 Absolute Lymphs (auto) 1.4 10^3/ul (1.0-4.8) 02/02/19 05:39 Absolute Monos (auto) 1.8 10^3/ul (0-0.8) H 02/02/19 05:39 Absolute Eos (auto) 0.1 10^3/ul (0-0.6) 02/02/19 05:39 Absolute Basos (auto) 0.1 10^3/ul (0-0.2) 02/02/19 05:39 Absolute Nucleated RBC 0.0 10^3/ul 02/02/19 05:39 Nucleated RBC % 0.1 02/02/19 05:39 INR (Anticoag Therapy) 1.09 (0.82-1.09) 01/29/19 06:02 APTT 31.1 seconds (26.0-38.0) 01/29/19 12:26 ABG pH 7.49 (7.35-7.45) H 01/31/19 10:15 ABG pCO2 26 mmHg (35-45) L 01/31/19 10:15 ABG pO2 72 mmHg (80-100) L 01/31/19 10:15 ABG HCO3 23.2 mmol/L (19-31) 01/31/19 10:15 ABG O2 Saturation 97.6 % (94.0-98.0) 01/31/19 10:15 ABG Base Excess -2.1 mmol/L (-2.0-2.0) L 01/31/19 10:15 Sodium 140 mmol/L (135-145) 02/02/19 05:00 Potassium 3.5 mmol/L (3.5-5.0) 02/02/19 05:00 Chloride 112 mmol/L (101-111) H 02/02/19 05:00 Carbon Dioxide 22 mmol/L (22-32) 02/02/19 05:00 Anion Gap 6 mmol/L (2-11) 02/02/19 05:00 BUN 39 mg/dL (6-24) H 02/02/19 05:00 Creatinine 1.16 mg/dL (0.67-1.17) 02/02/19 05:00 Est GFR ( Amer) 73.9 (>60) 02/02/19 05:00 Est GFR (Non-Af Amer) 61.1 (>60) 02/02/19 05:00 BUN/Creatinine Ratio 33.6 (8-20) H 02/02/19 05:00 Glucose 199 mg/dL (70-100) H 02/02/19 05:00 POC Glucose (mg/dL) 233 mg/dL (70-100) H 02/02/19 12:42 Hemoglobin A1c 9.4 % (4.0-5.6) H 01/29/19 06:02 Lactic Acid 1.6 mmol/L (0.5-2.0) 02/01/19 05:14 Calcium 7.4 mg/dL (8.6-10.3) L 02/02/19 05:00 Total Bilirubin 0.60 mg/dL (0.2-1.0) 01/28/19 07:35 AST 15 U/L (13-39) 01/28/19 07:35 ALT 21 U/L (7-52) 01/28/19 07:35 Alkaline Phosphatase 89 U/L (34-104) 01/28/19 07:35 Ammonia 60 mcmol/L (16-53) H 02/01/19 14:46 Troponin I 0.01 ng/mL (<0.03) 01/28/19 11:37 Total Protein 7.1 g/dL (6.4-8.9) 01/28/19 07:35 Albumin 4.1 g/dL (3.2-5.2) 01/28/19 07:35 Globulin 3.0 g/dL (2-4) 01/28/19 07:35 Albumin/Globulin Ratio 1.4 (1-3) 01/28/19 07:35 Urine Color Pam 01/31/19 13:40 Urine Appearance Clear 01/31/19 13:40 Urine pH 6.0 (5-9) 01/31/19 13:40 Ur Specific [place] 1.020 (1.010-1.030) 01/31/19 13:40 Urine Protein 1+(30 mg/dl) (Negative) A 01/31/19 13:40 Urine Ketones Negative (Negative) 01/31/19 13:40 Urine Blood 1+ (Negative) A 01/31/19 13:40 Urine Nitrate Negative (Negative) 01/31/19 13:40 Urine Bilirubin Negative (Negative) 01/31/19 13:40 Urine Urobilinogen Negative (Negative) 01/31/19 13:40 Ur Leukocyte Esterase Negative (Negative) 01/31/19 13:40 Urine WBC (Auto) Trace(0-5/hpf) (Absent) 01/31/19 13:40 Urine RBC (Auto) Trace(0-2/hpf) (Absent) 01/31/19 13:40 Urine Bacteria Absent (Absent) 01/31/19 13:40 Hyaline Casts Present (Absent) A 01/31/19 13:40 Urine Glucose 2+(150 mg/dl) (Negative) A 01/31/19 13:40 Blood Type A Positive 02/02/19 13:35 Antibody Screen Negative 02/02/19 13:35 Crossmatch See Detail 02/02/19 13:35 - Objective Active Medications: Acetaminophen (Tylenol Tab*) 650 mg PO Q4H PRN PRN Reason: MILD PAIN or TEMP > 100.4 Acetaminophen (Tylenol Supp*) 650 mg SD Q4H PRN PRN Reason: TEMPERATURE > 100.4 Al Hydrox/Mg Hydrox/Simethicone (Maalox Plus*) 30 ml PO Q6H PRN PRN Reason: INDIGESTION Aspirin (Asa Supp*) 300 mg SD DAILY [facility] Last Admin: 02/02/19 09:08 Dose: 300 mg Dextrose (Dextrose 50% Vial 50 Ml*) 25 ml IV PUSH .FOR FS < 60 - SS PRN PRN Reason: FS < 60 Potassium Chloride/Dextrose (D5w 1/2 Ns Kcl 20 Meq 1000 Ml*) 1,000 mls @ 125 mls/hr IV PER RATE [facility] Last Admin: 02/02/19 12:31 Dose: 125 mls/hr Piperacillin Sod/Tazobactam (Sod 3.375 gm/ Sodium Chloride) 100 mls @ 25 mls/ hr IVPB Q8HR [facility] Last Admin: 02/02/19 14:28 Dose: 25 mls/hr Levetiracetam (Keppra Iv Premix*) 1,000 mg in 100 mls @ 200 mls/hr IVPB Q8H [facility] Insulin Glargine (Lantus(*)) 20 units SUBCUT Q24H [facility] Last Admin: 02/02/19 09:12 Dose: 20 units Insulin Human Lispro (Humalog*) 0 units SUBCUT Q4HR [facility]; Protocol Last Admin: 02/02/19 13:18 Dose: 6 units Levothyroxine Sodium (Synthroid Inj*) 25 mcg IV 0600 [facility] Last Admin: 02/02/19 05:58 Dose: 25 mcg Morphine Sulfate (Morphine Inj (Syringe)*) 1 mg IV Q2H PRN PRN Reason: PAIN - SEVERE Last Admin: 02/01/19 16:03 Dose: 1 mg Ondansetron HCl (Zofran Inj*) 4 mg IV Q4H PRN PRN Reason: NAUSEA/VOMITING Pharmacy Consult (Zosyn Per Pharmacy*) 1 note FOLLOW UP .ZOSYN PER PHARMACY [facility] Vital Signs: Vital Signs: Temp Pulse Resp BP Pulse Ox 97.6 F 99 21 125/67 96 02/02/19 16:00 02/02/19 16:00 02/02/19 16:03 02/02/19 16:00 02/02/19 16:00 Patient Weight: Weight 105.182 kg Intake and Output: Intake & Output 01/31/19 02/01/19 02/02/19 02/03/19 06:59 06:59 06:59 06:59 Intake Total 2574 2052 2588 2178 Output Total 0970 874 5455 475 Balance 1399 1127 1263 1703 Weight 105.182 kg Intake: IV Fluids 1400 1891 2479 1878 ABX - CEFAZOLIN 50 D5W 1/2 NS 20 meq KCL 1625 1750 Keppra 15 LR 1300 1891 804 NS 100ML, Cefazolin 2G 100 Zosyn 113 IVPB 1024 161 109 300 ABX - CEFAZOLIN 161 Keppra 100 LR 1024 Zosyn 109 200 Oral 150 0 0 0 Output: Urine 1175 100 25 [place] 0 825 1300 475 Other: # Bowel Movements 0 ADLs: Meal Record Start: 01/28/19 11: 02 Freq: Status: Complete Protocol: Created 01/28/19 11:02 System (Rec: 01/28/19 11:02 System DIET-C13) Document 01/30/19 10:07 [id number] (Rec: 01/30/19 10:09 [id number] TELE-4) Document 01/31/19 11:02 [id number] (Rec: 01/31/19 11:02 [id number] SSU-M17) Document 01/31/19 14:25 [id number] (Rec: 01/31/19 14:25 [id number] SSU-M17) ADLs: Meal Record Start: 02/01/19 13: 36 Freq: DAILY@0900,1400,1800 Status: Inactive Protocol: Created 02/01/19 13:36 [id number] (Rec: 02/01/19 13:36 [id number] [facility]- [id number]) Document 02/01/19 13:45 SMO8795 (Rec: 02/01/19 13:46 [id number] TELE-C13) ADLs: Meal Record Start: 02/01/19 17: 19 Freq: 09,13,18 Status: Active Protocol: Created 02/01/19 17:19 [id number] (Rec: 02/01/19 17:19 [id number] ICU-C25) Document 02/02/19 08:48 [id number] (Rec: 02/02/19 08:48 [id number] ICU-C18) Document 02/02/19 12:44 [id number] (Rec: 02/02/19 12:44 [id number] ICU-C18) Intake and Output Start: 01/28/19 07: 26 Freq: Status: Active Protocol: Created 01/28/19 07:26 System (Rec: 01/28/19 07:26 System ED-C35) Intake and Output Start: 01/28/19 11: 02 Freq: DAILY@0600,1400,2200 Status: Complete Protocol: Created 01/28/19 11:02 System (Rec: 01/28/19 11:02 System DIET-C13) Document 01/28/19 18:23 WIB1464 (Rec: 01/28/19 18:23 RYR2542 SSU-C11) Document 01/28/19 22:13 [id number] (Rec: 01/28/19 22:14 [id number] SSU-M17) Document 01/29/19 06:27 NOO9550 (Rec: 01/29/19 06:27 SXR0178 SSU-C09) Document 01/29/19 08:05 WFF3733 (Rec: 01/29/19 08:05 KGT3900 SSU-M15) Document 12/05/19 13:25 SJM7790 (Rec: 01/29/19 13:25 NLL0419 TELE-M14) Document 01/29/19 23:41 RDW2179 (Rec: 01/29/19 23:41 LER2414 SSU-M18) Document 01/30/19 06:00 FXE5074 (Rec: 01/30/19 06:07 JVP0335 SSU-C09) Document 01/30/19 14:12 WLX3391 (Rec: 01/30/19 14:13 TFW1613 TELE-M14) Document 01/31/19 05:56 ZDR3602 (Rec: 01/31/19 05:57 LRC9805 SSU-M16) Document 01/31/19 14:37 JKJ0652 (Rec: 01/31/19 14:39 SYT4343 SSU-M17) Document 01/31/19 19:16 UFB1062 (Rec: 01/31/19 19:16 QNU3289 SSU-M21) Document 01/31/19 22:13 EDN4844 (Rec: 01/31/19 22:14 ZJD9549 SSU-M17) Document 02/01/19 04:01 NVT0436 (Rec: 02/01/19 04:01 JJM2627 CRM-C14) Document 02/01/19 09:50 FTF2761 (Rec: 02/01/19 09:52 YHL0723 MED-M27) Intake and Output Start: 02/01/19 13: 36 Freq: DAILY@0600,1400,2200 Status: Inactive Protocol: Created 02/01/19 13:36 AHI1266 (Rec: 02/01/19 13:36 DJT5527 [facility] [id number]) Document 02/01/19 13:46 HRS1050 (Rec: 02/01/19 13:46 IXO1319 TELE-C13) Intake and Output Start: 02/01/19 17: 19 Freq: Q1HR Status: Active Protocol: Created 02/01/19 17:19 AFL3465 (Rec: 02/01/19 17:19 HHW4388 ICU-C25) Document 02/01/19 18:00 EST3295 (Rec: 02/01/19 19:20 ABX0764 ICU-C22) Document 02/01/19 19:00 UOB4967 (Rec: 02/01/19 20:20 JGG4394 ICU-C10) Document 02/01/19 20:00 ELQ1290 (Rec: 02/01/19 20:41 [id number] ICU-C10) Document 02/01/19 21:00 TXD7155 (Rec: 02/01/19 21:23 ZIK8474 ICU-C10) Document 02/01/19 22:00 DUC1477 (Rec: 02/01/19 22:24 XUG4953 ICU-C10) Document 02/01/19 23:00 DOW9421 (Rec: 02/02/19 00:28 TUG5714 ICU-C10) Document 02/02/19 00:00 VHP4575 (Rec: 02/02/19 00:38 QXU1743 ICU-C10) Document 02/02/19 00:58 ETU0770 (Rec: 02/02/19 00:58 GIK7331 ICU-C10) Document 02/02/19 02:00 BDP7072 (Rec: 02/02/19 02:10 VPE5773 ICU-C10) Document 02/02/19 03:00 IYW1667 (Rec: 02/02/19 03:36 ORO5534 ICU-C10) Document 02/02/19 04:00 GHF5408 (Rec: 02/02/19 04:30 OKS9906 ICU-C10) Document 02/02/19 05:00 YSG9161 (Rec: 02/02/19 05:46 EDZ1463 ICU-C10) Document 02/02/19 06:00 SQH4136 (Rec: 02/02/19 06:13 SNI6019 ICU-C10) Document 02/02/19 06:49 XNY3980 (Rec: 02/02/19 06:50 BWS3555 ICU-C10) Document 02/02/19 07:22 LRH9678 (Rec: 02/02/19 07:22 HEQ5064 ICU-C18) Document 02/02/19 08:47 HQN1505 (Rec: 02/02/19 08:48 GTC0022 ICU-C18) Document 02/02/19 09:39 WAN1354 (Rec: 02/02/19 09:40 AZB3452 ICU-C18) Document 02/02/19 10:55 MCD5990 (Rec: 02/02/19 10:55 OJM7250 ICU-C18) Document 02/02/19 11:29 AGK9270 (Rec: 02/02/19 11:29 LWL3258 ICU-C18) Document 02/02/19 12:48 EQF9728 (Rec: 02/02/19 12:48 [id number] ICU-C18) Document 02/02/19 13:38 [id number] (Rec: 02/02/19 13:38 TFI3750 ICU-C18) Document 02/02/19 15:00 GTH6933 (Rec: 02/02/19 15:13 OOS3230 ICU-C18) Document 02/02/19 16:00 YZA5719 (Rec: 02/02/19 16:03 [id number] ICU-C18) Eyes: - - restricted pupils, does not track Ears/Nose/Mouth/Throat: - - dry oral mucosa Neck: NL Appearance and Movements; NL JVP Cardiovascular: NL Sounds; No Murmurs; No JVD, RRR Abdominal: NL Sounds; No Tenderness; No Distention Extremities: No Edema, No Clubbing, Cyanosis, - Neurological: - - obtunded - Assessment Assessment: 78 yo male s/p L hip repair, new CVA with seizures - Plan Consult Plan (MU): Palliative Plan: Spoke with pt's daughter Loni who is HCP about goals of care. She said the plan is to see if pt wakes up and go from there. I discussed comfort care and hospice. Hospice information and brochure given. Pt could receive hospice at [facility]. Pt 9 months ago and talks about joining his . 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 Support offered and asked about elementary ell teacher visit but daughter declined. She cared for her father at home prior to [facility] and takes a bus from [place] to visit with him at [facility]. Hospice eligibility is based on stroke. KPS 30%, PPS 20% - Time On Unit Date of Evaluation: 02/02/19 Hospice Consult Time in: 15:30 Hospice Consult Time Out: 16:30 Hospice Consult Time Total: 60 > 50% of Time Spend In Counseling or Coordinating Care: Yes
[2019-02-02] MEDS: levETIRAcetam 1000MG IVPREMIX* 1,000 MG/100 ML BAG IVPB SCH (17:47)
--- NOTE | 2019-02-02 18:38 | PN ---
Progress Note - Progress Note Date of Service: 02/02/19 SOAP: Subjective: Reviewed ortho PA note and notes of all consulting services from today. Spoke with Dr. Armando this morning about the diagnosis of CVA, exact timing unclear. Seen by Palliative Care consult, Neurology, and Hospitalist. Objective: Patient sleeping, not arousable by voice. LLE: - Dressing c/d/i - DP/PT pulses intact, foot warm, CR < 2 sec Selected Entries 02/02/19 02/02/19 16:00 17:00 Temperature 97.6 F Heart Rate 96 Respiratory 20 Rate Blood Pressure 121/62 (mmHg) O2 Sat by Pulse 96 Oximetry Laboratory Tests 02/01/19 02/02/19 02/02/19 05:14 05:00 05:39 WBC 18.2 H 15.1 H 16.7 H Neut % (Auto) 78.3 80.4 79.3 POC Glucose (mg/dL) 02/02/19 17:06 WBC Neut % (Auto) POC Glucose (mg/dL) 232 H Assessment: POD 3 ORIF with IMN L intertroch/subtroch/femoral shaft fractures CVA with some accompanying seizure activity Plan: - Management of CVA, Hb/Hct, atrial fibrillation per Neuro & Hospitalist - Palliative Care has discussed plan of care - Ortho defers to these other services. Dressing change once every other day.
--- NOTE | 2019-02-02 20:57 | EEG ---
EXTENDED GREATER THAN 1-HOUR ELECTROENCEPHALOGRAPHY REPORT: DATE OF STUDY: 02/02/19 - ROOM #ICU-08 DATE READ: 02/02/19 ORDERED BY: Di Cano. MEDICATIONS: 1. Humalog. 2. Zosyn. 3. Keppra. 4. Levothyroxine. 5. Latus. 6. Morphine. DURATION: and then again . CLINICAL PROBLEM: Mr. Lechuga is a 78-year-old with advanced dementia who has an acute left parietal occipital stroke and altered mental status following a ORIF to the left hip. This EEG was obtained to evaluate for nonconvulsive status epilepticus. CLINICAL STATE: Encephalopathy due to seizures. The most prominent feature of this recording were non-conclusive status epilepticus pattern and stimulus induced rhythmic periodic ictal discharges. At 9793-2930 and again [id number], the EEG background showed high amplitude, diffuse, sharp epileptiform discharges with a frequency of 2-2.5 Hz intermixed with triphasic waves. The maximum negativity was seen in the frontal regions bilaterally. There were no clinical association with the discharge. Again intermittently, there were diffuse stimulus induced rhythmic periodic sharp ictal discharges seen every time the patient is physically stimulated. At that time, the background showed polymorphic, diffuse, sharp discharges without any clear evolution or propagation. The patient has no clinical correlation. Otherwise the waking background lacked organization clearly defined anterior- posterior voltage frequency gradients. There was no discernable posterior dominant rhythm. Instead the background consisted of diffuse medium amplitude polymorphic 2- 7 Hz delta and theta range slowing. There was emergence of some faster frequencies with verbal and tactile stimulation. Hyperventilation and photic stimulation were not performed. Single electrode EKG showed normal sinus rhythm with a rate of 90 - less than 100 beats per minute. There were burst of epileptiform discharges seen focal in the left temporal region, maximal at T5 with propagation and spreading to the occipital region and central region at O1 and C3. CLINICAL IMPRESSION: This is an abnormal EEG due to presence of: 1. Nonconvulsive status epilepticus pattern that resolved after levetiracetam therapy. 2. Stimulus induced rhythmic periodic or ictal discharges which is usually seen in the setting of an acute brain injury. 3. Diffuse slowing of the background which suggest a non-specific moderate diffuse encephalopathy most likely related to postictal state. 4. Burst of epileptiform discharges mostly in the left hemisphere at T5 and O1 suggest of an area of increased epileptogenic potential. [id number]/[facility] #: [id number] [facility] CENTERKurt
[2019-02-03] MEDS: levETIRAcetam 1000MG IVPREMIX* 1,000 MG/100 ML BAG IVPB SCH ×3 (00:32→17:32)
[2019-02-03] MEDS: Insulin LISPRO* 1 UNITS UNIT SUBCUT SCH ×7 (02:51→23:42)
[2019-02-03] MEDS: D5W 1/2 NS KCl 20 Meq 1000 ML* 1,000 ML IV SCH (04:04)
[2019-02-03 04:37] LABS: Hematocrit 20 % (42-52); Hemoglobin 6.5 g/dL (14.0-18.0); Mean Corpuscular HGB Conc 33 g/dL (31-36); Mean Corpuscular Hemoglobin 29 pg (27-31); Mean Corpuscular Volume 89 fL (80-94); Mean Platelet Volume 9.7 fL (7.4-10.4); Platelet Count 227 10^3/uL (150-450); Red Cell Distribution Width 15 % (10-15); White Blood Count 12.9 10^3/uL (3.5-10.8)
[2019-02-03 04:41] LABS: BUN/Creatinine Ratio 31.1 (8-20); Blood Urea Nitrogen 28 mg/dL (6-24); CO2 Carbon Dioxide 23 mmol/L (22-32); Calcium 7.8 mg/dL (8.6-10.3); EGFR Non-African American 81.8 (>60); Glucose 205 mg/dL (70-100); Sodium 143 mmol/L (135-145)
[2019-02-03 04:44] LABS: Chloride 113 mmol/L (101-111)
[2019-02-03 04:46] LABS: Anion Gap 7 mmol/L (2-11)
[2019-02-03] MEDS: ZOSYN 3.375 GM Q8H per EXTENDED INFUSION IVPB SCH ×6 (05:08→22:19)
[2019-02-03] MEDS: Levothyroxine INJ* 100 MCG/5 ML VIAL IV SCH (05:08)
[2019-02-03] MEDS: Aspirin SUPP* 300 MG PR SCH (08:15)
[2019-02-03] MEDS: Morphine INJ* 4 MG/ML 1 ML SYRINGE (NEW SYRINGE VERSION) IV PRN ×2 (08:27→13:59)
[2019-02-03] MEDS: Insulin GLARGINE(*) 1 UNITS UNIT SUBCUT SCH (08:42)
--- NOTE | 2019-02-03 08:45 | PN ---
Subjective Date of Service: 02/03/19 Interval History: Patient seen and examined. Per overnight notes, patient opened eyes to his name , but not doing that this morning. Remains non-responsive to verbal or tactile stimuli. Unable to to obtain ROS. Chart reviewed in detail. Objective Active Medications: Acetaminophen (Tylenol Tab*) 650 mg PO Q4H PRN PRN Reason: MILD PAIN or TEMP > 100.4 Acetaminophen (Tylenol Supp*) 650 mg IL Q4H PRN PRN Reason: TEMPERATURE > 100.4 Al Hydrox/Mg Hydrox/Simethicone (Maalox Plus*) 30 ml PO Q6H PRN PRN Reason: INDIGESTION Aspirin (Asa Supp*) 300 mg [place] DAILY [facility] Last Admin: 02/03/19 08:15 Dose: 300 mg Dextrose (Dextrose 50% Vial 50 Ml*) 25 ml IV PUSH .FOR FS < 60 - SS PRN PRN Reason: FS < 60 Piperacillin Sod/Tazobactam (Sod 3.375 gm/ Sodium Chloride) 100 mls @ 25 mls/ hr IVPB Q8HR [facility] Last Admin: 02/03/19 05:08 Dose: 25 mls/hr Levetiracetam (Keppra Iv Premix*) 1,000 mg in 100 mls @ 200 mls/hr IVPB Q8H [facility] Last Admin: 02/03/19 08:32 Dose: 200 mls/hr Insulin Glargine (Lantus(*)) 20 units SUBCUT Q24H [facility] Last Admin: 02/02/19 09:12 Dose: 20 units Insulin Human Lispro (Humalog*) 0 units SUBCUT Q4H [facility]; Protocol Levothyroxine Sodium (Synthroid Inj*) 25 mcg IV 0600 [facility] Last Admin: 02/03/19 05:08 Dose: 25 mcg Morphine Sulfate (Morphine Inj (Syringe)*) 1 mg IV Q2H PRN PRN Reason: PAIN - SEVERE Last Admin: 02/03/19 08:27 Dose: 1 mg Ondansetron HCl (Zofran Inj*) 4 mg IV Q4H PRN PRN Reason: NAUSEA/VOMITING Pharmacy Consult (Zosyn Per Pharmacy*) 1 note FOLLOW UP .ZOSYN PER PHARMACY [facility] Vital Signs - 8 hr 02/03/19 02/03/19 02/03/19 00:45 00:58 01:15 Temperature Pulse Rate 96 97 Respiratory 21 22 23 Rate Blood Pressure 119/60 111/64 (mmHg) O2 Sat by Pulse 96 95 Oximetry 02/03/19 02/03/19 02/03/19 01:31 01:45 02:00 Temperature Pulse Rate 99 99 99 Respiratory 24 23 24 Rate Blood Pressure 131/67 120/64 117/60 (mmHg) O2 Sat by Pulse 95 94 94 Oximetry 02/03/19 02/03/19 02/03/19 02:15 02:30 02:45 Temperature Pulse Rate 97 99 101 Respiratory 23 20 23 Rate Blood Pressure 127/72 145/64 137/78 (mmHg) O2 Sat by Pulse 94 94 93 Oximetry 02/03/19 02/03/19 02/03/19 03:00 03:15 03:30 Temperature Pulse Rate 98 100 Respiratory 22 24 23 Rate Blood Pressure 131/62 128/56 (mmHg) O2 Sat by Pulse 94 95 Oximetry 02/03/19 02/03/19 02/03/19 03:33 03:45 04:00 Temperature 99.2 F Pulse Rate 101 103 Respiratory 23 26 Rate Blood Pressure 134/65 144/71 (mmHg) O2 Sat by Pulse 95 95 Oximetry 02/03/19 02/03/19 02/03/19 04:15 04:31 04:45 Temperature Pulse Rate 95 102 104 Respiratory 26 27 25 Rate Blood Pressure 143/67 131/50 140/70 (mmHg) O2 Sat by Pulse 95 95 95 Oximetry 02/03/19 02/03/19 02/03/19 05:00 05:15 05:30 Temperature Pulse Rate 100 103 106 Respiratory 27 27 30 Rate Blood Pressure 153/69 151/74 157/69 (mmHg) O2 Sat by Pulse 96 94 97 Oximetry 02/03/19 02/03/19 02/03/19 05:45 06:00 06:15 Temperature Pulse Rate 103 102 103 Respiratory 28 27 28 Rate Blood Pressure 117/68 145/64 144/70 (mmHg) O2 Sat by Pulse 94 95 96 Oximetry 02/03/19 02/03/19 02/03/19 06:30 06:42 06:45 Temperature Pulse Rate 102 103 Respiratory 26 22 30 Rate Blood Pressure 124/65 153/60 (mmHg) O2 Sat by Pulse 94 96 Oximetry 02/03/19 02/03/19 02/03/19 07:00 07:59 08:27 Temperature 99.4 F Pulse Rate 103 Respiratory 25 25 Rate Blood Pressure 145/70 (mmHg) O2 Sat by Pulse 94 Oximetry Oxygen Devices in Use Now: OxyMask Appearance: obtunded, non-responsive Eyes: - - sluggish pupils, does not track, Ears/Nose/Mouth/Throat: - - dry oral mucosa Neck: NL Appearance and Movements; NL JVP Respiratory: - - accessory muscle use, belly breathing, poor air entry, bilateral wheeze Cardiovascular: - - irregular Extremities: - - generalized non-pitting edema Neurological: - - obtunded, no appreciable response Nutrition: - - NPO Result Diagrams: 02/03/19 04:13 02/03/19 05:05 Additional Lab and Data: Lab Results 01/28/19 01/28/19 Range/Units 07:35 07:35 WBC 8.3 (3.5-10.8) 10^3/uL RBC 4.22 (4.18-5.48) 10^6 /uL Hgb 12.7 L (14.0-18.0) g/dL Hct 37 L (42-52) % MCV 88 (80-94) fL MCH 30 (27-31) pg MCHC 35 (31-36) g/dL RDW 14 (10-15) % Plt Count 207 (150-450) 10^3/uL MPV 10.1 (7.4-10.4) fL Neut % (Auto) 68.7 % Lymph % (Auto) 19.1 % [place] % (Auto) 7.6 % Eos % (Auto) 3.5 % Baso % (Auto) 1.1 % Absolute Neuts (auto) 5.7 (1.5-7.7) 10^3/ul Absolute Lymphs (auto) 1.6 (1.0-4.8) 10^3/ul Absolute Monos (auto) 0.6 (0-0.8) 10^3/ul Absolute Eos (auto) 0.3 (0-0.6) 10^3/ul Absolute Basos (auto) 0.1 (0-0.2) 10^3/ul Absolute Nucleated RBC 0.0 10^3/ul Nucleated RBC % 0.0 INR (Anticoag Therapy) 1.00 (0.82-1.09) Microbiology and Other Data: Microbiology 01/31/19 13:40 Urine Culture - Final Urine Enterobacter Cloacae 02/01/19 06:20 Aerobic Blood Culture - Preliminary Blood Venous No Growth Day 1 Anaerobic Blood Culture - Preliminary No Growth Day 1 02/01/19 05:14 Aerobic Blood Culture - Preliminary Blood Venous No Growth Day 1 Anaerobic Blood Culture - Preliminary No Growth Day 1 Assess/Plan/Problems-Billing Mr Lechuga is a 78 yo M who has a h/o dementia, afib, CAD, frequent falls, HTN , Type II DM and hypothyroidism who presented to the ER from [facility] with c/o L hip pain after a fall and was found to have a L hip fracture. - Patient Problems (1) Acute left ROAD COMMISSIONER stroke Code(s): I63.532 - CEREB INFRC D/T UNSP OCCLS OR STENOS OF LEFT POST CEREB ART SNOMED Code(s): 647286199 Comment: - Post op course complicated by acute/subacute ROAD COMMISSIONER infarct and status seizures - Not a candidate for TPA, Telestroke did not recommend transfer and intervention - Continue keppra loading per neuro recommendations - Continue neuro checks, poorly responsive at this time - Unable to complete swallow eval, as patient remains non-responsive and cannote follow commands, palliative consult pending - Prognosis likely poor given comorbid conditions but will continue active care - Per neuro, repeat EEG this morning (2) Edema Code(s): R60.9 - EDEMA, UNSPECIFIED SNOMED Code(s): 807604904 Comment: - Increase in generalized edema today and does appear to have increased WOB as well - Obtain portable CXR, may need diuresis - Hold IVF, consider lasix today (3) Closed left hip fracture Code(s): S72.002A - FRACTURE OF UNSP PART OF NECK OF LEFT FEMUR, INIT SNOMED Code(s): 324461826 Comment: - 2/2 Mechanical fall - s/p L hip pinning 01/30 - Post-op drop in H&H, will transfuse 1 unit PRBCs today with goal H&H >8/28 (4) Atrial fibrillation Code(s): I48.91 - UNSPECIFIED ATRIAL FIBRILLATION SNOMED Code(s): 88656699 Comment: - Hx of afib in the past on eliquis and had RVR requiring cardizem IV push on 01/31, rate now well controlled in the 90's, but unclear if patient will be able to take PO meds in the near future (5) Dementia Code(s): F03.90 - UNSPECIFIED DEMENTIA WITHOUT BEHAVIORAL DISTURBANCE SNOMED Code(s): 80261295 Comment: - Pt with behavioral disturbances prior to stroke - Continue olanzapine at bedtime if needed, however patient is currently not responding (6) Diabetes Code(s): E11.9 - TYPE 2 DIABETES MELLITUS WITHOUT COMPLICATIONS SNOMED Code(s) : 05249157 Comment: - Lantus to 16 U bid, continue Lispro SS - Continue to hold metformin, may need to stop long-acting if patient unable to eat/swallow - Has been on D5 1/2 NS infusion, appears volume overloaded today, will hold fluids for now and continue to check glucose, may need low volume D10 if unable to eat (7) Hypothyroid Code(s): E03.9 - HYPOTHYROIDISM, UNSPECIFIED SNOMED Code(s): 42314622 Comment: - levothyroxine 50 mcg daily (8) DVT prophylaxis Code(s): COB4836 - SNOMED Code(s): 238439535 Comment: - SQ heparin (9) DNR (do not resuscitate) Status and Disposition: Inpatient, prognosis: poor/guarded. Should continue discussions regarding goals of care with family. If patient is unable to swallow, prognosis remains exceptionally poor. Critical Care Time: 60 minutes.
--- NOTE | 2019-02-03 10:29 | PN ---
Subjective Date of Service: 02/03/19 Length of Stay: 6 Days Neurology is following Mr. Lechuga for the evaluation and management recommendation for stroke and seizures. Interval History: The patient was reported to open his eyes by the bedside nurse. He moaned in pain when he was positioned. He was unable to communicate with staff. He did not open his eyes this morning, but grimaced when his extremities were moved. EEG today: no electrographic seizures. He has abundant triphasic waves which suggests underlying metabolic encephalopathy or epileptic encephalopathy. There were occasional epileptiform discharges in the right temporal and left central regions which suggests multifocal areas of increased epileptiform potentials (increase risk for seizures). Reviewed palliative consultation. The patient meets criteria for hospice. Review of Systems: The patient cannot participate in a ROS. Objective Active Medications: Acetaminophen (Tylenol Tab*) 650 mg PO Q4H PRN PRN Reason: MILD PAIN or TEMP > 100.4 Acetaminophen (Tylenol Supp*) 650 mg ND Q4H PRN PRN Reason: TEMPERATURE > 100.4 Al Hydrox/Mg Hydrox/Simethicone (Maalox Plus*) 30 ml PO Q6H PRN PRN Reason: INDIGESTION Aspirin (Asa Supp*) 300 mg ND DAILY [facility] Last Admin: 02/03/19 08:15 Dose: 300 mg Dextrose (Dextrose 50% Vial 50 Ml*) 25 ml IV PUSH .FOR FS < 60 - SS PRN PRN Reason: FS < 60 Piperacillin Sod/Tazobactam (Sod 3.375 gm/ Sodium Chloride) 100 mls @ 25 mls/ hr IVPB Q8HR [facility] Last Admin: 02/03/19 05:08 Dose: 25 mls/hr Levetiracetam (Keppra Iv Premix*) 1,000 mg in 100 mls @ 200 mls/hr IVPB Q8H [facility] Last Admin: 02/03/19 08:32 Dose: 200 mls/hr Insulin Glargine (Lantus(*)) 20 units SUBCUT Q24H [facility] Last Admin: 02/03/19 08:42 Dose: 20 units Insulin Human Lispro (Humalog*) 0 units SUBCUT Q4H [facility]; Protocol Last Admin: 02/03/19 08:42 Dose: 6 units Levothyroxine Sodium (Synthroid Inj*) 25 mcg IV 0600 [facility] Last Admin: 02/03/19 05:08 Dose: 25 mcg Morphine Sulfate (Morphine Inj (Syringe)*) 1 mg IV Q2H PRN PRN Reason: PAIN - SEVERE Last Admin: 02/03/19 08:27 Dose: 1 mg Ondansetron HCl (Zofran Inj*) 4 mg IV Q4H PRN PRN Reason: NAUSEA/VOMITING Pharmacy Consult (Zosyn Per Pharmacy*) 1 note FOLLOW UP .ZOSYN PER PHARMACY [facility] Vital Signs 02/03/19 02/03/19 02/03/19 08:15 08:27 08:40 Temperature Pulse Rate 100 97 Respiratory 24 25 21 Rate Blood Pressure 135/70 143/65 (mmHg) O2 Sat by Pulse 94 96 Oximetry 02/03/19 09:00 Temperature Pulse Rate 100 Respiratory 24 Rate Blood Pressure 148/72 (mmHg) O2 Sat by Pulse 96 Oximetry Intake and Output Last 24 Hours 02/01/19 02/02/19 02/03/19 02/04/19 06:59 06:59 06:59 06:59 Intake Total 2052 2588 3803 1603 Output Total 925 1325 1800 176 Balance 1127 1263 2003 1427 Weight 231 lb 14.177 oz 256 lb 9.889 oz Intake: IV Fluids 1891 2479 3503 1503 ABX - CEFAZOLIN 50 D5W 1/2 NS 20 meq KCL 1625 3375 1503 Keppra 15 LR 1891 804 Zosyn 113 IVPB 161 109 300 100 ABX - CEFAZOLIN 161 D5W 1/2 NS 20 meq KCL 100 Keppra 100 Zosyn 109 200 Oral 0 0 0 Output: Urine 100 25 [place] 825 1300 1800 176 Other: # Bowel Movements 0 Oxygen Devices in Use Now: OxyMask Neurology Exam: Objective: NIHSS: 35 General: ill appearing elderly man who appears older than stated age. He is pale. HEENT: normocephalic, without obvious abnormality. Conjunctivae/corneas clear. Lungs: tachyapnea. No rales or rhonchi. CV: holosystolic murmur Psych: n/a Neurological examination: Mental status: sleeping. Eyes closed. Does not wake to verbal or noxious command. Cranial nerves: Pinpoint pupils that are sluggishly reactive. No facial asymmetry. Gag intact. Motor (R/L): Grimaced to noxious stimuli. He did not withdraw. Reflexes: trace throughout Sensation: n/a Coordination: n/a Gait & Station: n/a Result Diagrams: 02/03/19 04:13 02/03/19 05:05 Additional Lab and Data: Lab Results 01/28/19 01/28/19 Range/Units 07:35 07:35 WBC 8.3 (3.5-10.8) 10^3/uL RBC 4.22 (4.18-5.48) 10^6 /uL Hgb 12.7 L (14.0-18.0) g/dL Hct 37 L (42-52) % MCV 88 (80-94) fL MCH 30 (27-31) pg MCHC 35 (31-36) g/dL RDW 14 (10-15) % Plt Count 207 (150-450) 10^3/uL MPV 10.1 (7.4-10.4) fL Neut % (Auto) 68.7 % Lymph % (Auto) 19.1 % [place] % (Auto) 7.6 % Eos % (Auto) 3.5 % Baso % (Auto) 1.1 % Absolute Neuts (auto) 5.7 (1.5-7.7) 10^3/ul Absolute Lymphs (auto) 1.6 (1.0-4.8) 10^3/ul Absolute Monos (auto) 0.6 (0-0.8) 10^3/ul Absolute Eos (auto) 0.3 (0-0.6) 10^3/ul Absolute Basos (auto) 0.1 (0-0.2) 10^3/ul Absolute Nucleated RBC 0.0 10^3/ul Nucleated RBC % 0.0 INR (Anticoag Therapy) 1.00 (0.82-1.09) Microbiology and Other Data: Microbiology 01/31/19 13:40 Urine Culture - Final Urine Enterobacter Cloacae 02/01/19 06:20 Aerobic Blood Culture - Preliminary Blood Venous No Growth Day 1 Anaerobic Blood Culture - Preliminary No Growth Day 1 02/01/19 05:14 Aerobic Blood Culture - Preliminary Blood Venous No Growth Day 1 Anaerobic Blood Culture - Preliminary No Growth Day 1 Assessment/Plan Assessment: 1. 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 Not currently having clinical or electrographic seizures. 2. Stimulus-induced rhythmic, periodic, or ictal discharges (SIRPID). This is commonly elicited by stimulation in critically ill, encephalopathic patients. Majority of these patients have associated clinical and nonclinical status epilepticus. 3. Triphasic waves on EEG suggestive of a metabolic encephalopathy, mostly seen with hepatic encephalopathy. Other differential diagnosis includes epileptic encephalopathy. The frequency of the triphasic waves is not consistent with non -convulsive status epilepticus. 3. Acute left MACHINE STACKER-MCA vascular territory watershed infarction due to hypotension and severe anemia. 4. Left hip fracture s/p pinning. 5. Hyperammonemia and hyperglycemia. Both can be contributing to the patient's encephalopathy. 6. History of advanced dementia, wheelchair bound, fell over 10 times within two months. Plan: - Continue levetiracetam 1,000 mg IV every 8 hours - Pending levetiracetam level - Obtain repeat ammonia level. He may need lactulose to see if the triphasic waves improve. - Repeat an EEG tomorrow morning. - Transfuse at least 1 unit of PRBCs to keep the hemoglobin above 7 in the setting of an acute stroke - Keep SBP above 120 mmHg - Restart anti-thrombotic therapy once the hemoglobin stabilizes. No need for statin therapy given the patient's overall condition and prognosis. - Prognosis: guarded. - Discuss goals of care with family. I will continue to follow.
--- NOTE | 2019-02-03 12:48 | EEG ---
ELECTROENCEPHALOGRAPHY REPORT: DATE OF SERVICE: 02/03/19 ORDERED BY: Dr. Sophia Li. INDICATION: Mr. Lechuga is a 78-year-old man who has left MCA-RN PARALEGAL stroke complicated by nonconvulsive status epilepticus. This EEG was obtained to rule out any ongoing non-convulsive status epilepticus. MEDICATIONS: 1. Humalog. 2. Zosyn. 3. Keppra. 4. Levothyroxine. 5. Latus. 6. Morphine. CLINICAL STATE: Encephalopathic. REPORT: The most prominent feature of this recording were abundant, sharply contoured triphasic waves that are frontally predominant with an anterior to posterior lag. The waves were diffuse, but also were seen independent in the right and left hemisphere. The frequency is approximately 1-1.5 Hz at times. Also, there were sharp and slow wave epileptiform discharges seen multifocal in the right sikhism, maximal at T6 and the left central, maximal at C3. There were no evolution of the discharges to suspect underlying electrographic seizures. Overall the background lacked organization are clearly defined anterior posterior voltage and frequency gradients. There was no discernable posterior dominant rhythm. Instead the background consisted of diffuse medium amplitude polymorphic 2- 6 Hz delta and theta range slowing. There was some emergence of faster frequencies with verbal and tactile stimulation. Hyperventilation and photic stimulation were not performed. Single electrode EKG showed a sinus tachycardia with a rate of 100 beats per minute. CLINICAL IMPRESSION: This is an abnormal EEG in an unresponsive patient due to the followin. Abundant triphasic waves that are frontally predominant, diffusely seen, but also independent, with an anterior to posterior lag. This finding is typically associated with metabolic encephalopathy, especially hepatic encephalopathy. However, triphasic waves also can be seen with epileptic encephalopathies. The blunted appearance, symmetry, and the frequency are less likely to be a pattern of nonconvulsive status epilepticus. 2. Multifocal sharp and slow wave epileptiform discharge is maximally seen at the right temporal and left central region. These are suggestive of an increased epileptogenic potentials emanating from that area. Nonconvulsive status epilepticus was not seen during this recording. [id number]/CPS #: [id number] MTDD
--- NOTE | 2019-02-03 16:28 | PN ---
Progress Note - Progress Note Date of Service: 02/03/19 SOAP: Subjective: []Pt seen and examined at bedside. He remains unresponsive. Objective: []Gen: Laying in bed in no obvious distress, oxymask O2 breathing spontaneously , did groan when rolled to change the dressing LLE: Dressing changed, incision is CDI without discharge and without surrounding erythema, extremity is warm, thigh is soft, 2+ DP pulse. Calves supple without erythema or palpable cords. BL LE edematous Assessment: [] POD 4 sp ORIF L hip and femur fractures Acute left CHIPPER OPERATOR-MCA vascular territory watershed infarction Plan: [] - TTWB LLE - Management of CVA, Hb/Hct, atrial fibrillation per Neuro & Hospitalist - Palliative Care has discussed plan of care - Dressing change once every other day last changed 02/03 Laboratory Last Values WBC 12.9 10^3/uL (3.5-10.8) H 02/03/19 04:13 RBC 2.20 10^6 /uL (4.18-5.48) L 02/03/19 04:13 Hgb 6.5 g/dL (14.0-18.0) L 02/03/19 04:13 Hct 20 % (42-52) L 02/03/19 04:13 MCV 89 fL (80-94) 02/03/19 04:13 MCH 29 pg (27-31) 02/03/19 04:13 MCHC 33 g/dL (31-36) 02/03/19 04:13 RDW 15 % (10-15) 02/03/19 04:13 Plt Count 227 10^3/uL (150-450) 02/03/19 04:13 MPV 9.7 fL (7.4-10.4) 02/03/19 04:13 Neut % (Auto) 79.3 % 02/02/19 05:39 Lymph % (Auto) 8.7 % 02/02/19 05:39 [place] % (Auto) 10.9 % 02/02/19 05:39 Eos % (Auto) 0.8 % 02/02/19 05:39 Baso % (Auto) 0.3 % 02/02/19 05:39 Absolute Neuts (auto) 13.2 10^3/ul (1.5-7.7) H 02/02/19 05:39 Absolute Lymphs (auto) 1.4 10^3/ul (1.0-4.8) 02/02/19 05:39 Absolute Monos (auto) 1.8 10^3/ul (0-0.8) H 02/02/19 05:39 Absolute Eos (auto) 0.1 10^3/ul (0-0.6) 02/02/19 05:39 Absolute Basos (auto) 0.1 10^3/ul (0-0.2) 02/02/19 05:39 Absolute Nucleated RBC 0.0 10^3/ul 02/02/19 05:39 Nucleated RBC % 0.1 02/02/19 05:39 INR (Anticoag Therapy) 1.09 (0.82-1.09) 01/29/19 06:02 APTT 31.1 seconds (26.0-38.0) 01/29/19 12:26 ABG pH 7.49 (7.35-7.45) H 01/31/19 10:15 ABG pCO2 26 mmHg (35-45) L 01/31/19 10:15 ABG pO2 72 mmHg (80-100) L 01/31/19 10:15 ABG HCO3 23.2 mmol/L (19-31) 01/31/19 10:15 ABG O2 Saturation 97.6 % (94.0-98.0) 01/31/19 10:15 ABG Base Excess -2.1 mmol/L (-2.0-2.0) L 01/31/19 10:15 Sodium 143 mmol/L (135-145) 02/03/19 04:13 Potassium 3.6 mmol/L (3.5-5.0) 02/03/19 05:05 Chloride 113 mmol/L (101-111) H 02/03/19 04:13 Carbon Dioxide 23 mmol/L (22-32) 02/03/19 04:13 Anion Gap 7 mmol/L (2-11) 02/03/19 04:13 BUN 28 mg/dL (6-24) H 02/03/19 04:13 Creatinine 0.90 mg/dL (0.67-1.17) 02/03/19 04:13 Est GFR ( Amer) 99.0 (>60) 02/03/19 04:13 Est GFR (Non-Af Amer) 81.8 (>60) 02/03/19 04:13 BUN/Creatinine Ratio 31.1 (8-20) H 02/03/19 04:13 Glucose 138 mg/dL (70-100) H 02/03/19 11:44 POC Glucose (mg/dL) 249 mg/dL (70-100) H 02/03/19 08:31 Hemoglobin A1c 9.4 % (4.0-5.6) H 01/29/19 06:02 Lactic Acid 1.6 mmol/L (0.5-2.0) 02/01/19 05:14 Calcium 7.8 mg/dL (8.6-10.3) L 02/03/19 04:13 Total Bilirubin 0.60 mg/dL (0.2-1.0) 01/28/19 07:35 AST 15 U/L (13-39) 01/28/19 07:35 ALT 21 U/L (7-52) 01/28/19 07:35 Alkaline Phosphatase 89 U/L (34-104) 01/28/19 07:35 Ammonia 62 mcmol/L (16-53) H 02/03/19 11:44 Troponin I 0.01 ng/mL (<0.03) 01/28/19 11:37 Total Protein 7.1 g/dL (6.4-8.9) 01/28/19 07:35 Albumin 4.1 g/dL (3.2-5.2) 01/28/19 07:35 Globulin 3.0 g/dL (2-4) 01/28/19 07:35 Albumin/Globulin Ratio 1.4 (1-3) 01/28/19 07:35 Urine Color Pam 01/31/19 13:40 Urine Appearance Clear 01/31/19 13:40 Urine pH 6.0 (5-9) 01/31/19 13:40 Ur Specific [place] 1.020 (1.010-1.030) 01/31/19 13:40 Urine Protein 1+(30 mg/dl) (Negative) A 01/31/19 13:40 Urine Ketones Negative (Negative) 01/31/19 13:40 Urine Blood 1+ (Negative) A 01/31/19 13:40 Urine Nitrate Negative (Negative) 01/31/19 13:40 Urine Bilirubin Negative (Negative) 01/31/19 13:40 Urine Urobilinogen Negative (Negative) 01/31/19 13:40 Ur Leukocyte Esterase Negative (Negative) 01/31/19 13:40 Urine WBC (Auto) Trace(0-5/hpf) (Absent) 01/31/19 13:40 Urine RBC (Auto) Trace(0-2/hpf) (Absent) 01/31/19 13:40 Urine Bacteria Absent (Absent) 01/31/19 13:40 Hyaline Casts Present (Absent) A 01/31/19 13:40 Urine Glucose 2+(150 mg/dl) (Negative) A 01/31/19 13:40 Levetiracetam 26.4 mcg/mL 02/02/19 10:53 Blood Type A Positive 02/02/19 13:35 Antibody Screen Negative 02/02/19 13:35 Crossmatch See Detail 02/02/19 13:35 Temp Pulse Resp BP Pulse Ox 97.9 F 95 17 122/70 97 02/03/19 15:15 02/03/19 16:00 02/03/19 16:00 02/03/19 16:00 02/03/19 16:00
[2019-02-04] MEDS: levETIRAcetam 1000MG IVPREMIX* 1,000 MG/100 ML BAG IVPB SCH ×3 (01:41→16:29)
[2019-02-04] MEDS: Insulin LISPRO* 1 UNITS UNIT SUBCUT SCH ×2 (04:27→08:56)
[2019-02-04] MEDS: ZOSYN 3.375 GM Q8H per EXTENDED INFUSION IVPB SCH ×6 (06:33→23:12)
[2019-02-04] MEDS: Levothyroxine INJ* 100 MCG/5 ML VIAL IV SCH (06:37)
--- NOTE | 2019-02-04 07:30 | PN ---
Subjective Date of Service: 02/04/19 Interval History: HOSPITALIST PROGRESS NOTE Patient seen and examined at bedside. Care reviewed and d/w Connie Kramer RN. He is tachypneic, using accessory muscles, appears to be uncomfortable. Does not open eyes when called or touched. Family History: Unchanged from Admission Social History: Unchanged from Admission Past Medical History: Unchanged from Admission Objective Active Medications: Acetaminophen (Tylenol Supp*) 650 mg SC Q4H PRN PRN Reason: TEMPERATURE > 100.4 Al Hydrox/Mg Hydrox/Simethicone (Maalox Plus*) 30 ml PO Q6H PRN PRN Reason: INDIGESTION Dextrose (Dextrose 50% Vial 50 Ml*) 25 ml IV PUSH .FOR FS < 60 - SS PRN PRN Reason: FS < 60 Piperacillin Sod/Tazobactam (Sod 3.375 gm/ Sodium Chloride) 100 mls @ 25 mls/ hr IVPB Q8HR [facility] Last Admin: 02/04/19 06:33 Dose: 25 mls/hr Levetiracetam (Keppra Iv Premix*) 1,000 mg in 100 mls @ 200 mls/hr IVPB Q8H [facility] Last Admin: 02/04/19 01:41 Dose: 200 mls/hr Insulin Glargine (Lantus(*)) 20 units SUBCUT Q24H [facility] Last Admin: 02/03/19 08:42 Dose: 20 units Insulin Human Lispro (Humalog*) 0 units SUBCUT Q4H [facility]; Protocol Last Admin: 02/04/19 04:27 Dose: 2 units Levothyroxine Sodium (Synthroid Inj*) 25 mcg IV 0600 [facility] Last Admin: 02/04/19 06:37 Dose: 25 mcg Morphine Sulfate (Morphine Inj (Syringe)*) 1 mg IV Q2H PRN PRN Reason: PAIN - SEVERE Last Admin: 02/03/19 13:59 Dose: 1 mg Ondansetron HCl (Zofran Inj*) 4 mg IV Q4H PRN PRN Reason: NAUSEA/VOMITING Pharmacy Consult (Zosyn Per Pharmacy*) 1 note FOLLOW UP .ZOSYN PER PHARMACY [facility] Vital Signs - 8 hr 02/03/19 02/04/19 02/04/19 23:44 00:00 00:55 Temperature 98.6 F Pulse Rate 94 90 Respiratory 25 17 Rate Blood Pressure 127/64 (mmHg) O2 Sat by Pulse 95 95 Oximetry 02/04/19 02/04/19 02/04/19 03:37 04:00 06:23 Temperature 98.7 F 97.1 F Pulse Rate 90 88 Respiratory 20 20 Rate Blood Pressure 127/71 128/64 (mmHg) O2 Sat by Pulse 96 98 Oximetry Oxygen Devices in Use Now: Nasal Cannula Appearance: Elderly gentleman lying in bed in mild to moderate respiratory distress Eyes: No Scleral Icterus Ears/Nose/Mouth/Throat: Mucous Membranes Moist Neck: Trachea Midline Respiratory: Symmetrical Chest Expansion and Respiratory Effort, - - BS+ bilaterally with scattered wheeze, accessory muscle use Cardiovascular: RRR - Normal S1 and S2 Abdominal: NL Sounds; No Tenderness; No Distention - obese Neurological: - - Unresponsive Result Diagrams: 02/03/19 04:13 02/03/19 05:05 Assess/Plan/Problems-Billing Assessment: Mr Lechuga is a 78 yo M who has a h/o dementia, afib, CAD, frequent falls, HTN , Type II DM and hypothyroidism who presented to the ER from [facility] with c/o L hip pain after a fall and was found to have a L hip fracture. Hospital stay complicated with CVA, seizures, respiratory failure. - Patient Problems (1) Acute left [employer] stroke Comment: - Post op course complicated by acute/subacute [employer] infarct and seizures - Prognosis is poor given comorbid conditions. D/w daughter at bedside and family is interested in Hospice. (2) Diabetes Comment: - No PO intake - as goal now is for comfort, will d/c FS and insulin. His glucose has been below 200. (3) Atrial fibrillation Comment: - Patient has h/o Afib and required IV Cardizem while in ICU. - Sounds regular today with HR in the 90s. (4) Closed left hip fracture Comment: - Secondary to mechanical fall, s/p L hip pinning 01/30. (5) DNR (do not resuscitate) (6) Comfort measures only status Comment: - D/w daughter at bedside - patient did not want any aggressive measures. He would not like feeding tubes, artificial nutrition. February 06 is the anniversary of his passing and family thinks he'll pass then. - Will start Morphine, Lorazepam, and Atropine for comfort. - Hospice consult requested. Status and Disposition: Inpatient. Comfort care. Support provided to daughter at bedside.
[2019-02-04 08:34] VITALS: BP 150/61
[2019-02-04] MEDS: Insulin GLARGINE(*) 1 UNITS UNIT SUBCUT SCH (08:57)
[2019-02-04] MEDS ORDERED: LORazepam TAB(*) 1 MG SL PRN (10:11)
[2019-02-04] MEDS ORDERED: Morphine INJ* 4 MG/ML 1 ML SYRINGE (NEW SYRINGE VERSION) IV ONE (10:13)
[2019-02-04] MEDS: Morphine ORAL CONCENTRATE* 5 MG/0.25 ML ORAL.SYRIN SL PRN ×2 (13:20→16:12)
--- NOTE | 2019-02-04 15:36 | PN ---
Progress Note - Progress Note Date of Service: 02/04/19 SOAP: Subjective: []Pt seen at bedside. He is unresponsive, continues to breath spontaneously. Objective: [] Gen: Laying in bed moderate respiratory distress, oxymask O2 LLE: Dressing CDI without discharge and without surrounding erythema, extremity is warm, thigh is soft, 2+ DP pulse. Calves supple without erythema or palpable cords. BL LE edematous Assessment: [] POD 6 sp ORIF L hip and femur fractures Acute left SKI PATROL-MCA vascular territory watershed infarction Plan: [] - TTWB LLE - Management of CVA, Hb/Hct, atrial fibrillation per Neuro & Hospitalist - Palliative Care - Dressing change once every other day last changed 02/03 Vital Signs Temp 97.7 F 02/04/19 08:15 Pulse 93 02/04/19 08:15 Resp 24 02/04/19 13:20 BP 150/61 02/04/19 08:15 Pulse Ox 99 02/04/19 08:15 Intake & Output 02/03/19 02/04/19 02/04/19 18:59 06:59 18:59 Intake Total 1879 195 0 Output Total 640 796 6863 Balance 1283 -660 -1020 Intake: IV Fluids 1565 D5W 1/2 NS 20 meq KCL 1503 Zosyn 62 IVPB 314 195 D5W 1/2 NS 20 meq KCL 100 Keppra 98 Zosyn 214 97 Oral 0 Output: Cal[place] 995 222 6920 Other: # Bowel Movements 0 Laboratory Last Values WBC 12.9 10^3/uL (3.5-10.8) H 02/03/19 04:13 RBC 2.20 10^6 /uL (4.18-5.48) L 02/03/19 04:13 Hgb 6.5 g/dL (14.0-18.0) L 02/03/19 04:13 Hct 20 % (42-52) L 02/03/19 04:13 MCV 89 fL (80-94) 02/03/19 04:13 MCH 29 pg (27-31) 02/03/19 04:13 MCHC 33 g/dL (31-36) 02/03/19 04:13 RDW 15 % (10-15) 02/03/19 04:13 Plt Count 227 10^3/uL (150-450) 02/03/19 04:13 MPV 9.7 fL (7.4-10.4) 02/03/19 04:13 Neut % (Auto) 79.3 % 02/02/19 05:39 Lymph % (Auto) 8.7 % 02/02/19 05:39 [facility] % (Auto) 10.9 % 02/02/19 05:39 Eos % (Auto) 0.8 % 02/02/19 05:39 Baso % (Auto) 0.3 % 02/02/19 05:39 Absolute Neuts (auto) 13.2 10^3/ul (1.5-7.7) H 02/02/19 05:39 Absolute Lymphs (auto) 1.4 10^3/ul (1.0-4.8) 02/02/19 05:39 Absolute Monos (auto) 1.8 10^3/ul (0-0.8) H 02/02/19 05:39 Absolute Eos (auto) 0.1 10^3/ul (0-0.6) 02/02/19 05:39 Absolute Basos (auto) 0.1 10^3/ul (0-0.2) 02/02/19 05:39 Absolute Nucleated RBC 0.0 10^3/ul 02/02/19 05:39 Nucleated RBC % 0.1 02/02/19 05:39 INR (Anticoag Therapy) 1.09 (0.82-1.09) 01/29/19 06:02 APTT 31.1 seconds (26.0-38.0) 01/29/19 12:26 ABG pH 7.49 (7.35-7.45) H 01/31/19 10:15 ABG pCO2 26 mmHg (35-45) L 01/31/19 10:15 ABG pO2 72 mmHg (80-100) L 01/31/19 10:15 ABG HCO3 23.2 mmol/L (19-31) 01/31/19 10:15 ABG O2 Saturation 97.6 % (94.0-98.0) 01/31/19 10:15 ABG Base Excess -2.1 mmol/L (-2.0-2.0) L 01/31/19 10:15 Sodium 143 mmol/L (135-145) 02/03/19 04:13 Potassium 3.6 mmol/L (3.5-5.0) 02/03/19 05:05 Chloride 113 mmol/L (101-111) H 02/03/19 04:13 Carbon Dioxide 23 mmol/L (22-32) 02/03/19 04:13 Anion Gap 7 mmol/L (2-11) 02/03/19 04:13 BUN 28 mg/dL (6-24) H 02/03/19 04:13 Creatinine 0.90 mg/dL (0.67-1.17) 02/03/19 04:13 Est GFR ( Amer) 99.0 (>60) 02/03/19 04:13 Est GFR (Non-Af Amer) 81.8 (>60) 02/03/19 04:13 BUN/Creatinine Ratio 31.1 (8-20) H 02/03/19 04:13 Glucose 138 mg/dL (70-100) H 02/03/19 11:44 POC Glucose (mg/dL) 154 mg/dL (70-100) H 02/04/19 08:02 Hemoglobin A1c 9.4 % (4.0-5.6) H 01/29/19 06:02 Lactic Acid 1.6 mmol/L (0.5-2.0) 02/01/19 05:14 Calcium 7.8 mg/dL (8.6-10.3) L 02/03/19 04:13 Total Bilirubin 0.60 mg/dL (0.2-1.0) 01/28/19 07:35 AST 15 U/L (13-39) 01/28/19 07:35 ALT 21 U/L (7-52) 01/28/19 07:35 Alkaline Phosphatase 89 U/L (34-104) 01/28/19 07:35 Ammonia 62 mcmol/L (16-53) H 02/03/19 11:44 Troponin I 0.01 ng/mL (<0.03) 01/28/19 11:37 Total Protein 7.1 g/dL (6.4-8.9) 01/28/19 07:35 Albumin 4.1 g/dL (3.2-5.2) 01/28/19 07:35 Globulin 3.0 g/dL (2-4) 01/28/19 07:35 Albumin/Globulin Ratio 1.4 (1-3) 01/28/19 07:35 Urine Color Pam 01/31/19 13:40 Urine Appearance Clear 01/31/19 13:40 Urine pH 6.0 (5-9) 01/31/19 13:40 Ur Specific [place] 1.020 (1.010-1.030) 01/31/19 13:40 Urine Protein 1+(30 mg/dl) (Negative) A 01/31/19 13:40 Urine Ketones Negative (Negative) 01/31/19 13:40 Urine Blood 1+ (Negative) A 01/31/19 13:40 Urine Nitrate Negative (Negative) 01/31/19 13:40 Urine Bilirubin Negative (Negative) 01/31/19 13:40 Urine Urobilinogen Negative (Negative) 01/31/19 13:40 Ur Leukocyte Esterase Negative (Negative) 01/31/19 13:40 Urine WBC (Auto) Trace(0-5/hpf) (Absent) 01/31/19 13:40 Urine RBC (Auto) Trace(0-2/hpf) (Absent) 01/31/19 13:40 Urine Bacteria Absent (Absent) 01/31/19 13:40 Hyaline Casts Present (Absent) A 01/31/19 13:40 Urine Glucose 2+(150 mg/dl) (Negative) A 01/31/19 13:40 Levetiracetam 26.4 mcg/mL 02/02/19 10:53 Blood Type A Positive 02/02/19 13:35 Antibody Screen Negative 02/02/19 13:35 Crossmatch See Detail 02/02/19 13:35
[2019-02-04] MEDS: Atropine 1% (ORAL/SL)* 15 ML BTL SL PRN (17:32)
[2019-02-05] MEDS: levETIRAcetam 1000MG IVPREMIX* 1,000 MG/100 ML BAG IVPB SCH ×3 (01:48→17:21)
[2019-02-05] MEDS: Levothyroxine INJ* 100 MCG/5 ML VIAL IV SCH (07:25)
[2019-02-05] MEDS: ZOSYN 3.375 GM Q8H per EXTENDED INFUSION IVPB SCH ×6 (07:25→21:32)
--- NOTE | 2019-02-05 07:49 | PN ---
Subjective Date of Service: 02/05/19 Interval History: HOSPITALIST PROGRESS NOTE Patient seen and examined at bedside. Care reviewed and d/w Brenda Dunbar RN. He is unresponsive. Last night events noted. Family History: Unchanged from Admission Social History: Unchanged from Admission Past Medical History: Unchanged from Admission Objective Active Medications: Acetaminophen (Tylenol Supp*) 650 mg [place] Q4H PRN PRN Reason: TEMPERATURE > 100.4 Atropine Sulfate (Atropine 1% (Oral/Sl)*) 2 drop SL Q2H PRN PRN Reason: Terminal secretions Last Admin: 02/04/19 17:32 Dose: 2 drop Piperacillin Sod/Tazobactam (Sod 3.375 gm/ Sodium Chloride) 100 mls @ 25 mls/ hr IVPB Q8HR [facility] Last Admin: 02/05/19 07:25 Dose: 25 mls/hr Levetiracetam (Keppra Iv Premix*) 1,000 mg in 100 mls @ 200 mls/hr IVPB Q8H [facility] Last Admin: 02/05/19 01:48 Dose: 200 mls/hr Levothyroxine Sodium (Synthroid Inj*) 25 mcg IV 0600 [facility] Last Admin: 02/05/19 07:25 Dose: 25 mcg Lorazepam (Ativan Tab(*)) 1 mg SL Q4H PRN PRN Reason: Anxiety/Agitation Morphine Sulfate (Morphine Inj (Syringe)*) 1 mg IV Q2H PRN PRN Reason: PAIN - SEVERE Last Admin: 02/03/19 13:59 Dose: 1 mg Morphine Sulfate (Morphine Oral Concentrate*) 5 mg SL Q1H PRN PRN Reason: Pain/ Tachypnea RR>24 Last Admin: 02/04/19 16:12 Dose: 5 mg Ondansetron HCl (Zofran Inj*) 4 mg IV Q4H PRN PRN Reason: NAUSEA/VOMITING Pharmacy Consult (Zosyn Per Pharmacy*) 1 note FOLLOW UP .ZOSYN PER PHARMACY [facility] Oxygen Devices in Use Now: Simple Face Mask Appearance: Elderly obese gentleman lying in bed in NAD, no accessory muscle use Eyes: No Scleral Icterus Ears/Nose/Mouth/Throat: Mucous Membranes Moist Neck: Trachea Midline Respiratory: Symmetrical Chest Expansion and Respiratory Effort, Clear to Auscultation Cardiovascular: RRR - Normal S1 and S2 Abdominal: NL Sounds; No Tenderness; No Distention Neurological: - - Unresponsive Result Diagrams: 02/03/19 04:13 02/03/19 05:05 Additional Lab and Data: Lab Results 01/28/19 01/28/19 Range/Units 07:35 07:35 WBC 8.3 (3.5-10.8) 10^3/uL RBC 4.22 (4.18-5.48) 10^6 /uL Hgb 12.7 L (14.0-18.0) g/dL Hct 37 L (42-52) % MCV 88 (80-94) fL MCH 30 (27-31) pg MCHC 35 (31-36) g/dL RDW 14 (10-15) % Plt Count 207 (150-450) 10^3/uL MPV 10.1 (7.4-10.4) fL Neut % (Auto) 68.7 % Lymph % (Auto) 19.1 % [place] % (Auto) 7.6 % Eos % (Auto) 3.5 % Baso % (Auto) 1.1 % Absolute Neuts (auto) 5.7 (1.5-7.7) 10^3/ul Absolute Lymphs (auto) 1.6 (1.0-4.8) 10^3/ul Absolute Monos (auto) 0.6 (0-0.8) 10^3/ul Absolute Eos (auto) 0.3 (0-0.6) 10^3/ul Absolute Basos (auto) 0.1 (0-0.2) 10^3/ul Absolute Nucleated RBC 0.0 10^3/ul Nucleated RBC % 0.0 INR (Anticoag Therapy) 1.00 (0.82-1.09) Microbiology and Other Data: Microbiology 01/31/19 13:40 Urine Culture - Final Urine Enterobacter Cloacae 02/01/19 06:20 Aerobic Blood Culture - Preliminary Blood Venous No Growth Day 1 Anaerobic Blood Culture - Preliminary No Growth Day 1 02/01/19 05:14 Aerobic Blood Culture - Preliminary Blood Venous No Growth Day 1 Anaerobic Blood Culture - Preliminary No Growth Day 1 Assess/Plan/Problems-Billing Assessment: Mr Lechuga is a 78 yo M who has a h/o dementia, afib, CAD, frequent falls, HTN , Type II DM and hypothyroidism who presented to the ER from [facility] with c/o L hip pain after a fall and was found to have a L hip fracture. Hospital stay complicated with CVA, seizures, respiratory failure. - Patient Problems (1) Acute left INFORMATICA stroke Comment: - Post op course complicated by acute/subacute INFORMATICA infarct and seizures - Prognosis is poor given comorbid conditions. D/w daughter at bedside 02/04/19 and family is interested in Hospice. (2) Diabetes Comment: - No PO intake - as goal now is for comfort, will d/c FS and insulin. His glucose has been below 200. (3) Atrial fibrillation Comment: - Patient has h/o Afib and required IV Cardizem while in ICU. - Sounds regular today with HR in the 90s. (4) Closed left hip fracture Comment: - Secondary to mechanical fall, s/p L hip pinning 01/30. (5) DNR (do not resuscitate) (6) Comfort measures only status Comment: - D/w daughter at bedside 02/04/19 - patient did not want any aggressive measures. He would not like feeding tubes, artificial nutrition. February 06 is the anniversary of his passing and family thinks he'll pass then. - Continue Morphine, Lorazepam, and Atropine for comfort. Status and Disposition: Inpatient. Plan to d/c to Hospice residence vs SNF with Hospice (family does not want him to return to [facility]).
[2019-02-05] MEDS: Morphine ORAL CONCENTRATE* 5 MG/0.25 ML ORAL.SYRIN SL PRN ×3 (13:50→21:31)
[2019-02-05] MEDS: Atropine 1% (ORAL/SL)* 15 ML BTL SL PRN (13:52)
--- NOTE | 2019-02-05 14:37 | PN ---
Progress Note - Progress Note Date of Service: 02/05/19 SOAP: Subjective: []Pt seen and examined at bedside, he remains unresponsive. His daughter is at the bedside. Objective: []Gen: Laying in bed moderate respiratory distress, oxymask O2 LLE: Dressing changed, incisions CDI without discharge and without surrounding erythema, extremity is warm, thigh is soft, 2+ DP pulse. Calves supple without erythema or palpable cords. BL LE edematous Assessment: [] POD 7 sp ORIF L hip and femur fractures Acute left BREAD [place]OC[employer]-MCA vascular territory watershed infarction Plan: [] - TTWB LLE - Management of CVA, Hb/Hct, atrial fibrillation per Neuro & Hospitalist - Palliative Care - Dressing change once every other day last changed 02/05 Vital Signs Temp 97.7 F 02/04/19 08:15 Pulse 93 02/04/19 08:15 Resp 26 02/05/19 13:50 BP 150/61 02/04/19 08:15 Pulse Ox 99 02/04/19 08:15 Intake & Output 02/04/19 02/05/19 02/05/19 18:59 06:59 18:59 Intake Total 0 0 Output Total 1020 1050 Balance -1020 -1050 Intake: Oral 0 0 Output: Urine 450 Calero 1020 600 Laboratory Last Values WBC 12.9 10^3/uL (3.5-10.8) H 02/03/19 04:13 RBC 2.20 10^6 /uL (4.18-5.48) L 02/03/19 04:13 Hgb 6.5 g/dL (14.0-18.0) L 02/03/19 04:13 Hct 20 % (42-52) L 02/03/19 04:13 MCV 89 fL (80-94) 02/03/19 04:13 MCH 29 pg (27-31) 02/03/19 04:13 MCHC 33 g/dL (31-36) 02/03/19 04:13 RDW 15 % (10-15) 02/03/19 04:13 Plt Count 227 10^3/uL (150-450) 02/03/19 04:13 MPV 9.7 fL (7.4-10.4) 02/03/19 04:13 Neut % (Auto) 79.3 % 02/02/19 05:39 Lymph % (Auto) 8.7 % 02/02/19 05:39 [place] % (Auto) 10.9 % 02/02/19 05:39 Eos % (Auto) 0.8 % 02/02/19 05:39 Baso % (Auto) 0.3 % 02/02/19 05:39 Absolute Neuts (auto) 13.2 10^3/ul (1.5-7.7) H 02/02/19 05:39 Absolute Lymphs (auto) 1.4 10^3/ul (1.0-4.8) 02/02/19 05:39 Absolute Monos (auto) 1.8 10^3/ul (0-0.8) H 02/02/19 05:39 Absolute Eos (auto) 0.1 10^3/ul (0-0.6) 02/02/19 05:39 Absolute Basos (auto) 0.1 10^3/ul (0-0.2) 02/02/19 05:39 Absolute Nucleated RBC 0.0 10^3/ul 02/02/19 05:39 Nucleated RBC % 0.1 02/02/19 05:39 INR (Anticoag Therapy) 1.09 (0.82-1.09) 01/29/19 06:02 APTT 31.1 seconds (26.0-38.0) 01/29/19 12:26 ABG pH 7.49 (7.35-7.45) H 01/31/19 10:15 ABG pCO2 26 mmHg (35-45) L 01/31/19 10:15 ABG pO2 72 mmHg (80-100) L 01/31/19 10:15 ABG HCO3 23.2 mmol/L (19-31) 01/31/19 10:15 ABG O2 Saturation 97.6 % (94.0-98.0) 01/31/19 10:15 ABG Base Excess -2.1 mmol/L (-2.0-2.0) L 01/31/19 10:15 Sodium 143 mmol/L (135-145) 02/03/19 04:13 Potassium 3.6 mmol/L (3.5-5.0) 02/03/19 05:05 Chloride 113 mmol/L (101-111) H 02/03/19 04:13 Carbon Dioxide 23 mmol/L (22-32) 02/03/19 04:13 Anion Gap 7 mmol/L (2-11) 02/03/19 04:13 BUN 28 mg/dL (6-24) H 02/03/19 04:13 Creatinine 0.90 mg/dL (0.67-1.17) 02/03/19 04:13 Est GFR ( Amer) 99.0 (>60) 02/03/19 04:13 Est GFR (Non-Af Amer) 81.8 (>60) 02/03/19 04:13 BUN/Creatinine Ratio 31.1 (8-20) H 02/03/19 04:13 Glucose 138 mg/dL (70-100) H 02/03/19 11:44 POC Glucose (mg/dL) 154 mg/dL (70-100) H 02/04/19 08:02 Hemoglobin A1c 9.4 % (4.0-5.6) H 01/29/19 06:02 Lactic Acid 1.6 mmol/L (0.5-2.0) 02/01/19 05:14 Calcium 7.8 mg/dL (8.6-10.3) L 02/03/19 04:13 Total Bilirubin 0.60 mg/dL (0.2-1.0) 01/28/19 07:35 AST 15 U/L (13-39) 01/28/19 07:35 ALT 21 U/L (7-52) 01/28/19 07:35 Alkaline Phosphatase 89 U/L (34-104) 01/28/19 07:35 Ammonia 62 mcmol/L (16-53) H 02/03/19 11:44 Troponin I 0.01 ng/mL (<0.03) 01/28/19 11:37 Total Protein 7.1 g/dL (6.4-8.9) 01/28/19 07:35 Albumin 4.1 g/dL (3.2-5.2) 01/28/19 07:35 Globulin 3.0 g/dL (2-4) 01/28/19 07:35 Albumin/Globulin Ratio 1.4 (1-3) 01/28/19 07:35 Urine Color Pam 01/31/19 13:40 Urine Appearance Clear 01/31/19 13:40 Urine pH 6.0 (5-9) 01/31/19 13:40 Ur Specific [place] 1.020 (1.010-1.030) 01/31/19 13:40 Urine Protein 1+(30 mg/dl) (Negative) A 01/31/19 13:40 Urine Ketones Negative (Negative) 01/31/19 13:40 Urine Blood 1+ (Negative) A 01/31/19 13:40 Urine Nitrate Negative (Negative) 01/31/19 13:40 Urine Bilirubin Negative (Negative) 01/31/19 13:40 Urine Urobilinogen Negative (Negative) 01/31/19 13:40 Ur Leukocyte Esterase Negative (Negative) 01/31/19 13:40 Urine WBC (Auto) Trace(0-5/hpf) (Absent) 01/31/19 13:40 Urine RBC (Auto) Trace(0-2/hpf) (Absent) 01/31/19 13:40 Urine Bacteria Absent (Absent) 01/31/19 13:40 Hyaline Casts Present (Absent) A 01/31/19 13:40 Urine Glucose 2+(150 mg/dl) (Negative) A 01/31/19 13:40 Levetiracetam 26.4 mcg/mL 02/02/19 10:53 Blood Type A Positive 02/02/19 13:35 Antibody Screen Negative 02/02/19 13:35 Crossmatch See Detail 02/02/19 13:35
[2019-02-06] MEDS: levETIRAcetam 1000MG IVPREMIX* 1,000 MG/100 ML BAG IVPB SCH ×3 (01:40→18:22)
[2019-02-06] MEDS: Levothyroxine INJ* 100 MCG/5 ML VIAL IV SCH (06:02)
[2019-02-06] MEDS: ZOSYN 3.375 GM Q8H per EXTENDED INFUSION IVPB SCH ×2 (06:02)
[2019-02-06] MEDS: Morphine ORAL CONCENTRATE* 5 MG/0.25 ML ORAL.SYRIN SL PRN (08:00)
--- NOTE | 2019-02-06 14:33 | PN ---
Subjective Date of Service: 02/06/19 Interval History: HOSPITALIST PROGRESS NOTE Patient seen and examined at bedside. Care reviewed and d/w Ariana Chun RN. He remains unresponsive. Family History: Unchanged from Admission Social History: Unchanged from Admission Past Medical History: Unchanged from Admission Objective Active Medications: Acetaminophen (Tylenol Supp*) 650 mg [place] Q4H PRN PRN Reason: TEMPERATURE > 100.4 Atropine Sulfate (Atropine 1% (Oral/Sl)*) 2 drop SL Q2H PRN PRN Reason: Terminal secretions Last Admin: 02/05/19 13:52 Dose: 2 drop Levetiracetam (Keppra Iv Premix*) 1,000 mg in 100 mls @ 200 mls/hr IVPB Q8H [facility] Last Admin: 02/06/19 11:29 Dose: 200 mls/hr Levothyroxine Sodium (Synthroid Inj*) 25 mcg IV 0600 [facility] Last Admin: 02/06/19 06:02 Dose: 25 mcg Lorazepam (Ativan Tab(*)) 1 mg SL Q4H PRN PRN Reason: Anxiety/Agitation Last Admin: 02/05/19 15:34 Dose: 1 mg Morphine Sulfate (Morphine Inj (Syringe)*) 1 mg IV Q2H PRN PRN Reason: PAIN - SEVERE Last Admin: 02/03/19 13:59 Dose: 1 mg Morphine Sulfate (Morphine Oral Concentrate*) 5 mg SL Q1H PRN PRN Reason: Pain/ Tachypnea RR>24 Last Admin: 02/06/19 08:00 Dose: 5 mg Ondansetron HCl (Zofran Inj*) 4 mg IV Q4H PRN PRN Reason: NAUSEA/VOMITING Vital Signs - 8 hr 02/06/19 02/06/19 08:00 11:35 Respiratory 18 16 Rate Oxygen Devices in Use Now: OxyMask Appearance: Elderly gentleman lying in bed in NAD Eyes: No Scleral Icterus Ears/Nose/Mouth/Throat: Mucous Membranes Moist Neck: Trachea Midline Respiratory: Symmetrical Chest Expansion and Respiratory Effort, Clear to Auscultation Cardiovascular: RRR - Normal S1 and S2 Neurological: - - Unresponsive Result Diagrams: 02/03/19 04:13 02/03/19 05:05 Assess/Plan/Problems-Billing Assessment: Mr Lechuga is a 78 yo M who has a h/o dementia, afib, CAD, frequent falls, HTN , Type II DM and hypothyroidism who presented to the ER from [facility] with c/o L hip pain after a fall and was found to have a L hip fracture. Hospital stay complicated with CVA, seizures, respiratory failure. - Patient Problems (1) Comfort measures only status Comment: - D/w daughter at bedside 02/04/19 - patient did not want any aggressive measures. He would not like feeding tubes, artificial nutrition. February 06 is the anniversary of his passing and family thinks he'll pass today. - Continue Morphine, Lorazepam, and Atropine for comfort. - His breathing is much easier and he's not using accessory muscles. - He's on Keppra IV for seizures - d/w Neurology - recommended Keppra suppositories 1000mg TID or 1500mg BID. (2) DNR (do not resuscitate) Status and Disposition: Inpatient. Family interested in [facility] with Hospice.
--- NOTE | 2019-02-06 23:43 | PN ---
Progress Note - Progress Note Date of Service: 02/06/19 SOAP: Subjective: Pt seen and examined at bedside. Pt sleeping and unresponsive. Patient's daughter is at bedside. Vital Signs: Temp Pulse Resp BP Pulse Ox 97.7 F 93 16 150/61 98 02/04/19 08:15 02/04/19 08:15 02/06/19 11:35 02/04/19 08:15 02/06/19 16:00 Laboratory Last Values WBC 12.9 10^3/uL (3.5-10.8) H 02/03/19 04:13 RBC 2.20 10^6 /uL (4.18-5.48) L 02/03/19 04:13 Hgb 6.5 g/dL (14.0-18.0) L 02/03/19 04:13 Hct 20 % (42-52) L 02/03/19 04:13 MCV 89 fL (80-94) 02/03/19 04:13 MCH 29 pg (27-31) 02/03/19 04:13 MCHC 33 g/dL (31-36) 02/03/19 04:13 RDW 15 % (10-15) 02/03/19 04:13 Plt Count 227 10^3/uL (150-450) 02/03/19 04:13 MPV 9.7 fL (7.4-10.4) 02/03/19 04:13 Neut % (Auto) 79.3 % 02/02/19 05:39 Lymph % (Auto) 8.7 % 02/02/19 05:39 [place] % (Auto) 10.9 % 02/02/19 05:39 Eos % (Auto) 0.8 % 02/02/19 05:39 Baso % (Auto) 0.3 % 02/02/19 05:39 Absolute Neuts (auto) 13.2 10^3/ul (1.5-7.7) H 02/02/19 05:39 Absolute Lymphs (auto) 1.4 10^3/ul (1.0-4.8) 02/02/19 05:39 Absolute Monos (auto) 1.8 10^3/ul (0-0.8) H 02/02/19 05:39 Absolute Eos (auto) 0.1 10^3/ul (0-0.6) 02/02/19 05:39 Absolute Basos (auto) 0.1 10^3/ul (0-0.2) 02/02/19 05:39 Absolute Nucleated RBC 0.0 10^3/ul 02/02/19 05:39 Nucleated RBC % 0.1 02/02/19 05:39 INR (Anticoag Therapy) 1.09 (0.82-1.09) 01/29/19 06:02 APTT 31.1 seconds (26.0-38.0) 01/29/19 12:26 ABG pH 7.49 (7.35-7.45) H 01/31/19 10:15 ABG pCO2 26 mmHg (35-45) L 01/31/19 10:15 ABG pO2 72 mmHg (80-100) L 01/31/19 10:15 ABG HCO3 23.2 mmol/L (19-31) 01/31/19 10:15 ABG O2 Saturation 97.6 % (94.0-98.0) 01/31/19 10:15 ABG Base Excess -2.1 mmol/L (-2.0-2.0) L 01/31/19 10:15 Sodium 143 mmol/L (135-145) 02/03/19 04:13 Potassium 3.6 mmol/L (3.5-5.0) 02/03/19 05:05 Chloride 113 mmol/L (101-111) H 02/03/19 04:13 Carbon Dioxide 23 mmol/L (22-32) 02/03/19 04:13 Anion Gap 7 mmol/L (2-11) 02/03/19 04:13 BUN 28 mg/dL (6-24) H 02/03/19 04:13 Creatinine 0.90 mg/dL (0.67-1.17) 02/03/19 04:13 Est GFR ( Amer) 99.0 (>60) 02/03/19 04:13 Est GFR (Non-Af Amer) 81.8 (>60) 02/03/19 04:13 BUN/Creatinine Ratio 31.1 (8-20) H 02/03/19 04:13 Glucose 138 mg/dL (70-100) H 02/03/19 11:44 POC Glucose (mg/dL) 154 mg/dL (70-100) H 02/04/19 08:02 Hemoglobin A1c 9.4 % (4.0-5.6) H 01/29/19 06:02 Lactic Acid 1.6 mmol/L (0.5-2.0) 02/01/19 05:14 Calcium 7.8 mg/dL (8.6-10.3) L 02/03/19 04:13 Total Bilirubin 0.60 mg/dL (0.2-1.0) 01/28/19 07:35 AST 15 U/L (13-39) 01/28/19 07:35 ALT 21 U/L (7-52) 01/28/19 07:35 Alkaline Phosphatase 89 U/L (34-104) 01/28/19 07:35 Ammonia 62 mcmol/L (16-53) H 02/03/19 11:44 Troponin I 0.01 ng/mL (<0.03) 01/28/19 11:37 Total Protein 7.1 g/dL (6.4-8.9) 01/28/19 07:35 Albumin 4.1 g/dL (3.2-5.2) 01/28/19 07:35 Globulin 3.0 g/dL (2-4) 01/28/19 07:35 Albumin/Globulin Ratio 1.4 (1-3) 01/28/19 07:35 Urine Color Pam 01/31/19 13:40 Urine Appearance Clear 01/31/19 13:40 Urine pH 6.0 (5-9) 01/31/19 13:40 Ur Specific [place] 1.020 (1.010-1.030) 01/31/19 13:40 Urine Protein 1+(30 mg/dl) (Negative) A 01/31/19 13:40 Urine Ketones Negative (Negative) 01/31/19 13:40 Urine Blood 1+ (Negative) A 01/31/19 13:40 Urine Nitrate Negative (Negative) 01/31/19 13:40 Urine Bilirubin Negative (Negative) 01/31/19 13:40 Urine Urobilinogen Negative (Negative) 01/31/19 13:40 Ur Leukocyte Esterase Negative (Negative) 01/31/19 13:40 Urine WBC (Auto) Trace(0-5/hpf) (Absent) 01/31/19 13:40 Urine RBC (Auto) Trace(0-2/hpf) (Absent) 01/31/19 13:40 Urine Bacteria Absent (Absent) 01/31/19 13:40 Hyaline Casts Present (Absent) A 01/31/19 13:40 Urine Glucose 2+(150 mg/dl) (Negative) A 01/31/19 13:40 Levetiracetam 26.4 mcg/mL 02/02/19 10:53 Blood Type A Positive 02/02/19 13:35 Antibody Screen Negative 02/02/19 13:35 Crossmatch See Detail 02/02/19 13:35 Objective: Pt lying in bed snoring with oxygen mask on Dressing C/D/I, Calves warm and supple, +edema Assessment: 78 yo male s/p ORIF left hip and femur fractures POD #8 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
[2019-02-07] MEDS: Morphine INJ* 4 MG/ML 1 ML SYRINGE (NEW SYRINGE VERSION) IV PRN ×2 (01:01→06:27)
[2019-02-07] MEDS: levETIRAcetam 1000MG IVPREMIX* 1,000 MG/100 ML BAG IVPB SCH ×3 (01:04→16:21)
[2019-02-07] MEDS: Levothyroxine INJ* 100 MCG/5 ML VIAL IV SCH (06:27)
[2019-02-07] MEDS: Atropine 1% (ORAL/SL)* 15 ML BTL SL PRN ×3 (08:45→23:26)
--- NOTE | 2019-02-07 08:51 | PN ---
Progress Note - Progress Note Date of Service: 02/07/19 Note: sleeping in bed s/p ORIF left hip dressing changed, incision c/d continue palliative care
--- NOTE | 2019-02-07 14:10 | PN ---
Subjective Date of Service: 02/07/19 Interval History: HOSPITALIST PROGRESS NOTE Patient seen and examined at bedside. Care reviewed and d/w Di Soto RN. Remains unresponsive. Family History: Unchanged from Admission Social History: Unchanged from Admission Past Medical History: Unchanged from Admission Objective Active Medications: Acetaminophen (Tylenol Supp*) 650 mg [place] Q4H PRN PRN Reason: TEMPERATURE > 100.4 Atropine Sulfate (Atropine 1% (Oral/Sl)*) 2 drop SL Q2H PRN PRN Reason: Terminal secretions Last Admin: 02/07/19 08:45 Dose: 2 drop Levetiracetam (Keppra Iv Premix*) 1,000 mg in 100 mls @ 200 mls/hr IVPB Q8H SUSANNA Last Admin: 02/07/19 07:54 Dose: 200 mls/hr Levothyroxine Sodium (Synthroid Inj*) 25 mcg IV 0600 SUSANNA Last Admin: 02/07/19 06:27 Dose: 25 mcg Lorazepam (Ativan Tab(*)) 1 mg SL Q4H PRN PRN Reason: Anxiety/Agitation Last Admin: 02/05/19 15:34 Dose: 1 mg Morphine Sulfate (Morphine Inj (Syringe)*) 1 mg IV Q2H PRN PRN Reason: PAIN - SEVERE Last Admin: 02/07/19 06:27 Dose: 1 mg Morphine Sulfate (Morphine Oral Concentrate*) 5 mg SL Q1H PRN PRN Reason: Pain/ Tachypnea RR>24 Last Admin: 02/06/19 08:00 Dose: 5 mg Ondansetron HCl (Zofran Inj*) 4 mg IV Q4H PRN PRN Reason: NAUSEA/VOMITING Vital Signs - 8 hr 02/07/19 02/07/19 06:27 07:16 Respiratory 16 16 Rate Oxygen Devices in Use Now: Simple Face Mask Appearance: Elderly gentleman lying in bed in NAD Eyes: No Scleral Icterus Ears/Nose/Mouth/Throat: Mucous Membranes Moist Neck: Trachea Midline Respiratory: Symmetrical Chest Expansion and Respiratory Effort, - - BS+ bilaterally coarse diminished in bases Cardiovascular: RRR - Normal S1 and S2, tachy Neurological: - - Unresponsive Result Diagrams: 02/03/19 04:13 02/03/19 05:05 Assess/Plan/Problems-Billing Assessment: Mr Lechuga is a 78 yo M who has a h/o dementia, afib, CAD, frequent falls, HTN , Type II DM and hypothyroidism who presented to the ER from [facility] with c/o L hip pain after a fall and was found to have a L hip fracture. Hospital stay complicated with CVA, seizures, respiratory failure. - Patient Problems (1) Comfort measures only status Comment: - D/w daughter at bedside 02/04/19 - patient did not want any aggressive measures. He would not like feeding tubes, artificial nutrition. - Continue Morphine, Lorazepam, and Atropine for comfort. - His breathing is much easier and he's not using accessory muscles. - He's on Keppra IV for seizures - d/w Neurology - recommended Keppra suppositories 1000mg TID or 1500mg BID. (2) DNR (do not resuscitate) Status and Disposition: Inpatient. Family interested in [facility] with Hospice.
[2019-02-08] MEDS: levETIRAcetam 1000MG IVPREMIX* 1,000 MG/100 ML BAG IVPB SCH ×2 (00:41→08:05)
[2019-02-08] MEDS: Morphine INJ* 4 MG/ML 1 ML SYRINGE (NEW SYRINGE VERSION) IV PRN ×3 (00:43→06:32)
[2019-02-08] MEDS: Atropine 1% (ORAL/SL)* 15 ML BTL SL PRN ×3 (03:54→08:50)
[2019-02-08] MEDS: Levothyroxine INJ* 100 MCG/5 ML VIAL IV SCH (06:22)
--- NOTE | 2019-02-08 23:35 | DS ---
CC: Dr. Merrill Adams * DISCHARGE SUMMARY/ SUMMARY: DATE OF ADMISSION: 01/28/19 DATE OF : 02/08/19 HISTORY OF PRESENT ILLNESS: Mr. Cosme was a 78-year-old male with a past medical history of CAD, status post CABG, atrial fibrillation on Eliquis, history of frequent falls, type 2 diabetes, dementia, who was transferred from [facility] to our emergency room after sustaining a fall and complaining of left hip pain. For more details about his presentation, I refer you to his history and physical. The patient's workup included a hip and pelvic x-ray that showed multiple comminuted fracture of the proximal left femur. The patient was admitted for further workup and surgical repair. He was seen in consultation by Cardiology (Dr. Nance) for preoperative risk stratification and seen in consultation by Dr. Guillen and a plan was for surgical repair. The patient went to the OR on January 30 and underwent left hip open reduction internal fixation with intramedullary nail and an open reduction and internal fixation of the left femoral shaft fracture with intramedullary nail and cerclage cables. The patient had worsening of his mental status that initially was thought to be secondary to oxycodone, but as his obtundation persisted, the patient had a CT of the brain without contrast that showed no acute intracranial abnormality, only a old left ADJUSTMENT SUPERVISOR territory infarct, moderate cerebral volume loss, and moderate chronic small vessel ischemic disease. A repeat CT brain 24 hours showed in the left posterior external watershed territory along the margin of the old left ADJUSTMENT SUPERVISOR territory infarct, there is a small subacute infarct with no mass effect or hemorrhage. The patient was seen in consultation by Neurology ( Dr. Armando) and his recommendation was for an MRI. At that point, the patient had been transferred to the intensive care unit for closer monitoring. MRI of the brain without contrast showed a recent/subacute infarct more superiorly on the left occipital lobe in the left parietal occipital junction. An EEG was performed and it was an abnormal EEG due to the presence of nonconvulsive status epilepticus pattern that resolved after levetiracetam therapy. At that point, the patient was seen in consultation by Palliative Care (Dr. Lee) and after discussing goals of care with the patient's daughter, she provided information about consult care in hospice. At that point, it was thought that the patient could receive hospice at his longterm facility or at hospicare residence. Unfortunately, the patient's condition continued to decline. He was continued on Keppra and although the EEG did not show any further seizures, his mental status did not improve. Family was very clear that the patient would not want any aggressive measures. The patient's had passed 10 months prior to his admission and the impression was that he would pass soon too "to be with her." The patient was transitioned to comfort care only and while arrangements were being made for the patient to be transferred to [facility], his condition continued to decline and he on February 08 at 9:26 a.m. I contacted the Town Administrator (Nidhi Neal); the case was released and certificate filled up. DISCHARGE DIAGNOSES: 1. Left hip fracture, status post surgical repair. 2. Cerebrovascular accident. 3. Status epilepticus. SECONDARY DIAGNOSES: 1. Atrial fibrillation, on anticoagulation. 2. Coronary artery disease, status post coronary artery bypass graft. 3. Hypertension. 4. Type 2 diabetes. 5. Prior history of cerebrovascular disease. 6. Hypothyroidism. 7. Dementia with behavioral disturbance. 8. Gastroesophageal reflux disease. 9. Right bundle-branch block. 10. Status post atrial septal defect closure. 11. Status post implanted loop recorder. STATUS WHILE IN THE HOSPITAL: Inpatient. CONDITION AT THE TIME OF DISCHARGE: . Please keep in mind this is a summarized version of this patient's prolonged and complex hospital stay. If you need more information, please do not hesitate to call me at [phone] or please obtain the full medical records. TIME SPENT: Approximately 40 minutes were spent to complete this discharge. [id number]/[facility] #: [id number] CHRISSY
== END 2019-02-08 09:26 | disposition expired | DRG 480 ==
LOC: ED 07:09 → SSU 10:34 → MEDTELE 02-01 04:18 → ICU 02-01 16:49 → MEDTELE 02-03 08:09
PROVIDERS: ADMIT Internal Medicine; ATTEND Internal Medicine
PROC: 0QS706Z Reposition Left Upper Femur with Intramedullary Internal Fixation Device, Open Approach (ICD-10-PCS; 2019-01-30)
PROC: 0QS906Z Reposition Left Femoral Shaft with Intramedullary Internal Fixation Device, Open Approach (ICD-10-PCS; principal; 2019-01-30 15:30)
PROC: 4A00X4Z Measurement of Central Nervous Electrical Activity, External Approach (ICD-10-PCS; 2019-02-03)
DX: S72.142A Displaced intertrochanteric fracture of left femur, initial encounter for closed fracture (principal); I63.20 Cerebral infarction due to unspecified occlusion or stenosis of unspecified precerebral arteries; J96.90 Respiratory failure, unspecified, unspecified whether with hypoxia or hypercapnia; F03.91 Unspecified dementia, unspecified severity, with behavioral disturbance; E72.20 Disorder of urea cycle metabolism, unspecified; S72.22XA Displaced subtrochanteric fracture of left femur, initial encounter for closed fracture; I25.10 Atherosclerotic heart disease of native coronary artery without angina pectoris; I48.91 Unspecified atrial fibrillation; R29.6 Repeated falls; W18.39XA Other fall on same level, initial encounter; I10 Essential (primary) hypertension; E03.9 Hypothyroidism, unspecified; K21.9 Gastro-esophageal reflux disease without esophagitis; I45.10 Unspecified right bundle-branch block; Z66 Do not resuscitate; E78.00 Pure hypercholesterolemia, unspecified; S72.362A Displaced segmental fracture of shaft of left femur, initial encounter for closed fracture; S72.352A Displaced comminuted fracture of shaft of left femur, initial encounter for closed fracture; G40.901 Epilepsy, unspecified, not intractable, with status epilepticus; Z51.5 Encounter for palliative care; R40.1 Stupor; R29.735 NIHSS score 35; E11.65 Type 2 diabetes mellitus with hyperglycemia; I95.9 Hypotension, unspecified; Z95.1 Presence of aortocoronary bypass graft; Y92.129 Unspecified place in nursing home as the place of occurrence of the external cause; Z86.73 Personal history of transient ischemic attack (TIA), and cerebral infarction without residual deficits; Z88.8 Allergy status to other drugs, medicaments and biological substances; Z87.891 Personal history of nicotine dependence; Z91.018 Allergy to other foods; Z99.3 Dependence on wheelchair
CPT/HCPCS: 36415; 36600; 70450; 70496; 70498; 70551; 71045; 72192; 76000; 80048; 80053; 80177; 81003; 81015; 82140; 82803; 82947; 83036; 83605; 84484; 85014; 85018; 85025; 85027; 85610; 85730; 86850; 86900; 86901; 86922; 87040; 87077; 87086; 87186; 93005; 95813; 95822; 96374; 99284; A9270-GY; C1713; C1776; J0690; J1644; J1815; J1953; J2250; J2270; J2543; J2704; J3010; P9040; Q9967